=== PATIENT | male | born 1935 | race Caucasian/White ===

== ENCOUNTER 2019-02-09 18:53 | Inpatient (IN) | payer OTHER, MEDICARE ==
[2019-02-09] MEDS ORDERED: SODIUM CHLORIDE 0.9% 500 ML 500 ML IV STA (19:24)
[2019-02-09] MEDS ORDERED: SODIUM CHLORIDE 0.9% 1,000 ML IV STA (19:24)
[2019-02-09] MEDS ORDERED: PANTOPRAZOLE 40 MG/10 ML VIAL IVP STA (19:24)
[2019-02-09] MEDS ORDERED: ONDANSETRON 4 MG/2 ML VIAL IVP STA (19:24)
[2019-02-09 19:28] LABS: Glucose,Whole Blood 321 mg/dL (75-99)
--- NOTE | 2019-02-09 19:34 | ED ---
General Adult HPI - General Chief complaint: Abdominal Pain Stated complaint: Vomiting,Abd pain Time Seen by Provider: 02/09/19 19:04 Source: patient, family, RN notes reviewed Mode of arrival: ambulatory Limitations: physical limitation - History of Present Illness Initial comments: Chief complaint and history of present illness this is an 86-year-old male here with family. Patient states for the past 3 months she's had on-again off-again nausea vomiting and diarrhea. For the past 2 days not been able to eat or keep anything down. He had diarrhea just prior to coming emergency room. This was not necessarily precipitated by any particular illness started 3 months ago denies any antibiotics. Denies seeing any blood in the vomit or diarrhea. Patient is insulin-dependent diabetic he's not been taking his medications and has not been checking his sugars. He reportedly has lost weight. Is having abdominal cramping. - Related Data Home Medications Medication Instructions Recorded Confirmed Aspirin [[place] Aspirin EC] 81 mg PO DAILY 02/09/19 02/09/19 Cyanocobalamin (Vitamin B-12) 1,000 mcg PO DAILY 02/09/19 02/09/19 [Vitamin B-12] Finasteride [Proscar] 5 mg PO DAILY 02/09/19 02/09/19 Insulin Aspart [NovoLOG] 20 units SQ BID 02/09/19 02/09/19 Insulin Glargine [Lantus] 28 units SQ BID 02/09/19 02/09/19 Lisinopril [Prinivil] 5 mg PO DAILY 02/09/19 02/09/19 Omeprazole 20 mg PO DAILY 02/09/19 02/09/19 Saxagliptin HCl [Onglyza] 5 mg PO DAILY 02/09/19 02/09/19 Simvastatin [Zocor] 10 mg PO HS 02/09/19 02/09/19 traMADol HCL [Ultram] 100 mg PO BID 02/09/19 02/09/19 Allergies Allergy/AdvReac Type Severity Reaction Status Date / Time No Known Allergies Allergy Verified 02/09/19 19:33 Review of Systems ROS Statement: Those systems with pertinent positive or pertinent negative responses have been documented in the HPI. Review of systems. The patient reports that he is tired, hungry but vomits when he tries to eat. Complains of abdominal discomfort. Frequent vomiting and loose stool. Not taking his medications because of the problems he is having. No neuro deficits. All systems are reviewed. Denying chest pain or shortness of breath. Patient's past medical problems significant for insulin-dependent diabetes mellitus, hyperlipidemia, hypertension. Previous RI. Chronic back pain but does not take any medications. Family history sister stomach cancer. The patient denies any ALLERGIES he quit smoking 40 years ago denies alcohol use. ROS Other: All systems not noted in ROS Statement are negative. Past Medical History Past Medical History: Diabetes Mellitus, Hyperlipidemia, Hypertension, Myocardial Infarction ([place]) Additional Past Medical History / Comment(s): back pain History of Any Multi-Drug Resistant Organisms: None Reported Additional Past Surgical History / Comment(s): foot Past Psychological History: No Psychological Hx Reported Smoking Status: Former smoker Past Alcohol Use History: None Reported Past Drug Use History: None Reported General Exam - General Exam Comments Initial Comments: General: The patient is awake appears uncomfortable and fatigued. States she's had nausea vomiting and diarrhea for 2 straight days. Unable to take his medicatio ns has not been checking his blood sugar. Upper abdominal cramping. Vital signs shows temperature, pulse 92 respiratory rate 20 pulse ox 90% room air blood pressure 99/69.. Eye: Pupils are equal, round and reactive to light, extra-ocular movements are intact; there is normal conjunctiva bilaterally. No signs of icterus. Evidence of having had cataracts removed. Ears, nose, mouth and throat: Dry mucous membranes Neck: The neck is supple, there is no tenderness or JVD. Cardiovascular: There is a regular rate and rhythm. No murmur, rub or gallop is appreciated. Respiratory: Lungs are clear to auscultation, respirations are non-labored, breath sounds are equal. No wheezes, stridor, rales, or rhonchi. Gastrointestinal: Abdomen tender, hypoactive bowel sounds, guarding Back There is no tenderness to palpation in the midline. There is no obvious deformity. No rashes noted. Musculoskeletal: Normal ROM, no tenderness, There is no pedal edema. There is no calf tenderness or swelling. Neurological: Complains of feeling weak. But denies any focal or lateralizing deficits Skin: Skin is warm and dry and no rashes or lesions are noted. Psychiatric: Cooperative, Limitations: physical limitation Course Vital Signs 02/09/19 02/09/19 02/09/19 18:53 19:58 21:57 Temperature 98.2 F 98.6 F Pulse Rate 92 91 88 Respiratory 20 16 18 Rate Blood Pressure 99/69 147/85 129/96 O2 Sat by Pulse 98 98 95 Oximetry Medical Decision Making - Medical Decision Making Medical decision making; was an 83-year-old male to complaint of nausea vomiting diarrhea for the past several days. This been on again off again for 3 months. Patient is not able take his medications as complaining of abdominal pain. X-rays of the abdomen reviewed by radiologist and her impression is marked colonic dilatation greater than [address] this patient at risk for colonic rupture. Possibility of rectal bowel gas is concerning for distal obstruction and this could be further evaluated with CT. Case discussed with Dr. Hu hairspring fabrication supervisor for general surgery. History, labs and renal function tests all discussed. He wants a CAT scan of the abdomen and pelvis without contrast. Labs show white count of 20,000, BUN 15.7 hematocrit of 49. Leukos 399. Acetone negative. INR 1.0. Potassium 6.5. BUN 45 creatinine 3.18 with a GFR of only 17. Amylase lipase normal limits. The patient received IV hydration, the receive 8 units of insulin IV push to both bring down the glucose as well as potassium. The case discussed with on-call hospitalist Dr. Urrutia. CAT scan pending. CT the abdomen was done without IV or oral contrast due to the fact the patient has chronic renal failure. The radiologist's findings were reviewed. Specifically she reports a there is marked oh distention of the fluid-filled colon with an abrupt cutoff in the descending colon. There is no evidence of twisting of the bowel or mesentery to suggest volvulus and obstruction mass is highly suspected. There is collapse of the entirety of the more distal bowel including the distal descending colon, sigmoid colon and rectum. Additionally there are abnormal appearing adjacent lymph nodes on coronal imaging and descending colonic volvulus would be rare. The patient also describes chronic symptoms and therefore obstructing mass is more likely. There is marked dilatation of fluid-filled small bowel with high density in the cecum that could relate to ingested food products or subacute hemorrhage. Impression Impression; complete bowel obstruction with transition point at the mid descending colon. This is highly favored to represent obstructing colonic mass rather than volvulus for reasons described above. Additionally abnormal local lymph nodes surrounding the point of transition and solitary hepatic lesions suspicious for metastasis. Surgical consultation recommended. Findings were discussed with the ordering ER physician. Left basilar reticular nodular opacity. Aspiration pneumonia could be considered as there is a dilated fluid- filled esophageal , and narrowing of the gastroesophageal junction and may relate to stricture. A high density within the cecum could relate to ingested food products or subacute hemorrhagic product. Correlate with melena clin ically. As read by Dr. Abelardo Hu reviewed the CAT scan, wrote orders including antibiotics and he'll talk to the fuels engineer. I to will discuss this case with the fuels engineer. Patient be admitted to the ICU - Lab Data Result diagrams: 02/09/19 19:45 02/09/19 19:45 Lab Results 02/09/19 02/09/19 02/09/19 Range/Units 19:26 19:45 19:45 WBC 20.9 H (3.8-10.6) k/uL RBC 5.08 (4.30-5.90) m/uL Hgb 15.7 (13.0-17.5) gm/dL Hct 49.0 (39.0-53.0) % MCV 96.5 (80.0-100.0) fL MCH 30.9 (25.0-35.0) pg MCHC 32.0 (31.0-37.0) g/dL RDW 14.2 (11.5-15.5) % Plt Count 329 (150-450) k/uL Neutrophils % 87 % Lymphocytes % 8 % Monocytes % 3 % Eosinophils % 0 % Basophils % 1 % Neutrophils # 18.3 H (1.3-7.7) k/uL Lymphocytes # 1.6 (1.0-4.8) k/uL Monocytes # 0.7 (0-1.0) k/uL Eosinophils # 0.0 (0-0.7) k/uL Basophils # 0.1 (0-0.2) k/uL PT (9.0-12.0) sec INR (<1.2) Sodium 137 (137-145) mmol/L Potassium 6.5 H* (3.5-5.1) mmol/L Chloride 106 (98-107) mmol/L Carbon Dioxide 11 L (22-30) mmol/L Anion Gap 20 mmol/L BUN 45 H (9-20) mg/dL Creatinine 3.18 H (0.66-1.25) mg/dL Est GFR (CKD-EPI)AfAm 20 (>60 ml/min/1.73 sqM) Est GFR (CKD-EPI)NonAf 17 (>60 ml/min/1.73 sqM) Glucose 399 H (74-99) mg/dL POC Glucose (mg/dL) 321 H (75-99) mg/dL POC Glu Equipment Operator/Laborer/Supervisor ID Radha Davey Plasma Lactic Acid Ravi (0.7-2.0) mmol/L Calcium 11.2 H (8.4-10.2) mg/dL Total Bilirubin 0.8 (0.2-1.3) mg/dL AST 31 (17-59) U/L ALT 20 L (21-72) U/L Alkaline Phosphatase 95 (38-126) U/L Total Protein 9.0 H (6.3-8.2) g/dL Albumin 5.0 (3.5-5.0) g/dL Amylase 70 (30-110) U/L Lipase 142 (23-300) U/L Acetone, Qual Negative (Negative) 02/09/19 02/09/19 Range/Units 19:45 19:45 WBC (3.8-10.6) k/uL RBC (4.30-5.90) m/uL Hgb (13.0-17.5) gm/dL Hct (39.0-53.0) % MCV (80.0-100.0) fL MCH (25.0-35.0) pg MCHC (31.0-37.0) g/dL RDW (11.5-15.5) % Plt Count (150-450) k/uL Neutrophils % % Lymphocytes % % Monocytes % % Eosinophils % % Basophils % % Neutrophils # (1.3-7.7) k/uL Lymphocytes # (1.0-4.8) k/uL Monocytes # (0-1.0) k/uL Eosinophils # (0-0.7) k/uL Basophils # (0-0.2) k/uL PT 10.8 (9.0-12.0) sec INR 1.0 (<1.2) Sodium (137-145) mmol/L Potassium (3.5-5.1) mmol/L Chloride (98-107) mmol/L Carbon Dioxide (22-30) mmol/L Anion Gap mmol/L BUN (9-20) mg/dL Creatinine (0.66-1.25) mg/dL Est GFR (CKD-EPI)AfAm (>60 ml/min/1.73 sqM) Est GFR (CKD-EPI)NonAf (>60 ml/min/1.73 sqM) Glucose (74-99) mg/dL POC Glucose (mg/dL) (75-99) mg/dL POC Glu Equipment Operator/Laborer/Supervisor ID Plasma Lactic Acid Ravi 5.4 H* (0.7-2.0) mmol/L Calcium (8.4-10.2) mg/dL Total Bilirubin (0.2-1.3) mg/dL AST (17-59) U/L ALT (21-72) U/L Alkaline Phosphatase (38-126) U/L Total Protein (6.3-8.2) g/dL Albumin (3.5-5.0) g/dL Amylase (30-110) U/L Lipase (23-300) U/L Acetone, Qual (Negative) Critical Care Time Critical Care Time: Yes (Bedside longer than 30 minutes. Conversations with ICU doctor, surgeon, ra) Total Critical Care Time: 40 Disposition Clinical Impression: Bowel obstruction, Acute renal failure, Hyperkalemia Disposition: ADMITTED IP TO THIS HOSP Condition: Serious Referrals: [facility],Clinic [Primary Care Provider] - 1-2 days
[2019-02-09 19:59] LABS: Basophils # (A) 0.1 k/uL (0-0.2); Basophils % (A) 1 %; Eosinophils % (A) 0 %; HGB 15.7 gm/dL (13.0-17.5); Lymphocytes # (A) 1.6 k/uL (1.0-4.8); Lymphocytes % (A) 8 %; MCH 30.9 pg (25.0-35.0); MCV 96.5 fL (80.0-100.0); Mean Platelet Volume 8.7; Monocytes # (A) 0.7 k/uL (0-1.0); Monocytes % (A) 3 %; Neutrophils # (A) 18.3 k/uL (1.3-7.7); Neutrophils % (A) 87 %; Platelet Count 329 k/uL (150-450); RBC 5.08 m/uL (4.30-5.90); RDW 14.2 % (11.5-15.5); WBC 20.9 k/uL (3.8-10.6)
[2019-02-09 20:04] LABS: Prothrombin Time 10.8 sec (9.0-12.0)
[2019-02-09 20:09] LABS: ALT 20 U/L (21-72); AST 31 U/L (17-59); Alkaline Phosphatase 95 U/L (38-126); Amylase 70 U/L (30-110); Anion Gap 20 mmol/L; Blood Urea Nitrogen 45 mg/dL (9-20); Calcium 11.2 mg/dL (8.4-10.2); Carbon Dioxide 11 mmol/L (22-30); Chloride 106 mmol/L (98-107); Glucose 399 mg/dL (74-99); Lipase 142 U/L (23-300); Sodium 137 mmol/L (137-145); Total Bilirubin 0.8 mg/dL (0.2-1.3)
--- NOTE | 2019-02-09 20:19 | XR ---
EXAMINATION TYPE: XR abdomen 2V DATE OF EXAM: 02/09/2019 8:04 PM CLINICAL HISTORY: Abdominal pain, vomiting, and diarrhea for 3 months TECHNIQUE: Upright and supine images of the abdomen were obtained. COMPARISON: None. FINDINGS: Colonic air-fluid levels suggest malabsorption. The colon is markedly dilated measuring up to 11.6 cm placing this patient at risk for rupture. No gross evidence of pneumoperitoneum is seen. P aucity of bowel gas in the rectal vault is concerning for obstruction. Lung bases are well aerated. M oderate degenerative changes of the spine are noted. IMPRESSION: Marked colonic dilation greater than [address] this patient at risk for colonic ruptur e. Paucity of rectal bowel gas is concerning for distal obstruction and this could be further evaluat ed with CT.
[2019-02-09 20:25] LABS: Potassium 6.5 mmol/L (3.5-5.1)
[2019-02-09] MEDS ORDERED: INSULIN REGULAR 100 UNIT/ML VIAL IV ONE (20:40)
--- NOTE | 2019-02-09 21:23 | CT ---
EXAMINATION TYPE: CT abdomen pelvis wo con DATE OF EXAM: 02/09/2019 COMPARISON: Abdominal radiograph the same date HISTORY: ABDOMINAL PAIN CT DLP: 549.4 mGycm Automated exposure control for dose reduction was used. TECHNIQUE: Helical acquisition of images was performed from the lung bases through the pelvis. FINDINGS: LUNG BASES: Dependent subsegmental atelectasis is seen at the lung bases as well as reticular nodular opacity at the left lung base. Aspiration pneumonia could be considered as there is an air-fluid lev el in the dilated distal esophagus. There is also some distal esophageal mucosal thickening that coul d relate to stricture. LIVER/GB: Suspicious approximately 9 mm lesion in segment 7 of the liver as seen on image 27. There i s limitation in evaluation of the liver by lack of contrast. No cholelithiasis is seen in the displac ed gallbladder by the dilated bowel. PANCREAS: Mild pancreatic parenchymal atrophy. SPLEEN: No significant abnormality is seen. ADRENALS: No adrenal gland nodule. KIDNEYS: Kidneys appear slightly atrophic with minimal surrounding perinephric fat stranding. No hydr onephrosis or nephrolithiasis. FREE AIR: No free air is visualized ADENOPATHY: Abnormal-appearing lymph nodes surrounding the colon locally clustered on image 72 and 7 0 measuring up to 6 mm on series 202 (coronal). URINARY BLADDER: No significant abnormality is seen. OSSEOUS STRUCTURES: Extensive degenerative changes of the thoracic spine and moderate to severe dege nerative changes of the lumbosacral sacral spine are seen. Grade 1 anterolisthesis of L4 on L5 is pre sent. Flowing anterior osteophytes suggest diffuse idiopathic skeletal hyperostosis. Lucent lesions o f L5 could be in a degenerative basis with metastasis less likely. BOWEL: There is marked distention of the fluid-filled colon with abrupt cut off in the descending co missael. There is no evidence of twisting of the bowel or mesentery to suggest volvulus and obstructing m ass is highly suspected. There is collapse of entirety of the more distal bowel including the distal descending colon, sigmoid colon and rectum. Additionally there are abnormal appearing adjacent lymph nodes on coronal imaging and descending colonic volvulus would be rare. The patient also describes ch ronic symptoms and therefore obstructing mass is more likely. There is marked dilatation of fluid-sly led small bowel with high density in the cecum that could relate to ingested food products or subacut e hemorrhage. OTHER: Extensive atherosclerosis is seen of the abdominal aorta and its branches. Inguinal canals are patulous. IMPRESSION: 1. COMPLETE BOWEL OBSTRUCTION WITH TRANSITION POINT AT THE MID DESCENDING COLON. THIS IS HIGHLY FAVOR ED TO REPRESENT OBSTRUCTING COLONIC MASS RATHER THAN VOLVULUS FOR REASONS DESCRIBED ABOVE. ADDITIONAL LY ABNORMAL LOCAL LYMPH NODES SURROUND THE POINT OF TRANSITION AND SOLITARY HEPATIC LESION SUSPICIOUS FOR METASTASIS. SURGICAL CONSULTATION IS RECOMMENDED. FINDINGS WERE DISCUSSED WITH THE ORDERING ER P JEANINE AT 2120 ON 02/09/[address] ELLER. 2. LEFT BASILAR RETICULAR NODULAR OPACITY. ASPIRATION PNEUMONIA COULD BE CONSIDERED THERE IS A DIL ATED FLUID-FILLED DISTAL ESOPHAGUS AND NARROWING OF THE GASTROESOPHAGEAL JUNCTION AND MAY RELATE TO S TRICTURE. 3. HIGH DENSITY WITHIN THE CECUM AND COULD RELATE TO INGESTED FOOD PRODUCTS OR SUBACUTE HEMORRHAGIC P RODUCTS. CORRELATE WITH MELENA CLINICALLY.
[2019-02-09] MEDS ORDERED: ACETAMINOPHEN IV (For NPO) 1,000 MG in EMPTY BAG 1 BAG IVPB ONE (21:43)
[2019-02-09] MEDS ORDERED: LACTATED RINGERS 1,000 ML IV ONE (21:43)
[2019-02-09] MEDS ORDERED: PIPERACILLIN-TAZOBACTAM 3.375 GM in SODIUM CHLORIDE 0.9% 100 ML IVPB SCH (22:15)
[2019-02-09] MEDS ORDERED: LEVOFLOXACIN 500MG-D5W PMX 500 MG in DEXTROSE/WATER 1 100ML.BAG IVPB SCH (22:15)
[2019-02-09] MEDS ORDERED: ALBUTEROL NEBULIZED 2.5 MG/3 ML INHALATION STA (22:23)
[2019-02-09] MEDS ORDERED: NALOXONE 0.4 MG/ML 1 ML VIAL IV PRN (22:32)
[2019-02-09 22:43] LABS: Glucose,Whole Blood 352 mg/dL (75-99)
[2019-02-10 00:05] LABS: Glucose,Whole Blood 306 mg/dL (75-99)
[2019-02-10 01:25] LABS: Amorphous Sediment,Urine Occasional /hpf; Appearance,Urine Cloudy (Clear); Bilirubin,Urine Negative (Negative); Blood,Urine Negative (Negative); Color,Urine Yellow; Glucose,Urine (UA) Negative (Negative); Hyaline Casts,Urine 3 /lpf (0-2); Ketones,Urine Negative (Negative); Leukocyte Esterase,Urine Negative (Negative); Mucus,Urine Rare /hpf; Nitrite,Urine Negative (Negative); Protein,Urine 1+ (Negative); RBC,Urine <1 /hpf (0-5); Specific Gravity,Urine 1.022 (1.001-1.035); Squamous Epithelial Cell,Urine 1 /hpf (0-4); Urobilinogen,Urine <2.0 mg/dL (<2.0)
[2019-02-10 02:18] LABS: Glucose,Whole Blood 244 mg/dL (75-99)
[2019-02-10] MEDS ORDERED: SODIUM BICARB 8.4% 50 ML SYR (1 MEQ/ML) IV STA (02:19)
[2019-02-10] MEDS ORDERED: INSULIN REGULAR 100 UNIT/ML VIAL IV ONE (02:21)
[2019-02-10] MEDS ORDERED: DEXTROSE 50% SYRINGE 50 ML IVP STA (02:21)
[2019-02-10] MEDS: INSULIN ASPART (NovoLOG) 100 UNIT/ML VIAL SQ SCH ×4 (02:41→18:16)
[2019-02-10] MEDS: PIPERACILLIN-TAZOBACTAM 3.375 GM in SODIUM CHLORIDE 0.9% 100 ML IVPB SCH ×3 (02:49→15:38)
[2019-02-10] MEDS: HEPARIN SODIUM,PORCINE 5,000 UNIT/ML 1 ML VIAL SQ SCH ×3 (02:49→15:36)
[2019-02-10] MEDS: DEXTROSE 5% IN WATER 1,000 ML with SODIUM BICARB (1 MEQ/ML) 150 ML IV SCH ×2 (03:00→12:09)
[2019-02-10 06:28] LABS: Albumin 3.2 g/dL (3.5-5.0); Calcium 8.8 mg/dL (8.4-10.2); Magnesium 1.5 mg/dL (1.6-2.3); Phosphorus 3.5 mg/dL (2.5-4.5); Potassium 4.2 mmol/L (3.5-5.1); Total Bilirubin 0.5 mg/dL (0.2-1.3); Total Protein 5.9 g/dL (6.3-8.2)
[2019-02-10 06:33] LABS: Glucose,Whole Blood 196 mg/dL (75-99)
--- NOTE | 2019-02-10 06:43 | XR ---
EXAMINATION TYPE: XR chest 1V portable DATE OF EXAM: 02/10/2019 HISTORY: s/p NG placement. REFERENCE: NONE. FINDINGS: An NG tube is in place. Its tip is in stomach. The heart is not enlarged. There are mild increased markings throughout the chest. Pleural spaces are clear. IMPRESSION: 1. SATISFACTORY NG TUBE PLACEMENT. 2. NO ACUTE INTRATHORACIC ABNORMALITY.
[2019-02-10] MEDS ORDERED: Magnesium Replacement Protocol 1 EACH MISC MISCELLANE PRN (06:56)
[2019-02-10] MEDS: IPRATROPIUM-ALBUTEROL 3 ML NEB INHALATION SCH ×4 (07:09→19:47)
[2019-02-10] MEDS: MAGNESIUM SULFATE-D5W PMX 1 GM in DEXTROSE/WATER 1 100ML.BAG IVPB SCH ×2 (07:11→08:27)
--- NOTE | 2019-02-10 08:07 | P.GSHP ---
History of Present Illness H&P Date: 02/10/19 Chief Complaint: Colonic obstruction 83-year-old male presents to the hospital after having symptoms of intermittent vomiting diarrhea and constipation for the last 2-3 months. Over the last few days he has been vomiting persistently. His stools have been very loose and so mewhat infrequent. He describes bloating. Decreased appetite. He has lost some weight. Pain is at times crampy in nature. Abdominal x-ray showed significant colonic distention. CAT scan confirmed an obstruction in the proximal descending colon from a suspected tumor. Proximal colon significantly distended without evidence of pneumatosis or perforation. Patient's white blood cell count is 20.9. Potassium 6.5. Creatinine 3.18. The patient was admitted to the ICU for fluid resuscitation. Today's potassium is down to normal range currently. Blood sugar is improved. Patient states he slept for about 3-4 hours last night. Initially urine output was approximately 20 mL per hour but i s improved in the last few hours. No recent colonoscopy. - Review of Systems Comment: The patient denies any acute changes in vision or hearing, no dysphagia or odynophagia, no chest pain or shortness of breath, no dysuria or hematuria, no headache, no runny nose, no rectal bleeding or melena Past Medical History Past Medical History: Diabetes Mellitus, Hyperlipidemia, Hypertension, Myocardial Infarction ([place]) Additional Past Medical History / Comment(s): back pain Last Myocardial Infarction Date:: unknown History of Any Multi-Drug Resistant Organisms: None Reported Additional Past Surgical History / Comment(s): club foot surgery at 14 yo Past Psychological History: No Psychological Hx Reported Smoking Status: Former smoker Past Alcohol Use History: None Reported Past Drug Use History: None Reported Medications and Allergies Home Medications Medication Instructions Recorded Confirmed Type Aspirin [[place] Aspirin EC] 81 mg PO DAILY 02/09/19 02/09/19 History Cyanocobalamin (Vitamin B-12) 1,000 mcg PO DAILY 02/09/19 02/09/19 History [Vitamin B-12] Finasteride [Proscar] 5 mg PO DAILY 02/09/19 02/09/19 History Insulin Aspart [NovoLOG] 20 units SQ BID 02/09/19 02/09/19 History Insulin Glargine [Lantus] 28 units SQ BID 02/09/19 02/09/19 History Lisinopril [Prinivil] 5 mg PO DAILY 02/09/19 02/09/19 History Omeprazole 20 mg PO DAILY 02/09/19 02/09/19 History Saxagliptin HCl [Onglyza] 5 mg PO DAILY 02/09/19 02/09/19 History Simvastatin [Zocor] 10 mg PO HS 02/09/19 02/09/19 History traMADol HCL [Ultram] 100 mg PO BID 02/09/19 02/09/19 History Allergies Allergy/AdvReac Type Severity Reaction Status Date / Time No Known Allergies Allergy Verified 02/09/19 19:33 Surgical - Exam Vital Signs Pulse Resp BP Pulse Ox 92 20 99/69 98 02/09/19 18:53 02/09/19 18:53 02/09/19 18:53 02/09/19 18:53 Physical exam: General: Well-developed, well-nourished HEENT: Normocephalic, sclerae nonicteric Abdomen: Mild distention, mild diffuse tenderness Extremities: No edema Neuro: Alert and oriented Results - Labs 02/09/19 19:45 02/10/19 05:18 Abnormal Lab Results - Last 24 Hours (Table) 02/09/19 02/09/19 02/09/19 Range/Units 19:26 19:45 19:45 WBC 20.9 H (3.8-10.6) k/uL Neutrophils # 18.3 H (1.3-7.7) k/uL Potassium 6.5 H* (3.5-5.1) mmol/L Chloride (98-107) mmol/L Carbon Dioxide 11 L (22-30) mmol/L BUN 45 H (9-20) mg/dL Creatinine 3.18 H (0.66-1.25) mg/dL Glucose 399 H (74-99) mg/dL POC Glucose (mg/dL) 321 H (75-99) mg/dL Plasma Lactic Acid Ravi (0.7-2.0) mmol/L Calcium 11.2 H (8.4-10.2) mg/dL Magnesium (1.6-2.3) mg/dL ALT 20 L (21-72) U/L Total Protein 9.0 H (6.3-8.2) g/dL Albumin (3.5-5.0) g/dL Urine Protein (Negative) Amorphous Sediment (None) /hpf Hyaline Casts (0-2) /lpf Urine Mucus (None) /hpf 02/09/19 02/09/19 02/09/19 Range/Units 19:45 22:41 23:41 WBC (3.8-10.6) k/uL Neutrophils # (1.3-7.7) k/uL Potassium (3.5-5.1) mmol/L Chloride (98-107) mmol/L Carbon Dioxide (22-30) mmol/L BUN (9-20) mg/dL Creatinine (0.66-1.25) mg/dL Glucose (74-99) mg/dL POC Glucose (mg/dL) 352 H (75-99) mg/dL Plasma Lactic Acid Ravi 5.4 H* 3.8 H* (0.7-2.0) mmol/L Calcium (8.4-10.2) mg/dL Magnesium (1.6-2.3) mg/dL ALT (21-72) U/L Total Protein (6.3-8.2) g/dL Albumin (3.5-5.0) g/dL Urine Protein (Negative) Amorphous Sediment (None) /hpf Hyaline Casts (0-2) /lpf Urine Mucus (None) /hpf 02/09/19 02/10/19 02/10/19 Range/Units 23:54 00:20 00:20 WBC (3.8-10.6) k/uL Neutrophils # (1.3-7.7) k/uL Potassium 6.2 H* (3.5-5.1) mmol/L Chloride (98-107) mmol/L Carbon Dioxide (22-30) mmol/L BUN (9-20) mg/dL Creatinine (0.66-1.25) mg/dL Glucose (74-99) mg/dL POC Glucose (mg/dL) 306 H (75-99) mg/dL Plasma Lactic Acid Ravi (0.7-2.0) mmol/L Calcium (8.4-10.2) mg/dL Magnesium (1.6-2.3) mg/dL ALT (21-72) U/L Total Protein (6.3-8.2) g/dL Albumin (3.5-5.0) g/dL Urine Protein 1+ H (Negative) Amorphous Sediment Occasional H (None) /hpf Hyaline Casts 3 H (0-2) /lpf Urine Mucus Rare H (None) /hpf 02/10/19 02/10/19 02/10/19 Range/Units 02:07 05:18 06:21 WBC (3.8-10.6) k/uL Neutrophils # (1.3-7.7) k/uL Potassium (3.5-5.1) mmol/L Chloride 109 H (98-107) mmol/L Carbon Dioxide 20 L (22-30) mmol/L BUN 60 H (9-20) mg/dL Creatinine 2.98 H (0.66-1.25) mg/dL Glucose 191 H (74-99) mg/dL POC Glucose (mg/dL) 244 H 196 H (75-99) mg/dL Plasma Lactic Acid Ravi (0.7-2.0) mmol/L Calcium (8.4-10.2) mg/dL Magnesium 1.5 L (1.6-2.3) mg/dL ALT (21-72) U/L Total Protein 5.9 L (6.3-8.2) g/dL Albumin 3.2 L (3.5-5.0) g/dL Urine Protein (Negative) Amorphous Sediment (None) /hpf Hyaline Casts (0-2) /lpf Urine Mucus (None) /hpf Diabetes panel 02/09/19 02/10/19 02/10/19 Range/Units 19:45 00:20 05:18 Sodium 137 141 (137-145) mmol/L Potassium 6.5 H* 6.2 H* 4.2 (3.5-5.1) mmol/L Chloride 106 109 H (98-107) mmol/L Carbon Dioxide 11 L 20 L (22-30) mmol/L BUN 45 H 60 H (9-20) mg/dL Creatinine 3.18 H 2.98 H (0.66-1.25) mg/dL Glucose 399 H 191 H (74-99) mg/dL Calcium 11.2 H 8.8 (8.4-10.2) mg/dL AST 31 22 (17-59) U/L ALT 20 L 23 (21-72) U/L Alkaline Phosphatase 95 60 (38-126) U/L Total Protein 9.0 H 5.9 L (6.3-8.2) g/dL Albumin 5.0 3.2 L (3.5-5.0) g/dL Calcium panel 02/09/19 02/10/19 Range/Units 19:45 05:18 Calcium 11.2 H 8.8 (8.4-10.2) mg/dL Phosphorus 3.5 (2.5-4.5) mg/dL Albumin 5.0 3.2 L (3.5-5.0) g/dL Pituitary panel 02/09/19 02/10/19 02/10/19 Range/Units 19:45 00:20 05:18 Sodium 137 141 (137-145) mmol/L Potassium 6.5 H* 6.2 H* 4.2 (3.5-5.1) mmol/L Chloride 106 109 H (98-107) mmol/L Carbon Dioxide 11 L 20 L (22-30) mmol/L BUN 45 H 60 H (9-20) mg/dL Creatinine 3.18 H 2.98 H (0.66-1.25) mg/dL Glucose 399 H 191 H (74-99) mg/dL Calcium 11.2 H 8.8 (8.4-10.2) mg/dL Adrenal panel 02/09/19 02/10/19 02/10/19 Range/Units 19:45 00:20 05:18 Sodium 137 141 (137-145) mmol/L Potassium 6.5 H* 6.2 H* 4.2 (3.5-5.1) mmol/L Chloride 106 109 H (98-107) mmol/L Carbon Dioxide 11 L 20 L (22-30) mmol/L BUN 45 H 60 H (9-20) mg/dL Creatinine 3.18 H 2.98 H (0.66-1.25) mg/dL Glucose 399 H 191 H (74-99) mg/dL Calcium 11.2 H 8.8 (8.4-10.2) mg/dL Total Bilirubin 0.8 0.5 (0.2-1.3) mg/dL AST 31 22 (17-59) U/L ALT 20 L 23 (21-72) U/L Alkaline Phosphatase 95 60 (38-126) U/L Total Protein 9.0 H 5.9 L (6.3-8.2) g/dL Albumin 5.0 3.2 L (3.5-5.0) g/dL Assessment and Plan (1) Colonic obstruction Narrative/Plan: Clinical scenario discussed in detail with the patient and his daughter. We'll proceed with exploratory laparotomy, partial colectomy, end colostomy this morning. Risks of bleeding, infection, ureteral injury, ostomy-related complications, pulmonary and cardiac complications, hernia, need for colostomy reviewed. They understand and wish to proceed. Current Visit: Yes Status: Acute Code(s): K56.609 - UNSP INTESTNL OBST, UNSP TO PARTIAL VERSUS COMPLETE OBST SNOMED Code(s): 87023436
[2019-02-10 08:38] LABS: Basophils % (A) 0 %; Eosinophils % (A) 0 %; HCT 37.4 % (39.0-53.0); Lymphocytes % (A) 10 %; MCH 29.8 pg (25.0-35.0); MCHC 32.5 g/dL (31.0-37.0); MCV 91.6 fL (80.0-100.0); Mean Platelet Volume 8.6; Monocytes # (A) 0.7 k/uL (0-1.0); Monocytes % (A) 7 %; Neutrophils # (A) 8.4 k/uL (1.3-7.7); Neutrophils % (A) 81 %; Platelet Count 213 k/uL (150-450); RBC 4.08 m/uL (4.30-5.90); RDW 13.2 % (11.5-15.5); WBC 10.3 k/uL (3.8-10.6)
[2019-02-10 08:53] LABS: HGB 12.2 gm/dL (13.0-17.5)
--- NOTE | 2019-02-10 09:04 | P.CONS ---
History of Present Illness - Reason for Consult Consult date: 02/10/19 diabetes, pre-op evaluation Requesting physician: Juan David Mejia - Chief Complaint abdominal pain - History of Present Illness Patient is an 83 CM with a history of diabetes mellitus insulin requiring, hypertension, dyslipidemia, and prior [place] cardial infarction who presented to the ER with complaints of abdominal pain. In the ER he underwent an extensive evaluation. His initial vital signs were stable. Initial laboratory analysis revealed hyperkalemia, anion gap metabolic acidosis, acute kidney injury, hyperglycemia, and elevated white blood cell count. He was also noted that he had an elevated calcium level and total protein. He underwent a CT abdomen and pelvis which showed complete bowel obstruction with transition point in the mid to descending colon with probable colonic mass lymphadenopathy, and solitary hepatic lesion. He was started on IV fluids, antiemetics, and was given a dose of PPI and insulin. He is admitted to Dr. Mejia in the ICU for further care. Nephrology and critical care are also following the patient. He was started on bicarb gtt, and received additional IV insulin. On the morning of 02/10 his creatinine was improved, acidosis is better, and potassium had normalized. He is going for urgent exploratory laparoscopy, partial colectomy, and colostomy. Patient seen and examined at bedside. He states that starting November 23 he began having nausea and vomiting, loose stools. He has a stool almost every day but it is always loose. He may vomit once per day but up to 6 times per day depending on what he eats. He also reports a 20 pound weight loss over that point in time. He states that for the last week he has felt extremely weak and tired. He has not had any chest pain, shortness of breath, syncope, one arm or one leg that is weak, numbness and tingling, headaches, blurry vision, dysphasia, or difficulty speaking. He lives home alone and does all of his own housework and long work. He does not need a cane or walker. He follows at the [facility]. He does state that they've he was told he had a myocardial infarction in the past. He states that one of his four-chamber spent on the bottom doesn't work well. He has not had any cardiac stenting or cardiac surgery in the past. He states that he would not want prolonged ventilation but is okay with needed ventilation for surgery. He denies any known history of cancer. Last week he is doing his own grocery shopping and walk approximately 2 blocks at [employer] followed by Fred while pushing a grocery cart. He has no stairs at home and has not climbed a flight in a while. He feels too weak to climb stairs now walk 2 blocks. However last week he was able to do so without any chest pain, palpitations, shortness of breath, diaphoresis, or syncope. Review of Systems Pertinent positives and negatives as discussed in HPI, a complete review of systems was performed and all other systems are negative. Past Medical History Past Medical History: Diabetes Mellitus, Hyperlipidemia, Hypertension, Myocardial Infarction ([place]) Additional Past Medical History / Comment(s): back pain Last Myocardial Infarction Date:: unknown History of Any Multi-Drug Resistant Organisms: None Reported Additional Past Surgical History / Comment(s): club foot surgery at 14 yo, tonsillectomy Past Psychological History: No Psychological Hx Reported Smoking Status: Former smoker Past Alcohol Use History: None Reported Past Drug Use History: None Reported Additional History: Lives at home alone, no assisted devices, independent in all ADLs and IADLs - Past Family History Father Additional Family Medical History / Comment(s): at 95 of old age Mother Additional Family Medical History / Comment(s): at 93 of old age, had a myocardial infarction in her upper 80s. Medications and Allergies Home Medications Medication Instructions Recorded Confirmed Type Aspirin [Putnam Aspirin EC] 81 mg PO DAILY 02/09/19 02/09/19 History Cyanocobalamin (Vitamin B-12) 1,000 mcg PO DAILY 02/09/19 02/09/19 History [Vitamin B-12] Finasteride [Proscar] 5 mg PO DAILY 02/09/19 02/09/19 History Insulin Aspart [NovoLOG] 20 units SQ BID 02/09/19 02/09/19 History Insulin Glargine [Lantus] 28 units SQ BID 02/09/19 02/09/19 History Lisinopril [Prinivil] 5 mg PO DAILY 02/09/19 02/09/19 History Omeprazole 20 mg PO DAILY 02/09/19 02/09/19 History Saxagliptin HCl [Onglyza] 5 mg PO DAILY 02/09/19 02/09/19 History Simvastatin [Zocor] 10 mg PO HS 02/09/19 02/09/19 History traMADol HCL [Ultram] 100 mg PO BID 02/09/19 02/09/19 History Allergies Allergy/AdvReac Type Severity Reaction Status Date / Time No Known Allergies Allergy Verified 02/09/19 19:33 Physical Exam Osteopathic Statement: *. No significant issues noted on an osteopathic structural exam other than those noted in the History and Physical/Consult. Vitals: Vital Signs Temp Pulse Pulse Resp BP BP Pulse Ox 02/10/19 08:00 97.6 F 78 16 115/54 94 L 02/10/19 07:34 97.6 F 94 16 104/58 02/10/19 07:23 84 02/10/19 07:11 90 02/10/19 07:00 90 17 110/55 93 L 02/10/19 06:00 90 20 106/62 93 L 02/10/19 05:00 96 20 118/65 93 L 02/10/19 04:30 85 19 113/66 94 L 02/10/19 04:00 98.0 F 100 19 98/51 94 L 02/10/19 03:30 96 15 95/49 93 L 02/10/19 03:00 98 20 109/57 93 L 02/10/19 02:30 100 18 90/79 94 L 02/10/19 02:00 98 16 122/81 93 L 02/10/19 01:30 137 H 15 119/78 95 02/10/19 01:00 97 17 94/66 94 L 02/10/19 00:30 95 22 131/73 94 L 02/10/19 00:00 98.7 F 100 27 H 137/78 94 L 02/09/19 23:41 103 H 16 02/09/19 23:32 102 H 16 02/09/19 23:29 98.6 F 57 L 16 133/93 95 02/09/19 22:42 104 H 16 129/96 95 02/09/19 21:57 98.6 F 88 18 129/96 95 02/09/19 19:58 98.2 F 91 16 147/85 98 02/09/19 18:53 92 20 99/69 98 Intake and Output 02/09/19 02/10/19 02/10/19 22:59 06:59 14:59 Intake Total 675 450 Output Total 155 50 Balance 520 400 Intake: Intake, IV Titration 675 450 Amount Dextrose 5% in Water 1, 375 250 000 ml @ 125 mls/hr IV . Q9H12M RAZ with Sodium Bicarb (1 Meq/ml) 150 ml Rx#:[id number] Magnesium Sulfate-D5w Pmx 100 1 gm In Dextrose/Water 1 100ml.bag @ 100 mls/hr IVPB Q1H RAZ Rx#: [id number] Piperacillin-Tazobactam 3 100 .375 gm In Sodium Chloride 0.9% 100 ml @ 200 mls/hr IVPB Q6H RAZ Rx#:[id number] Sodium Chloride 0.9% 1, 300 000 ml @ 100 mls/hr IV . Q10H STA Rx#:[id number] Output: Urine 155 50 Other: Voiding Method Indwelling Catheter Weight 74.843 kg 73.8 kg General: Ill-appearing, no distress, appears at stated age, normal weight, temporal wasting Derm: no unusual rashes/lesions no unusual ecchymoses, warm, dry Head: atraumatic, normocephalic, symmetric Eyes: EOMI, no lid lag, anicteric sclera, pupils equal round reactive to light ENT: Nose and ears atraumatic, no thrush, no pharyngeal erythema, NGT in place Neck: No thyromegaly, no cervical lymphadenopathy, trachea midline, supple Mouth: no lip lesion, mucus membranes dry Cardiovascular: S1S2 reg, no murmur, positive posterior tibial pulse bilateral, no edema, capillary refill less than 2 seconds Lungs: Decreased breath sounds bilaterally, no rhonchi, no rales , no accessory muscle use Abdominal: soft, nontender to palpation, no guarding, no appreciable organomegaly, normal bowel sounds Ext: + gross muscle atrophy, muscle strength 4 out of 5 in all 4 extremities grossly, no contractures, Neuro: CN II-XI grossly intact, light touch intact all 4 extremities, finger to nose within normal limits, Psych: Alert, oriented, appropriate affect Results CBC & Chem 7: 02/10/19 05:18 02/10/19 05:18 Labs: Abnormal Lab Results - Last 24 Hours (Table) 02/09/19 02/09/19 02/09/19 Range/Units 19:26 19:45 19:45 WBC 20.9 H (3.8-10.6) k/uL RBC (4.30-5.90) m/uL Hgb (13.0-17.5) gm/dL Hct (39.0-53.0) % Neutrophils # 18.3 H (1.3-7.7) k/uL Potassium 6.5 H* (3.5-5.1) mmol/L Chloride (98-107) mmol/L Carbon Dioxide 11 L (22-30) mmol/L BUN 45 H (9-20) mg/dL Creatinine 3.18 H (0.66-1.25) mg/dL Glucose 399 H (74-99) mg/dL POC Glucose (mg/dL) 321 H (75-99) mg/dL Plasma Lactic Acid Ravi (0.7-2.0) mmol/L Calcium 11.2 H (8.4-10.2) mg/dL Magnesium (1.6-2.3) mg/dL ALT 20 L (21-72) U/L Total Protein 9.0 H (6.3-8.2) g/dL Albumin (3.5-5.0) g/dL Urine Protein (Negative) Amorphous Sediment (None) /hpf Hyaline Casts (0-2) /lpf Urine Mucus (None) /hpf 02/09/19 02/09/19 02/09/19 Range/Units 19:45 22:41 23:41 WBC (3.8-10.6) k/uL RBC (4.30-5.90) m/uL Hgb (13.0-17.5) gm/dL Hct (39.0-53.0) % Neutrophils # (1.3-7.7) k/uL Potassium (3.5-5.1) mmol/L Chloride (98-107) mmol/L Carbon Dioxide (22-30) mmol/L BUN (9-20) mg/dL Creatinine (0.66-1.25) mg/dL Glucose (74-99) mg/dL POC Glucose (mg/dL) 352 H (75-99) mg/dL Plasma Lactic Acid Ravi 5.4 H* 3.8 H* (0.7-2.0) mmol/L Calcium (8.4-10.2) mg/dL Magnesium (1.6-2.3) mg/dL ALT (21-72) U/L Total Protein (6.3-8.2) g/dL Albumin (3.5-5.0) g/dL Urine Protein (Negative) Amorphous Sediment (None) /hpf Hyaline Casts (0-2) /lpf Urine Mucus (None) /hpf 02/09/19 02/10/19 02/10/19 Range/Units 23:54 00:20 00:20 WBC (3.8-10.6) k/uL RBC (4.30-5.90) m/uL Hgb (13.0-17.5) gm/dL Hct (39.0-53.0) % Neutrophils # (1.3-7.7) k/uL Potassium 6.2 H* (3.5-5.1) mmol/L Chloride (98-107) mmol/L Carbon Dioxide (22-30) mmol/L BUN (9-20) mg/dL Creatinine (0.66-1.25) mg/dL Glucose (74-99) mg/dL POC Glucose (mg/dL) 306 H (75-99) mg/dL Plasma Lactic Acid Ravi (0.7-2.0) mmol/L Calcium (8.4-10.2) mg/dL Magnesium (1.6-2.3) mg/dL ALT (21-72) U/L Total Protein (6.3-8.2) g/dL Albumin (3.5-5.0) g/dL Urine Protein 1+ H (Negative) Amorphous Sediment Occasional H (None) /hpf Hyaline Casts 3 H (0-2) /lpf Urine Mucus Rare H (None) /hpf 02/10/19 02/10/19 02/10/19 Range/Units 02:07 05:18 05:18 WBC (3.8-10.6) k/uL RBC 4.08 L (4.30-5.90) m/uL Hgb 12.2 L D (13.0-17.5) gm/dL Hct 37.4 L (39.0-53.0) % Neutrophils # 8.4 H (1.3-7.7) k/uL Potassium (3.5-5.1) mmol/L Chloride 109 H (98-107) mmol/L Carbon Dioxide 20 L (22-30) mmol/L BUN 60 H (9-20) mg/dL Creatinine 2.98 H (0.66-1.25) mg/dL Glucose 191 H (74-99) mg/dL POC Glucose (mg/dL) 244 H (75-99) mg/dL Plasma Lactic Acid Ravi (0.7-2.0) mmol/L Calcium (8.4-10.2) mg/dL Magnesium 1.5 L (1.6-2.3) mg/dL ALT (21-72) U/L Total Protein 5.9 L (6.3-8.2) g/dL Albumin 3.2 L (3.5-5.0) g/dL Urine Protein (Negative) Amorphous Sediment (None) /hpf Hyaline Casts (0-2) /lpf Urine Mucus (None) /hpf 02/10/19 Range/Units 06:21 WBC (3.8-10.6) k/uL RBC (4.30-5.90) m/uL Hgb (13.0-17.5) gm/dL Hct (39.0-53.0) % Neutrophils # (1.3-7.7) k/uL Potassium (3.5-5.1) mmol/L Chloride (98-107) mmol/L Carbon Dioxide (22-30) mmol/L BUN (9-20) mg/dL Creatinine (0.66-1.25) mg/dL Glucose (74-99) mg/dL POC Glucose (mg/dL) 196 H (75-99) mg/dL Plasma Lactic Acid Ravi (0.7-2.0) mmol/L Calcium (8.4-10.2) mg/dL Magnesium (1.6-2.3) mg/dL ALT (21-72) U/L Total Protein (6.3-8.2) g/dL Albumin (3.5-5.0) g/dL Urine Protein (Negative) Amorphous Sediment (None) /hpf Hyaline Casts (0-2) /lpf Urine Mucus (None) /hpf CT scan - abdomen: report reviewed CT scan - pelvis: report reviewed Assessment and Plan Assessment: Bowel obstruction - Likely due to colonic mass - NGT in place - Pain control, antiemetics - Going to OR today - zosyn/ flagyl Left lower lobe infiltrate on CT - no symptoms of PNA - on zosyn which would cover for aspiration PNA - monitor for sign of pneumonia and fevers 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 DIEGO with hyperkalemia, anion gap metabolic acidosis - nephro recs - on D5W with 3 amps of bicarb - avoid additional nephrotoxic agents - follow BMP in AM - renal US DM2 insulin requiring - SSI, avoid long acting as will be NPO after surgery, hold orals - May need inuslin gtt while on D5 will monito closely. - follow BS HTN, controlled - medications on hold - lisinopril - follow BP HLD - statin on hold until okay for orals Hypomagnesemia - replace and recheck in AM BPH - vasquez in place - resume flomax when able to tolerate orals Lactic acidosis, improved Preoperative evaluation: EKG reviewed reveals sinus tachycardia with frequent PACs at a rate of 107, and right bundle branch block. Patient was able to walk [place] [employer] while pushing a cart one week ago without chest pain, palpitations, or shortness of breath, he believes this was 2 blocks worth. He has not done a flight of stairs recently. He does have a history of diabetes with a heart attack in the past. Per patient one of his bottom chambers of the heart does not work well. He denies any history of congestive heart failure. No prior echocardiogram available. He also has acute kidney injury though his potassium and acidosis have been optimized prior to surgery. Patient is at elevated risk secondary to advanced age, acute kidney injury, and coronary artery disease for this is not prohibitive risk. Recommend proceeding with this emergent surgery without additional testing. DVT prophylaxis: Heparin Discussed with: Patient, nursing, Dr. Hess Anticipated discharge: unknown Anticipated discharge place: unknown A total of 65 minutes was spent on the care of this complex patient more than 50% of the time was spent in counseling and care coordination.
[2019-02-10] MEDS ORDERED: HEPARIN SODIUM,PORCINE 5,000 UNIT/ML 1 ML VIAL ONE (09:21)
[2019-02-10] MEDS ORDERED: fentaNYL (PF) 50 MCG/ML 2 ML AMP ONE (09:21)
[2019-02-10] MEDS ORDERED: LIDOCAINE 1% INJ 10MG/ML (20 ML MDV) ONE (09:21)
[2019-02-10] MEDS ORDERED: MIDAZOLAM 2 MG/2 ML VIAL ONE (09:21)
[2019-02-10] MEDS ORDERED: ONDANSETRON 4 MG/2 ML VIAL ONE (09:21)
[2019-02-10] MEDS ORDERED: PHENYLEPHRINE-0.9% NACL SYG 1 MG/10 ML SYRINGE ONE (09:21)
[2019-02-10] MEDS ORDERED: NEOSTIGMINE 1 MG/ML 10 ML VIAL ONE (09:21)
[2019-02-10] MEDS ORDERED: PROPOFOL 10 MG/ML 20 ML VIAL IV ONE (09:21)
[2019-02-10] MEDS ORDERED: GLYCOPYRROLATE 0.2 MG/ML 2 ML VIAL ONE (09:21)
[2019-02-10] MEDS ORDERED: SUCCINYLCHOLINE CHLORIDE 100 MG/5 ML SYR IV ONE (09:21)
[2019-02-10] MEDS ORDERED: ROCURONIUM BROMIDE 10 MG/ML 10 ML VIAL IV ONE (09:21)
[2019-02-10] MEDS ORDERED: HYDROmorphone (PF) 1 MG/ML ONE (09:21)
[2019-02-10] MEDS ORDERED: SODIUM CHLORIDE 0.9% 1,000 ML IV ONE ×2 (09:31→10:53)
[2019-02-10] MEDS: PANTOPRAZOLE 40 MG/10 ML VIAL IV SCH ×2 (09:37→13:03)
--- NOTE | 2019-02-10 11:53 | CONS ---
CONSULTATION This is an 83-year-old male who apparently was seen in the Emergency Room back on February 09 for abdominal pain. He states for the last 3 months he has had significant nausea, vomiting, and diarrhea. For the past 2 days, he has not been able to keep anything at all down. The patient states that he just was not feeling well and thought that this had gone on long enough that he needed to be seen. Apparently, he was found to have a high-grade bowel obstruction and Dr. Mejia was consulted. The patient has had about a 20-pound weight loss. In the emergency room, he was found to have a lactic acid of 5.8 potassium 6.5, and acute kidney injury. Dr. Mejia called me last night because the patient needed to go to the operating room. We needed to try to tune up the patient as quickly as possible. The patient does suffer from hyperlipidemia, diabetes, hypertension, previous [place] and was a smoker in the past. Currently, the patient is on room air. The patient does have an NG tube in place. He is getting D5W with 3 amps of bicarb at 125 mL an hour. Thus far microbiologic studies have been negative. HOME MEDICATIONS: Include aspirin, vitamin B12 tablets, Proscar, NovoLog insulin, Lantus insulin, Prinivil, Onglyza, Zocor and Ultram. ALLERGIES: Denied. MEDICAL HISTORY: Diabetes, hyperlipidemia, hypertension, myocardial infarction, chronic back pain and chronic tobacco use. SURGICAL HISTORY: Unremarkable. He did have some foot surgery. SOCIAL HISTORY: Social history is otherwise negative. He was a smoker in the past. Denies any alcohol or illicit drug use. FAMILY HISTORY: Not noted. REVIEW OF SYSTEMS: CONSTITUTIONAL: Weakness and weight loss. NEUROLOGIC negative. HEENT negative. CARDIOVASCULAR negative. PULMONARY: Negative. GI nausea, vomiting, diarrhea, decreased appetite. : Negative. RHEUMATOLOGIC: Negative. IMMUNOLOGIC negative. DERMATOLOGIC negative. PHYSICAL EXAMINATION: VITAL SIGNS: Current vital signs reviewed. Temperature 97.6, heart rate 78, respiratory rate 16, blood pressure 115/54 mean 74. Saturations on room air 94%. GENERAL: Appears in no acute distress. HEENT examination is grossly unremarkable. Mucous membranes are moist. No oral lesions. NG tube is noted. NECK: Supple. Full range of motion. No adenopathy or thyromegaly. Neck veins are flat. CARDIOVASCULAR examination reveals regular rhythm and rate. Heart sounds are distant. LUNGS: Reveal mostly clear breath sounds. A few scattered mild rhonchi. ABDOMEN is tender on palpation. Bowel sounds are not noted. No masses. EXTREMITIES are intact. No cyanosis, clubbing, or edema. SKIN without rash. NEUROLOGIC examination is brief but nonfocal. LABS: Reviewed. White count 10.3, hemoglobin 12.2, hematocrit 37.4, platelet count normal. Sodium 141. Potassium initially 6.2 down to 4.2. Chloride 109, CO2 20, anion gap is 12, BUN and creatinine were 60 and 2.98. Magnesium 1.5. Urine is negative. C diff negative. Chest x-ray shows satisfactory NG tube placement. There is no acute cardiopulmonary disease. CT of the abdomen and pelvis shows complete bowel obstruction with transition point at the mid descending colon. This is highly favored to represent an obstructing colonic mass rather than volvulus for the reasons described in the body of the dictation. In addition, there are some enlarged lymph nodes consistent with metastasis. The rest of the findings are noted. Medications are reviewed. Everything seems to be appropriate. ASSESSMENT: 1. 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 2. History of hyperlipidemia. 3. History of diabetes mellitus. 4. History of hypertension. 5. Myocardial infarction. 6. Previous tobacco use. 7. Acute kidney injury. 8. Hyperkalemia. 9. Profound weight loss with nausea, vomiting, and diarrhea for 3 months. PLAN: The patient will go off to surgery. Come back here to the ICU. No additional recommendations are made. He is much more stable now than he was when he first came in. Additional recommendations and suggestions are forthcoming. Prognosis is guarded. MMODL / IJN: [id number] /
--- NOTE | 2019-02-10 12:04 | P.OP ---
Date of Procedure: 02/10/19 Procedure(s) Performed: PREOPERATIVE DIAGNOSIS: Colonic obstruction POSTOPERATIVE DIAGNOSIS: Same PROCEDURE: Partial colectomy with end colostomy, mobilization splenic flexure SURGEON: Roberto EBL: 100 mL ANESTHESIA: General COMPLICATIONS: None OPERATIVE PROCEDURE: Patient place in the operative table in the supine position. The patient was placed under general anesthesia. The abdomen was prepped and draped in usual sterile fashion. A vertical incision was made encompassing extending from the subxiphoid region to the infraumbilical location. The fascia was divided as well. The patient's colon was markedly distended. It appeared viable throughout however. Initially I attempted to dissect the proximal left colon and splenic flexure region without decompressing the bowel however this was not possible. A small colotomy was created in the distal transverse colon. Through that area we were able to evacuate the majority of the liquid stool and air present throughout the proximal colon. The pursestring was tied down and a linear green load stapler was taken across this location. At that point I was able to manipulate the bowel significantly better and had good visualization. It should be noted that the patient's small bowel was filled with partially digested food. There did not appear to be any definite masses. The liver likewise appeared normal. The patient's masslike tumor causing obstruction was present in the proximal descending colon. They left colon was mobilized by incising the white line of Toldt. The bowel was dissected medially. The splenic flexure was fully mobilized using a combination of electrocautery and the LigaSure device. At that point the transverse colon was divided distally just proximal to our colotomy site using 2 separate firings of the linear green load 75 stapler. The mesentery of the distal transverse colon splenic flexure and proximal descending colon was divided using a combination of the LigaSure device and 0 silk ties. The bowel was then divided approximately 5-10 cm distal to the obstructing site using a linear blue load 75 stapler. The specimen was passed off. The abdomen was irrigated. No bleeding was seen. The transverse colon was further mobilized by dividing the gastrocolic ligament. A circular incision was made in the left midabdomen. Dissection through the subcutaneous fat and fascia took place using electrocautery. I bluntly entered the peritoneal cavity and this was further bluntly opened. The bowel was brought out through this defect in the left midabdomen. The midline fascia was then reapproximated using 2 separate double- stranded #1 PDS sutures. The subcutaneous tissues were irrigated. The subcu taneous tissues were closed using 3-0 Vicryl sutures. The skin was then closed using phyllis. A sterile dressing was applied to the midline. The ostomy was then addressed. The staple line was then removed using electrocautery. The ostomy was then matured in a [place] fashion using interrupted 3-0 Vicryl sutures. An ostomy appliance was then applied. Sterile dressings were then applied to the midline incision. DISPOSITION: Stable to recovery room
[2019-02-10 12:17] LABS: Glucose,Whole Blood 224 mg/dL (75-99)
[2019-02-10] MEDS: HYDROmorphone 0.5 MG/0.5 ML SYRINGE IVP PRN ×3 (13:53→21:12)
[2019-02-10] MEDS: metroNIDAZOLE-NS PMX 500 MG in SALINE 1 100ML.BAG IVPB SCH (15:34)
[2019-02-10 18:07] LABS: Calcium 7.7 mg/dL (8.4-10.2); Potassium 4.7 mmol/L (3.5-5.1)
[2019-02-10 18:24] LABS: Glucose,Whole Blood 189 mg/dL (75-99)
[2019-02-10] MEDS: SODIUM CHLORIDE 0.9% 1,000 ML IV SCH (18:40)
[2019-02-11] MEDS: INSULIN ASPART (NovoLOG) 100 UNIT/ML VIAL SQ SCH ×4 (00:34→18:15)
[2019-02-11] MEDS: HEPARIN SODIUM,PORCINE 5,000 UNIT/ML 1 ML VIAL SQ SCH ×3 (00:35→16:48)
[2019-02-11] MEDS: PIPERACILLIN-TAZOBACTAM 3.375 GM in SODIUM CHLORIDE 0.9% 100 ML IVPB SCH ×3 (00:35→16:47)
[2019-02-11] MEDS: metroNIDAZOLE-NS PMX 500 MG in SALINE 1 100ML.BAG IVPB SCH ×3 (00:36→16:47)
[2019-02-11 00:39] LABS: Glucose,Whole Blood 160 mg/dL (75-99)
[2019-02-11 04:37] LABS: HCT 34.9 % (39.0-53.0); HGB 11.5 gm/dL (13.0-17.5); MCH 30.5 pg (25.0-35.0); MCHC 32.9 g/dL (31.0-37.0); MCV 92.6 fL (80.0-100.0); Mean Platelet Volume 8.1; Platelet Count 184 k/uL (150-450); RBC 3.77 m/uL (4.30-5.90); WBC 10.3 k/uL (3.8-10.6)
[2019-02-11 04:48] LABS: Albumin 2.5 g/dL (3.5-5.0); Calcium 7.8 mg/dL (8.4-10.2); Magnesium 1.8 mg/dL (1.6-2.3); Phosphorus 3.2 mg/dL (2.5-4.5); Potassium 4.5 mmol/L (3.5-5.1); Total Bilirubin 0.7 mg/dL (0.2-1.3); Total Protein 4.9 g/dL (6.3-8.2)
[2019-02-11 06:49] LABS: Glucose,Whole Blood 152 mg/dL (75-99)
[2019-02-11] MEDS: IPRATROPIUM-ALBUTEROL 3 ML NEB INHALATION SCH ×4 (06:59→20:27)
--- NOTE | 2019-02-11 08:17 | P.NPCON ---
History of Present Illness - Reason for Consult acute renal failure, chronic renal failure - History of Present Illness Reason for consultation: Acute kidney injury on chronic kidney disease History of present illness: Patient is a 83-year-old male seen in renal consultation for acute kidney injury on chronic kidney disease. Creatinine on admission was 3.18 and is down to 2.43 today. Unknown baseline renal function. However the patient states he follows with a radiator mechanic out of [facility] in [place] and does have history of chronic kidney disease. Patient presented to the hospital with nausea vomiting and diarrhea going on for the last 2 months or so. Patient was noted to have complete small bowel obstruction for which he underwent partial colectomy with end colostomy on February 10. Patient's potassium level was elevated on admission which improved with medical treatment. He currently has an NG tube in place. Output from the NG tube was about 80 mL overnight. He denies use of nonster oidals. He does have history of diabetes mellitus. No hematuria or dysuria. Denies family history of renal disease. Urine output has been about 50 mL an hour. He is maintained on normal saline at 75 mL an hour. Vital signs are stable. General: The patient appeared well nourished and normally developed. HEENT: Head exam is unremarkable. Neck is without jugular venous distension. NG tube noted. LUNGS: Lungs are clear to auscultation and percussion. Breath sounds decreased. HEART: Rate and Rhythm are regular. First and second heart sounds normal. No murmurs, rubs or gallops. ABDOMEN: Bowel sounds decreased. EXTREMITITES: No clubbing, cyanosis, or edema. Past Medical History Past Medical History: Diabetes Mellitus, Hyperlipidemia, Hypertension, Myocardial Infarction (MT) Additional Past Medical History / Comment(s): back pain Last Myocardial Infarction Date:: unknown History of Any Multi-Drug Resistant Organisms: None Reported Additional Past Surgical History / Comment(s): club foot surgery at 14 yo, tonsillectomy Past Psychological History: No Psychological Hx Reported Smoking Status: Former smoker Past Alcohol Use History: None Reported Past Drug Use History: None Reported - Past Family History Father Additional Family Medical History / Comment(s): at 95 of old age Mother Additional Family Medical History / Comment(s): at 93 of old age, had a myocardial infarction in her upper 80s. Medications and Allergies Home Medications Medication Instructions Recorded Confirmed Type Aspirin [Pilger Aspirin EC] 81 mg PO DAILY 02/09/19 02/09/19 History Cyanocobalamin (Vitamin B-12) 1,000 mcg PO DAILY 02/09/19 02/09/19 History [Vitamin B-12] Finasteride [Proscar] 5 mg PO DAILY 02/09/19 02/09/19 History Insulin Aspart [NovoLOG] 20 units SQ BID 02/09/19 02/09/19 History Insulin Glargine [Lantus] 28 units SQ BID 02/09/19 02/09/19 History Lisinopril [Prinivil] 5 mg PO DAILY 02/09/19 02/09/19 History Omeprazole 20 mg PO DAILY 02/09/19 02/09/19 History Saxagliptin HCl [Onglyza] 5 mg PO DAILY 02/09/19 02/09/19 History Simvastatin [Zocor] 10 mg PO HS 02/09/19 02/09/19 History traMADol HCL [Ultram] 100 mg PO BID 02/09/19 02/09/19 History Allergies Allergy/AdvReac Type Severity Reaction Status Date / Time No Known Allergies Allergy Verified 02/09/19 19:33 Physical Exam Vitals: Vital Signs Temp Pulse Pulse Resp BP BP Pulse Ox 02/11/19 07:09 78 02/11/19 07:01 92 97 02/11/19 07:00 80 18 126/69 97 02/11/19 06:00 82 19 117/70 98 02/11/19 05:00 80 21 113/66 96 02/11/19 04:00 98.3 F 80 20 111/56 96 02/11/19 03:00 80 17 115/65 96 02/11/19 02:00 93 20 110/76 97 02/11/19 01:00 87 20 120/67 96 02/11/19 00:00 98.3 F 85 19 115/65 97 02/10/19 23:13 87 20 123/66 96 02/10/19 23:00 86 13 125/65 96 02/10/19 22:00 91 17 121/59 96 02/10/19 21:00 89 19 121/63 96 02/10/19 20:00 98.8 F 85 15 120/63 98 02/10/19 19:57 84 02/10/19 19:48 84 02/10/19 19:00 84 19 115/73 96 02/10/19 18:00 87 16 126/63 95 02/10/19 17:00 87 18 110/51 96 02/10/19 16:10 93 02/10/19 16:00 97.8 F 79 15 128/65 97 02/10/19 15:00 87 19 119/58 97 02/10/19 14:00 75 20 135/73 97 02/10/19 13:00 74 20 125/69 97 02/10/19 12:52 98.4 F 78 20 104/58 97 02/10/19 12:30 82 16 118/59 96 02/10/19 12:15 81 18 128/61 96 02/10/19 12:00 98.8 F 78 18 120/57 95 Intake and Output 02/10/19 02/11/19 02/11/19 22:59 06:59 14:59 Intake Total 1000 600 75 Output Total 495 420 130 Balance 505 180 -55 Intake: IV 900 600 75 Dextrose 5% in Water 1, 500 000 ml @ 125 mls/hr IV . Q9H12M [facility] with Sodium Bicarb (1 Meq/ml) 150 ml Rx#:[id number] Sodium Chloride 0.9% 1, 300 600 75 000 ml @ 75 mls/hr IV . [id number] [facility] Rx#:[id number] metroNIDAZOLE-NS PMX 500 100 mg In Saline 1 100ml.bag @ 100 mls/hr IVPB Q8HR [facility] Rx#:[id number] Intake, IV Titration 100 Amount Piperacillin-Tazobactam 3 100 .375 gm In Sodium Chloride 0.9% 100 ml @ 200 mls/hr IVPB Q6H [facility] Rx#:[id number] Output: Gastric Drainage 80 Urine 495 420 50 Other: Voiding Method Indwelling Catheter Indwelling Catheter Weight 77.3 kg Results - Lab Results Most recent lab results Calcium 7.8 mg/dL (8.4-10.2) L 02/11/19 04:10 Phosphorus 3.2 mg/dL (2.5-4.5) 02/11/19 04:10 Magnesium 1.8 mg/dL (1.6-2.3) 02/11/19 04:10 02/11/19 04:10 02/11/19 04:10 Assessment and Plan Plan: Assessment: 1. Acute kidney injury mostly prerenal secondary to intravascular volume depletion from vomiting and diarrhea. Creatinine was 3.18 on admission and is down to 2.43 today. 2. Complete bowel obstruction status post exploratory laparotomy with end colostomy on February 10. 3. Hyperkalemia secondary to acute kidney injury and metabolic acidosis. Improved with medical management. 4. Metabolic acidosis secondary to acute kidney injury and diarrhea. Resolved. 5. Chronic kidney disease. Unknown baseline creatinine. Patient follows with a radiator mechanic out of the [facility]. 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 6. Insulin-dependent diabetes mellitus. Plan: Maintain normal saline at 75 mL an hour. Hold antihypertensives. Avoid nephrotoxins. Continue to monitor renal function and urine output. Thank you for the consultation. I will continue to follow the patient with you during his hospital stay.
[2019-02-11] MEDS: PANTOPRAZOLE 40 MG/10 ML VIAL IV SCH (08:29)
[2019-02-11] MEDS: SODIUM CHLORIDE 0.9% 1,000 ML IV SCH ×2 (08:32→22:17)
[2019-02-11] MEDS: MAGNESIUM SULFATE-D5W PMX 1 GM in DEXTROSE/WATER 1 100ML.BAG IVPB SCH ×2 (10:01→11:07)
[2019-02-11] MEDS: HYDROmorphone 0.5 MG/0.5 ML SYRINGE IVP PRN ×2 (10:02→18:17)
--- NOTE | 2019-02-11 11:45 | P.PN ---
<DameonMegan Pineda - Last Filed: 02/11/19 11:38> Subjective Progress Note Date: 02/11/19 CHIEF COMPLAINT: colonic obstruction HISTORY OF PRESENT ILLNESS: 83-year-old male who is status post partial colectomy with end colostomy and mobilization splenic flexure performed on 02/10/2019. POD #1. Patient examined at the bedside this morning in the ICU. Patient reports abdominal pain this morning. Patient recently received IV Dilaudid. He is tolerating swabs. He remains NPO. Ostomy with no gas or stool in bag. NG with approximately 80cc drainage this morning per nursing. PHYSICAL EXAM: VITAL SIGNS: Reviewed. GENERAL: Well-developed in no acute distress. HEENT: NG to LIS. No sclera icterus. Extraocular movements grossly intact. Moist buccal mucosa. Head is atraumatic, normocephalic. ABDOMEN: Soft. Surgical tenderness noted. Dressing clean dry intact. Ostomy with no gas or stool. Small amount of serosanguineous drainage. Hypoactive bowel sounds. NEUROLOGIC: Alert and oriented. Cranial nerves II through XII grossly intact. ASSESSMENT: 1. Colonic obstruction, s/p partial colectomy with end colostomy PLAN: 1. NPO. May have swabs. Continue NG. Await bowel function 2. Pain control. Continue IV dilaudid 3. Activity as tolerated 4. Incentive spirometry 5. Urinary catheter management per primary team/nephrology 6. Consult ostomy nurse for further teaching of ostomy Nurse practitioner note has been reviewed by physician. Signing provider agrees with the documented findings, assessment, and plan of care. Objective - Vital Signs Vital signs: Vital Signs Temp 98.7 F 02/11/19 08:00 Pulse 80 02/11/19 11:24 Resp 14 02/11/19 11:00 BP 125/54 02/11/19 11:00 Pulse Ox 96 02/11/19 11:00 Intake & Output 02/10/19 02/11/19 02/11/19 18:59 06:59 18:59 Intake Total 3300 900 375 Output Total 700 675 415 Balance 2600 225 -40 Weight 73.8 kg 77.3 kg Intake: IV 2750 900 375 Dextrose 5% in Water 1, 750 000 ml @ 125 mls/hr IV . Q9H12M [facility] with Sodium Bicarb (1 Meq/ml) 150 ml Rx#:[id number] Sodium Chloride 0.9% 1, 900 375 000 ml @ 75 mls/hr IV . [id number] [facility] Rx#:[id number] metroNIDAZOLE-NS PMX 500 100 mg In Saline 1 100ml.bag @ 100 mls/hr IVPB Q8HR [facility] Rx#:[id number] Intake, IV Titration 550 Amount Dextrose 5% in Water 1, 250 000 ml @ 125 mls/hr IV . Q9H12M [facility] with Sodium Bicarb (1 Meq/ml) 150 ml Rx#:[id number] Magnesium Sulfate-D5w Pmx 100 1 gm In Dextrose/Water 1 100ml.bag @ 100 mls/hr IVPB Q1H [facility] Rx#: [id number] Piperacillin-Tazobactam 3 200 .375 gm In Sodium Chloride 0.9% 100 ml @ 200 mls/hr IVPB Q6H [facility] Rx#:[id number] Output: Gastric Drainage 80 Urine 600 675 335 Estimated Blood Loss 100 Other: Voiding Method Indwelling Catheter Indwelling Catheter Indwelling Catheter - Labs CBC & Chem 7: 02/11/19 04:10 02/11/19 04:10 Labs: Abnormal Lab Results - Last 24 Hours (Table) 02/10/19 02/10/19 02/10/19 Range/Units 12:07 17:34 18:12 RBC (4.30-5.90) m/uL Hgb (13.0-17.5) gm/dL Hct (39.0-53.0) % Chloride (98-107) mmol/L BUN 55 H (9-20) mg/dL Creatinine 2.60 H (0.66-1.25) mg/dL Glucose 210 H (74-99) mg/dL POC Glucose (mg/dL) 224 H 189 H (75-99) mg/dL Calcium 7.7 L (8.4-10.2) mg/dL AST (17-59) U/L Total Protein (6.3-8.2) g/dL Albumin (3.5-5.0) g/dL 02/11/19 02/11/19 02/11/19 Range/Units 00:28 04:10 04:10 RBC 3.77 L (4.30-5.90) m/uL Hgb 11.5 L (13.0-17.5) gm/dL Hct 34.9 L (39.0-53.0) % Chloride 109 H (98-107) mmol/L BUN 48 H (9-20) mg/dL Creatinine 2.43 H (0.66-1.25) mg/dL Glucose 152 H (74-99) mg/dL POC Glucose (mg/dL) 160 H (75-99) mg/dL Calcium 7.8 L (8.4-10.2) mg/dL AST 15 L (17-59) U/L Total Protein 4.9 L (6.3-8.2) g/dL Albumin 2.5 L (3.5-5.0) g/dL 02/11/19 Range/Units 06:37 RBC (4.30-5.90) m/uL Hgb (13.0-17.5) gm/dL Hct (39.0-53.0) % Chloride (98-107) mmol/L BUN (9-20) mg/dL Creatinine (0.66-1.25) mg/dL Glucose (74-99) mg/dL POC Glucose (mg/dL) 152 H (75-99) mg/dL Calcium (8.4-10.2) mg/dL AST (17-59) U/L Total Protein (6.3-8.2) g/dL Albumin (3.5-5.0) g/dL Microbiology - Last 24 Hours (Table) 02/10/19 05:20 Stool Culture - Preliminary Stool <Juan David Mejia - Last Filed: 02/11/19 13:01> Subjective As above. Patient feels better today. Having incisional pain. Labs improved. Minimal ostomy function. Continue nasogastric tube to suction. Gradually increase activity. Objective - Vital Signs Vital signs: Vital Signs Temp 98.7 F 02/11/19 12:00 Pulse 81 02/11/19 12:00 Resp 27 H 02/11/19 12:00 BP 118/61 02/11/19 12:00 Pulse Ox 92 L 02/11/19 12:00 Intake & Output 02/10/19 02/11/19 02/11/19 18:59 06:59 18:59 Intake Total 3300 900 450 Output Total 700 675 465 Balance 2600 225 -15 Weight 73.8 kg 77.3 kg Intake: IV 2750 900 450 Dextrose 5% in Water 1, 750 000 ml @ 125 mls/hr IV . Q9H12M [facility] with Sodium Bicarb (1 Meq/ml) 150 ml Rx#:[id number] Sodium Chloride 0.9% 1, 900 450 000 ml @ 75 mls/hr IV . [id number] [facility] Rx#:[id number] metroNIDAZOLE-NS PMX 500 100 mg In Saline 1 100ml.bag @ 100 mls/hr IVPB Q8HR [facility] Rx#:[id number] Intake, IV Titration 550 Amount Dextrose 5% in Water 1, 250 000 ml @ 125 mls/hr IV . Q9H12M [facility] with Sodium Bicarb (1 Meq/ml) 150 ml Rx#:[id number] Magnesium Sulfate-D5w Pmx 100 1 gm In Dextrose/Water 1 100ml.bag @ 100 mls/hr IVPB Q1H [facility] Rx#: [id number] Piperacillin-Tazobactam 3 200 .375 gm In Sodium Chloride 0.9% 100 ml @ 200 mls/hr IVPB Q6H [facility] Rx#:[id number] Output: Gastric Drainage 80 Urine 600 675 385 Estimated Blood Loss 100 Other: Voiding Method Indwelling Catheter Indwelling Catheter Indwelling Catheter - Labs CBC & Chem 7: 02/11/19 04:10 02/11/19 04:10 Labs: Abnormal Lab Results - Last 24 Hours (Table) 02/10/19 02/10/19 02/11/19 Range/Units 17:34 18:12 00:28 RBC (4.30-5.90) m/uL Hgb (13.0-17.5) gm/dL Hct (39.0-53.0) % Chloride (98-107) mmol/L BUN 55 H (9-20) mg/dL Creatinine 2.60 H (0.66-1.25) mg/dL Glucose 210 H (74-99) mg/dL POC Glucose (mg/dL) 189 H 160 H (75-99) mg/dL Calcium 7.7 L (8.4-10.2) mg/dL AST (17-59) U/L Total Protein (6.3-8.2) g/dL Albumin (3.5-5.0) g/dL 02/11/19 02/11/1919 Range/Units 04:10 04:10 06:37 RBC 3.77 L (4.30-5.90) m/uL Hgb 11.5 L (13.0-17.5) gm/dL Hct 34.9 L (39.0-53.0) % Chloride 109 H (98-107) mmol/L BUN 48 H (9-20) mg/dL Creatinine 2.43 H (0.66-1.25) mg/dL Glucose 152 H (74-99) mg/dL POC Glucose (mg/dL) 152 H (75-99) mg/dL Calcium 7.8 L (8.4-10.2) mg/dL AST 15 L (17-59) U/L Total Protein 4.9 L (6.3-8.2) g/dL Albumin 2.5 L (3.5-5.0) g/dL 02/11/19 Range/Units 12:11 RBC (4.30-5.90) m/uL Hgb (13.0-17.5) gm/dL Hct (39.0-53.0) % Chloride (98-107) mmol/L BUN (9-20) mg/dL Creatinine (0.66-1.25) mg/dL Glucose (74-99) mg/dL POC Glucose (mg/dL) 187 H (75-99) mg/dL Calcium (8.4-10.2) mg/dL AST (17-59) U/L Total Protein (6.3-8.2) g/dL Albumin (3.5-5.0) g/dL Microbiology - Last 24 Hours (Table) 02/10/19 05:20 Stool Culture - Preliminary Stool Assessment and Plan (1) Colonic obstruction Current Visit: Yes Status: Acute Code(s): K56.609 - UNSP INTESTNL OBST, UNSP TO PARTIAL VERSUS COMPLETE OBST SNOMED Code(s): 21490098
[2019-02-11 12:23] LABS: Glucose,Whole Blood 187 mg/dL (75-99)
--- NOTE | 2019-02-11 14:59 | P.PN ---
Subjective Progress Note Date: 02/11/19 83-year-old male patient diabetic along with history of hypertension hyperlipidemia and coronary artery disease who came into the hospital because of acute bowel obstruction. The patient had a CAT scan of the abdomen and pelvis that showed complete bowel obstruction with transition point in the mid halima cending colon and there was an indication for a colonic mass and lymphadenopathy and a solitary hepatitic lesion. The patient was given IV fluids. The patient was taken to the operating room and the patient underwent a emergent XRT laparotomy and partial colectomy and colostomy. Today the patient is postop day #1. The patient has NG tube in place. Bowel sounds are excellent hypoactive. Colostomy site is not putting any output at this point in time. The patient is hemodynamically stable. The patient has been taking 0.5 mg of Dilaudid on an as-needed basis IV for pain control. No nausea. No vomiting. No abdominal pain. No abdominal distention. No altered mentation. No respiratory distress. Chest x-ray showing small bilateral pleural effusions in the lung bases. No fever. No chills. No other significant events overnight. Objective - Vital Signs Vital signs: Vital Signs Temp 98.7 F 02/11/19 12:00 Pulse 79 02/11/19 14:00 Resp 20 02/11/19 14:00 BP 114/61 02/11/19 14:00 Pulse Ox 96 02/11/19 14:00 Intake & Output 02/10/19 02/11/19 02/11/19 18:59 06:59 18:59 Intake Total 3300 900 600 Output Total 700 675 570 Balance 2600 225 30 Weight 73.8 kg 77.3 kg Intake: IV 2750 900 600 Dextrose 5% in Water 1, 750 000 ml @ 125 mls/hr IV . Q9H12M [facility] with Sodium Bicarb (1 Meq/ml) 150 ml Rx#:[id number] Sodium Chloride 0.9% 1, 900 600 000 ml @ 75 mls/hr IV . [id number] [facility] Rx#:[id number] metroNIDAZOLE-NS PMX 500 100 mg In Saline 1 100ml.bag @ 100 mls/hr IVPB Q8HR [facility] Rx#:[id number] Intake, IV Titration 550 Amount Dextrose 5% in Water 1, 250 000 ml @ 125 mls/hr IV . Q9H12M [facility] with Sodium Bicarb (1 Meq/ml) 150 ml Rx#:[id number] Magnesium Sulfate-D5w Pmx 100 1 gm In Dextrose/Water 1 100ml.bag @ 100 mls/hr IVPB Q1H [facility] Rx#: [id number] Piperacillin-Tazobactam 3 200 .375 gm In Sodium Chloride 0.9% 100 ml @ 200 mls/hr IVPB Q6H [facility] Rx#:[id number] Output: Gastric Drainage 80 Urine 600 675 490 Estimated Blood Loss 100 Other: Voiding Method Indwelling Catheter Indwelling Catheter Indwelling Catheter - Exam General: Ill-appearing, no distress, appears at stated age, normal weight, temporal wasting Derm: no unusual rashes/lesions no unusual ecchymoses, warm, dry Head: atraumatic, normocephalic, symmetric Eyes: EOMI, no lid lag, anicteric sclera, pupils equal round reactive to light ENT: Nose and ears atraumatic, no thrush, no pharyngeal erythema, NGT in place Neck: No thyromegaly, no cervical lymphadenopathy, trachea midline, supple Mouth: no lip lesion, mucus membranes dry Cardiovascular: S1S2 reg, no murmur, positive posterior tibial pulse bilateral, no edema, capillary refill less than 2 seconds Lungs: Decreased breath sounds bilaterally, no rhonchi, no rales , no accessory muscle use Abdominal: soft, nontender to palpation, no guarding, no appreciable organomegaly, the patient has a mid abdominal incision in the colostomy site is no function at this point in time and the bowel sounds are extremely hypoactive at this point in time. Ext: + gross muscle atrophy, muscle strength 4 out of 5 in all 4 extremities grossly, no contractures, Neuro: CN II-XI grossly intact, light touch intact all 4 extremities, finger to nose within normal limits, Psych: Alert, oriented, appropriate affect - Labs CBC & Chem 7: 02/11/19 04:10 02/11/19 04:10 Labs: Abnormal Lab Results - Last 24 Hours (Table) 02/10/19 02/10/19 02/11/19 Range/Units 17:34 18:12 00:28 RBC (4.30-5.90) m/uL Hgb (13.0-17.5) gm/dL Hct (39.0-53.0) % Chloride (98-107) mmol/L BUN 55 H (9-20) mg/dL Creatinine 2.60 H (0.66-1.25) mg/dL Glucose 210 H (74-99) mg/dL POC Glucose (mg/dL) 189 H 160 H (75-99) mg/dL Calcium 7.7 L (8.4-10.2) mg/dL AST (17-59) U/L Total Protein (6.3-8.2) g/dL Albumin (3.5-5.0) g/dL 02/11/19 02/11/19 02/11/19 Range/Units 04:10 04:10 06:37 RBC 3.77 L (4.30-5.90) m/uL Hgb 11.5 L (13.0-17.5) gm/dL Hct 34.9 L (39.0-53.0) % Chloride 109 H (98-107) mmol/L BUN 48 H (9-20) mg/dL Creatinine 2.43 H (0.66-1.25) mg/dL Glucose 152 H (74-99) mg/dL POC Glucose (mg/dL) 152 H (75-99) mg/dL Calcium 7.8 L (8.4-10.2) mg/dL AST 15 L (17-59) U/L Total Protein 4.9 L (6.3-8.2) g/dL Albumin 2.5 L (3.5-5.0) g/dL 02/11/19 Range/Units 12:11 RBC (4.30-5.90) m/uL Hgb (13.0-17.5) gm/dL Hct (39.0-53.0) % Chloride (98-107) mmol/L BUN (9-20) mg/dL Creatinine (0.66-1.25) mg/dL Glucose (74-99) mg/dL POC Glucose (mg/dL) 187 H (75-99) mg/dL Calcium (8.4-10.2) mg/dL AST (17-59) U/L Total Protein (6.3-8.2) g/dL Albumin (3.5-5.0) g/dL Assessment and Plan Plan: 1 colonic mass with secondary bowel obstruction. The patient is post expected laparotomy and resection of the colon with a diverticular colostomy. The patient is postop day #1. Colostomy site is nonfunctional and the patient has an NG tube in place with hypoactive bowel sounds. 2 solitary hepatitic lesion, consider metastases 3 acute kidney injury, improving and it creatinine is down to 2.4 4 acute leukocytosis, improving and the white cell count is down to 10.3 5 coronary artery disease with previous AR 6 hypertension 7 hyperlipidemia 8 diabetes mellitus 9 BPH plan Continue IV fluids with normal state rate of 75 mL an hour. IV Zosyn. IV Flagyl. Monitor renal function. Dilaudid for pain control. Heparin subcu for DVT prophylaxis. He the NG tube in place for another 24 hours. Monitor the blood sugar give the patient states Insulin coverage for mature control. IV Protonix for GI prophylaxis. Keep the patient ICU for another 24 hours. We'll continue to follow.
--- NOTE | 2019-02-11 15:46 | P.PN ---
Subjective Progress Note Date: 02/11/19 (dealyed charting seen at 0830) Principal diagnosis: abdominal pain Patient is an 83 CM with a history of diabetes mellitus insulin requiring, hypertension, dyslipidemia, and prior Dawood cardial infarction who presented to the ER with complaints of abdominal pain. In the ER he underwent an extensive evaluation. His initial vital signs were stable. Initial laboratory analysis revealed hyperkalemia, anion gap metabolic acidosis, acute kidney injury, hyperglycemia, and elevated white blood cell count. He was also noted that he had an elevated calcium level and total protein. He underwent a CT abdomen and pelvis which showed complete bowel obstruction with transition point in the mid to descending colon with probable colonic mass lymphadenopathy, and solitary hepatic lesion. He was started on IV fluids, antiemetics, and was given a dose of PPI and insulin. He is admitted to Dr. Mejia in the ICU for further care. Nephrology and critical care are also following the patient. He was started on bicarb gtt, and received additional IV insulin. On the morning of 02/10 his creatinine was improved, acidosis is better, and potassium had normalized. He underwent partial colectomy with endcolostomy with removal of large colonic mass on 02/10. Patient seen and examined at bedside. He reports his pain is well controlled, he denies nausea, he feels hungry. He feels as though his mouth is dry. He has no chest pain. He would like his nasogastric tube removed. Objective - Vital Signs Vital signs: Vital Signs Temp 98.7 F 02/11/19 12:00 Pulse 79 02/11/19 14:00 Resp 20 02/11/19 14:00 BP 114/61 02/11/19 14:00 Pulse Ox 96 02/11/19 14:00 Intake & Output 02/10/19 02/11/19 02/11/19 18:59 06:59 18:59 Intake Total 3300 900 600 Output Total 700 675 570 Balance 2600 225 30 Weight 73.8 kg 77.3 kg Intake: IV 2750 900 600 Dextrose 5% in Water 1, 750 000 ml @ 125 mls/hr IV . Q9H12M [facility] with Sodium Bicarb (1 Meq/ml) 150 ml Rx#:[id number] Sodium Chloride 0.9% 1, 900 600 000 ml @ 75 mls/hr IV . [id number] [facility] Rx#:[id number] metroNIDAZOLE-NS PMX 500 100 mg In Saline 1 100ml.bag @ 100 mls/hr IVPB Q8HR [facility] Rx#:[id number] Intake, IV Titration 550 Amount Dextrose 5% in Water 1, 250 000 ml @ 125 mls/hr IV . Q9H12M [facility] with Sodium Bicarb (1 Meq/ml) 150 ml Rx#:[id number] Magnesium Sulfate-D5w Pmx 100 1 gm In Dextrose/Water 1 100ml.bag @ 100 mls/hr IVPB Q1H [facility] Rx#: [id number] Piperacillin-Tazobactam 3 200 .375 gm In Sodium Chloride 0.9% 100 ml @ 200 mls/hr IVPB Q6H [facility] Rx#:[id number] Output: Gastric Drainage 80 Urine 600 675 490 Estimated Blood Loss 100 Other: Voiding Method Indwelling Catheter Indwelling Catheter Indwelling Catheter - Exam General: ill appearing, no distress, appears at stated age Derm: midline dressing inplace of abdomen, ostomy in place LLQ pink, warm, dry Head: atraumatic, normocephalic, symmetric Eyes: EOMI, no lid lag, anicteric sclera Mouth: no lip lesion, mucus membranes moist Cardiovascular: S1S2 reg, no murmur, positive posterior tibial pulse bilateral, Lungs: decreased bs bilateral, no rhonchi, no rales , no accessory muscle use Abdominal: soft, +tender to palpation diffusely , no guarding, no appreciable organomegaly Ext: no gross muscle atrophy, no edema, no contractures Neuro: CN II-XI grossly intact, no focal neuro deficits Psych: Alert, oriented, appropriate affect - Labs CBC & Chem 7: 02/11/19 04:10 02/11/19 04:10 Labs: Abnormal Lab Results - Last 24 Hours (Table) 02/10/19 02/10/19 02/11/19 Range/Units 17:34 18:12 00:28 RBC (4.30-5.90) m/uL Hgb (13.0-17.5) gm/dL Hct (39.0-53.0) % Chloride (98-107) mmol/L BUN 55 H (9-20) mg/dL Creatinine 2.60 H (0.66-1.25) mg/dL Glucose 210 H (74-99) mg/dL POC Glucose (mg/dL) 189 H 160 H (75-99) mg/dL Calcium 7.7 L (8.4-10.2) mg/dL AST (17-59) U/L Total Protein (6.3-8.2) g/dL Albumin (3.5-5.0) g/dL 02/11/19 02/11/19 02/11/19 Range/Units 04:10 04:10 06:37 RBC 3.77 L (4.30-5.90) m/uL Hgb 11.5 L (13.0-17.5) gm/dL Hct 34.9 L (39.0-53.0) % Chloride 109 H (98-107) mmol/L BUN 48 H (9-20) mg/dL Creatinine 2.43 H (0.66-1.25) mg/dL Glucose 152 H (74-99) mg/dL POC Glucose (mg/dL) 152 H (75-99) mg/dL Calcium 7.8 L (8.4-10.2) mg/dL AST 15 L (17-59) U/L Total Protein 4.9 L (6.3-8.2) g/dL Albumin 2.5 L (3.5-5.0) g/dL 02/11/19 Range/Units 12:11 RBC (4.30-5.90) m/uL Hgb (13.0-17.5) gm/dL Hct (39.0-53.0) % Chloride (98-107) mmol/L BUN (9-20) mg/dL Creatinine (0.66-1.25) mg/dL Glucose (74-99) mg/dL POC Glucose (mg/dL) 187 H (75-99) mg/dL Calcium (8.4-10.2) mg/dL AST (17-59) U/L Total Protein (6.3-8.2) g/dL Albumin (3.5-5.0) g/dL Assessment and Plan Assessment: Patient is an 83 yo M here with bowel obstruction s/p resection with ostomy formation Solitary hepatic lesion - Outpatient oncology eval suspect will need chemo with lymphadenopathy and solitary hepatic lesion. May need Bx of lesion but will defer to onc. DM2 insulin requiring - SSI, hold orals, add back minimal long acting - May need inuslin gtt - follow BS DIEGO - nephro recs apreciated - on IVF -hold lisinopril - avoid additional nephrotoxic agents - follow BMP in AM HTN, controlled - medications on hold (lisinopril) - follow BP Bowel obstruction s/p partial colectomy with endo ostomy, colonic mass noted - await path - NGT in place - Pain control, antiemetics - zosyn/ flagyl HLD - statin on hold until okay for orals Hypomagnesemia - replace and recheck in AM BPH - vasquez in place - resume flomax when able to tolerate orals Left lower lobe infiltrate on CT - no symptoms of PNA - on zosyn which would cover for aspiration PNA - monitor for sign of pneumonia and fevers Lactic acidosis, improved hyperkalemia, resolved anion gap metabolic acidosis, resolved DVT prophylaxis: Heparin Discussed with: Patient, nursing Anticipated discharge: unknown Anticipated discharge place: unknown A total of 35 minutes was spent on the care of this complex patient more than 50% of the time was spent in counseling and care coordination.
[2019-02-11 18:05] LABS: Glucose,Whole Blood 151 mg/dL (75-99)
[2019-02-11 18:22] LABS: Glucose,Whole Blood 140 mg/dL (75-99)
[2019-02-11] MEDS: INSULIN DETEMIR (LEVEMIR) 100 UNIT/ML SYR SQ SCH (22:17)
[2019-02-11 22:29] LABS: Glucose,Whole Blood 174 mg/dL (75-99)
[2019-02-12 00:04] LABS: Glucose,Whole Blood 179 mg/dL (75-99)
[2019-02-12] MEDS: INSULIN ASPART (NovoLOG) 100 UNIT/ML VIAL SQ SCH ×4 (00:44→18:15)
[2019-02-12] MEDS: metroNIDAZOLE-NS PMX 500 MG in SALINE 1 100ML.BAG IVPB SCH ×3 (00:44→16:34)
[2019-02-12] MEDS: PIPERACILLIN-TAZOBACTAM 3.375 GM in SODIUM CHLORIDE 0.9% 100 ML IVPB SCH ×3 (00:45→16:35)
[2019-02-12] MEDS: HEPARIN SODIUM,PORCINE 5,000 UNIT/ML 1 ML VIAL SQ SCH ×3 (00:45→16:35)
[2019-02-12 05:47] LABS: HCT 33.6 % (39.0-53.0); HGB 10.9 gm/dL (13.0-17.5); MCH 30.3 pg (25.0-35.0); MCHC 32.3 g/dL (31.0-37.0); MCV 93.6 fL (80.0-100.0); Mean Platelet Volume 8.2; Platelet Count 167 k/uL (150-450); RBC 3.59 m/uL (4.30-5.90); RDW 13.3 % (11.5-15.5); WBC 11.8 k/uL (3.8-10.6)
[2019-02-12 05:54] LABS: Calcium 8.2 mg/dL (8.4-10.2); Magnesium 2.3 mg/dL (1.6-2.3); Potassium 4.1 mmol/L (3.5-5.1)
[2019-02-12 05:55] LABS: Glucose,Whole Blood 125 mg/dL (75-99)
[2019-02-12] MEDS: IPRATROPIUM-ALBUTEROL 3 ML NEB INHALATION SCH ×4 (08:13→20:50)
--- NOTE | 2019-02-12 09:01 | P.PN ---
Subjective Progress Note Date: 02/12/19 Principal diagnosis: Colonic mass with secondary bowel obstruction, status post laparotomy and resection of the colon with diverticular colostomy 83-year-old male patient diabetic along with history of hypertension hyperlipidemia and coronary artery disease who came into the hospital because of acute bowel obstruction. The patient had a CAT scan of the abdomen and pelvis that showed complete bowel obstruction with transition point in the mid descending colon and there was an indication for a colonic mass and lymphadenopathy and a solitary hepatitic lesion. The patient was given IV fluids. The patient was taken to the operating room and the patient underwent a emergent XRT laparotomy and partial colectomy and colostomy. Today the patient is postop day #1. The patient has NG tube in place. Bowel sounds are excellent hypoactive. Colostomy site is not putting any output at this point in time. The patient is hemodynamically stable. The patient has been taking 0.5 mg of Dilaudid on an as-needed basis IV for pain control. No nausea. No vomiting. No abdominal pain. No abdominal distention. No altered mentation. No respiratory distress. Chest x-ray showing small bilateral pleural effusions in the lung bases. No fever. No chills. No other significant events overnight. On 02/12/2019 patient seen in follow-up in the intensive care unit, suspicious p ostoperative day 2, status post partial colectomy with end colostomy and mobilization of splenic flexure. he is awake and alert, doing well, currently on 2 L of oxygen with a pulse ox of 94%, afebrile, hemodynamically stable, IV 0.9 normal saline at a rate of 75 ML per hour. He is working on his incentive spirometer, achieving about 1000 mL on the today, antibiotic coverage in the form of Zosyn and Flagyl. He is on breathing treatments, he denies any shortness of breath, his pain is reasonably controlled, bowel sounds are hypoactive, and left abdominal colostomy is starting to put out liquid stool. NG tube remains in place, and there is still significant output from the NG tube, no nausea, no vomiting, he remains nothing by mouth. Surgical specimen biopsies are still pending at this time, his labs have been reviewed, and shows white blood cell count of 11.8, hemoglobin of 10.9, sodium of 143, potassium is 4.1, chloride is 112, CO2 is 27, B1 is 36, creatinine is 1.89, renal profile is improving. Nephrology is following, patient is nonoliguric, lung sounds are clear, diminished at the bases. Objective - Vital Signs Vital signs: Vital Signs Temp 98.0 F 02/12/19 08:00 Pulse 81 02/12/19 08:30 Resp 14 02/12/19 08:00 BP 142/79 02/12/19 08:00 Pulse Ox 94 L 02/12/19 08:00 Intake & Output 02/11/19 02/12/19 02/12/19 18:59 06:59 18:59 Intake Total 1500 1100 75 Output Total 795 1030 Balance 705 70 75 Weight 81.5 kg Intake: IV 1500 1100 75 Magnesium Sulfate-D5w Pmx 200 1 gm In Dextrose/Water 1 100ml.bag @ 100 mls/hr IVPB Q1H [facility] Rx#: [id number] Piperacillin-Tazobactam 3 200 100 .375 gm In Sodium Chloride 0.9% 100 ml @ 25 mls/hr IVPB Q8HR [facility] Rx# :[id number] Sodium Chloride 0.9% 1, 900 900 75 000 ml @ 75 mls/hr IV . [id number] [facility] Rx#:[id number] metroNIDAZOLE-NS PMX 500 200 100 mg In Saline 1 100ml.bag @ 100 mls/hr IVPB Q8HR [facility] Rx#:[id number] Output: Gastric Drainage 80 Urine 715 1030 Other: Voiding Method Indwelling Catheter Indwelling Catheter - Exam GENERAL EXAM: Alert, pleasant, 83-year-old white male comfortable in no apparent distress. HEAD: Normocephalic/atraumatic. EYES: Normal reaction of pupils, equal size. Conjunctiva pink, sclera white. NOSE: Clear with pink turbinates. NG-tube is in place to low intermittent suction, and distal significant output from the NG tube THROAT: No erythema or exudates. NECK: No masses, no JVD, no thyroid enlargement, no adenopathy. CHEST: No chest wall deformity. Symmetrical expansion. LUNGS: Equal air entry with no crackles, rhonchi, manage breath sounds at the bases CVS: Regular rate and rhythm, normal S1 and S2, no gallops, no murmurs, no rubs ABDOMEN: Soft, nontender. No hepatosplenomegaly, normal bowel sounds, no guarding or rigidity. Abdominal incision clean and intact, left sided colostomy with liquid stool EXTREMITIES: No clubbing, no edema, no cyanosis, 2+ pulses and upper and lower extremities. MUSCULOSKELETAL: Muscle strength and tone normal. SPINE: No scoliosis or deformity SKIN: No rashes CENTRAL NERVOUS SYSTEM: Alert and oriented -3. No focal deficits, tone is normal in all 4 extremities. PSYCHIATRIC: Alert and oriented -3. Appropriate affect. Intact judgment and insight. - Labs CBC & Chem 7: 02/12/19 05:13 02/12/19 05:13 Labs: Abnormal Lab Results - Last 24 Hours (Table) 02/11/19 02/11/19 02/11/19 Range/Units 12:11 17:54 18:10 WBC (3.8-10.6) k/uL RBC (4.30-5.90) m/uL Hgb (13.0-17.5) gm/dL Hct (39.0-53.0) % Chloride (98-107) mmol/L BUN (9-20) mg/dL Creatinine (0.66-1.25) mg/dL Glucose (74-99) mg/dL POC Glucose (mg/dL) 187 H 151 H 140 H (75-99) mg/dL Calcium (8.4-10.2) mg/dL 02/11/19 02/11/19 02/12/19 Range/Units 22:16 23:52 05:13 WBC 11.8 H (3.8-10.6) k/uL RBC 3.59 L (4.30-5.90) m/uL Hgb 10.9 L (13.0-17.5) gm/dL Hct 33.6 L (39.0-53.0) % Chloride (98-107) mmol/L BUN (9-20) mg/dL Creatinine (0.66-1.25) mg/dL Glucose (74-99) mg/dL POC Glucose (mg/dL) 174 H 179 H (75-99) mg/dL Calcium (8.4-10.2) mg/dL 02/12/19 02/12/19 Range/Units 05:13 05:44 WBC (3.8-10.6) k/uL RBC (4.30-5.90) m/uL Hgb (13.0-17.5) gm/dL Hct (39.0-53.0) % Chloride 112 H (98-107) mmol/L BUN 36 H (9-20) mg/dL Creatinine 1.89 H (0.66-1.25) mg/dL Glucose 128 H (74-99) mg/dL POC Glucose (mg/dL) 125 H (75-99) mg/dL Calcium 8.2 L (8.4-10.2) mg/dL Assessment and Plan Plan: 1 colonic mass with secondary bowel obstruction. The patient is post expected laparotomy and resection of the colon with a diverticular colostomy. The patient is postop day #2. Colostomy site is putting out liquid stool, bowel sounds are very hypoactive and the patient has an NG tube in place with hypoactive bowel sounds. 2 solitary hepatitic lesion, consider metastases 3 acute kidney injury, improving and it creatinine is down to 2.4 4 acute leukocytosis, improving and the white cell count is down to 10.3 5 coronary artery disease with previous AR 6 hypertension 7 hyperlipidemia 8 diabetes mellitus Plan: continue encouraging deep breathing and coughing, continue breathing treatments continue current antibiotics, denies any difficulty breathing, his pain is under control, renal profile is improving, hemodynamically stable, colostomy is starting to put out some liquid stool, still significant operative from the NG tube, remains nothing by mouth, tolerating oral swabs. Stable to go out of ICU to general medical floor. I performed a history & physical examination of the patient and discussed their management with my nurse practitioner, Shannon Bailey. I reviewed the nurse practitioner's note and agree with the documented findings and plan of care. Lung sounds are positive for clear breath sounds diminished at the bases throughout the lung hale. The findings and the impression was discussed with the patient. I attest to the documentation by the nurse practitioner. Time with Patient: Less than 30
[2019-02-12] MEDS: PANTOPRAZOLE 40 MG/10 ML VIAL IV SCH (09:10)
[2019-02-12] MEDS: HYDROmorphone 0.5 MG/0.5 ML SYRINGE IVP PRN (09:10)
--- NOTE | 2019-02-12 10:53 | P.PN ---
Subjective Patient is seen in follow-up for acute kidney injury on chronic kidney disease. Creatinine on admission was 3.18 and is down to 1.89 today. Unknown baseline renal function. Patient states he follows with a chief of surgery out of the [facility] in [place] and does have history of chronic kidney disease. Patient was noted to have complete small bowel obstruction and underwent partial colectomy with end colostomy on February 10. He has an NG tube in place. Output from the NG tube was over 1 L overnight. Denies chest pain or shortness of breath. Urine output has been good. Vital signs are stable. General: The patient appeared well nourished and normally developed. HEENT: Head exam is unremarkable. Neck is without jugular venous distension. LUNGS: Lungs are clear to auscultation and percussion. Breath sounds decreased. HEART: Rate and Rhythm are regular. First and second heart sounds normal. No murmurs, rubs or gallops. ABDOMEN: Bowel sounds decreased. Generalized tenderness. EXTREMITITES: No clubbing, cyanosis, or edema. Objective - Vital Signs Vital signs: Vital Signs Temp 98.0 F 02/12/19 08:00 Pulse 81 02/12/19 08:30 Resp 14 02/12/19 08:00 BP 142/79 02/12/19 08:00 Pulse Ox 94 L 02/12/19 08:00 Intake & Output 02/11/19 02/12/19 02/12/19 18:59 06:59 18:59 Intake Total 1500 1100 225 Output Total 795 1030 1350 Balance 705 70 -1125 Weight 81.5 kg Intake: IV 1500 1100 225 Magnesium Sulfate-D5w Pmx 200 1 gm In Dextrose/Water 1 100ml.bag @ 100 mls/hr IVPB Q1H [facility] Rx#: [id number] Piperacillin-Tazobactam 3 200 100 .375 gm In Sodium Chloride 0.9% 100 ml @ 25 mls/hr IVPB Q8HR [facility] Rx# :[id number] Sodium Chloride 0.9% 1, 900 900 225 000 ml @ 75 mls/hr IV . [id number] [facility] Rx#:[id number] metroNIDAZOLE-NS PMX 500 200 100 mg In Saline 1 100ml.bag @ 100 mls/hr IVPB Q8HR [facility] Rx#:[id number] Output: Gastric Drainage 80 1200 Urine 715 1030 150 Other: Voiding Method Indwelling Catheter Indwelling Catheter - Labs CBC & Chem 7: 02/12/19 05:13 02/12/19 05:13 Labs: Abnormal Lab Results - Last 24 Hours (Table) 02/11/19 02/11/19 02/11/19 Range/Units 12:11 17:54 18:10 WBC (3.8-10.6) k/uL RBC (4.30-5.90) m/uL Hgb (13.0-17.5) gm/dL Hct (39.0-53.0) % Chloride (98-107) mmol/L BUN (9-20) mg/dL Creatinine (0.66-1.25) mg/dL Glucose (74-99) mg/dL POC Glucose (mg/dL) 187 H 151 H 140 H (75-99) mg/dL Calcium (8.4-10.2) mg/dL 02/11/19 02/11/19 02/12/19 Range/Units 22:16 23:52 05:13 WBC 11.8 H (3.8-10.6) k/uL RBC 3.59 L (4.30-5.90) m/uL Hgb 10.9 L (13.0-17.5) gm/dL Hct 33.6 L (39.0-53.0) % Chloride (98-107) mmol/L BUN (9-20) mg/dL Creatinine (0.66-1.25) mg/dL Glucose (74-99) mg/dL POC Glucose (mg/dL) 174 H 179 H (75-99) mg/dL Calcium (8.4-10.2) mg/dL 02/12/19 02/12/19 Range/Units 05:13 05:44 WBC (3.8-10.6) k/uL RBC (4.30-5.90) m/uL Hgb (13.0-17.5) gm/dL Hct (39.0-53.0) % Chloride 112 H (98-107) mmol/L BUN 36 H (9-20) mg/dL Creatinine 1.89 H (0.66-1.25) mg/dL Glucose 128 H (74-99) mg/dL POC Glucose (mg/dL) 125 H (75-99) mg/dL Calcium 8.2 L (8.4-10.2) mg/dL Microbiology - Last 24 Hours (Table) 02/10/19 05:20 Stool Culture - Preliminary Stool Assessment and Plan Plan: Assessment: 1. Acute kidney injury mostly prerenal secondary to intravascular volume depletion from vomiting and diarrhea. Creatinine was 3.18 on admission and is down to 1.89 today. 2. Complete bowel obstruction status post exploratory laparotomy with end colostomy on February 10. 3. Hyperkalemia secondary to acute kidney injury and metabolic acidosis. Improved with medical management. 4. Metabolic acidosis secondary to acute kidney injury and diarrhea. Resolved. 5. Chronic kidney disease. Unknown baseline creatinine. Patient follows with a chief of surgery out of the [facility]. 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 6. Insulin-dependent diabetes mellitus. Plan: Increase normal saline to 100 mL an hour as output from the NG tube is quite high. Avoid nephrotoxins. Continue to monitor renal function and urine output.
--- NOTE | 2019-02-12 11:31 | P.PN ---
<DameonMegan Pineda - Last Filed: 02/12/19 11:27> Subjective Progress Note Date: 02/12/19 CHIEF COMPLAINT: colonic obstruction HISTORY OF PRESENT ILLNESS: 83-year-old male who is status post partial colectomy with end colostomy and mobilization splenic flexure performed on 02/10/2019. POD #2. Patient examined at the bedside this morning in the ICU. Patient reports his pain is controlled this morning. Ostomy with gas and liquid stool. NG with 1200cc output overnight and 300cc this morning. WBC 11.8. Hemoglobin 10.8 PHYSICAL EXAM: VITAL SIGNS: Reviewed. GENERAL: Well-developed in no acute distress. HEENT: NG to LIS. No sclera icterus. Extraocular movements grossly intact. Moist buccal mucosa. Head is atraumatic, normocephalic. ABDOMEN: Soft. Surgical tenderness noted. Dressing clean dry intact. Ostomy with liquid stool noted. Hypoactive bowel sounds. NEUROLOGIC: Alert and oriented. Cranial nerves II through XII grossly intact. ASSESSMENT: 1. Colonic obstruction, s/p partial colectomy with end colostomy PLAN: 1. Continue NG tube due to increased output overnight and this morning. A nticipate removal of NG tomorrow and advancement to clear liquids pending NG tube output. Continue swabs for now. 2. Pain control. Continue IV dilaudid 3. Activity as tolerated 4. Incentive spirometry 5. Urinary catheter management per primary team/nephrology 6. Ostomy nurse on consult for further teaching of ostomy Nurse practitioner note has been reviewed by physician. Signing provider agrees with the documented findings, assessment, and plan of care. Objective - Vital Signs Vital signs: Vital Signs Temp 98.0 F 02/12/19 08:00 Pulse 78 02/12/19 11:00 Resp 20 02/12/19 11:00 BP 117/69 02/12/19 11:00 Pulse Ox 93 L 02/12/19 11:00 Intake & Output 02/11/19 02/12/19 02/12/19 18:59 06:59 18:59 Intake Total 1500 1100 575 Output Total 795 1030 1650 Balance 705 70 -1075 Weight 81.5 kg Intake: IV 1500 1100 575 Magnesium Sulfate-D5w Pmx 200 1 gm In Dextrose/Water 1 100ml.bag @ 100 mls/hr IVPB Q1H [facility] Rx#: [id number] Piperacillin-Tazobactam 3 200 100 100 .375 gm In Sodium Chloride 0.9% 100 ml @ 25 mls/hr IVPB Q8HR [facility] Rx# :[id number] Sodium Chloride 0.9% 1, 900 900 375 000 ml @ 75 mls/hr IV . [id number] [facility] Rx#:[id number] metroNIDAZOLE-NS PMX 500 200 100 100 mg In Saline 1 100ml.bag @ 100 mls/hr IVPB Q8HR [facility] Rx#:[id number] Output: Gastric Drainage 80 1200 Urine 715 1030 250 Stool 200 Other: Voiding Method Indwelling Catheter Indwelling Catheter Indwelling Catheter - Labs CBC & Chem 7: 02/12/19 05:13 02/12/19 05:13 Labs: Abnormal Lab Results - Last 24 Hours (Table) 02/11/19 02/11/19 02/11/19 Range/Units 12:11 17:54 18:10 WBC (3.8-10.6) k/uL RBC (4.30-5.90) m/uL Hgb (13.0-17.5) gm/dL Hct (39.0-53.0) % Chloride (98-107) mmol/L BUN (9-20) mg/dL Creatinine (0.66-1.25) mg/dL Glucose (74-99) mg/dL POC Glucose (mg/dL) 187 H 151 H 140 H (75-99) mg/dL Calcium (8.4-10.2) mg/dL 02/11/19 02/11/19 02/12/19 Range/Units 22:16 23:52 05:13 WBC 11.8 H (3.8-10.6) k/uL RBC 3.59 L (4.30-5.90) m/uL Hgb 10.9 L (13.0-17.5) gm/dL Hct 33.6 L (39.0-53.0) % Chloride (98-107) mmol/L BUN (9-20) mg/dL Creatinine (0.66-1.25) mg/dL Glucose (74-99) mg/dL POC Glucose (mg/dL) 174 H 179 H (75-99) mg/dL Calcium (8.4-10.2) mg/dL 02/12/19 02/12/19 Range/Units 05:13 05:44 WBC (3.8-10.6) k/uL RBC (4.30-5.90) m/uL Hgb (13.0-17.5) gm/dL Hct (39.0-53.0) % Chloride 112 H (98-107) mmol/L BUN 36 H (9-20) mg/dL Creatinine 1.89 H (0.66-1.25) mg/dL Glucose 128 H (74-99) mg/dL POC Glucose (mg/dL) 125 H (75-99) mg/dL Calcium 8.2 L (8.4-10.2) mg/dL Microbiology - Last 24 Hours (Table) 02/10/19 05:20 Stool Culture - Preliminary Stool <Juan David Mejia - Last Filed: 02/12/19 15:42> Subjective As above. Patient with high nasogastric tube output. He is having ostomy function. He feels better. Pain is less. Keep nasogastric tube to suction. Hopefully can remove tomorrow. May transfer out of ICU. May remove Moctezuma catheter. Await final pathology. Objective - Vital Signs Vital signs: Vital Signs Temp 98.0 F 02/12/19 12:00 Pulse 98 02/12/19 14:01 Resp 22 02/12/19 14:01 BP 110/64 02/12/19 14:01 Pulse Ox 96 02/12/19 14:01 Intake & Output 02/11/19 02/12/19 02/12/19 18:59 06:59 18:59 Intake Total 1500 1100 775 Output Total 795 1030 1915 Balance 705 70 -1140 Weight 81.5 kg Intake: IV 1500 1100 775 Magnesium Sulfate-D5w Pmx 200 1 gm In Dextrose/Water 1 100ml.bag @ 100 mls/hr IVPB Q1H [facility] Rx#: [id number] Piperacillin-Tazobactam 3 200 100 100 .375 gm In Sodium Chloride 0.9% 100 ml @ 25 mls/hr IVPB Q8HR [facility] Rx# :[id number] Sodium Chloride 0.9% 1, 900 900 575 000 ml @ 75 mls/hr IV . [id number] [facility] Rx#:[id number] metroNIDAZOLE-NS PMX 500 200 100 100 mg In Saline 1 100ml.bag @ 100 mls/hr IVPB Q8HR [facility] Rx#:[id number] Output: Gastric Drainage 80 1400 Urine 715 1030 315 Stool 200 Other: Voiding Method Indwelling Catheter Indwelling Catheter Indwelling Catheter - Labs CBC & Chem 7: 02/12/19 05:13 02/12/19 05:13 Labs: Abnormal Lab Results - Last 24 Hours (Table) 02/11/19 02/11/19 02/11/19 Range/Units 17:54 18:10 22:16 WBC (3.8-10.6) k/uL RBC (4.30-5.90) m/uL Hgb (13.0-17.5) gm/dL Hct (39.0-53.0) % Chloride (98-107) mmol/L BUN (9-20) mg/dL Creatinine (0.66-1.25) mg/dL Glucose (74-99) mg/dL POC Glucose (mg/dL) 151 H 140 H 174 H (75-99) mg/dL Calcium (8.4-10.2) mg/dL 02/11/19 02/12/19 02/12/19 Range/Units 23:52 05:13 05:13 WBC 11.8 H (3.8-10.6) k/uL RBC 3.59 L (4.30-5.90) m/uL Hgb 10.9 L (13.0-17.5) gm/dL Hct 33.6 L (39.0-53.0) % Chloride 112 H (98-107) mmol/L BUN 36 H (9-20) mg/dL Creatinine 1.89 H (0.66-1.25) mg/dL Glucose 128 H (74-99) mg/dL POC Glucose (mg/dL) 179 H (75-99) mg/dL Calcium 8.2 L (8.4-10.2) mg/dL 02/12/19 02/12/19 Range/Units 05:44 11:58 WBC (3.8-10.6) k/uL RBC (4.30-5.90) m/uL Hgb (13.0-17.5) gm/dL Hct (39.0-53.0) % Chloride (98-107) mmol/L BUN (9-20) mg/dL Creatinine (0.66-1.25) mg/dL Glucose (74-99) mg/dL POC Glucose (mg/dL) 125 H 137 H (75-99) mg/dL Calcium (8.4-10.2) mg/dL Microbiology - Last 24 Hours (Table) 02/10/19 05:20 Stool Culture - Preliminary Stool Assessment and Plan (1) Colonic obstruction Current Visit: Yes Status: Acute Code(s): K56.609 - UNSP INTESTNL OBST, UNSP TO PARTIAL VERSUS COMPLETE OBST SNOMED Code(s): 67204439
[2019-02-12] MEDS: SODIUM CHLORIDE 0.9% 1,000 ML IV SCH ×3 (12:15→21:48)
[2019-02-12 12:21] LABS: Glucose,Whole Blood 137 mg/dL (75-99)
[2019-02-12 17:35] LABS: Glucose,Whole Blood 123 mg/dL (75-99)
--- NOTE | 2019-02-12 18:00 | P.PN ---
Subjective Progress Note Date: 02/12/19 (delayed charting patient seen at 0815) Principal diagnosis: abdominal pain Patient is an 83 CM with a history of diabetes mellitus insulin requiring, hypertension, dyslipidemia, and prior Dawood cardial infarction who presented to the ER with complaints of abdominal pain. In the ER he underwent an extensive evaluation. His initial vital signs were stable. Initial laboratory analysis revealed hyperkalemia, anion gap metabolic acidosis, acute kidney injury, hyperglycemia, and elevated white blood cell count. He was also noted that he had an elevated calcium level and total protein. He underwent a CT abdomen and pelvis which showed complete bowel obstruction with transition point in the mid to descending colon with probable colonic mass lymphadenopathy, and solitary he patic lesion. He was started on IV fluids, antiemetics, and was given a dose of PPI and insulin. He is admitted to Dr. Mejia in the ICU for further care. Nephrology and critical care are also following the patient. He was started on bicarb gtt, and received additional IV insulin. On the morning of 02/10 his creatinine was improved, acidosis is better, and potassium had normalized. He underwent partial colectomy with endcolostomy with removal of large colonic mass on 02/10. Patient seen and examined at bedside. More pain today, no nausea, no sob, no chest pain, frustrated with still need NGT. Objective - Vital Signs Vital signs: Vital Signs Temp 98.0 F 02/12/19 16:00 Pulse 98 02/12/19 17:00 Resp 19 02/12/19 17:00 BP 120/74 02/12/19 17:00 Pulse Ox 96 02/12/19 17:00 Intake & Output 02/11/19 02/12/19 02/12/19 18:59 06:59 18:59 Intake Total 1500 1100 1375 Output Total 795 1030 2185 Balance 705 70 -810 Weight 81.5 kg Intake: IV 1500 1100 1375 Magnesium Sulfate-D5w Pmx 200 1 gm In Dextrose/Water 1 100ml.bag @ 100 mls/hr IVPB Q1H [facility] Rx#: [id number] Piperacillin-Tazobactam 3 200 100 200 .375 gm In Sodium Chloride 0.9% 100 ml @ 25 mls/hr IVPB Q8HR [facility] Rx# :[id number] Sodium Chloride 0.9% 1, 900 900 975 000 ml @ 75 mls/hr IV . [id number] [facility] Rx#:[id number] metroNIDAZOLE-NS PMX 500 200 100 200 mg In Saline 1 100ml.bag @ 100 mls/hr IVPB Q8HR [facility] Rx#:[id number] Output: Gastric Drainage 80 1550 Urine 715 1030 435 Stool 200 Other: Voiding Method Indwelling Catheter Indwelling Catheter Indwelling Catheter - Exam General: ill appearing, no distress, appears at stated age Derm: midline dressing in place on abdomen, ostomy in place LLQ pink- stool present in bag, warm, dry Head: atraumatic, normocephalic, symmetric Eyes: EOMI, no lid lag, anicteric sclera Mouth: no lip lesion, mucus membranes moist Cardiovascular: S1S2 reg, no murmur, positive posterior tibial pulse bilateral, Lungs: decreased bs bilateral, no rhonchi, no rales , no accessory muscle use Abdominal: soft, +tender to palpation diffusely , no guarding, no appreciable organomegaly, NGT with dark output Ext: no gross muscle atrophy, no edema, no contractures Neuro: CN II-XI grossly intact, no focal neuro deficits Psych: Alert, oriented, appropriate affect - Labs CBC & Chem 7: 02/12/19 05:13 02/12/19 05:13 Labs: Abnormal Lab Results - Last 24 Hours (Table) 02/11/19 02/11/19 02/11/19 Range/Units 17:54 18:10 22:16 WBC (3.8-10.6) k/uL RBC (4.30-5.90) m/uL Hgb (13.0-17.5) gm/dL Hct (39.0-53.0) % Chloride (98-107) mmol/L BUN (9-20) mg/dL Creatinine (0.66-1.25) mg/dL Glucose (74-99) mg/dL POC Glucose (mg/dL) 151 H 140 H 174 H (75-99) mg/dL Calcium (8.4-10.2) mg/dL 02/11/19 02/12/19 02/12/19 Range/Units 23:52 05:13 05:13 WBC 11.8 H (3.8-10.6) k/uL RBC 3.59 L (4.30-5.90) m/uL Hgb 10.9 L (13.0-17.5) gm/dL Hct 33.6 L (39.0-53.0) % Chloride 112 H (98-107) mmol/L BUN 36 H (9-20) mg/dL Creatinine 1.89 H (0.66-1.25) mg/dL Glucose 128 H (74-99) mg/dL POC Glucose (mg/dL) 179 H (75-99) mg/dL Calcium 8.2 L (8.4-10.2) mg/dL 02/12/19 02/12/19 02/12/19 Range/Units 05:44 11:58 17:13 WBC (3.8-10.6) k/uL RBC (4.30-5.90) m/uL Hgb (13.0-17.5) gm/dL Hct (39.0-53.0) % Chloride (98-107) mmol/L BUN (9-20) mg/dL Creatinine (0.66-1.25) mg/dL Glucose (74-99) mg/dL POC Glucose (mg/dL) 125 H 137 H 123 H (75-99) mg/dL Calcium (8.4-10.2) mg/dL Microbiology - Last 24 Hours (Table) 02/10/19 05:20 Stool Culture - Preliminary Stool Assessment and Plan Assessment: Patient is an 83 yo M here with bowel obstruction s/p resection with ostomy formation Solitary hepatic lesion - Outpatient oncology eval suspect will need chemo with lymphadenopathy and solitary hepatic lesion. May need Bx of lesion but will defer to onc as outpatient DM2 insulin requiring - SSI, hold orals, levemir - follow BS DIEGO - nephro recs apreciated - on IVF - hold lisinopril - avoid additional nephrotoxic agents - follow BMP in AM Acute blood loss anemia - anticipated outcome - stable - follow CBC - check FE studies HTN, controlled - medications on hold (lisinopril) - follow BP Bowel obstruction s/p partial colectomy with endo ostomy, colonic mass noted - await path - NGT in place - Pain control, antiemetics - zosyn/ flagyl HLD - statin on hold until okay for orals Hypomagnesemia - replace and recheck in AM BPH - vasquez in place - resume flomax when able to tolerate orals Left lower lobe infiltrate on CT - no symptoms of PNA - on zosyn which would cover for aspiration PNA - monitor for sign of pneumonia and fevers Lactic acidosis, improved hyperkalemia, resolved anion gap metabolic acidosis, resolved DVT prophylaxis: Heparin Discussed with: Patient, nursing Anticipated discharge: unknown Anticipated discharge place: unknown A total of 35 minutes was spent on the care of this complex patient more than 50% of the time was spent in counseling and care coordination.
[2019-02-12] MEDS: INSULIN DETEMIR (LEVEMIR) 100 UNIT/ML SYR SQ SCH (21:44)
[2019-02-13 00:10] LABS: Glucose,Whole Blood 125 mg/dL (75-99)
[2019-02-13] MEDS: INSULIN ASPART (NovoLOG) 100 UNIT/ML VIAL SQ SCH ×5 (00:12→21:02)
[2019-02-13] MEDS: HEPARIN SODIUM,PORCINE 5,000 UNIT/ML 1 ML VIAL SQ SCH ×3 (00:58→16:56)
[2019-02-13] MEDS: PIPERACILLIN-TAZOBACTAM 3.375 GM in SODIUM CHLORIDE 0.9% 100 ML IVPB SCH ×3 (00:58→16:57)
[2019-02-13] MEDS: metroNIDAZOLE-NS PMX 500 MG in SALINE 1 100ML.BAG IVPB SCH ×3 (00:59→16:57)
[2019-02-13 02:25] LABS: Glucose,Whole Blood 122 mg/dL (75-99)
[2019-02-13] MEDS: METOPROLOL TARTRATE 50 MG TAB PO SCH ×2 (03:13→14:47)
[2019-02-13] MEDS ORDERED: DILTIAZEM 125 MG in SODIUM CHLORIDE 0.9% 100 ML IV SCH (03:15)
[2019-02-13 03:48] LABS: Basophils % (A) 0 %; Eosinophils # (A) 0.1 k/uL (0-0.7); Eosinophils % (A) 1 %; HCT 35.6 % (39.0-53.0); HGB 10.9 gm/dL (13.0-17.5); Lymphocytes # (A) 1.3 k/uL (1.0-4.8); Lymphocytes % (A) 11 %; MCH 29.5 pg (25.0-35.0); MCHC 30.6 g/dL (31.0-37.0); MCV 96.2 fL (80.0-100.0); Mean Platelet Volume 7.8; Monocytes # (A) 0.5 k/uL (0-1.0); Monocytes % (A) 4 %; Neutrophils # (A) 10.4 k/uL (1.3-7.7); Neutrophils % (A) 83 %; Platelet Count 169 k/uL (150-450); RDW 13.2 % (11.5-15.5); WBC 12.5 k/uL (3.8-10.6)
[2019-02-13 03:58] LABS: Partial Thromboplastin Time 27.5 sec (22.0-30.0); Prothrombin Time 10.6 sec (9.0-12.0)
[2019-02-13 04:06] LABS: Albumin 2.5 g/dL (3.5-5.0); Calcium 8.3 mg/dL (8.4-10.2); Magnesium 2.1 mg/dL (1.6-2.3); Phosphorus 3.2 mg/dL (2.5-4.5); Potassium 3.7 mmol/L (3.5-5.1); Total Bilirubin 0.6 mg/dL (0.2-1.3)
[2019-02-13 06:24] LABS: Glucose,Whole Blood 102 mg/dL (75-99)
[2019-02-13] MEDS: IPRATROPIUM-ALBUTEROL 3 ML NEB INHALATION SCH ×4 (07:17→20:46)
[2019-02-13] MEDS: SODIUM CHLORIDE 0.9% 1,000 ML IV SCH ×2 (08:46→17:16)
[2019-02-13] MEDS: PANTOPRAZOLE 40 MG/10 ML VIAL IV SCH (08:47)
--- NOTE | 2019-02-13 09:07 | CONS ---
CONSULTATION Mr. Herrera is an 83-year-old male who presented with a bowel obstruction. He was evaluated by Dr. Mejia and subsequently underwent surgical intervention with colostomy. He had a mass and it was felt that could be a malignancy. Cardiology consultation was requested because of episode of atrial arrhythmia. The patient has been told in the past that he had a myocardial infarction, but he had no chest discomfort and he had no intervention. He has mild dyspnea on exertion, but no exertional chest discomfort. He has no PND, orthopnea. No peripheral edema. He has no prior abdominal discomfort. He has been losing weight recently. On presentation, he had evidence of lactic acid elevation as well as hyperkalemia. He is back in sinus mechanism at this time with underlying right bundle branch block. His coronary risk factors are remarkable for remote history of smoking, hypertension hyperlipidemia, and diabetes mellitus. MEDICATION: His medications prior to admission included aspirin, insulin, Prinivil 5 mg daily, Onglyza, simvastatin 10 mg daily. REVIEW OF SYSTEMS: RESPIRATORY SYSTEM: He has no documented history of asthma, emphysema or bronchitis. He has dyspnea on exertion. GI SYSTEM: He had the abdominal discomfort, distention and history of weight loss. SYSTEM: No dysuria or hematuria. NERVOUS SYSTEM: No stroke or seizure. PHYSICAL EXAMINATION: He is an 83-year-old male, alert, oriented, NG tube in place. Blood pressure 117/60 with the heart rate in the 60s. HEAD: Normocephalic. EYES: Sclerae anicteric. NECK: Good carotid upstroke. No bruit. LUNGS: Clear to auscultation. HEART: Regular rate and rhythm. S1, S2. No S3 with a systolic murmur. No diastolic murmur. ABDOMEN: Soft. Colostomy bag in place. Mild tenderness. No organomegaly. EXTREMITIES: No edema. Intact distal pulses. LAB DATA: Lab data revealed BUN and creatinine 34 and 1.54, which has improved since his admission. On admission, his creatinine was 3.1. Potassium 3.7. Hemoglobin of 10.9. Troponin less than 0.012. His magnesium is 2.1. Initial EKG revealed right bundle branch block with sinus mechanism. He had an EKG that appears to be atrial tachycardia with episode of 2:1 conduction and subsequently a faster rate. At this time, he is in sinus. He has started on oral beta enrrique as well as IV Cardizem. IMPRESSION: 1. 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 2. Atrial arrhythmia appears to be atrial tachycardia, not atrial fibrillation. 3. Questionable history of prior myocardial infarction although no evidence on the EKG. 4. History of hypertension. 5. Hyperlipidemia. 6. Diabetes mellitus. RECOMMENDATION: I will stop the IV Cardizem. I will obtain echocardiogram with Doppler to evaluate the left ventricular systolic function. We will follow his magnesium and potassium and depending on his progress, further recommendation will be made. At this time, there is no indication for anticoagulation. Thank you for this consult. We will follow with you. MMODL / IJN: [id number] /
--- NOTE | 2019-02-13 10:11 | P.PN ---
Subjective Patient is seen in follow-up for acute kidney injury on chronic kidney disease. Creatinine on admission was 3.18 and is down to 1.54 today. Unknown baseline renal function. Patient states he follows with a rider ticket worker out of the [facility] in [place] and does have history of chronic kidney disease. Patient was noted to have complete small bowel obstruction and underwent partial colectomy with end colostomy on February 10. He has an NG tube in place. Output from the NG tube overnight was minimal. Denies chest pain or shortness of breath. Urine output has been good. Vital signs are stable. General: The patient appeared well nourished and normally developed. HEENT: Head exam is unremarkable. Neck is without jugular venous distension. NG tube noted. LUNGS: Lungs are clear to auscultation and percussion. Breath sounds decreased. HEART: Rate and Rhythm are regular. First and second heart sounds normal. No murmurs, rubs or gallops. ABDOMEN: Bowel sounds decreased. Generalized tenderness. EXTREMITITES: No clubbing, cyanosis, or edema. Objective - Vital Signs Vital signs: Vital Signs Temp 98.4 F 02/13/19 08:00 Pulse 87 02/13/19 08:00 Resp 20 02/13/19 08:00 BP 112/57 02/13/19 08:00 Pulse Ox 92 L 02/13/19 08:00 Intake & Output 02/12/19 02/13/19 02/13/19 18:59 06:59 18:59 Intake Total 1475 1329.333 425 Output Total 2185 975 120 Balance -710 354.333 305 Intake: IV 1475 600 325 Piperacillin-Tazobactam 3 200 100 25 .375 gm In Sodium Chloride 0.9% 100 ml @ 25 mls/hr IVPB Q8HR RAZ Rx# :[id number] Sodium Chloride 0.9% 1, 200 000 ml @ 100 mls/hr IV . Q10H RAZ Rx#:[id number] Sodium Chloride 0.9% 1, 1075 500 000 ml @ 75 mls/hr IV . [id number] RAZ Rx#:[id number] metroNIDAZOLE-NS PMX 500 200 100 mg In Saline 1 100ml.bag @ 100 mls/hr IVPB Q8HR RAZ Rx#:[id number] Intake, IV Titration 699.333 100 Amount Diltiazem 125 mg In 104.333 Sodium Chloride 0.9% 100 ml @ 10 MG/HR 10 mls/hr IV .[id number] [facility] Rx#: [id number] Sodium Chloride 0.9% 1, 495 100 000 ml @ 100 mls/hr IV . Q10H RAZ Rx#:[id number] metroNIDAZOLE-NS PMX 500 100 mg In Saline 1 100ml.bag @ 100 mls/hr IVPB Q8HR RAZ Rx#:[id number] Oral 30 Output: Gastric Drainage 1550 Urine 435 975 120 Stool 200 Other: Voiding Method Indwelling Catheter Indwelling Catheter Indwelling Catheter - Labs CBC & Chem 7: 02/13/19 03:30 02/13/19 03:30 Labs: Abnormal Lab Results - Last 24 Hours (Table) 02/12/19 02/12/19 02/12/19 Range/Units 11:58 17:13 23:58 WBC (3.8-10.6) k/uL RBC (4.30-5.90) m/uL Hgb (13.0-17.5) gm/dL Hct (39.0-53.0) % MCHC (31.0-37.0) g/dL Neutrophils # (1.3-7.7) k/uL Chloride (98-107) mmol/L BUN (9-20) mg/dL Creatinine (0.66-1.25) mg/dL Glucose (74-99) mg/dL POC Glucose (mg/dL) 137 H 123 H 125 H (75-99) mg/dL Calcium (8.4-10.2) mg/dL AST (17-59) U/L ALT (21-72) U/L Total Protein (6.3-8.2) g/dL Albumin (3.5-5.0) g/dL 02/13/19 02/13/19 02/13/19 Range/Units 02:14 03:30 03:30 WBC 12.5 H (3.8-10.6) k/uL RBC 3.70 L (4.30-5.90) m/uL Hgb 10.9 L (13.0-17.5) gm/dL Hct 35.6 L (39.0-53.0) % MCHC 30.6 L (31.0-37.0) g/dL Neutrophils # 10.4 H (1.3-7.7) k/uL Chloride 113 H (98-107) mmol/L BUN 34 H (9-20) mg/dL Creatinine 1.54 H (0.66-1.25) mg/dL Glucose 111 H (74-99) mg/dL POC Glucose (mg/dL) 122 H (75-99) mg/dL Calcium 8.3 L (8.4-10.2) mg/dL AST 16 L (17-59) U/L ALT 17 L (21-72) U/L Total Protein 5.0 L (6.3-8.2) g/dL Albumin 2.5 L (3.5-5.0) g/dL 02/13/19 Range/Units 06:13 WBC (3.8-10.6) k/uL RBC (4.30-5.90) m/uL Hgb (13.0-17.5) gm/dL Hct (39.0-53.0) % MCHC (31.0-37.0) g/dL Neutrophils # (1.3-7.7) k/uL Chloride (98-107) mmol/L BUN (9-20) mg/dL Creatinine (0.66-1.25) mg/dL Glucose (74-99) mg/dL POC Glucose (mg/dL) 102 H (75-99) mg/dL Calcium (8.4-10.2) mg/dL AST (17-59) U/L ALT (21-72) U/L Total Protein (6.3-8.2) g/dL Albumin (3.5-5.0) g/dL Microbiology - Last 24 Hours (Table) 02/10/19 05:20 Stool Culture - Preliminary Stool Assessment and Plan Plan: Assessment: 1. Acute kidney injury mostly prerenal secondary to intravascular volume depletion from vomiting and diarrhea. Creatinine was 3.18 on admission and is down to 1.54 today. 2. Complete bowel obstruction status post exploratory laparotomy with end c olostomy on February 10. 3. Hyperkalemia secondary to acute kidney injury and metabolic acidosis. Impro hodan with medical management. 4. Metabolic acidosis secondary to acute kidney injury and diarrhea. Resolved. 5. Chronic kidney disease. Unknown baseline creatinine. Patient follows with a rider ticket worker out of the [facility]. 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 6. Insulin-dependent diabetes mellitus. Plan: Decrease rate of normal saline to 50 mL an hour. Avoid nephrotoxins. Continue to monitor renal function and urine output.
--- NOTE | 2019-02-13 11:01 | P.PN ---
<XiaoMegan Miriam - Last Filed: 02/13/19 10:58> Subjective Progress Note Date: 02/13/19 CHIEF COMPLAINT: colonic obstruction HISTORY OF PRESENT ILLNESS: 83-year-old male who is status post partial colectomy with end colostomy and mobilization splenic flexure performed on 02/10/2019. POD #3. Patient examined this morning in the ICU. He is sitting up in the chair. Pain is tolerable. Ostomy with stool present. NG to LIS with minimal output. Patient has been tolerating ice chips. WBC 12.5. Hemoglobin 10.9 PHYSICAL EXAM: VITAL SIGNS: Reviewed. GENERAL: Well-developed in no acute distress. HEENT: NG to LIS. No sclera icterus. Extraocular movements grossly intact. Moist buccal mucosa. Head is atraumatic, normocephalic. ABDOMEN: Soft. Surgical tenderness noted. Dressing clean dry intact. Ostomy with liquid stool noted. Positive bowel sounds. NEUROLOGIC: Alert and oriented. Cranial nerves II through XII grossly intact. ASSESSMENT: 1. Colonic obstruction, s/p partial colectomy with end colostomy PLAN: Discontinue NG tube. Begin clear liquid diet. Await pathology report. Nurse practitioner note has been reviewed by physician. Signing provider agrees with the documented findings, assessment, and plan of care. Objective - Vital Signs Vital signs: Vital Signs Temp 98.4 F 02/13/19 08:00 Pulse 87 02/13/19 08:00 Resp 20 02/13/19 08:00 BP 112/57 02/13/19 08:00 Pulse Ox 92 L 02/13/19 08:00 Intake & Output 02/12/19 02/13/19 02/13/19 18:59 06:59 18:59 Intake Total 1475 1329.333 425 Output Total 2185 975 120 Balance -710 354.333 305 Weight 81.5 kg Intake: IV 1475 600 325 Piperacillin-Tazobactam 3 200 100 25 .375 gm In Sodium Chloride 0.9% 100 ml @ 25 mls/hr IVPB Q8HR RAZ Rx# :[id number] Sodium Chloride 0.9% 1, 200 000 ml @ 100 mls/hr IV . Q10H [facility] Rx#:[id number] Sodium Chloride 0.9% 1, 1075 500 000 ml @ 75 mls/hr IV . [id number] [facility] Rx#:[id number] metroNIDAZOLE-NS PMX 500 200 100 mg In Saline 1 100ml.bag @ 100 mls/hr IVPB Q8HR RAZ Rx#:[id number] Intake, IV Titration 699.333 100 Amount Diltiazem 125 mg In 104.333 Sodium Chloride 0.9% 100 ml @ 10 MG/HR 10 mls/hr IV .[id number] RAZ Rx#: [id number] Sodium Chloride 0.9% 1, 495 100 000 ml @ 100 mls/hr IV . Q10H [facility]Z Rx#:[id number] metroNIDAZOLE-NS PMX 500 100 mg In Saline 1 100ml.bag @ 100 mls/hr IVPB Q8HR RAZ Rx#:[id number] Oral 30 Output: Gastric Drainage 1550 Urine 435 975 120 Stool 200 Other: Voiding Method Indwelling Catheter Indwelling Catheter Indwelling Catheter - Labs CBC & Chem 7: 02/13/19 03:30 02/13/19 03:30 Labs: Abnormal Lab Results - Last 24 Hours (Table) 02/12/19 02/12/19 02/12/19 Range/Units 11:58 17:13 23:58 WBC (3.8-10.6) k/uL RBC (4.30-5.90) m/uL Hgb (13.0-17.5) gm/dL Hct (39.0-53.0) % MCHC (31.0-37.0) g/dL Neutrophils # (1.3-7.7) k/uL Chloride (98-107) mmol/L BUN (9-20) mg/dL Creatinine (0.66-1.25) mg/dL Glucose (74-99) mg/dL POC Glucose (mg/dL) 137 H 123 H 125 H (75-99) mg/dL Calcium (8.4-10.2) mg/dL AST (17-59) U/L ALT (21-72) U/L Total Protein (6.3-8.2) g/dL Albumin (3.5-5.0) g/dL 02/13/19 02/13/19 02/13/19 Range/Units 02:14 03:30 03:30 WBC 12.5 H (3.8-10.6) k/uL RBC 3.70 L (4.30-5.90) m/uL Hgb 10.9 L (13.0-17.5) gm/dL Hct 35.6 L (39.0-53.0) % MCHC 30.6 L (31.0-37.0) g/dL Neutrophils # 10.4 H (1.3-7.7) k/uL Chloride 113 H (98-107) mmol/L BUN 34 H (9-20) mg/dL Creatinine 1.54 H (0.66-1.25) mg/dL Glucose 111 H (74-99) mg/dL POC Glucose (mg/dL) 122 H (75-99) mg/dL Calcium 8.3 L (8.4-10.2) mg/dL AST 16 L (17-59) U/L ALT 17 L (21-72) U/L Total Protein 5.0 L (6.3-8.2) g/dL Albumin 2.5 L (3.5-5.0) g/dL 02/13/19 Range/Units 06:13 WBC (3.8-10.6) k/uL RBC (4.30-5.90) m/uL Hgb (13.0-17.5) gm/dL Hct (39.0-53.0) % MCHC (31.0-37.0) g/dL Neutrophils # (1.3-7.7) k/uL Chloride (98-107) mmol/L BUN (9-20) mg/dL Creatinine (0.66-1.25) mg/dL Glucose (74-99) mg/dL POC Glucose (mg/dL) 102 H (75-99) mg/dL Calcium (8.4-10.2) mg/dL AST (17-59) U/L ALT (21-72) U/L Total Protein (6.3-8.2) g/dL Albumin (3.5-5.0) g/dL Microbiology - Last 24 Hours (Table) 02/10/19 05:20 Stool Culture - Preliminary Stool <Juan David Mejia - Last Filed: 02/13/19 12:23> Subjective As above. Patient doing well today. Nasogastric tube was removed. Start clear liquids. Await final pathology. Objective - Vital Signs Vital signs: Vital Signs Temp 98.4 F 02/13/19 08:00 Pulse 72 02/13/19 11:42 Resp 20 02/13/19 08:00 BP 112/57 02/13/19 08:00 Pulse Ox 92 L 02/13/19 08:00 Intake & Output 02/12/19 02/13/19 02/13/19 18:59 06:59 18:59 Intake Total 1475 1329.333 575 Output Total 2185 975 420 Balance -710 354.333 155 Weight 81.5 kg Intake: IV 1475 600 475 Piperacillin-Tazobactam 3 200 100 75 .375 gm In Sodium Chloride 0.9% 100 ml @ 25 mls/hr IVPB Q8HR [facility] Rx# :[id number] Sodium Chloride 0.9% 1, 300 000 ml @ 50 mls/hr IV . Q20H [facility] Rx#:[id number] Sodium Chloride 0.9% 1, 1075 500 000 ml @ 75 mls/hr IV . [id number] [facility] Rx#:[id number] metroNIDAZOLE-NS PMX 500 200 100 mg In Saline 1 100ml.bag @ 100 mls/hr IVPB Q8HR [facility]Z Rx#:[id number] Intake, IV Titration 699.333 100 Amount Diltiazem 125 mg In 104.333 Sodium Chloride 0.9% 100 ml @ 10 MG/HR 10 mls/hr IV .[id number] [facility]Z Rx#: [id number] Sodium Chloride 0.9% 1, 495 100 000 ml @ 50 mls/hr IV . Q20H RAZ Rx#:[id number] metroNIDAZOLE-NS PMX 500 100 mg In Saline 1 100ml.bag @ 100 mls/hr IVPB Q8HR RAZ Rx#:[id number] Oral 30 Output: Gastric Drainage 1550 Urine 435 975 220 Stool 200 200 Other: Voiding Method Indwelling Catheter Indwelling Catheter Indwelling Catheter - Labs CBC & Chem 7: 02/13/19 03:30 02/13/19 03:30 Labs: Abnormal Lab Results - Last 24 Hours (Table) 02/12/19 02/12/19 02/12/19 Range/Units 11:58 17:13 23:58 WBC (3.8-10.6) k/uL RBC (4.30-5.90) m/uL Hgb (13.0-17.5) gm/dL Hct (39.0-53.0) % MCHC (31.0-37.0) g/dL Neutrophils # (1.3-7.7) k/uL Chloride (98-107) mmol/L BUN (9-20) mg/dL Creatinine (0.66-1.25) mg/dL Glucose (74-99) mg/dL POC Glucose (mg/dL) 137 H 123 H 125 H (75-99) mg/dL Calcium (8.4-10.2) mg/dL AST (17-59) U/L ALT (21-72) U/L Total Protein (6.3-8.2) g/dL Albumin (3.5-5.0) g/dL 02/13/19 02/13/19 02/13/19 Range/Units 02:14 03:30 03:30 WBC 12.5 H (3.8-10.6) k/uL RBC 3.70 L (4.30-5.90) m/uL Hgb 10.9 L (13.0-17.5) gm/dL Hct 35.6 L (39.0-53.0) % MCHC 30.6 L (31.0-37.0) g/dL Neutrophils # 10.4 H (1.3-7.7) k/uL Chloride 113 H (98-107) mmol/L BUN 34 H (9-20) mg/dL Creatinine 1.54 H (0.66-1.25) mg/dL Glucose 111 H (74-99) mg/dL POC Glucose (mg/dL) 122 H (75-99) mg/dL Calcium 8.3 L (8.4-10.2) mg/dL AST 16 L (17-59) U/L ALT 17 L (21-72) U/L Total Protein 5.0 L (6.3-8.2) g/dL Albumin 2.5 L (3.5-5.0) g/dL 02/13/19 Range/Units 06:13 WBC (3.8-10.6) k/uL RBC (4.30-5.90) m/uL Hgb (13.0-17.5) gm/dL Hct (39.0-53.0) % MCHC (31.0-37.0) g/dL Neutrophils # (1.3-7.7) k/uL Chloride (98-107) mmol/L BUN (9-20) mg/dL Creatinine (0.66-1.25) mg/dL Glucose (74-99) mg/dL POC Glucose (mg/dL) 102 H (75-99) mg/dL Calcium (8.4-10.2) mg/dL AST (17-59) U/L ALT (21-72) U/L Total Protein (6.3-8.2) g/dL Albumin (3.5-5.0) g/dL Microbiology - Last 24 Hours (Table) 02/10/19 05:20 Stool Culture - Preliminary Stool Assessment and Plan (1) Colonic obstruction Current Visit: Yes Status: Acute Code(s): K56.609 - UNSP INTESTNL OBST, UNSP TO PARTIAL VERSUS COMPLETE OBST SNOMED Code(s): 96787632
--- NOTE | 2019-02-13 11:18 | ECHOF ---
Referral Reason:cad MEASUREMENTS -------- HEIGHT: 175.3 cm WEIGHT: 81.2 kg BP: RVIDd: 4.7 cm (< 3.3) IVSd: 0.7 cm (0.6 - 1.1) LVIDd: 4.1 cm (3.9 - 5.3) LVPWd: 0.9 cm (0.6 - 1.1) IVSs: 1.3 cm LVIDs: 2.2 cm LVPWs: 1.5 cm Ao Diam: 3.2 cm (2.0 - 3.7) AV Cusp: 1.2 cm (1.5 - 2.6) LA Diam: 3.2 cm (2.7 - 3.8) MV EXCURSION: 23.818 mm (> 18.000) MV EF SLOPE: 118 mm/s (70 - 150) EPSS: 0.5 cm MV E Tyelr: 0.56 m/s MV DecT: 314 ms MV A Tyler: 0.60 m/s MV E/A Ratio: 0.93 AV maxP.51 mmHg AV meanP.82 mmHg RAP: 5.00 mmHg RVSP: 25.16 mmHg FINDINGS -------- Atrial fibrillation. This was a technically difficult study with suboptimal views. The left ventricular size is normal. Left ventricular wall thickness is normal. Overall left vent ricular systolic function is normal with, an EF between 55 - 60 %. The right ventricle is severely enlarged. The left atrial size is normal. The right atrial size is normal. Lumason used Interatrial and interventricular septum intact. Aortic valve is trileaflet and is mildly thickened. There is mild aortic stenosis present. Peak/m isaiah gradient across the Aortic Valve is 14.51mmHg / 7.82mmHg. The mitral valve leaflets are mildly thickened. Mild mitral regurgitation is present. Mild tricuspid regurgitation present. The right ventricular systolic pressure, as measured by Doppl er, is 25.16mmHg. There is no pulmonic regurgitation present. The aortic root size is normal. IVC Not well visulized. There is no pericardial effusion. CONCLUSIONS -------- 1. Atrial fibrillation. 2. This was a technically difficult study with suboptimal views. 3. The left ventricular size is normal. 4. Left ventricular wall thickness is normal. 5. Overall left ventricular systolic function is normal with, an EF between 55 - 60 %. 6. The right ventricle is severely enlarged. 7. The left atrial size is normal. 8. The right atrial size is normal. 9. Lumason used 10. Interatrial and interventricular septum intact. 11. Aortic valve is trileaflet and is mildly thickened. 12. There is mild aortic stenosis present. 13. Peak/mean gradient across the Aortic Valve is 14.51mmHg / 7.82mmHg. 14. The mitral valve leaflets are mildly thickened. 15. Mild mitral regurgitation is present. 16. Mild tricuspid regurgitation present. 17. The right ventricular systolic pressure, as measured by Doppler, is 25.16mmHg. 18. There is no pulmonic regurgitation present. 19. The aortic root size is normal. 20. IVC Not well visulized. 21. There is no pericardial effusion. SENIOR LEAD DEVELOPER: Pauly Matamoros RDCS
[2019-02-13 11:28] LABS: Glucose,Whole Blood 99 mg/dL (75-99)
--- NOTE | 2019-02-13 16:02 | P.PN ---
Subjective Progress Note Date: 02/13/19 On today's evaluation, the patient is doing well. NG tube is removed. The patient is having some liquid output and his colostomy bag. Surgical wound site is dry clean and intact. The patient is postop day #3 and the surgery was done on 02/10/2019. The patient is able to ambulate. He is sitting up on a chair. He is passing gas in the colostomy bag. White cell count is at 12.5. No respiratory distress. No altered mentation. No hemodynamic instability. Is afebrile. No significant tachycardia. Objective - Vital Signs Vital signs: Vital Signs Temp 97.9 F 02/13/19 12:00 Pulse 108 H 02/13/19 12:00 Resp 19 02/13/19 12:00 BP 125/69 02/13/19 12:00 Pulse Ox 94 L 02/13/19 12:00 Intake & Output 02/12/19 02/13/19 02/13/19 18:59 06:59 18:59 Intake Total 1475 1329.333 575 Output Total 2185 975 420 Balance -710 354.333 155 Weight 81.5 kg Intake: IV 1475 600 475 Piperacillin-Tazobactam 3 200 100 75 .375 gm In Sodium Chloride 0.9% 100 ml @ 25 mls/hr IVPB Q8HR [facility] Rx# :[id number] Sodium Chloride 0.9% 1, 300 000 ml @ 50 mls/hr IV . Q20H [facility] Rx#:[id number] Sodium Chloride 0.9% 1, 1075 500 000 ml @ 75 mls/hr IV . [id number] [facility] Rx#:[id number] metroNIDAZOLE-NS PMX 500 200 100 mg In Saline 1 100ml.bag @ 100 mls/hr IVPB Q8HR [facility] Rx#:[id number] Intake, IV Titration 699.333 100 Amount Diltiazem 125 mg In 104.333 Sodium Chloride 0.9% 100 ml @ 10 MG/HR 10 mls/hr IV .[id number] [facility] Rx#: [id number] Sodium Chloride 0.9% 1, 495 100 000 ml @ 50 mls/hr IV . Q20H [facility] Rx#:[id number] metroNIDAZOLE-NS PMX 500 100 mg In Saline 1 100ml.bag @ 100 mls/hr IVPB Q8HR [facility] Rx#:[id number] Oral 30 Output: Gastric Drainage 1550 Urine 435 975 220 Stool 200 200 Other: Voiding Method Indwelling Catheter Indwelling Catheter Indwelling Catheter - Exam General: Ill-appearing, no distress, appears at stated age, normal weight, temporal wasting, NG tube has been removed Derm: no unusual rashes/lesions no unusual ecchymoses, warm, dry Head: atraumatic, normocephalic, symmetric Eyes: EOMI, no lid lag, anicteric sclera, pupils equal round reactive to light ENT: Nose and ears atraumatic, no thrush, no pharyngeal erythema, Neck: No thyromegaly, no cervical lymphadenopathy, trachea midline, supple Mouth: no lip lesion, mucus membranes dry Cardiovascular: S1S2 reg, no murmur, positive posterior tibial pulse bilateral, no edema, capillary refill less than 2 seconds Lungs: Decreased breath sounds bilaterally, no rhonchi, no rales , no accessory muscle use Abdominal: soft, nontender to palpation, no guarding, no appreciable organomegaly, the patient has a mid abdominal incision in the colostomy site is viable and functioning at this point in time and there is positive liquid output. Ext: + gross muscle atrophy, muscle strength 4 out of 5 in all 4 extremities grossly, no contractures, Neuro: CN II-XI grossly intact, light touch intact all 4 extremities, finger to nose within normal limits, Psych: Alert, oriented, appropriate affect - Labs CBC & Chem 7: 02/13/19 03:30 02/13/19 03:30 Labs: Abnormal Lab Results - Last 24 Hours (Table) 02/12/19 02/12/19 02/13/19 Range/Units 17:13 23:58 02:14 WBC (3.8-10.6) k/uL RBC (4.30-5.90) m/uL Hgb (13.0-17.5) gm/dL Hct (39.0-53.0) % MCHC (31.0-37.0) g/dL Neutrophils # (1.3-7.7) k/uL Chloride (98-107) mmol/L BUN (9-20) mg/dL Creatinine (0.66-1.25) mg/dL Glucose (74-99) mg/dL POC Glucose (mg/dL) 123 H 125 H 122 H (75-99) mg/dL Calcium (8.4-10.2) mg/dL AST (17-59) U/L ALT (21-72) U/L Total Protein (6.3-8.2) g/dL Albumin (3.5-5.0) g/dL 02/13/19 02/13/19 02/13/19 Range/Units 03:30 03:30 06:13 WBC 12.5 H (3.8-10.6) k/uL RBC 3.70 L (4.30-5.90) m/uL Hgb 10.9 L (13.0-17.5) gm/dL Hct 35.6 L (39.0-53.0) % MCHC 30.6 L (31.0-37.0) g/dL Neutrophils # 10.4 H (1.3-7.7) k/uL Chloride 113 H (98-107) mmol/L BUN 34 H (9-20) mg/dL Creatinine 1.54 H (0.66-1.25) mg/dL Glucose 111 H (74-99) mg/dL POC Glucose (mg/dL) 102 H (75-99) mg/dL Calcium 8.3 L (8.4-10.2) mg/dL AST 16 L (17-59) U/L ALT 17 L (21-72) U/L Total Protein 5.0 L (6.3-8.2) g/dL Albumin 2.5 L (3.5-5.0) g/dL Microbiology - Last 24 Hours (Table) 02/10/19 05:20 Stool Culture - Final Stool Assessment and Plan Plan: 1 colonic mass with secondary bowel obstruction. The patient is post expected laparotomy and resection of the colon with a diverticular colostomy. The patient is postop day #3. Colostomy site functioning for now and the patient has NG tube removed. 2 solitary hepatitic lesion, consider metastases 3 acute kidney injury, improving and it creatinine is down to 1.54 patient is producing adequate amount of urine output. 4 acute leukocytosis, improving 5 coronary artery disease with previous IN 6 hypertension 7 hyperlipidemia 8 diabetes mellitus 9 BPH plan Continue IV fluids with normal state rate of50 mL an hour. IV Zosyn. IV Flagyl. Monitor renal function. Dilaudid for pain control. Heparin subcu for DVT prophylaxis. NG tube has been removed. There is bowel activity. Begin clear liquid diet. Awaiting final pathology. Transfer the patient to medical surgical floor.
[2019-02-13 16:20] LABS: Iron Saturation 57.69 (15.00-50.00)
[2019-02-13 17:06] LABS: Glucose,Whole Blood 248 mg/dL (75-99)
--- NOTE | 2019-02-13 19:48 | P.PN ---
Subjective Progress Note Date: 02/13/19 (delayed charting patient seen at 0810) Principal diagnosis: abdominal pain Patient is an 83 CM with a history of diabetes mellitus insulin requiring, hypertension, dyslipidemia, and prior Myocardial infarction who presented to the ER with complaints of abdominal pain. In the ER he underwent an extensive evaluation. His initial vital signs were stable. Initial laboratory analysis revealed hyperkalemia, anion gap metabolic acidosis, acute kidney injury, hyperglycemia, and elevated white blood cell count. He was also noted that he had an elevated calcium level and total protein. He underwent a CT abdomen and pelvis which showed complete bowel obstruction with transition point in the mid to descending colon with probable colonic mass lymphadenopathy, and solitary hepatic lesion. He was started on IV fluids, antiemetics, and was given a dose of PPI and insulin. He is admitted to Dr. Mejia in the ICU for further care. Nephrology and critical care are also following the patient. He was started on bicarb gtt, and received additional IV insulin. On the morning of 02/10 his creatinine was improved, acidosis is better, and potassium had normalized. He underwent partial colectomy with endcolostomy with removal of large colonic mass on 02/10. He continued to do well. He went into A fib with RVR on 02/12 and was placed on cardizem gtt, cardio was consulted and felt that it was more atrial tachycardia then Fib. Patient seen and examined at bedside. Pain is better, no shortness of breath, no nausea, no chest pain, no palpitations. Objective - Vital Signs Vital signs: Vital Signs Temp 98.0 F 02/13/19 16:00 Pulse 73 02/13/19 16:08 Resp 19 02/13/19 16:00 BP 130/68 02/13/19 16:00 Pulse Ox 98 02/13/19 16:00 Intake & Output 02/13/19 02/13/19 02/14/19 06:59 18:59 06:59 Intake Total 6130.310 2290 580 Output Total 975 670 250 Balance 000.388 3936 330 Weight 81.5 kg Intake: IV 600 1000 100 Piperacillin-Tazobactam 3 100 200 .375 gm In Sodium Chloride 0.9% 100 ml @ 25 mls/hr IVPB Q8HR [facility] Rx# :[id number] Sodium Chloride 0.9% 1, 600 100 000 ml @ 50 mls/hr IV . Q20H [facility] Rx#:[id number] Sodium Chloride 0.9% 1, 500 000 ml @ 75 mls/hr IV . [id number] [facility] Rx#:[id number] metroNIDAZOLE-NS PMX 500 200 mg In Saline 1 100ml.bag @ 100 mls/hr IVPB Q8HR [facility] Rx#:[id number] Intake, IV Titration 699.333 100 Amount Diltiazem 125 mg In 104.333 Sodium Chloride 0.9% 100 ml @ 10 MG/HR 10 mls/hr IV .[id number] [facility] Rx#: [id number] Sodium Chloride 0.9% 1, 495 100 000 ml @ 50 mls/hr IV . Q20H [facility] Rx#:[id number] metroNIDAZOLE-NS PMX 500 100 mg In Saline 1 100ml.bag @ 100 mls/hr IVPB Q8HR [facility] Rx#:[id number] Oral 30 600 480 Output: Urine 975 470 250 Stool 200 Other: Voiding Method Indwelling Catheter Indwelling Catheter - Exam General: non toxic, no distress, appears at stated age Derm: midline dressing in place on abdomen, ostomy in place LLQ pink- stool present in bag, warm, dry Head: atraumatic, normocephalic, symmetric Eyes: EOMI, no lid lag, anicteric sclera Mouth: no lip lesion, mucus membranes moist Cardiovascular: S1S2 reg, no murmur, positive posterior tibial pulse bilateral, Lungs: decreased bs bilateral, no rhonchi, no rales , no accessory muscle use Abdominal: soft, +tender to palpation diffusely , no guarding, no appreciable organomegaly, NGT with dark output Ext: no gross muscle atrophy, no edema, no contractures Neuro: CN II-XI grossly intact, no focal neuro deficits Psych: Alert, oriented, appropriate affect - Labs CBC & Chem 7: 02/13/19 03:30 02/13/19 03:30 Labs: Abnormal Lab Results - Last 24 Hours (Table) 02/12/19 02/13/19 02/13/19 Range/Units 23:58 02:14 03:30 WBC (3.8-10.6) k/uL RBC (4.30-5.90) m/uL Hgb (13.0-17.5) gm/dL Hct (39.0-53.0) % MCHC (31.0-37.0) g/dL Neutrophils # (1.3-7.7) k/uL Chloride (98-107) mmol/L BUN (9-20) mg/dL Creatinine (0.66-1.25) mg/dL Glucose (74-99) mg/dL POC Glucose (mg/dL) 125 H 122 H (75-99) mg/dL Calcium (8.4-10.2) mg/dL TIBC 156 L (228-460) ug/dL Iron Saturation 57.69 H (15.00-50.00) AST (17-59) U/L ALT (21-72) U/L Total Protein (6.3-8.2) g/dL Albumin (3.5-5.0) g/dL 02/13/19 02/13/19 02/13/19 Range/Units 03:30 03:30 06:13 WBC 12.5 H (3.8-10.6) k/uL RBC 3.70 L (4.30-5.90) m/uL Hgb 10.9 L (13.0-17.5) gm/dL Hct 35.6 L (39.0-53.0) % MCHC 30.6 L (31.0-37.0) g/dL Neutrophils # 10.4 H (1.3-7.7) k/uL Chloride 113 H (98-107) mmol/L BUN 34 H (9-20) mg/dL Creatinine 1.54 H (0.66-1.25) mg/dL Glucose 111 H (74-99) mg/dL POC Glucose (mg/dL) 102 H (75-99) mg/dL Calcium 8.3 L (8.4-10.2) mg/dL TIBC (228-460) ug/dL Iron Saturation (15.00-50.00) AST 16 L (17-59) U/L ALT 17 L (21-72) U/L Total Protein 5.0 L (6.3-8.2) g/dL Albumin 2.5 L (3.5-5.0) g/dL 02/13/19 Range/Units 16:54 WBC (3.8-10.6) k/uL RBC (4.30-5.90) m/uL Hgb (13.0-17.5) gm/dL Hct (39.0-53.0) % MCHC (31.0-37.0) g/dL Neutrophils # (1.3-7.7) k/uL Chloride (98-107) mmol/L BUN (9-20) mg/dL Creatinine (0.66-1.25) mg/dL Glucose (74-99) mg/dL POC Glucose (mg/dL) 248 H (75-99) mg/dL Calcium (8.4-10.2) mg/dL TIBC (228-460) ug/dL Iron Saturation (15.00-50.00) AST (17-59) U/L ALT (21-72) U/L Total Protein (6.3-8.2) g/dL Albumin (3.5-5.0) g/dL Microbiology - Last 24 Hours (Table) 02/10/19 05:20 Stool Culture - Final Stool Assessment and Plan Assessment: Patient is an 83 yo M here with bowel obstruction s/p resection with ostomy formation Solitary hepatic lesion - Outpatient oncology eval suspect will need chemo with lymphadenopathy and solitary hepatic lesion. May need Bx of lesion but will defer to onc as outpatient DM2 insulin requiring - SSI, hold orals, levemir - follow BS Atrial tachycardia - Betablocker - Cardio recs - echo with preserved EF DEIGO - nephro recs appreciated - on IVF - hold lisinopril - avoid additional nephrotoxic agents - follow BMP in AM Acute blood loss anemia - anticipated outcome - stable - follow CBC - FE studies stable HTN, controlled - medications on hold (lisinopril) - follow BP Bowel obstruction s/p partial colectomy with endo ostomy, colonic mass noted - await path - NGT in place - Pain control, antiemetics - zosyn/ flagyl HLD - statin on hold until okay for orals Hypomagnesemia - replace and recheck in AM BPH - vasquez in place - resume flomax when able to tolerate orals Left lower lobe infiltrate on CT - no symptoms of PNA - on zosyn which would cover for aspiration PNA - monitor for sign of pneumonia and fevers Lactic acidosis, improved hyperkalemia, resolved anion gap metabolic acidosis, resolved DVT prophylaxis: Heparin Discussed with: Patient, nursing Anticipated discharge: unknown Anticipated discharge place: unknown A total of 35 minutes was spent on the care of this complex patient more than 50% of the time was spent in counseling and care coordination.
[2019-02-13 20:42] LABS: Glucose,Whole Blood 316 mg/dL (75-99)
[2019-02-13] MEDS: INSULIN DETEMIR (LEVEMIR) 100 UNIT/ML SYR SQ SCH (21:02)
[2019-02-14] MEDS: metroNIDAZOLE-NS PMX 500 MG in SALINE 1 100ML.BAG IVPB SCH ×2 (00:47→09:12)
[2019-02-14] MEDS: PIPERACILLIN-TAZOBACTAM 3.375 GM in SODIUM CHLORIDE 0.9% 100 ML IVPB SCH ×4 (00:48→23:52)
[2019-02-14] MEDS: HEPARIN SODIUM,PORCINE 5,000 UNIT/ML 1 ML VIAL SQ SCH ×4 (00:48→23:52)
[2019-02-14] MEDS: METOPROLOL TARTRATE 50 MG TAB PO SCH ×2 (02:08→20:46)
[2019-02-14 05:10] LABS: Basophils % (A) 0 %; Eosinophils # (A) 0.2 k/uL (0-0.7); Eosinophils % (A) 2 %; HCT 29.3 % (39.0-53.0); HGB 9.9 gm/dL (13.0-17.5); Lymphocytes # (A) 1.8 k/uL (1.0-4.8); Lymphocytes % (A) 19 %; MCH 31.4 pg (25.0-35.0); MCHC 33.7 g/dL (31.0-37.0); Mean Platelet Volume 8.4; Monocytes # (A) 0.5 k/uL (0-1.0); Monocytes % (A) 6 %; Neutrophils # (A) 6.5 k/uL (1.3-7.7); Neutrophils % (A) 71 %; Platelet Count 162 k/uL (150-450); RBC 3.15 m/uL (4.30-5.90); RDW 13.3 % (11.5-15.5); WBC 9.1 k/uL (3.8-10.6)
[2019-02-14 05:21] LABS: Calcium 7.9 mg/dL (8.4-10.2); Magnesium 1.8 mg/dL (1.6-2.3); Potassium 3.3 mmol/L (3.5-5.1)
[2019-02-14] MEDS: IPRATROPIUM-ALBUTEROL 3 ML NEB INHALATION SCH ×4 (07:14→21:02)
[2019-02-14 07:25] LABS: Glucose,Whole Blood 113 mg/dL (75-99)
[2019-02-14] MEDS: INSULIN ASPART (NovoLOG) 100 UNIT/ML VIAL SQ SCH ×4 (07:37→20:45)
[2019-02-14] MEDS: MAGNESIUM SULFATE-D5W PMX 1 GM in DEXTROSE/WATER 1 100ML.BAG IVPB SCH ×2 (07:57→09:23)
[2019-02-14] MEDS: POTASSIUM CHLORIDE ER 20 MEQ TAB.ER PO SCH ×2 (07:57→09:12)
--- NOTE | 2019-02-14 09:05 | P.PN ---
Subjective Patient is seen in follow-up for acute kidney injury on chronic kidney disease. Creatinine on admission was 3.18 and is down to 1.44 today. Unknown baseline renal function. Patient states he follows with a film processor out of the [facility] in [place] and does have history of chronic kidney disease. Patient was noted to have complete small bowel obstruction and underwent partial colectomy with end colostomy on February 10. NG tube has been removed. He is on a clear diet. Denies chest pain or shortness of breath. Urine output has been good. Vital signs are stable. General: The patient appeared well nourished and normally developed. HEENT: Head exam is unremarkable. Neck is without jugular venous distension. NG tube noted. LUNGS: Lungs are clear to auscultation and percussion. Breath sounds decreased. HEART: Rate and Rhythm are regular. First and second heart sounds normal. No murmurs, rubs or gallops. ABDOMEN: Bowel sounds decreased. Generalized tenderness. EXTREMITITES: No clubbing, cyanosis, or edema. Objective - Vital Signs Vital signs: Vital Signs Temp 98.1 F 02/14/19 08:00 Pulse 89 02/14/19 08:00 Resp 18 02/14/19 08:00 BP 134/76 02/14/19 08:00 Pulse Ox 94 L 02/14/19 08:00 Intake & Output 02/13/19 02/14/19 02/14/19 18:59 06:59 18:59 Intake Total 1700 1280 125 Output Total 670 1150 315 Balance 1030 130 -190 Weight 81.5 kg 77.5 kg Intake: IV 1000 800 25 Piperacillin-Tazobactam 3 200 100 .375 gm In Sodium Chloride 0.9% 100 ml @ 25 mls/hr IVPB Q8HR [facility] Rx# :[id number] Sodium Chloride 0.9% 1, 600 600 25 000 ml @ 50 mls/hr IV . Q20H [facility] Rx#:[id number] metroNIDAZOLE-NS PMX 500 200 100 mg In Saline 1 100ml.bag @ 100 mls/hr IVPB Q8HR [facility] Rx#:[id number] Intake, IV Titration 100 100 Amount Magnesium Sulfate-D5w Pmx 100 1 gm In Dextrose/Water 1 100ml.bag @ 100 mls/hr IVPB Q1H [facility] Rx#: [id number] Sodium Chloride 0.9% 1, 100 000 ml @ 50 mls/hr IV . Q20H [facility] Rx#:[id number] Oral 600 480 Output: Urine 470 900 165 Stool 200 250 150 Other: Voiding Method Indwelling Catheter Indwelling Catheter - Labs CBC & Chem 7: 02/14/19 04:31 02/14/19 04:31 Labs: Abnormal Lab Results - Last 24 Hours (Table) 02/13/19 02/13/19 02/13/19 Range/Units 03:30 16:54 20:31 RBC (4.30-5.90) m/uL Hgb (13.0-17.5) gm/dL Hct (39.0-53.0) % Potassium (3.5-5.1) mmol/L Chloride (98-107) mmol/L BUN (9-20) mg/dL Creatinine (0.66-1.25) mg/dL POC Glucose (mg/dL) 248 H 316 H (75-99) mg/dL Calcium (8.4-10.2) mg/dL TIBC 156 L (228-460) ug/dL Iron Saturation 57.69 H (15.00-50.00) 02/14/19 02/14/19 02/14/19 Range/Units 04:31 04:31 07:14 RBC 3.15 L (4.30-5.90) m/uL Hgb 9.9 L (13.0-17.5) gm/dL Hct 29.3 L (39.0-53.0) % Potassium 3.3 L (3.5-5.1) mmol/L Chloride 114 H (98-107) mmol/L BUN 31 H (9-20) mg/dL Creatinine 1.44 H (0.66-1.25) mg/dL POC Glucose (mg/dL) 113 H (75-99) mg/dL Calcium 7.9 L (8.4-10.2) mg/dL TIBC (228-460) ug/dL Iron Saturation (15.00-50.00) Microbiology - Last 24 Hours (Table) 02/10/19 05:20 Stool Culture - Final Stool Assessment and Plan Plan: Assessment: 1. Acute kidney injury mostly prerenal secondary to intravascular volume depletion from vomiting and diarrhea. Creatinine was 3.18 on admission and is down to 1.44 today. 2. Complete bowel obstruction status post exploratory laparotomy with end colostomy on February 10. 3. Hyperkalemia secondary to acute kidney injury and metabolic acidosis. Improved with medical management. Now hypokalemic. 4. Metabolic acidosis secondary to acute kidney injury and diarrhea. Resolved. 5. Chronic kidney disease. Unknown baseline creatinine. Patient follows with a film processor out of the [facility]. 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 6. Insulin-dependent diabetes mellitus. Plan: Maintain normal saline at 50 mL an hour. Replace potassium. 60 mEq today. Avoid nephrotoxins. Continue to monitor renal function and urine output.
[2019-02-14] MEDS: PANTOPRAZOLE 40 MG/10 ML VIAL IV SCH (09:13)
--- NOTE | 2019-02-14 10:17 | PN ---
PROGRESS NOTE Mr. Herrera is an 83-year-old male who has underwent abdominal surgery. Cardiology consultation was requested for atrial arrhythmia. He is complaining of abdominal discomfort, but otherwise denying any chest pain. His breathing has been stable. He continues to be in sinus mechanism with PACs. There is no evidence of malignant arrhythmia. He is afebrile. He has ambulated, and sat up in the chair yesterday without any difficulty. He underwent an echocardiogram that revealed a preserved left ventricular systolic function with mild mitral and tricuspid regurgitation. There was no evidence of segmental wall motion abnormality. He continues to be on metoprolol tartrate 50 mg q.12 hours. PHYSICAL EXAMINATION: VITAL SIGNS: Blood pressure 118/60 with a heart rate in the 60s. LUNGS: Clear. HEART: Irregular rate and rhythm. S1, S2. No S3. No rub. ABDOMEN: Soft. Colostomy bag in place. EXTREMITIES: No edema. LAB DATA: With BUN and creatinine 31 and 1.44, which is improving. Potassium is 3.3, remains on the low side. Hemoglobin 9.9. IMPRESSION: 1. Status post colostomy with a bowel obstruction. 2. Atrial arrhythmia, stable. 3. Questionable history of myocardial infarction although no evidence of segmental wall motion abnormality on his echocardiogram. 4. Acute renal injury improving. 5. Hypertension. 6. Diabetes mellitus. RECOMMENDATION: From the cardiac standpoint, he is stable. His atrial arrhythmia is improved on the beta enrrique. I will continue to replace his potassium, increase his activity. I would expect he should be able to be transferred to the surgical floor. MMODL / IJN: [id number] /
[2019-02-14] MEDS ORDERED: HYDROcodone/APAP 5-325MG 1 EACH TAB PO PRN (10:35)
--- NOTE | 2019-02-14 10:38 | P.PN ---
<Megan Xiao Miriam - Last Filed: 02/14/19 10:33> Subjective Progress Note Date: 02/14/19 CHIEF COMPLAINT: colonic obstruction HISTORY OF PRESENT ILLNESS: 83-year-old male who is status post partial colectomy with end colostomy and mobilization splenic flexure performed on 02/10/2019. POD #4. Patient examined this morning in the ICU. He is sitting up in the chair. Pain is tolerable. Ostomy with stool present. NG tube was discontinued yesterday. Patient tolerating clear liquids. He denies nausea or vomiting. WBC 9.1. Hemoglobin 9.9. PHYSICAL EXAM: VITAL SIGNS: Reviewed. GENERAL: Well-developed in no acute distress. HEENT: No sclera icterus. Extraocular movements grossly intact. Moist buccal mucosa. Head is atraumatic, normocephalic. ABDOMEN: Soft. Nontender. Dressing clean dry intact. Ostomy with liquid stool noted. Positive bowel sounds. NEUROLOGIC: Alert and oriented. Cranial nerves II through XII grossly intact. ASSESSMENT: 1. Colonic obstruction, s/p partial colectomy with end colostomy PLAN: Advance diet to full liquids New Optifoam ordered. Change abdominal dressing today Await pathology report Management of vasquez catheter per nephrology and primary care May transfer to med-surg floor from surgical standpoint Nurse practitioner note has been reviewed by physician. Signing provider agrees with the documented findings, assessment, and plan of care. Objective - Vital Signs Vital signs: Vital Signs Temp 98.1 F 02/14/19 08:00 Pulse 89 02/14/19 08:00 Resp 18 02/14/19 08:00 BP 134/76 02/14/19 08:00 Pulse Ox 94 L 02/14/19 08:00 Intake & Output 02/13/19 02/14/19 02/14/19 18:59 06:59 18:59 Intake Total 1700 1280 125 Output Total 670 1150 315 Balance 1030 130 -190 Weight 81.5 kg 77.5 kg Intake: IV 1000 800 25 Piperacillin-Tazobactam 3 200 100 .375 gm In Sodium Chloride 0.9% 100 ml @ 25 mls/hr IVPB Q8HR [facility] Rx# :[id number] Sodium Chloride 0.9% 1, 600 600 25 000 ml @ 50 mls/hr IV . Q20H [facility] Rx#:[id number] metroNIDAZOLE-NS PMX 500 200 100 mg In Saline 1 100ml.bag @ 100 mls/hr IVPB Q8HR [facility] Rx#:[id number] Intake, IV Titration 100 100 Amount Magnesium Sulfate-D5w Pmx 100 1 gm In Dextrose/Water 1 100ml.bag @ 100 mls/hr IVPB Q1H [facility] Rx#: [id number] Sodium Chloride 0.9% 1, 100 000 ml @ 50 mls/hr IV . Q20H [facility] Rx#:[id number] Oral 600 480 Output: Urine 470 900 165 Stool 200 250 150 Other: Voiding Method Indwelling Catheter Indwelling Catheter - Labs CBC & Chem 7: 02/14/19 04:31 02/14/19 04:31 Labs: Abnormal Lab Results - Last 24 Hours (Table) 02/13/19 02/13/19 02/13/19 Range/Units 03:30 16:54 20:31 RBC (4.30-5.90) m/uL Hgb (13.0-17.5) gm/dL Hct (39.0-53.0) % Potassium (3.5-5.1) mmol/L Chloride (98-107) mmol/L BUN (9-20) mg/dL Creatinine (0.66-1.25) mg/dL POC Glucose (mg/dL) 248 H 316 H (75-99) mg/dL Calcium (8.4-10.2) mg/dL TIBC 156 L (228-460) ug/dL Iron Saturation 57.69 H (15.00-50.00) 02/14/19 02/14/19 02/14/19 Range/Units 04:31 04:31 07:14 RBC 3.15 L (4.30-5.90) m/uL Hgb 9.9 L (13.0-17.5) gm/dL Hct 29.3 L (39.0-53.0) % Potassium 3.3 L (3.5-5.1) mmol/L Chloride 114 H (98-107) mmol/L BUN 31 H (9-20) mg/dL Creatinine 1.44 H (0.66-1.25) mg/dL POC Glucose (mg/dL) 113 H (75-99) mg/dL Calcium 7.9 L (8.4-10.2) mg/dL TIBC (228-460) ug/dL Iron Saturation (15.00-50.00) Microbiology - Last 24 Hours (Table) 02/10/19 05:20 Stool Culture - Final Stool <Juan David Mejia - Last Filed: 02/14/19 22:03> Subjective As above. Patient doing well. Tolerating clear liquids. Agree with advancing diet. Pathology noted. Possibly remove Vasquez catheter tomorrow. Continue increasing activity. Objective - Vital Signs Vital signs: Vital Signs Temp 98.2 F 02/14/19 21:00 Pulse 60 02/14/19 21:11 Resp 16 02/14/19 21:11 BP 129/77 02/14/19 21:00 Pulse Ox 99 02/14/19 21:00 Intake & Output 02/14/19 02/14/19 02/15/19 06:59 18:59 06:59 Intake Total 1280 525 50 Output Total 1150 1125 200 Balance 130 -600 -150 Weight 77.5 kg Intake: IV 800 425 50 Piperacillin-Tazobactam 3 100 200 .375 gm In Sodium Chloride 0.9% 100 ml @ 25 mls/hr IVPB Q8HR [facility] Rx# :[id number] Sodium Chloride 0.9% 1, 600 225 50 000 ml @ 50 mls/hr IV . Q20H [facility] Rx#:[id number] metroNIDAZOLE-NS PMX 500 100 mg In Saline 1 100ml.bag @ 100 mls/hr IVPB Q8HR [facility] Rx#:[id number] Intake, IV Titration 100 Amount Magnesium Sulfate-D5w Pmx 100 1 gm In Dextrose/Water 1 100ml.bag @ 100 mls/hr IVPB Q1H [facility] Rx#: [id number] Oral 480 Output: Urine 900 615 100 Stool 250 510 100 Other: Voiding Method Indwelling Catheter Indwelling Catheter - Labs CBC & Chem 7: 02/14/19 04:31 02/14/19 04:31 Labs: Abnormal Lab Results - Last 24 Hours (Table) 02/14/19 02/14/19 02/14/19 Range/Units 04:31 04:31 07:14 RBC 3.15 L (4.30-5.90) m/uL Hgb 9.9 L (13.0-17.5) gm/dL Hct 29.3 L (39.0-53.0) % Potassium 3.3 L (3.5-5.1) mmol/L Chloride 114 H (98-107) mmol/L BUN 31 H (9-20) mg/dL Creatinine 1.44 H (0.66-1.25) mg/dL POC Glucose (mg/dL) 113 H (75-99) mg/dL Calcium 7.9 L (8.4-10.2) mg/dL 02/14/19 02/14/19 02/14/19 Range/Units 11:38 12:15 17:08 RBC (4.30-5.90) m/uL Hgb (13.0-17.5) gm/dL Hct (39.0-53.0) % Potassium (3.5-5.1) mmol/L Chloride (98-107) mmol/L BUN (9-20) mg/dL Creatinine (0.66-1.25) mg/dL POC Glucose (mg/dL) 208 H 226 H 202 H (75-99) mg/dL Calcium (8.4-10.2) mg/dL 02/14/19 Range/Units 20:28 RBC (4.30-5.90) m/uL Hgb (13.0-17.5) gm/dL Hct (39.0-53.0) % Potassium (3.5-5.1) mmol/L Chloride (98-107) mmol/L BUN (9-20) mg/dL Creatinine (0.66-1.25) mg/dL POC Glucose (mg/dL) 215 H (75-99) mg/dL Calcium (8.4-10.2) mg/dL Microbiology - Last 24 Hours (Table) 02/10/19 05:20 Stool Culture - Final Stool Assessment and Plan (1) Colonic obstruction Current Visit: Yes Status: Acute Code(s): K56.609 - UNSP INTESTNL OBST, UNSP TO PARTIAL VERSUS COMPLETE OBST SNOMED Code(s): 11745266
[2019-02-14] MEDS ORDERED: POTASSIUM CHLORIDE ER 20 MEQ TAB.ER PO ONE (11:00)
[2019-02-14 11:49] LABS: Glucose,Whole Blood 208 mg/dL (75-99)
[2019-02-14 12:26] LABS: Glucose,Whole Blood 226 mg/dL (75-99)
[2019-02-14] MEDS: SODIUM CHLORIDE 0.9% 1,000 ML IV SCH (17:01)
[2019-02-14 17:20] LABS: Glucose,Whole Blood 202 mg/dL (75-99)
--- NOTE | 2019-02-14 18:26 | P.PN ---
Subjective Progress Note Date: 02/14/19 Principal diagnosis: Patient is an 83 CM with a history of diabetes mellitus insulin requiring, hypertension, dyslipidemia, and prior Myocardial infarction who presented to the ER with complaints of abdominal pain. In the ER he underwent an extensive evaluation. His initial vital signs were stable. Initial laboratory analysis revealed hyperkalemia, anion gap metabolic acidosis, acute kidney injury, hyperglycemia, and elevated white blood cell count. He was also noted that he had an elevated calcium level and total protein. He underwent a CT abdomen and pelvis which showed complete bowel obstruction with transition point in the mid to descending colon with probable colonic mass lymphadenopathy, and solitary hepatic lesion. He was started on IV fluids, antiemetics, and was given a dose of PPI and insulin. He is admitted to Dr. Mejia in the ICU for further care. N ephrology and critical care are also following the patient. He was started on bicarb gtt, and received additional IV insulin. On the morning of 02/10 his creatinine was improved, acidosis is better, and potassium had normalized. He underwent partial colectomy with endcolostomy with removal of large colonic mass on 02/10. He continued to do well. He went into A fib with RVR on 02/12 and was placed on cardizem gtt, cardio was consulted and felt that it was more atrial tachycardia then Fib. Patient seen and examined at bedside reports of these passing gas had a bowel movement in his ostomy bag, denies any nausea vomiting or abdominal pain. No acute events overnight, NG tube removed yesterday continues on a clear liquid diet Objective - Vital Signs Vital signs: Vital Signs Temp 98.1 F 02/14/19 08:00 Pulse 72 02/14/19 11:16 Resp 20 02/14/19 11:16 BP 134/76 02/14/19 08:00 Pulse Ox 94 L 02/14/19 08:00 Intake & Output 02/13/19 02/14/19 02/14/19 18:59 06:59 18:59 Intake Total 1700 1280 375 Output Total 670 1150 650 Balance 1030 130 -275 Weight 81.5 kg 77.5 kg Intake: IV 1000 800 275 Piperacillin-Tazobactam 3 200 100 100 .375 gm In Sodium Chloride 0.9% 100 ml @ 25 mls/hr IVPB Q8HR [facility] Rx# :[id number] Sodium Chloride 0.9% 1, 600 600 175 000 ml @ 50 mls/hr IV . Q20H [facility] Rx#:[id number] metroNIDAZOLE-NS PMX 500 200 100 mg In Saline 1 100ml.bag @ 100 mls/hr IVPB Q8HR [facility] Rx#:[id number] Intake, IV Titration 100 100 Amount Magnesium Sulfate-D5w Pmx 100 1 gm In Dextrose/Water 1 100ml.bag @ 100 mls/hr IVPB Q1H [facility] Rx#: [id number] Sodium Chloride 0.9% 1, 100 000 ml @ 50 mls/hr IV . Q20H [facility] Rx#:[id number] Oral 600 480 Output: Urine 470 900 340 Stool 200 250 310 Other: Voiding Method Indwelling Catheter Indwelling Catheter Indwelling Catheter - Exam Constitutional: No acute distress, conversant, pleasant Eyes: Anicteric sclerae, moist conjunctiva, no lid-lag, PERRLA ENMT: NC/AT,Oropharynx clear, no erythema, exudates Neck:Supple, FROM, no masses, or JVD, No carotid bruits; No thyromegaly Lungs: Clear to auscultation, Clear to percussion, Normal respiratory effort, no accessory muscle use Cardiovascular: Heart regular in rate and rhythm, No murmurs, gallops, or rubs no peripheral edema Abdominal: Soft Nontender, non distended, nonacute abdome, ostomy with formed stool Skin: Normal temperature, tone, texture, turgor, No induration No subcutaneous nodules, No rash, lesions, No ulcers Extremities:No digital cyanosis No clubbing, Pedal pulses intact and symmetrical Radial pulses intact and symmetrical Normal gait and station, No calf tenderness Psychiatric: Alert and oriented to person, place and time, Appropriate affect Intact judgement Neuro: Muscles Strength 5/5 in all 4 extremities, Sensation to light touch grossly present throughout, Cranial nerves II-XII grossly intact. No focal sensory deficits - Labs CBC & Chem 7: 02/14/19 04:31 02/14/19 04:31 Labs: Abnormal Lab Results - Last 24 Hours (Table) 02/13/19 02/13/19 02/13/19 Range/Units 03:30 16:54 20:31 RBC (4.30-5.90) m/uL Hgb (13.0-17.5) gm/dL Hct (39.0-53.0) % Potassium (3.5-5.1) mmol/L Chloride (98-107) mmol/L BUN (9-20) mg/dL Creatinine (0.66-1.25) mg/dL POC Glucose (mg/dL) 248 H 316 H (75-99) mg/dL Calcium (8.4-10.2) mg/dL TIBC 156 L (228-460) ug/dL Iron Saturation 57.69 H (15.00-50.00) 02/14/19 02/14/19 02/14/19 Range/Units 04:31 04:31 07:14 RBC 3.15 L (4.30-5.90) m/uL Hgb 9.9 L (13.0-17.5) gm/dL Hct 29.3 L (39.0-53.0) % Potassium 3.3 L (3.5-5.1) mmol/L Chloride 114 H (98-107) mmol/L BUN 31 H (9-20) mg/dL Creatinine 1.44 H (0.66-1.25) mg/dL POC Glucose (mg/dL) 113 H (75-99) mg/dL Calcium 7.9 L (8.4-10.2) mg/dL TIBC (228-460) ug/dL Iron Saturation (15.00-50.00) 02/14/19 02/14/19 Range/Units 11:38 12:15 RBC (4.30-5.90) m/uL Hgb (13.0-17.5) gm/dL Hct (39.0-53.0) % Potassium (3.5-5.1) mmol/L Chloride (98-107) mmol/L BUN (9-20) mg/dL Creatinine (0.66-1.25) mg/dL POC Glucose (mg/dL) 208 H 226 H (75-99) mg/dL Calcium (8.4-10.2) mg/dL TIBC (228-460) ug/dL Iron Saturation (15.00-50.00) Microbiology - Last 24 Hours (Table) 02/10/19 05:20 Stool Culture - Final Stool Assessment and Plan Plan: Patient is an 83 yo M here with bowel obstruction s/p resection with ostomy formation Solitary hepatic lesion - Outpatient oncology eval suspect will need chemo with lymphadenopathy and solitary hepatic lesion. May need Bx of lesion but will defer to onc as outpatient DM2 insulin requiring - SSI, hold orals, levemir - follow BS Atrial tachycardia - Betablocker - Cardio recs - echo with preserved EF DIEGO - nephro recs appreciated - on IVF - hold lisinopril - avoid additional nephrotoxic agents - follow BMP in AM Acute blood loss anemia - anticipated outcome - stable - follow CBC - FE studies stable HTN, controlled - medications on hold (lisinopril) - follow BP Bowel obstruction s/p partial colectomy with endo ostomy, colonic mass noted - await path - NGT in place - Pain control, antiemetics - zosyn/ flagyl HLD - statin on hold until okay for orals Hypomagnesemia - replace and recheck in AM BPH - vasquez in place - resume flomax when able to tolerate orals Left lower lobe infiltrate on CT - no symptoms of PNA - on zosyn which would cover for aspiration PNA - monitor for sign of pneumonia and fevers Lactic acidosis, improved hyperkalemia, resolved anion gap metabolic acidosis, resolved DVT prophylaxis: Heparin Discussed with: Patient, nursing Anticipated discharge: unknown Anticipated discharge place: unknown A total of 35 minutes was spent on the care of this complex patient more than 50% of the time was spent in counseling and care coordination.
--- NOTE | 2019-02-14 18:26 | P.PN ---
Subjective Progress Note Date: 02/14/19 On 02/14/2019, the patient is doing well. He has adequate output and his colostomy bag. Surgical wound site is dry clean and intact. Is postop day #4. NG tube has been removed. No fever. No chills. He is on Levemir insulin 8 units along with a NovoLog sliding scale coverage. He is on IV fluids with normal saline today to 50's an hour. He is sitting up on a chair. He is ambulating. No altered mentation. No tachycardia. No other complaints otherwise for now. Objective - Vital Signs Vital signs: Vital Signs Temp 97.7 F 02/14/19 16:00 Pulse 68 02/14/19 16:00 Resp 17 02/14/19 16:00 BP 117/84 02/14/19 16:00 Pulse Ox 96 02/14/19 16:00 Intake & Output 02/13/19 02/14/19 02/14/19 18:59 06:59 18:59 Intake Total 1700 1280 525 Output Total 670 1150 1125 Balance 1030 130 -600 Weight 81.5 kg 77.5 kg Intake: IV 1000 800 425 Piperacillin-Tazobactam 3 200 100 200 .375 gm In Sodium Chloride 0.9% 100 ml @ 25 mls/hr IVPB Q8HR [facility] Rx# :[id number] Sodium Chloride 0.9% 1, 600 600 225 000 ml @ 50 mls/hr IV . Q20H [facility] Rx#:[id number] metroNIDAZOLE-NS PMX 500 200 100 mg In Saline 1 100ml.bag @ 100 mls/hr IVPB Q8HR [facility] Rx#:[id number] Intake, IV Titration 100 100 Amount Magnesium Sulfate-D5w Pmx 100 1 gm In Dextrose/Water 1 100ml.bag @ 100 mls/hr IVPB Q1H [facility] Rx#: [id number] Sodium Chloride 0.9% 1, 100 000 ml @ 50 mls/hr IV . Q20H [facility] Rx#:[id number] Oral 600 480 Output: Urine 470 900 615 Stool 200 250 510 Other: Voiding Method Indwelling Catheter Indwelling Catheter Indwelling Catheter - Exam General: Ill-appearing, no distress, appears at stated age, normal weight, temporal wasting, Derm: no unusual rashes/lesions no unusual ecchymoses, warm, dry Head: atraumatic, normocephalic, symmetric Eyes: EOMI, no lid lag, anicteric sclera, pupils equal round reactive to light ENT: Nose and ears atraumatic, no thrush, no pharyngeal erythema, Neck: No thyromegaly, no cervical lymphadenopathy, trachea midline, supple Mouth: no lip lesion, mucus membranes dry Cardiovascular: S1S2 reg, no murmur, positive posterior tibial pulse bilateral, no edema, capillary refill less than 2 seconds Lungs: Decreased breath sounds bilaterally, no rhonchi, no rales , no accessory muscle use Abdominal: soft, nontender to palpation, no guarding, no appreciable organomeg sarah, the patient has a mid abdominal incision in the colostomy site is viable and functioning at this point in time and there is positive liquid output. Ext: + gross muscle atrophy, muscle strength 4 out of 5 in all 4 extremities grossly, no contractures, Neuro: CN II-XI grossly intact, light touch intact all 4 extremities, finger to nose within normal limits, Psych: Alert, oriented, appropriate affect - Labs CBC & Chem 7: 02/14/19 04:31 02/14/19 04:31 Labs: Abnormal Lab Results - Last 24 Hours (Table) 02/13/19 02/14/19 02/14/19 Range/Units 20:31 04:31 04:31 RBC 3.15 L (4.30-5.90) m/uL Hgb 9.9 L (13.0-17.5) gm/dL Hct 29.3 L (39.0-53.0) % Potassium 3.3 L (3.5-5.1) mmol/L Chloride 114 H (98-107) mmol/L BUN 31 H (9-20) mg/dL Creatinine 1.44 H (0.66-1.25) mg/dL POC Glucose (mg/dL) 316 H (75-99) mg/dL Calcium 7.9 L (8.4-10.2) mg/dL 02/14/19 02/14/19 02/14/19 Range/Units 07:14 11:38 12:15 RBC (4.30-5.90) m/uL Hgb (13.0-17.5) gm/dL Hct (39.0-53.0) % Potassium (3.5-5.1) mmol/L Chloride (98-107) mmol/L BUN (9-20) mg/dL Creatinine (0.66-1.25) mg/dL POC Glucose (mg/dL) 113 H 208 H 226 H (75-99) mg/dL Calcium (8.4-10.2) mg/dL 02/14/19 Range/Units 17:08 RBC (4.30-5.90) m/uL Hgb (13.0-17.5) gm/dL Hct (39.0-53.0) % Potassium (3.5-5.1) mmol/L Chloride (98-107) mmol/L BUN (9-20) mg/dL Creatinine (0.66-1.25) mg/dL POC Glucose (mg/dL) 202 H (75-99) mg/dL Calcium (8.4-10.2) mg/dL Microbiology - Last 24 Hours (Table) 02/10/19 05:20 Stool Culture - Final Stool Assessment and Plan Plan: 1 colonic mass with secondary bowel obstruction. The patient is post expected laparotomy and resection of the colon with a diverticular colostomy. The p atient is postop day #4. Colostomy site functioning for now and the patient has NG tube removed. The patient is advancing his diet as tolerated. He is ambulating. No respiratory distress 2 solitary hepatitic lesion, consider metastases 3 acute kidney injury, improving and it creatinine is down to 1.44 patient is producing adequate amount of urine output. 4 acute leukocytosis, improving , and the white cell count is normalized 5 coronary artery disease with previous ND 6 hypertension 7 hyperlipidemia 8 diabetes mellitus 9 BPH plan Continue IV fluids with normal state rate of 50 mL an hour. IV Zosyn. Discontinue the Flagyl. Advance diet. Blood sugar control. Incentive ebenezer meter. DuoNeb since [id number]. Heparin subcu for DVT prophylaxis. Dilaudid for pain control. Transfer this patient to a surgical floor.
[2019-02-14 20:29] LABS: Glucose,Whole Blood 215 mg/dL (75-99)
[2019-02-14] MEDS: INSULIN DETEMIR (LEVEMIR) 100 UNIT/ML SYR SQ SCH (20:49)
[2019-02-15 07:24] LABS: Glucose,Whole Blood 104 mg/dL (75-99)
[2019-02-15] MEDS: INSULIN ASPART (NovoLOG) 100 UNIT/ML VIAL SQ SCH ×4 (07:30→20:39)
--- NOTE | 2019-02-15 07:40 | P.PN ---
Subjective Patient is seen in follow-up for acute kidney injury on chronic kidney disease. Creatinine on admission was 3.18 and is down to 1.44 as of yesterday. Unknown baseline renal function. Patient states he follows with a wire insulator out of the [facility] in [place] and does have history of chronic kidney disease. Patient was noted to have complete small bowel obstruction and underwent partial colectomy with end colostomy on February 10. NG tube has been removed. He is on a full liquid diet. Denies chest pain or shortness of breath. Urine output has been good. Vital signs are stable. General: The patient appeared well nourished and normally developed. HEENT: Head exam is unremarkable. Neck is without jugular venous distension. NG tube noted. LUNGS: Lungs are clear to auscultation and percussion. Breath sounds decreased. HEART: Rate and Rhythm are regular. First and second heart sounds normal. No murmurs, rubs or gallops. ABDOMEN: Bowel sounds decreased. Generalized tenderness. EXTREMITITES: No clubbing, cyanosis, or edema. Objective - Vital Signs Vital signs: Vital Signs Temp 97.9 F 02/15/19 05:00 Pulse 83 02/15/19 05:00 Resp 18 02/15/19 05:00 BP 128/68 02/15/19 05:00 Pulse Ox 98 02/15/19 05:00 Intake & Output 02/14/19 02/15/19 02/15/19 18:59 06:59 18:59 Intake Total 525 670 Output Total 1125 1550 Balance -600 -880 Intake: IV 425 150 Piperacillin-Tazobactam 3 200 100 .375 gm In Sodium Chloride 0.9% 100 ml @ 25 mls/hr IVPB Q8HR [facility] Rx# :[id number] Sodium Chloride 0.9% 1, 225 50 000 ml @ 50 mls/hr IV . Q20H [facility] Rx#:[id number] Intake, IV Titration 100 400 Amount Magnesium Sulfate-D5w Pmx 100 1 gm In Dextrose/Water 1 100ml.bag @ 100 mls/hr IVPB Q1H [facility] Rx#: [id number] Sodium Chloride 0.9% 1, 400 000 ml @ 50 mls/hr IV . Q20H [facility] Rx#:[id number] Oral 120 Output: Urine 615 1050 Stool 510 500 Other: Voiding Method Indwelling Catheter - Labs CBC & Chem 7: 02/14/19 04:31 02/14/19 04:31 Labs: Abnormal Lab Results - Last 24 Hours (Table) 02/14/19 02/14/19 02/14/19 Range/Units 11:38 12:15 17:08 POC Glucose (mg/dL) 208 H 226 H 202 H (75-99) mg/dL 02/14/19 02/15/19 Range/Units 20:28 07:19 POC Glucose (mg/dL) 215 H 104 H (75-99) mg/dL Microbiology - Last 24 Hours (Table) 02/10/19 05:20 Stool Culture - Final Stool Assessment and Plan Plan: Assessment: 1. Acute kidney injury mostly prerenal secondary to intravascular volume depletion from vomiting and diarrhea. Creatinine was 3.18 on admission and is down to 1.44 as of yesterday. 2. Complete bowel obstruction status post exploratory laparotomy with end colostomy on February 10. 3. Hyperkalemia secondary to acute kidney injury and metabolic acidosis. Improved with medical management. Patient was hypokalemic yesterday and was replaced. 4. Metabolic acidosis secondary to acute kidney injury and diarrhea. Resolved. 5. Chronic kidney disease. Unknown baseline creatinine. Patient follows with a wire insulator out of the [place] [facility]. 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 6. Insulin-dependent diabetes mellitus. Plan: Maintain normal saline at 50 mL an hour. Avoid nephrotoxins. Continue to monitor renal function and urine output.
[2019-02-15] MEDS: PANTOPRAZOLE 40 MG/10 ML VIAL IV SCH (08:09)
[2019-02-15] MEDS: HEPARIN SODIUM,PORCINE 5,000 UNIT/ML 1 ML VIAL SQ SCH ×3 (08:10→23:04)
[2019-02-15] MEDS: METOPROLOL TARTRATE 50 MG TAB PO SCH ×2 (08:10→20:39)
[2019-02-15] MEDS: PIPERACILLIN-TAZOBACTAM 3.375 GM in SODIUM CHLORIDE 0.9% 100 ML IVPB SCH (09:01)
[2019-02-15] MEDS: IPRATROPIUM-ALBUTEROL 3 ML NEB INHALATION SCH ×4 (09:12→20:32)
[2019-02-15 09:21] LABS: Calcium 8.2 mg/dL (8.4-10.2)
[2019-02-15 09:23] LABS: Magnesium 1.8 mg/dL (1.6-2.3); Potassium 3.8 mmol/L (3.5-5.1)
--- NOTE | 2019-02-15 10:45 | PN ---
PROGRESS NOTE Mr. Herrera is admitted to hospital for abdominal surgery and Cardiology has been consulted for cardiac arrhythmias. The patient is in sinus rhythm with frequent PACs. He is on metoprolol 50 b.i.d. with significant improvement in the PACs. Echocardiogram shows normal LV systolic function. PHYSICAL EXAMINATION: On exam, comfortable at rest. Vital signs are stable. There is no jugular venous distention. Carotid upstroke is normal. There is no bruit. Chest exam reveals good air entry bilaterally. Heart exam reveals first and second heart sounds. No gallop. No murmur. Abdomen is soft. Status post surgery. Examination of extremities did not reveal any edema. Peripheral pulses are felt. ASSESSMENT: Cardiac arrhythmia in the form of PACs. PLAN: Patient is doing well. The patient will continue with the beta enrrique that he is on and no further cardiac workup at this time. We will see the patient on an as-needed basis. MMODL / IJN: [id number] /
[2019-02-15 11:56] LABS: Glucose,Whole Blood 151 mg/dL (75-99)
[2019-02-15] MEDS: SODIUM CHLORIDE 0.9% 1,000 ML IV SCH (12:47)
--- NOTE | 2019-02-15 13:52 | P.PN ---
Subjective Progress Note Date: 02/15/19 Principal diagnosis: Colon obstruction Patient doing well today. Tolerating full liquids. Pain is well-controlled. Activity is increasing. He is afebrile. Objective - Vital Signs Vital signs: Vital Signs Temp 98.2 F 02/15/19 12:51 Pulse 69 02/15/19 12:51 Resp 16 02/15/19 12:51 BP 114/69 02/15/19 12:51 Pulse Ox 99 02/15/19 12:51 Intake & Output 02/14/19 02/15/19 02/15/19 18:59 06:59 18:59 Intake Total 525 670 720 Output Total 1125 1550 200 Balance -600 -880 520 Intake: IV 425 150 Piperacillin-Tazobactam 3 200 100 .375 gm In Sodium Chloride 0.9% 100 ml @ 25 mls/hr IVPB Q8HR [facility] Rx# :[id number] Sodium Chloride 0.9% 1, 225 50 000 ml @ 50 mls/hr IV . Q20H [facility] Rx#:[id number] Intake, IV Titration 100 400 Amount Magnesium Sulfate-D5w Pmx 100 1 gm In Dextrose/Water 1 100ml.bag @ 100 mls/hr IVPB Q1H [facility] Rx#: [id number] Sodium Chloride 0.9% 1, 400 000 ml @ 50 mls/hr IV . Q20H [facility] Rx#:[id number] Oral 120 720 Output: Urine 615 1050 Stool 510 500 200 Other: Voiding Method Indwelling Catheter - Exam Abdomen: Soft, nondistended, incision clean and dry, ostomy functioning - Labs CBC & Chem 7: 02/14/19 04:31 02/15/19 08:18 Labs: Abnormal Lab Results - Last 24 Hours (Table) 02/14/19 02/14/19 02/15/19 Range/Units 17:08 20:28 07:19 Chloride (98-107) mmol/L Carbon Dioxide (22-30) mmol/L BUN (9-20) mg/dL Creatinine (0.66-1.25) mg/dL Glucose (74-99) mg/dL POC Glucose (mg/dL) 202 H 215 H 104 H (75-99) mg/dL Calcium (8.4-10.2) mg/dL 02/15/19 02/15/19 Range/Units 08:18 11:54 Chloride 114 H (98-107) mmol/L Carbon Dioxide 20 L (22-30) mmol/L BUN 21 H (9-20) mg/dL Creatinine 1.39 H (0.66-1.25) mg/dL Glucose 105 H (74-99) mg/dL POC Glucose (mg/dL) 151 H (75-99) mg/dL Calcium 8.2 L (8.4-10.2) mg/dL Assessment and Plan (1) Colonic obstruction Narrative/Plan: Will discontinue antibiotics. Advance diet. Home versus rehab still living decided with the family. Likely stable for discharge 24-48 hours. Current Visit: Yes Status: Acute Code(s): K56.609 - UNSP INTESTNL OBST, UNSP TO PARTIAL VERSUS COMPLETE OBST SNOMED Code(s): 22106117
[2019-02-15 14:57] VITALS: BMI 25.2
[2019-02-15 17:02] LABS: Glucose,Whole Blood 187 mg/dL (75-99)
--- NOTE | 2019-02-15 18:15 | P.PN ---
Subjective Progress Note Date: 02/15/19 Principal diagnosis: Patient is an 83 CM with a history of diabetes mellitus insulin requiring, hypertension, dyslipidemia, and prior Myocardial infarction who presented to the ER with complaints of abdominal pain. In the ER he underwent an extensive evaluation. His initial vital signs were stable. Initial laboratory analysis revealed hyperkalemia, anion gap metabolic acidosis, acute kidney injury, hyperglycemia, and elevated white blood cell count. He was also noted that he had an elevated calcium level and total protein. He underwent a CT abdomen and pelvis which showed complete bowel obstruction with transition point in the mid to descending colon with probable colonic mass lymphadenopathy, and solitary hepatic lesion. He was started on IV fluids, antiemetics, and was given a dose of PPI and insulin. He is admitted to Dr. Mejia in the ICU for further care. N ephrology and critical care are also following the patient. He was started on bicarb gtt, and received additional IV insulin. On the morning of 02/10 his creatinine was improved, acidosis is better, and potassium had normalized. He underwent partial colectomy with endcolostomy with removal of large colonic mass on 02/10. He continued to do well. He went into A fib with RVR on 02/12 and was placed on cardizem gtt, cardio was consulted and felt that it was more atrial tachycardia then Fib. Patient seen and examined at bedside reports of these passing gas had a bowel movement in his ostomy bag, denies any nausea vomiting or abdominal pain. continues on a clear liquid diet and tolerating it well Objective - Vital Signs Vital signs: Vital Signs Temp 98.2 F 02/15/19 12:51 Pulse 70 02/15/19 17:08 Resp 16 02/15/19 12:51 BP 114/69 02/15/19 12:51 Pulse Ox 95 02/15/19 16:57 Intake & Output 02/14/19 02/15/19 02/15/19 18:59 06:59 18:59 Intake Total 525 670 720 Output Total 1125 1550 400 Balance -600 -880 320 Weight 77.5 kg Intake: IV 425 150 Piperacillin-Tazobactam 3 200 100 .375 gm In Sodium Chloride 0.9% 100 ml @ 25 mls/hr IVPB Q8HR [facility] Rx# :[id number] Sodium Chloride 0.9% 1, 225 50 000 ml @ 50 mls/hr IV . Q20H [facility] Rx#:[id number] Intake, IV Titration 100 400 Amount Magnesium Sulfate-D5w Pmx 100 1 gm In Dextrose/Water 1 100ml.bag @ 100 mls/hr IVPB Q1H [facility] Rx#: [id number] Sodium Chloride 0.9% 1, 400 000 ml @ 50 mls/hr IV . Q20H [facility] Rx#:[id number] Oral 120 720 Output: Urine 615 1050 Stool 510 500 400 Other: Voiding Method Indwelling Catheter - Exam Constitutional: No acute distress, conversant, pleasant Eyes: Anicteric sclerae, moist conjunctiva, no lid-lag, PERRLA ENMT: NC/AT,Oropharynx clear, no erythema, exudates Neck:Supple, FROM, no masses, or JVD, No carotid bruits; No thyromegaly Lungs: Clear to auscultation, Clear to percussion, Normal respiratory effort, no accessory muscle use Cardiovascular: Heart regular in rate and rhythm, No murmurs, gallops, or rubs no peripheral edema Abdominal: Soft Nontender, non distended, nonacute abdome, ostomy with formed stool Skin: Normal temperature, tone, texture, turgor, No induration No subcutaneous nodules, No rash, lesions, No ulcers Extremities:No digital cyanosis No clubbing, Pedal pulses intact and symmetrical Radial pulses intact and symmetrical Normal gait and station, No calf tenderness Psychiatric: Alert and oriented to person, place and time, Appropriate affect Intact judgement Neuro: Muscles Strength 5/5 in all 4 extremities, Sensation to light touch grossly present throughout, Cranial nerves II-XII grossly intact. No focal sensory deficits - Labs CBC & Chem 7: 02/14/19 04:31 02/15/19 08:18 Labs: Abnormal Lab Results - Last 24 Hours (Table) 02/14/19 02/15/19 02/15/19 Range/Units 20:28 07:19 08:18 Chloride 114 H (98-107) mmol/L Carbon Dioxide 20 L (22-30) mmol/L BUN 21 H (9-20) mg/dL Creatinine 1.39 H (0.66-1.25) mg/dL Glucose 105 H (74-99) mg/dL POC Glucose (mg/dL) 215 H 104 H (75-99) mg/dL Calcium 8.2 L (8.4-10.2) mg/dL 02/15/19 02/15/19 Range/Units 11:54 16:54 Chloride (98-107) mmol/L Carbon Dioxide (22-30) mmol/L BUN (9-20) mg/dL Creatinine (0.66-1.25) mg/dL Glucose (74-99) mg/dL POC Glucose (mg/dL) 151 H 187 H (75-99) mg/dL Calcium (8.4-10.2) mg/dL Assessment and Plan Plan: Patient is an 83 yo M here with bowel obstruction s/p resection with ostomy formation Solitary hepatic lesion - Outpatient oncology eval suspect will need chemo with lymphadenopathy and solitary hepatic lesion. May need Bx of lesion but will defer to onc as outpatient DM2 insulin requiring * Blood sugars are maintaining stable - SSI, hold orals, levemir - follow BS Atrial tachycardia - Betablocker - Cardio recs - echo with preserved EF DIEGO - nephro recs appreciated - on IVF - hold lisinopril - avoid additional nephrotoxic agents - follow BMP in AM Acute blood loss anemia - anticipated outcome - stable - follow CBC - FE studies stable HTN, controlled - medications on hold (lisinopril) - follow BP Bowel obstruction s/p partial colectomy with endo ostomy, colonic mass noted - await path - NGT in place - Pain control, antiemetics -Antibiotics discontinued HLD - statin on hold until okay for orals Hypomagnesemia - replace and recheck in AM BPH - vasquez in place - resume flomax when able to tolerate orals Left lower lobe infiltrate on CT - no symptoms of PNA - on zosyn which would cover for aspiration PNA - monitor for sign of pneumonia and fevers Lactic acidosis, improved hyperkalemia, resolved anion gap metabolic acidosis, resolved DVT prophylaxis: Heparin Discussed with: Patient, nursing Anticipated discharge: unknown Anticipated discharge place: unknown A total of 35 minutes was spent on the care of this complex patient more than 50% of the time was spent in counseling and care coordination.
[2019-02-15 19:43] LABS: Glucose,Whole Blood 232 mg/dL (75-99)
[2019-02-15] MEDS: INSULIN DETEMIR (LEVEMIR) 100 UNIT/ML SYR SQ SCH (20:39)
[2019-02-16 07:03] LABS: Glucose,Whole Blood 147 mg/dL (75-99)
[2019-02-16 07:31] LABS: Magnesium 1.4 mg/dL (1.6-2.3); Potassium 3.5 mmol/L (3.5-5.1)
[2019-02-16] MEDS: IPRATROPIUM-ALBUTEROL 3 ML NEB INHALATION SCH ×4 (08:19→19:56)
[2019-02-16] MEDS: SODIUM CHLORIDE 0.9% 1,000 ML IV SCH ×2 (08:30→09:17)
[2019-02-16] MEDS: METOPROLOL TARTRATE 50 MG TAB PO SCH ×2 (09:14→20:33)
[2019-02-16] MEDS: HEPARIN SODIUM,PORCINE 5,000 UNIT/ML 1 ML VIAL SQ SCH ×3 (09:15→23:15)
[2019-02-16] MEDS: PANTOPRAZOLE 40 MG/10 ML VIAL IV SCH (09:16)
[2019-02-16] MEDS: INSULIN ASPART (NovoLOG) 100 UNIT/ML VIAL SQ SCH ×4 (09:16→20:34)
--- NOTE | 2019-02-16 09:48 | P.PN ---
Subjective Progress Note Date: 02/16/19 Principal diagnosis: Patient is an 83 CM with a history of diabetes mellitus insulin requiring, hypertension, dyslipidemia, and prior Myocardial infarction who presented to the ER with complaints of abdominal pain. In the ER he underwent an extensive evaluation. His initial vital signs were stable. Initial laboratory analysis revealed hyperkalemia, anion gap metabolic acidosis, acute kidney injury, hyperglycemia, and elevated white blood cell count. He was also noted that he had an elevated calcium level and total protein. He underwent a CT abdomen and pelvis which showed complete bowel obstruction with transition point in the mid to descending colon with probable colonic mass lymphadenopathy, and solitary hepatic lesion. He was started on IV fluids, antiemetics, and was given a dose of PPI and insulin. He is admitted to Dr. Mejia in the ICU for further care. N ephrology and critical care are also following the patient. He was started on bicarb gtt, and received additional IV insulin. On the morning of 02/10 his creatinine was improved, acidosis is better, and potassium had normalized. He underwent partial colectomy with endcolostomy with removal of large colonic mass on 02/10. He continued to do well. He went into A fib with RVR on 02/12 and was placed on cardizem gtt, cardio was consulted and felt that it was more atrial tachycardia then Fib. Patient seen and examined at bedside tolerating his diet well, Moctezuma catheter removed this morning. Objective - Vital Signs Vital signs: Vital Signs Temp 98.9 F 02/16/19 05:00 Pulse 63 02/16/19 05:00 Resp 16 02/16/19 05:00 BP 127/75 02/16/19 05:00 Pulse Ox 95 02/16/19 05:00 Intake & Output 02/15/19 02/16/19 02/16/19 18:59 06:59 18:59 Intake Total 1200 Output Total 1100 650 700 Balance 100 -650 -700 Weight 77.5 kg Intake: Oral 1200 Output: Urine 700 350 600 Stool 400 300 100 Other: Voiding Method Indwelling Catheter Indwelling Catheter - Exam Constitutional: No acute distress, conversant, pleasant Eyes: Anicteric sclerae, moist conjunctiva, no lid-lag, PERRLA ENMT: NC/AT,Oropharynx clear, no erythema, exudates Neck:Supple, FROM, no masses, or JVD, No carotid bruits; No thyromegaly Lungs: Clear to auscultation, Clear to percussion, Normal respiratory effort, no accessory muscle use Cardiovascular: Heart regular in rate and rhythm, No murmurs, gallops, or rubs no peripheral edema Abdominal: Soft Nontender, non distended, nonacute abdome, ostomy with formed stool Skin: Normal temperature, tone, texture, turgor, No induration No subcutaneous nodules, No rash, lesions, No ulcers Extremities:No digital cyanosis No clubbing, Pedal pulses intact and symmetrical Radial pulses intact and symmetrical Normal gait and station, No calf tenderness Psychiatric: Alert and oriented to person, place and time, Appropriate affect Intact judgement Neuro: Muscles Strength 5/5 in all 4 extremities, Sensation to light touch grossly present throughout, Cranial nerves II-XII grossly intact. No focal sensory deficits - Labs CBC & Chem 7: 02/14/19 04:31 02/16/19 06:48 Labs: Abnormal Lab Results - Last 24 Hours (Table) 02/15/19 02/15/19 02/15/19 Range/Units 11:54 16:54 19:42 Chloride (98-107) mmol/L Carbon Dioxide (22-30) mmol/L Creatinine (0.66-1.25) mg/dL Glucose (74-99) mg/dL POC Glucose (mg/dL) 151 H 187 H 232 H (75-99) mg/dL Calcium (8.4-10.2) mg/dL Magnesium (1.6-2.3) mg/dL 02/16/19 02/16/19 Range/Units 06:48 07:01 Chloride 114 H (98-107) mmol/L Carbon Dioxide 21 L (22-30) mmol/L Creatinine 1.41 H (0.66-1.25) mg/dL Glucose 123 H (74-99) mg/dL POC Glucose (mg/dL) 147 H (75-99) mg/dL Calcium 8.0 L (8.4-10.2) mg/dL Magnesium 1.4 L (1.6-2.3) mg/dL Assessment and Plan Plan: Patient is an 83 yo M here with bowel obstruction s/p resection with ostomy formation Solitary hepatic lesion - Outpatient oncology eval suspect will need chemo with lymphadenopathy and solitary hepatic lesion. May need Bx of lesion but will defer to onc as outpatient DM2 insulin requiring * Blood sugars are maintaining stable - SSI, hold orals, levemir - follow BS Atrial tachycardia - Betablocker - Cardio recs - echo with preserved EF DIEGO - nephro recs appreciated - on IVF - hold lisinopril - avoid additional nephrotoxic agents - follow BMP in AM Acute blood loss anemia - anticipated outcome - stable - follow CBC - FE studies stable HTN, controlled - medications on hold (lisinopril) - follow BP Bowel obstruction s/p partial colectomy with endo ostomy, colonic mass noted - await path - NGT in place - Pain control, antiemetics -Antibiotics discontinued HLD - statin on hold until okay for orals Hypomagnesemia -Initiate on daily replacement magnesium oxide 400 mg twice a day BPH -Moctezuma removed - resume flomax when able to tolerate orals Left lower lobe infiltrate on CT - no symptoms of PNA - on zosyn which would cover for aspiration PNA - monitor for sign of pneumonia and fevers Lactic acidosis, improved hyperkalemia, resolved anion gap metabolic acidosis, resolved The patient medically stable for discharge resume all his home medications will check with renal sales and leasing consultant for whether the patient is able to restart his lisinopril on discharge Time with Patient: Greater than 30
--- NOTE | 2019-02-16 11:06 | P.PN ---
Progress Note - Text Progress Note Date: 02/16/19 The patient's resting comfortably in his bed. He is tolerating full liquids. He has had bowel function. On exam his vital signs are stable. His abdomen soft. Patient will have his diet advanced. With dysphagia discharged home the next 24-48 hours.
[2019-02-16 11:18] LABS: Glucose,Whole Blood 128 mg/dL (75-99)
[2019-02-16] MEDS ORDERED: MAGNESIUM SULFATE MG 500 MG/ML IVPB ONE (13:19)
--- NOTE | 2019-02-16 13:19 | P.PN ---
Subjective Progress Note Date: 02/16/19 Principal diagnosis: This is a 83-year-old male seen in consultation because of acute kidney injury, postop partial colectomy. Is doing very well and has no complaints is able to walk. No nausea vomiting, chest pain shortness of breath fever chills dysuria frequency. His 24-hour intake is documented at 1200 and output at 1750., This includes 700 mL of GI output through the colostomy bag. Objective - Vital Signs Vital signs: Vital Signs Temp 97.6 F 02/16/19 12:48 Pulse 65 02/16/19 12:48 Resp 16 02/16/19 12:48 BP 113/69 02/16/19 12:48 Pulse Ox 97 02/16/19 12:48 Intake & Output 02/15/19 02/16/19 02/16/19 18:59 06:59 18:59 Intake Total 1200 Output Total 1100 650 700 Balance 100 -650 -700 Weight 77.5 kg Intake: Oral 1200 Output: Urine 700 350 600 Stool 400 300 100 Other: Voiding Method Indwelling Catheter Indwelling Catheter On examination is awake alert oriented comfortable eating in a chair. HEENT exam no JVP neck is supple no facial asymmetry Lungs are clear to auscultation with good air entry bilaterally Heart sounds are unremarkable for any murmur rub gallop Abdomen soft nontender ostomy bag present Extremity exam was no edema Neurologically awake alert oriented comfortable - Labs CBC & Chem 7: 02/14/19 04:31 02/16/19 06:48 Labs: Abnormal Lab Results - Last 24 Hours (Table) 02/15/19 02/15/19 02/16/19 Range/Units 16:54 19:42 06:48 Chloride 114 H (98-107) mmol/L Carbon Dioxide 21 L (22-30) mmol/L Creatinine 1.41 H (0.66-1.25) mg/dL Glucose 123 H (74-99) mg/dL POC Glucose (mg/dL) 187 H 232 H (75-99) mg/dL Calcium 8.0 L (8.4-10.2) mg/dL Magnesium 1.4 L (1.6-2.3) mg/dL 02/16/19 02/16/19 Range/Units 07:01 11:17 Chloride (98-107) mmol/L Carbon Dioxide (22-30) mmol/L Creatinine (0.66-1.25) mg/dL Glucose (74-99) mg/dL POC Glucose (mg/dL) 147 H 128 H (75-99) mg/dL Calcium (8.4-10.2) mg/dL Magnesium (1.6-2.3) mg/dL Assessment and Plan Assessment: Impression 1. Acute kidney injury secondary to prerenal factors, improved creatinine was 3.18 on admission and is down to 1.39 yesterday and 1.41 today. 2. 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 3. Hypomagnesemia secondary to GI losses, magnesium is down to 1.4 4. Anemia off acute illness hemoglobin is down to 9.92 days ago. Was 10.9 earlier Recommendation 1. Magnesium sulfate 2 g IV slowly over 4 hours. 2. We'll check magnesium tomorrow 3. Start sodium bicarb 6 and 50 by mouth 4 times a day 4. Maintain IV normal saline at 50 an hour 5. Monitor labs tomorrow
[2019-02-16 16:47] LABS: Glucose,Whole Blood 157 mg/dL (75-99)
[2019-02-16] MEDS: SODIUM BICARBONATE TAB 650 MG TAB PO SCH ×2 (17:40→20:34)
[2019-02-16] MEDS: MAGNESIUM SULFATE-D5W PMX 1 GM in DEXTROSE/WATER 1 100ML.BAG IVPB SCH ×3 (19:43→21:57)
[2019-02-16 19:49] LABS: Glucose,Whole Blood 223 mg/dL (75-99)
[2019-02-16] MEDS: INSULIN DETEMIR (LEVEMIR) 100 UNIT/ML SYR SQ SCH (20:34)
[2019-02-16 21:12] VITALS: RESP 18
[2019-02-17 05:45] VITALS: BP 120/64; PULSE 64; TEMP 97.7
[2019-02-17 06:58] LABS: Glucose,Whole Blood 156 mg/dL (75-99)
[2019-02-17] MEDS: IPRATROPIUM-ALBUTEROL 3 ML NEB INHALATION SCH ×2 (07:45→11:54)
[2019-02-17] MEDS: INSULIN ASPART (NovoLOG) 100 UNIT/ML VIAL SQ SCH ×2 (08:48→14:26)
[2019-02-17] MEDS: HEPARIN SODIUM,PORCINE 5,000 UNIT/ML 1 ML VIAL SQ SCH (08:48)
[2019-02-17] MEDS: SODIUM BICARBONATE TAB 650 MG TAB PO SCH ×2 (08:48→14:26)
[2019-02-17] MEDS: METOPROLOL TARTRATE 50 MG TAB PO SCH (08:48)
[2019-02-17] MEDS: PANTOPRAZOLE 40 MG/10 ML VIAL IV SCH (08:48)
--- NOTE | 2019-02-17 09:57 | P.PN ---
Progress Note - Text Progress Note Date: 02/17/19 The patient is doing well. He denies any significant abdominal pain. His stoma is functioning. There is a large amount of loose stool in the colostomy appliance. On exam his vital signs are stable. His abdomen soft. This post Apolonia procedure. Patient will be discharged home today. He'll follow-up Dr. Mejia next week.
[2019-02-17 11:09] LABS: Glucose,Whole Blood 200 mg/dL (75-99)
--- NOTE | 2019-02-17 11:48 | P.PN ---
Subjective Progress Note Date: 02/17/19 Principal diagnosis: This is a 83-year-old male seen in consultation because of acute kidney injury, postop partial colectomy. Is doing very well and has no complaints is able to walk. No nausea vomiting, chest pain shortness of breath fever chills dysuria frequency. He is feeling much better this morning and is about to be discharged supposedly. Has no complaints good appetite no chest pain shortness of breath fever chills abdominal pain. He is aware of his kidney disease and is following up with the [facility] [place]. No labs are available today. Objective - Vital Signs Vital signs: Vital Signs Temp 97.7 F 02/17/19 04:45 Pulse 64 02/17/19 04:45 Resp 18 02/17/19 07:14 BP 120/64 02/17/19 04:45 Pulse Ox 95 02/17/19 04:45 Intake & Output 02/16/19 02/17/19 02/17/19 18:59 06:59 18:59 Intake Total 400 Output Total 950 350 400 Balance -550 -350 -400 Intake: IV 400 Sodium Chloride 0.9% 1, 400 000 ml @ 50 mls/hr IV . Q20H RAZ Rx#:[id number] Output: Urine 850 350 300 Stool 100 100 Other: Voiding Method Indwelling Catheter Urinal Urinal # Voids 1 1 1 Examination he looks comfortable awake alert oriented HEENT exam no JVP neck supple no facial asymmetry Lungs clear to auscultation good air entry bilaterally Heart sounds unremarkable no murmur rub gallop Abdomen soft nontender ostomy bag present Extremity exam was no edema Neurologically awake alert oriented - Labs CBC & Chem 7: 02/14/19 04:31 02/16/19 06:48 Labs: Abnormal Lab Results - Last 24 Hours (Table) 02/16/19 02/16/19 02/17/19 Range/Units 16:46 19:47 06:56 POC Glucose (mg/dL) 157 H 223 H 156 H (75-99) mg/dL 02/17/19 Range/Units 11:08 POC Glucose (mg/dL) 200 H (75-99) mg/dL Assessment and Plan Assessment: Impression 1. Acute kidney injury secondary to prerenal factors, improved creatinine was 3.18 on admission and is down to 1.39 and 1.41 yesterday no labs are available today. 2. 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 No labs available today 3. Hypomagnesemia secondary to GI losses, magnesium is down to 1.4, was given 2 g of magnesium sulfate IV follow-up magnesium level is not available 4. Anemia off acute illness hemoglobin is down to 9.92 days ago. Was 10.9 earlier Recommendation 1. Patient is about to be discharged supposedly. 2. He needs followed up with magnesium levels 3. renal function levels. 4. Maintain sodium bicarb 650 4 times a day. 5. 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
== END 2019-02-17 14:20 | disposition home health service (06) | DRG 330 ==
LOC: EC 18:53 → 2SICU 21:48 → 3NMEDONC 02-14 19:05
PROVIDERS: ADMIT Surgery; ATTEND Surgery
PROC: 0DBG0ZZ Excision of Left Large Intestine, Open Approach (ICD-10-PCS; principal; 2019-02-10 10:00)
PROC: 0D1L0Z4 Bypass Transverse Colon to Cutaneous, Open Approach (ICD-10-PCS; principal; 2019-02-10 10:00)
DX: C18.5 Malignant neoplasm of splenic flexure (principal); C78.7 Secondary malignant neoplasm of liver and intrahepatic bile duct; D62 Acute posthemorrhagic anemia; E87.2 Acidosis; I47.1 Supraventricular tachycardia; N17.9 Acute kidney failure, unspecified; E11.22 Type 2 diabetes mellitus with diabetic chronic kidney disease; E11.65 Type 2 diabetes mellitus with hyperglycemia; E78.5 Hyperlipidemia, unspecified; E83.42 Hypomagnesemia; E83.52 Hypercalcemia; E86.9 Volume depletion, unspecified; E87.5 Hyperkalemia; E87.6 Hypokalemia; I08.1 Rheumatic disorders of both mitral and tricuspid valves; I12.9 Hypertensive chronic kidney disease with stage 1 through stage 4 chronic kidney disease, or unspecified chronic kidney disease; I25.10 Atherosclerotic heart disease of native coronary artery without angina pectoris; I25.2 Old myocardial infarction; I45.10 Unspecified right bundle-branch block; N18.9 Chronic kidney disease, unspecified; N25.89 Other disorders resulting from impaired renal tubular function; N40.0 Benign prostatic hyperplasia without lower urinary tract symptoms; Z66 Do not resuscitate; Z79.4 Long term (current) use of insulin; Z79.899 Other long term (current) drug therapy; Z82.49 Family history of ischemic heart disease and other diseases of the circulatory system; Z87.891 Personal history of nicotine dependence; Z79.82 Long term (current) use of aspirin; M54.9 Dorsalgia, unspecified; G89.29 Other chronic pain; Z80.0 Family history of malignant neoplasm of digestive organs
CPT/HCPCS: 36415; 71045; 74019; 74176; 80048; 80053; 81001; 82009; 82150; 82728; 83540; 83550; 83605; 83690; 83735; 84100; 84132; 84443; 84484; 85025; 85027; 85610; 85730; 87045; 87046; 87324; 88309; 93306; 94640; 96361; 96365; 96375; 99291

== ENCOUNTER → 2019-03-22 | Outpatient (CLI) | payer MEDICARE, OTHER ==
--- NOTE | 2019-03-24 12:07 | CT ---
EXAMINATION TYPE: CT chest wo con DATE OF EXAM: 03/22/2019 COMPARISON: NONE HISTORY: Observe for mets. History of colon cancer. CT DLP: 330.1 mGycm. Automated Exposure Control for Dose Reduction was Utilized. TECHNIQUE: CT scan of the thorax is performed without IV contrast. FINDINGS: LUNGS: Granuloma is seen at the left lung base on image 48. This is benign. 3 mm solid pulmonary nodu le at the lateral right lung base is also seen on image 42. This is noncalcified. 3 mm solid pulmonar y nodule in the right lower lobe is marked on image 36. 2 mm lateral right upper lobe pulmonary nodul e is solid in nature on image 26 and noncalcified. 2 mm right apical pulmonary nodules present on elisa ge 10. Mild underlying centrilobular emphysema and subpleural reticular opacities throughout with interlobul ar septal thickening is noted. Probable atelectasis is seen near the right interlobar fissure in the right lower lobe with slight associated thickening of the interlobar fissure on image 30 and 31. MEDIASTINUM: Lack of IV contrast is noted to limit evaluation for mediastinal and especially hilar ad enopathy. There are no definitive greater than 1 cm hilar or mediastinal lymph nodes. No cardiomega ly. Ascending thoracic aorta is upper limits of normal size measuring 3.9 cm. Moderate coronary calci fications are seen. Trace pericardial effusion is present. OTHER: The previously seen 9 mm hepatic lesion in segment 7 has increased in size but is only partial ly visualized. This at least measures 1.9 x 2.1 cm. This is highly suspicious for metastasis. Questio nable adjacent punctate lesion is also seen on image 62. The upper abdomen demonstrate partial visual ization of a left ostomy. Diffuse gastric fold thickening can relate to gastritis. Minimal bilateral retroareolar gynecomastia is seen. Moderate multilevel degenerative changes of the thoracic spine wit h age indeterminant compression deformity of T6. Vertebral body height loss is approximately 50%. IMPRESSION: 1. Interval increased size of the hepatic lesion that should be considered metastasis until proven ot herwise. Confirmatory MRI of the liver could be performed. Questionable second punctate adjacent hepa tic lesion is seen. 2. Age indeterminant compression deformity of T6. Correlate with point tenderness. No associated scle rotic lesion or lytic lesion to suggest pathologic fracture. 3. Few scattered sub-3 mm pulmonary nodules are of low suspicion for metastasis. Continued surveillan ce is recommended. Benign granuloma is also seen 4. mild centrilobular emphysema and minimal pulmonary fibrosis.
== END | disposition home or self-care (01) ==
LOC: RADCTMAIN 16:43
PROVIDERS: ATTEND Internal Medicine Hematology & Oncology
DX: J43.2 Centrilobular emphysema (principal); J84.10 Pulmonary fibrosis, unspecified; K76.89 Other specified diseases of liver; R91.8 Other nonspecific abnormal finding of lung field; C18.5 Malignant neoplasm of splenic flexure
CPT/HCPCS: 71250

== ENCOUNTER → 2019-03-30 | Outpatient (CLI) | payer MEDICARE, OTHER ==
--- NOTE | 2019-03-30 13:17 | MR ---
EXAMINATION TYPE: MR liver wo/w con DATE OF EXAM: 03/30/2019 COMPARISON: CT scan 03/22/2019, CT scan 02/09/2019 HISTORY: Liver lesion, Abnormal CT CONTRAST: Standard multiplanar, multisequence MRI departmental protocol utilizing 7.5 mL intravenous Gadavist g adolinium contrast. FINDINGS: There is a 1.7 x 1.9 cm lesion in segment 7 right lobe of the liver has a suspicious appear ance for metastases. There is an ostomy within the left lower quadrant. Lung bases are grossly clear. Spleen is homogeneou s in signal. There is cortical loss involving both kidneys suggestive of chronic medical renal disease. Adrenal gl ands have a normal morphology. Pancreas has a normal appearance. No free fluid. Bowel gas pattern is nonspecific. It does appear to be degrees of small bowel wall thi ckening in the left abdomen. No definite adenopathy. IMPRESSION: 1. Within segment 7 right lobe liver there is a 1.7 x 1.9 cm lesion suspicious for metastasis. There is stable from the exam of 03/22/2019, but appears increased in size from the CT scan of 02/09/2019. M easures 9 mm. 2. There is small bowel wall thickening within the left abdomen which is only partially included on exam. If the patient is experiencing abdominal symptoms correlate with abdominal and pelvic CT. Exam of 01/23 there did appear to be evidence of dilated bowel loops at this location. Correlate clinically. Enteritis or mucosal lesion in the differential diagnosis. Correlate for gastro intestinal symptoms.
== END | disposition home or self-care (01) ==
LOC: RADMRIMAIN 11:50
PROVIDERS: ATTEND Internal Medicine Hematology & Oncology
DX: K31.9 Disease of stomach and duodenum, unspecified (principal)
CPT/HCPCS: 74183

== ENCOUNTER → 2019-07-10 | Outpatient (CLI) | payer OTHER ==
--- NOTE | 2019-07-10 14:16 | CT ---
EXAMINATION TYPE: CT abdomen pelvis wo con DATE OF EXAM: 07/10/2019 HISTORY: Colon cancer. CT DLP: 619 mGycm. Automated Exposure Control for Dose Reduction was Utilized. TECHNIQUE: CT scan of the abdomen and pelvis is performed with oral but without IV contrast. COMPARISON: CT abdomen pelvis February 09, 2019 FINDINGS: Within the limitations of a non-contrast study, the following observations are made. LUNG BASES: Interval resolution of left basilar nodularity or nodular consolidation. LIVER/GB: Possible nonspecific subcentimeter lesion posterior right hepatic lobe axial image 27 less well seen on current study versus prior. No new suspicious hypodense lesions are evident. PANCREAS: No significant abnormality is seen. SPLEEN: No significant abnormality is seen. ADRENALS: No significant abnormality is seen. KIDNEYS: No significant abnormality is seen. BOWEL: New left lower quadrant colostomy. Small peristomal hernia containing small bowel axial image 40. No suspicious small or large bowel dilatation. Oral contrast does not reach distal ileal level. GENITAL ORGANS: No gross abnormality seen. LYMPH NODES: No greater than 1cm abdominal or pelvic lymph nodes are appreciated. OSSEOUS STRUCTURES: Multilevel spondylolisthesis and disc space narrowing lower lumbar spine with vac uum disc phenomenon most prominent at L5-S1 level. Demineralization is present. Bridging osteophytes in the thoracic spine are redemonstrated. OTHER: Mild calcified plaque of the aorta extends into branch vessels. IMPRESSION: Interval partial colectomy with ostomy. Nonspecific subcentimeter liver lesion less well seen on current study. No new suspicious mass or adenopathy identified.
== END | disposition home or self-care (01) ==
LOC: RADCTMAIN 09:35
PROVIDERS: ATTEND Internal Medicine Hematology & Oncology
DX: Z03.89 Encounter for observation for other suspected diseases and conditions ruled out (principal); C18.5 Malignant neoplasm of splenic flexure; K76.9 Liver disease, unspecified; Z90.49 Acquired absence of other specified parts of digestive tract
CPT/HCPCS: 74176; Q9967

== ENCOUNTER 2019-08-06 15:47 | Emergency (ER) | payer OTHER ==
[2019-08-06 15:53] VITALS: BP 136/77; PULSE 73; RESP 16; TEMP 98
[2019-08-06] MEDS ORDERED: DIPH,PERTUS(ACELL)TETVAC-LF 0.5 ML VIAL IM ONE (16:04)
[2019-08-06] MEDS ORDERED: HYDROcodone/APAP 7.5-325MG 1 EACH TAB PO ONE (16:04)
--- NOTE | 2019-08-06 16:21 | XR ---
EXAMINATION TYPE: XR humerus RT DATE OF EXAM: 08/06/2019 CLINICAL HISTORY: Right midshaft humeral pain after falling down 10 stairs. TECHNIQUE: Two views of the right humerus are obtained. COMPARISON: None. FINDINGS: There is diffuse osseous demineralization. There is no acute fracture or dislocation seen i n the right humerus. The right shoulder and elbow joints appear within normal limits. Degenerative changes of the elbow are seen. Mild acromioclavicular arthropathy. The overlying soft tissue appears within normal limits. IMPRESSION: No acute fracture or dislocation is evident in the right humerus.
--- NOTE | 2019-08-06 17:00 | ED ---
Fall HPI - General Chief Complaint: Fall Stated Complaint: Fell down 10 stairs/ rt arm injury Time Seen by Provider: 08/06/19 15:54 Source: patient Mode of arrival: wheelchair - History of Present Illness Initial Comments: 84-year-old male presents emergency room for chief complaint of right arm pain. Patient states that just prior to arrival he fell down 10 carpeted stairs the fall was witnessed by his daughter. Who he was helping carry groceries. He states he "tucked and rolled" down the stairs after tripping. He states he is positive he did not have injury to his head. Patient states the only area of his pain in the mid right arm. Denies any pain in the neck, back chest lower extremities or left upper extremity. Patient denies any use of anticoagulation therapy denies any loss of conscious. Denies any headache nausea vomiting dizziness. Patient states initially was not going to present to the emergency department however called his primary provider about the right arm pain and was told it is best he came in for evaluation. Patient has no other complaints and laboratory upon arrival and appears well no signs acute distress only complaint is right arm pain and pain with range of motion that does not radiate with no loss of sensation tingling or numbness. Remaining review of systems negative upon arrival patient appears well - Related Data Home Medications Medication Instructions Recorded Confirmed Aspirin [[place] Aspirin EC] 81 mg PO DAILY 02/09/19 08/06/19 Cyanocobalamin (Vitamin B-12) 1,000 mcg PO DAILY 02/09/19 08/06/19 [Vitamin B-12] Finasteride [Proscar] 5 mg PO DAILY 02/09/19 08/06/19 Insulin Glargine [Lantus] 30 units SQ HS 02/09/19 08/06/19 Omeprazole 20 mg PO DAILY 02/09/19 08/06/19 Saxagliptin HCl [Onglyza] 5 mg PO DAILY 02/09/19 08/06/19 traMADol HCL [Ultram] 50 mg PO BID 02/09/19 08/06/19 INSULIN ASPART (NovoLOG) [NovoLOG See Protocol SQ AC-BRKFST 08/06/19 08/06/19 (formulary)] Simvastatin [Zocor] 10 mg PO HS 08/06/19 08/06/19 Allergies Allergy/AdvReac Type Severity Reaction Status Date / Time No Known Allergies Allergy Verified 08/06/19 17:04 Review of Systems ROS Statement: Those systems with pertinent positive or pertinent negative responses have been documented in the HPI. ROS Other: All systems not noted in ROS Statement are negative. Past Medical History Past Medical History: Diabetes Mellitus, Hyperlipidemia, Hypertension, Myocardial Infarction ([place]) Additional Past Medical History / Comment(s): back pain Last Myocardial Infarction Date:: unknown History of Any Multi-Drug Resistant Organisms: None Reported Additional Past Surgical History / Comment(s): club foot surgery at 14 yo, tonsillectomy Past Psychological History: No Psychological Hx Reported Smoking Status: Former smoker Past Alcohol Use History: None Reported Past Drug Use History: None Reported - Past Family History Father Additional Family Medical History / Comment(s): at 95 of old age Mother Additional Family Medical History / Comment(s): at 93 of old age, had a myocardial infarction in her upper 80s. General Exam - General Exam Comments Initial Comments: General: The patient is awake and alert, in no distress, and does not appear acutely ill. Eye: Pupils are equal, round and reactive to light, extra-ocular movements are intact. No nystagmus. There is normal conjunctiva bilaterally. No signs of icterus. Ears, nose, mouth and throat: There are moist mucous membranes and no oral lesions. No scalp hematomas, scalp abrasions lacerations. No raccoon no Moody sign. Neck: The neck is supple, there is no tenderness or JVD. No midline or paravertebral tenderness in the cervical thoracic or lumbar spine. Full range of motion of the [place] spine without any complaints of pain. Cardiovascular: There is a regular rate and rhythm. No murmur, rub or gallop is appreciated. Respiratory: No bruising of the thorax noted. Lungs are clear to auscultation, respirations are non-labored, breath sounds are equal. No wheezes, stridor, rales, or rhonchi. Gastrointestinal: No bruising of the abdomen noted Soft, non-distended, non- tender abdomen without masses or organomegaly noted. There is no rebound or guarding present. No CVA tenderness. Bowel sounds are unremarkable. Musculoskeletal: Upon inspection of the upper extremity bilaterally. Is no obvious bruising. There is an area of skin tear on the right forearm. There is no tenderness to palpation of the area. Patient has full range of motion of the elbows bilaterally as well as wrist. He is able to make the okay fingers crossed thumbs-up and oppose the small digit and thumb. No evidence of wrist drop with soft and compressible department. Patient only area of point localized tenderness is over the mid humerus. There is no gross deformity here. Patient is able to fully range at the right shoulder however states there is pain in the mid humerus with this range of motion. Normal ROM, no tenderness of the LE b/l. Strength 5/5 of the LE and the UE b/l (distal to the right elbow). Sensation intact. Radial pulses equal bilaterally 2+. Neurological: A&O x 3. CN II-XII intact, There are no obvious motor or sensory deficits. Coordination appears grossly intact. Speech is normal. Skin: Skin is warm and dry and no rashes or lesions are noted. Psychiatric: Cooperative, appropriate mood & affect, normal judgment. Limitations: no limitations Course Vital Signs 08/06/19 15:48 Temperature 98.0 F Pulse Rate 73 Respiratory 16 Rate Blood Pressure 136/77 O2 Sat by Pulse 99 Oximetry Medical Decision Making - Medical Decision Making 84-year-old male presents emergency department for chief complaint of right arm pain after fall. Denies head injury. No thinners. Mechanical fall. With this. Patient is adamant he has no injury to head neck or back. No obvious examination abnormalities aside from small skin tear over the forearm. Patient states there is no pain in the forearm appears supination or pronation. Full range motion elbow with no point localized tenderness. Patient only has midforearm tenderness to palpation. No tenderness over the scapula. No shoulder pain. Injury states negative for osseous process. Patient neurovascularly intact. Patient replaced and sling for comfort skin tear was cleansed and covered. Patient is to follow with primary care provider which her parents were discussed and patient was discharged appearing well after discu ssed the case with Dr. Asencio Disposition Clinical Impression: Right arm pain, Fall Disposition: HOME SELF-CARE Condition: Good Instructions (If sedation given, give patient instructions): Fall Prevention for Older Adults (ED) Additional Instructions: Please use medication as discussed. Please follow-up with family doctor in the next 2 days, use sling for comfort. Please return to emergency room if the symptoms increase or worsen or for any other concerns. Is patient prescribed a controlled substance at d/c from ED?: No Referrals: [facility],Clinic [Primary Care Provider] - 1-2 days Time of Disposition: 17:00
== END 2019-08-06 17:13 | disposition home or self-care (01) ==
LOC: EC 15:47
DX: M79.601 Pain in right arm (principal); S51.811A Laceration without foreign body of right forearm, initial encounter; E11.9 Type 2 diabetes mellitus without complications; E78.5 Hyperlipidemia, unspecified; I10 Essential (primary) hypertension; I25.2 Old myocardial infarction; Z87.891 Personal history of nicotine dependence; Z79.4 Long term (current) use of insulin; Z79.82 Long term (current) use of aspirin; Z79.891 Long term (current) use of opiate analgesic; Z79.899 Other long term (current) drug therapy; Z87.39 Personal history of other diseases of the musculoskeletal system and connective tissue; Z23 Encounter for immunization; W10.9XXA Fall (on) (from) unspecified stairs and steps, initial encounter; Y93.89 Activity, other specified; Y92.009 Unspecified place in unspecified non-institutional (private) residence as the place of occurrence of the external cause
CPT/HCPCS: 90471; 90715; 99283

== ENCOUNTER → 2019-09-23 | Outpatient (CLI) | payer OTHER ==
--- NOTE | 2019-09-23 15:11 | CT ---
EXAMINATION TYPE: CT ChestAbdPelvis wo con DATE OF EXAM: 09/23/2019 COMPARISON: CT July 10, 2019 and older studies HISTORY: Follow up for colon CA CT DLP: 715.9 mGycm. Automated Exposure Control for Dose Reduction was Utilized. TECHNIQUE: CT scan of the thorax, abdomen and pelvis is performed with oral but without IV contrast. FINDINGS: LUNGS: Stable 3 mm calcified nodule or granuloma left lung base axial image 48. Stable micronodule la teral right lung base axial image 39 measuring under 3 mm. Stable additional scattered micronodules. No new greater than 4 mm nodules. Focal areas of pleural thickening left lung posteriorly axial image 30 redemonstrated. Mild underlying emphysematous change. No pleural effusion or pneumothorax bilater ally. MEDIASTINUM measuring under 3 mm.: There are no greater than 1 cm hilar or mediastinal lymph nodes. T iny pericardial effusion or thickening is stable. No cardiomegaly. Coronary artery calcification red emonstrated which is noted marked underlying coronary artery disease. LIVER/GB: There is less well-visualized heterogeneous hypodense focus posterior right hepatic lobe im age 65 measuring approximately 1.1 cm long axis. Additional subtle foci throughout the liver on MRI l ess well seen on CT were likely present measuring at or under 1 cm. No enlarging hypodense masses amairani deepak identified. PANCREAS: No significant abnormality is seen. SPLEEN: No significant abnormality is seen. ADRENALS: No significant abnormality is seen. KIDNEYS: No significant abnormality is seen. BOWEL: Stable left upper to midlung colostomy. Oral contrast does not reach distal ileal level making evaluation of distal bowel suboptimal. Surgical sutures left lower quadrant image 79. Occasional div erticula in the remnant sigmoid colon. Scattered pelvic phleboliths bilaterally. GENITAL ORGANS: No gross abnormality seen. LYMPH NODES: No greater than 1cm abdominal or pelvic lymph nodes are appreciated. OSSEOUS STRUCTURES: Multilevel spurring of the spine. Multilevel disc space narrowing most prominent L4-L5 and L5-S1 levels. Multilevel facet arthropathy is prominent lower lumbar levels. Slight grade 1 anterolisthesis L5 on S1 with bilateral pars defect. OTHER: Small fat-containing right inguinal hernia redemonstrated. IMPRESSION: No new or enlarging liver lesions. No new metastatic disease is evident.
== END ==
LOC: RADCTMAIN 12:40
PROVIDERS: ATTEND Internal Medicine Hematology & Oncology
DX: C18.9 Malignant neoplasm of colon, unspecified (principal)
CPT/HCPCS: 36415; 71250; 74176; 82565; 84520

== ENCOUNTER 2019-10-10 13:14 | Day surgery (SDC) | payer MEDICARE, OTHER ==
[2019-10-07 10:26] VITALS: BMI 27.8
[~2019-10-10 13:14] MED LIST: LACTATED RINGERS 1,000 ML IV SCH
[2019-10-10 13:31] VITALS: TEMP 98
[2019-10-10 13:49] LABS: Glucose,Whole Blood 239 mg/dL (75-99)
[2019-10-10 14:08] LABS: MCH 34.2 pg (25.0-35.0); MCV 95.2 fL (80.0-100.0); Mean Platelet Volume 9.2; Platelet Count 150 k/uL (150-450); RBC 4.09 m/uL (4.30-5.90); RDW 12.6 % (11.5-15.5); WBC 8.5 k/uL (3.8-10.6)
[2019-10-10 14:20] LABS: Potassium 5.1 mmol/L (3.5-5.1)
[2019-10-10] MEDS ORDERED: PROPOFOL 10 MG/ML 20 ML VIAL IV ONE (14:33)
--- NOTE | 2019-10-10 15:06 | P.PCN ---
Date of Procedure: 10/10/19 Procedure(s) Performed: PREOPERATIVE DIAGNOSIS: Colon cancer POSTOPERATIVE DIAGNOSIS: Normal exam PROCEDURE: Colonoscopy ANESTHESIA: MAC SURGEON: Juan David Mejia M.D. SPECIMENS: None ENDOSCOPIC PROCEDURE: The patient was placed on the endoscopy table in the left decubitus position. The Olympus colonoscope was inserted into the anus and passed under direct visualization to the distal descending colon. The patient had some old mucousy stool that was evacuated manually. There were no abnormalities present throughout the descending sigmoid and rectum. The scope was advanced through the stoma. This was passed all the way to the base of the cecum. The appendiceal orifice was visualized. From that point the scope was slowly withdrawn inspecting all surfaces carefully. There were no neoplastic inflammatory or polypoid lesions throughout the cecum, ascending, or transverse colon. There is no visible diverticulosis. Digital rectal examination was normal. The patient was taken to the recovery room in stable condition per anesthesia guidelines. RECOMMENDATIONS: Resume liquid diet. We'll proceed with reversal tomorrow.
[2019-10-10 15:16] LABS: Glucose,Whole Blood 202 mg/dL (75-99)
[2019-10-10 15:28] VITALS: BP 125/84; PULSE 85; RESP 18
== END 2019-10-10 16:01 | disposition home or self-care (01) ==
LOC: ORWHC2ENDO 13:14
PROVIDERS: ATTEND Surgery
DX: C18.9 Malignant neoplasm of colon, unspecified (principal); E11.22 Type 2 diabetes mellitus with diabetic chronic kidney disease; I12.9 Hypertensive chronic kidney disease with stage 1 through stage 4 chronic kidney disease, or unspecified chronic kidney disease; D63.1 Anemia in chronic kidney disease; N18.9 Chronic kidney disease, unspecified; Z90.49 Acquired absence of other specified parts of digestive tract; Z93.3 Colostomy status; E78.5 Hyperlipidemia, unspecified; I25.2 Old myocardial infarction; Z87.891 Personal history of nicotine dependence; Z97.2 Presence of dental prosthetic device (complete) (partial); Z79.82 Long term (current) use of aspirin; Z79.891 Long term (current) use of opiate analgesic; Z79.4 Long term (current) use of insulin; Z79.899 Other long term (current) drug therapy
CPT/HCPCS: 80051; 85027; 44388; J2704

== ENCOUNTER 2019-10-11 08:16 | Inpatient (IN) | payer MEDICARE, OTHER ==
[~2019-10-11 08:16] MED LIST changes: +DEXAMETHASONE SOD PHOSPHATE 10 MG/ML 1 ML VIAL IV ONE; +HEPARIN SODIUM,PORCINE 5,000 UNIT/ML 1 ML VIAL SQ ONE; +HYDROmorphone 0.5 MG/0.5 ML SYRINGE IVP PRN; +LIDOCAINE 1% 20 ML VIAL (10MG/ML) FOR IV START INTRADERMA PRN; +ONDANSETRON 4 MG/2 ML VIAL IVP ONE; +fentaNYL (PF) 50 MCG/ML 2 ML AMP IV PRN; +metroNIDAZOLE-NS PMX 500 MG in SALINE 1 100ML.BAG IVPB ONE
[2019-10-11 11:09] LABS: Glucose,Whole Blood 321 mg/dL (75-99)
[2019-10-11] MEDS ORDERED: ACETAMINOPHEN TAB 500 MG TAB PO ONE (11:27)
[2019-10-11] MEDS ORDERED: MELOXICAM 7.5 MG TAB PO ONE (11:27)
[2019-10-11] MEDS ORDERED: ALVIMOPAN 12 MG CAPSULE PO ONE (11:27)
[2019-10-11] MEDS ORDERED: INSULIN ASPART (NovoLOG) 100 UNIT/ML VIAL SQ ONE ×2 (11:29→15:57)
[2019-10-11] MEDS ORDERED: fentaNYL (PF) 50 MCG/ML 2 ML AMP IVP ONE (11:33)
[2019-10-11] MEDS ORDERED: MIDAZOLAM 2 MG/2 ML VIAL IVP ONE (11:33)
[2019-10-11 12:01] LABS: Glucose,Whole Blood 259 mg/dL (75-99)
[2019-10-11] MEDS ORDERED: SUCCINYLCHOLINE CHLORIDE 100 MG/5 ML SYR IV ONE (12:02)
[2019-10-11] MEDS ORDERED: fentaNYL (PF) 50 MCG/ML 2 ML AMP ONE (12:02)
[2019-10-11] MEDS ORDERED: ROCURONIUM BROMIDE 10 MG/ML 10 ML VIAL IV ONE (12:02)
[2019-10-11] MEDS ORDERED: ePHEDrine SULFATE/0.9% NACL/PF 50 MG/5 ML SYRINGE IV ONE (12:02)
[2019-10-11] MEDS ORDERED: NEOSTIGMINE 1 MG/ML 10 ML VIAL ONE (12:02)
[2019-10-11] MEDS ORDERED: PROPOFOL 10 MG/ML 20 ML VIAL IV ONE (12:02)
[2019-10-11] MEDS ORDERED: GLYCOPYRROLATE 0.2 MG/ML 2 ML VIAL ONE (12:02)
[2019-10-11] MEDS ORDERED: PHENYLEPHRINE-0.9% NACL SYG 1 MG/10 ML SYRINGE ONE (12:02)
[2019-10-11] MEDS ORDERED: LIDOCAINE 1% INJ 10MG/ML (20 ML MDV) ONE (12:02)
[2019-10-11] MEDS ORDERED: NALOXONE 0.4 MG/ML 1 ML VIAL IV PRN (12:17)
[2019-10-11] MEDS ORDERED: LACTATED RINGERS 1,000 ML IV ONE ×3 (12:46→16:47)
[2019-10-11] MEDS: ROPIVACAINE EPIDURAL PRN ×2 (14:58→16:48)
[2019-10-11] MEDS: HYDROMORPHONE EPIDURAL PRN ×2 (14:58→16:48)
[2019-10-11] MEDS: SODIUM CHLORIDE 0.9% EPIDURAL PRN ×2 (14:58→16:48)
[2019-10-11] MEDS ORDERED: ONDANSETRON 4 MG/2 ML VIAL IVP PRN (15:03)
--- NOTE | 2019-10-11 15:08 | P.OP ---
Date of Procedure: 10/11/19 Procedure(s) Performed: PREOPERATIVE DIAGNOSIS: Colon cancer POSTOPERATIVE DIAGNOSIS: Same PROCEDURE: Colostomy reversal, partial colonic resection, extensive lysis of adhesions 60 minutes SURGEON: Roberto EBL: 100 mL ANESTHESIA: General COMPLICATIONS: None OPERATIVE PROCEDURE: Patient was placed on the operative table in the supine position. The patient was placed under general anesthesia. The patient was then placed in lithotomy. The stoma was closed using a pursestring 2-0 Vicryl stitch. The abdomen was prepped and draped in usual sterile fashion. An elliptical incision was made around the colostomy. Dissection through the subcutaneous fat took place using electrocautery. The stoma was fully mobilized and reduced back into the peritoneal cavity. At that time a vertical incision was made using a scalpel through the previous midline incision. The Bookwalter retractor was utilized. The patient had adhesions in the abdominal cavity that were lysed using both sharp and blunt and electrocautery these were extensive and duration of lysis took approximately 60 minutes. The transverse colon was mobilized further by dividing the fatty attachments superiorly and laterally. The descending colon once then mobilized as well from where it was adherent to the left retroperitoneum. A small portion of both the ostomy site proximally and the descending colon was excised using linear staplers. Once we had adequate length a [id number] anastomosis took place between the mid transverse colon and the descending colon. This was isoperistaltic. The remaining defect was closed transversely using a TX 60 device. The abdomen was irrigated. No bleeding was seen. The abdomen was irrigated with saline. The liver, stomach, visualized colon, and small bowel appeared normal. The fascia at the stoma site was reapproximated using [id number] 0 Ethibond sutures in a vertical fashion. The subcutaneous tissues at the colostomy site were closed using interrupted 2-0 Vicryl sutures. The midline fascia was then reapproximated using 2 separate double-stranded #1 PDS sutures. The subcutaneous tissues were closed using 2-0 Vicryl sutures. The skin was then closed using phyllis. Sterile dressings were then applied. DISPOSITION: Stable to recovery room
[2019-10-11 15:50] LABS: Glucose,Whole Blood 219 mg/dL (75-99)
[2019-10-11] MEDS ORDERED: D5-0.45% NACL WITH KCL 20MEQ/L 1,000 ML IV SCH (16:00)
[2019-10-11] MEDS: HEPARIN SODIUM,PORCINE 5,000 UNIT/ML 1 ML VIAL SQ SCH (17:23)
--- NOTE | 2019-10-11 17:53 | P.CONS ---
History of Present Illness - Reason for Consult Medical management - History of Present Illness This is a 84-year-old male presents for reversal of his colostomy. Patient has history of diabetes mellitus and colon cancer. Home medications include Lantus 30 units at bedtime, sliding scale NovoLog, Celexa gripped in, aspirin, simvastatin, Proscar and vitamin B12. Hospitalist service was asked for co- management with general surgery. Patient's history begins in January of last year when he was admitted for nausea vomiting and alteration in bowel movements habits and with a CT finding of mid descending colon obstructing mass. He had profound dehydration and acute renal failure that subsequently resulted hydration. 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 He also had one liver metastasis. At that time end colostomy was placed. Patient underwent adjuvant 5FU chemotherapy and radiation therapy of the liver metastases. This was finished beginning of August. He then presented to surgical office for evaluation for colostomy reversal. Patient was now admitted for this procedure. He underwent colonoscopy yesterday with general surgery which did not show any concerning lesions. He underwent an colostomy reversal today. Blood work from yesterday showing creatinine of 2.52 which seems to be around his baseline since April of last year. His glucose was 263, serum bicarbonate 21, anion gap 12 sodium potassium is normal range. Blood count with normal leukocytes hemoglobin and platelets. Stable liver enzymes normal alk phos and albumin and bilirubin. Slightly elevated iron saturation. Subjectively: Currently patient is reporting feeling very well. He denies any focal discomfort or issue. He denies any nausea vomiting chest pain and back pain abdominal pain shortness of breath or any other his comfort. Review of Systems Review of system was performed and is negative except mentioned in HPI Past Medical History Past Medical History: Cancer, Diabetes Mellitus, Hyperlipidemia, Hypertension, Myocardial Infarction ([place]) Additional Past Medical History / Comment(s): back pain, colostomy for colon cancer dx 02/09/19 received chemo pills and radiation of liver -tx completed Last Myocardial Infarction Date:: unknown History of Any Multi-Drug Resistant Organisms: None Reported Past Surgical History: Bowel Resection, Tonsillectomy Additional Past Surgical History / Comment(s): club foot surgery at 14 yo, tonsillectomy,colostomy Past Anesthesia/Blood Transfusion Reactions: No Reported Reaction Past Psychological History: No Psychological Hx Reported Smoking Status: Former smoker Past Alcohol Use History: None Reported Additional Past Alcohol Use History / Comment(s): smoked from 24 until 42 1 1/2ppd Past Drug Use History: None Reported - Past Family History Father Additional Family Medical History / Comment(s): at 95 of old age Mother Family Medical History: Myocardial Infarction ([place]) Additional Family Medical History / Comment(s): at 93 of old age, had a myocardial infarction in her upper 80s. Medications and Allergies Home Medications Medication Instructions Recorded Confirmed Type Aspirin [[place] Aspirin EC] 81 mg PO DAILY 02/09/19 10/11/19 History Cyanocobalamin (Vitamin B-12) 1,000 mcg PO DAILY 02/09/19 10/11/19 History [Vitamin B-12] Finasteride [Proscar] 5 mg PO DAILY 02/09/19 10/11/19 History Insulin Glargine [Lantus] 30 units SQ HS 02/09/19 10/11/19 History Omeprazole 20 mg PO DAILY 02/09/19 10/11/19 History Saxagliptin HCl [Onglyza] 5 mg PO DAILY 02/09/19 10/11/19 History traMADol HCL [Ultram] 50 mg PO BID 02/09/19 10/11/19 History INSULIN ASPART (NovoLOG) [NovoLOG See Protocol SQ AC-BRKFST 08/06/19 10/11/19 History (formulary)] Simvastatin [Zocor] 10 mg PO HS 08/06/19 10/11/19 History Allergies Allergy/AdvReac Type Severity Reaction Status Date / Time No Known Allergies Allergy Verified 10/11/19 10:52 Physical Exam Vitals: Vital Signs Temp Pulse Resp BP Pulse Ox 10/11/19 16:48 70 16 90/51 100 10/11/19 16:00 62 16 86/53 100 10/11/19 15:43 63 16 91/53 100 10/11/19 15:28 65 16 90/51 100 10/11/19 15:13 63 16 92/50 100 10/11/19 14:58 98.6 F 95 16 98/52 96 10/11/19 11:50 85 16 129/67 97 10/11/19 10:51 98.1 F 89 16 139/76 99 Intake and Output 10/11/19 10/11/19 10/11/19 06:59 14:59 22:59 Intake Total 2250 711 Output Total 250 20 Balance 1999 691 Intake: IV 2250 711 Output: Urine 200 20 Estimated Blood Loss 50 Other: Weight 79.8 kg Vital Signs: I have reviewed the vital signs. GENERAL: Well-nourished, Well-developed , no apparent distress, cooperative Eyes: PERRL, extraoculry movements intact, clear conjunctiva Head: : Atraumatic external nose and ears, oropharyngeal mucosa is moist without lesions or exudates Neck: Symmetric, trachea midline, No thyromegaly, no masses or neck vain pulsation, no neck rigidity CVS: +S1/S2, No murmurs or gallops. Peripheral pulses 2+ and equal in all extremities. RESP: Unlabored respiratory effort. Clear to auscultation bilaterally. Abdomen: Dressing in midline without any drainage or signs of bleeding. Bowel sounds present in the right lower quadrant, Soft to palpation, Nontender/Nondistended, No hepatosplenomegaly, no hernias or masses, no CVA tnderness Musculoskeletal: Extremities w/o deformity, No cyanosis or clubbing, no joint swelling Skin: Warm, Dry. 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 Type 2 diabetes mellitus with long-term current use of insulin Stress hyperglycemia Continue with sliding scale coverage Continue to hold Saxigliptin Change IV fluids to LR discontinue glucose containing fluids We'll consider to start low-dose Lantus if blood sugars remain above 180 after above measures 2. CKD stage III Patient appears euvolemic Electrolytes are stable although potassium yesterday was the upper level of 5.1 Gentle hydration while nothing by mouth Discontinue potassium from IV fluids Monitor I and Os 3. History of colon cancer with colectomy Status post reversal of colostomy Per general surgery Supportive measures increase activity , encourage ambulation, [place] catheter discontinuation as per protocol, incentive spirometry DVT prophylaxis
[2019-10-11] MEDS ORDERED: LACTATED RINGERS 1,000 ML IV SCH ×2 (18:00)
[2019-10-11 18:47] LABS: Calcium 8.6 mg/dL (8.4-10.2); Potassium 4.1 mmol/L (3.5-5.1)
[2019-10-11] MEDS: ALVIMOPAN 12 MG CAPSULE PO SCH (21:45)
[2019-10-11] MEDS: FAMOTIDINE 20 MG/2 ML VIAL IV SCH (21:46)
[2019-10-11 21:51] LABS: Glucose,Whole Blood 263 mg/dL (75-99)
[2019-10-11] MEDS: INSULIN ASPART (NovoLOG) 100 UNIT/ML VIAL SQ SCH (21:53)
[2019-10-12 01:48] LABS: Glucose,Whole Blood 326 mg/dL (75-99)
[2019-10-12] MEDS: INSULIN ASPART (NovoLOG) 100 UNIT/ML VIAL SQ SCH ×5 (01:51→20:54)
[2019-10-12] MEDS: HEPARIN SODIUM,PORCINE 5,000 UNIT/ML 1 ML VIAL SQ SCH ×3 (01:51→17:39)
[2019-10-12 06:56] LABS: Glucose,Whole Blood 176 mg/dL (75-99)
[2019-10-12 07:03] LABS: Basophils % (A) 0 %; Eosinophils % (A) 0 %; HGB 11.2 gm/dL (13.0-17.5); Lymphocytes # (A) 0.6 k/uL (1.0-4.8); Lymphocytes % (A) 4 %; MCH 32.8 pg (25.0-35.0); MCHC 33.1 g/dL (31.0-37.0); MCV 99.4 fL (80.0-100.0); Mean Platelet Volume 9.5; Monocytes # (A) 0.8 k/uL (0-1.0); Monocytes % (A) 5 %; Neutrophils # (A) 12.9 k/uL (1.3-7.7); Neutrophils % (A) 89 %; Platelet Count 121 k/uL (150-450); RBC 3.42 m/uL (4.30-5.90); RDW 12.3 % (11.5-15.5); WBC 14.5 k/uL (3.8-10.6)
[2019-10-12 07:06] LABS: Calcium 8.5 mg/dL (8.4-10.2); Potassium 4.9 mmol/L (3.5-5.1)
[2019-10-12] MEDS: ALVIMOPAN 12 MG CAPSULE PO SCH ×2 (07:27→20:37)
[2019-10-12] MEDS: FAMOTIDINE 20 MG/2 ML VIAL IV SCH ×2 (07:27→20:37)
[2019-10-12] MEDS: FINASTERIDE 5 MG TAB PO SCH (07:27)
[2019-10-12] MEDS: MIDODRINE 5 MG TAB PO SCH ×3 (08:03→17:39)
[2019-10-12] MEDS: LACTATED RINGERS 1,000 ML IV SCH ×2 (08:04→17:40)
--- NOTE | 2019-10-12 08:28 | P.PN ---
Subjective Pt reports fealing well this am. He is sitting in the bed eating breakfast. He denies SOB, abd pain, nausea or vomiting. His BP has been soft over night. he has decent urine output. BG elevated, controlled this am. Objective - Vital Signs Vital signs: Vital Signs Temp 98.3 F 10/12/19 00:00 Pulse 94 10/12/19 00:00 Resp 15 10/12/19 00:00 BP 92/62 10/12/19 00:00 Pulse Ox 100 10/11/19 16:56 Intake & Output 10/11/19 10/12/19 10/12/19 18:59 06:59 18:59 Intake Total 2961 Output Total 270 Balance 2691 Weight 79.8 kg Intake: IV 2961 Output: Urine 220 Estimated Blood Loss 50 Other: Voiding Method Indwelling Catheter - Exam Vital Signs: I have reviewed the vital signs. GENERAL: Well-nourished, Well-developed , no apparent distress, cooperative Eyes: PERRL, extraoculry movements intact, clear conjunctiva Head: : Atraumatic external nose and ears, oropharyngeal mucosa is moist without lesions or exudates Neck: Symmetric, trachea midline, No thyromegaly, no masses or neck vain pulsati on, no neck rigidity CVS: +S1/S2, No murmurs or gallops. Peripheral pulses 2+ and equal in all extremities. RESP: Unlabored respiratory effort. Clear to auscultation bilaterally. Abdomen: Dressing in the midline no drainage or bleeding. Abdomen soft bowel sounds are present Musculoskeletal: Extremities w/o deformity, No cyanosis or clubbing, no joint swelling Skin: Warm, Dry. No rashes or lesions Psych: Awake, Alert, & Oriented (AAO) x3 Appropriate mood and affect - Labs CBC & Chem 7: 10/12/19 06:36 10/12/19 06:36 Labs: Abnormal Lab Results - Last 24 Hours (Table) 10/11/19 10/11/19 10/11/19 Range/Units 11:03 11:56 15:47 WBC (3.8-10.6) k/uL RBC (4.30-5.90) m/uL Hgb (13.0-17.5) gm/dL Hct (39.0-53.0) % Plt Count (150-450) k/uL Neutrophils # (1.3-7.7) k/uL Lymphocytes # (1.0-4.8) k/uL Sodium (137-145) mmol/L BUN (9-20) mg/dL Creatinine (0.66-1.25) mg/dL Glucose (74-99) mg/dL POC Glucose (mg/dL) 321 H 259 H 219 H (75-99) mg/dL 10/11/19 10/11/19 10/12/19 Range/Units 18:09 21:50 01:45 WBC (3.8-10.6) k/uL RBC (4.30-5.90) m/uL Hgb (13.0-17.5) gm/dL Hct (39.0-53.0) % Plt Count (150-450) k/uL Neutrophils # (1.3-7.7) k/uL Lymphocytes # (1.0-4.8) k/uL Sodium (137-145) mmol/L BUN 30 H (9-20) mg/dL Creatinine 2.29 H (0.66-1.25) mg/dL Glucose 217 H (74-99) mg/dL POC Glucose (mg/dL) 263 H 326 H (75-99) mg/dL 10/12/19 10/12/19 10/12/19 Range/Units 06:36 06:36 06:46 WBC 14.5 H (3.8-10.6) k/uL RBC 3.42 L (4.30-5.90) m/uL Hgb 11.2 L (13.0-17.5) gm/dL Hct 34.0 L (39.0-53.0) % Plt Count 121 L (150-450) k/uL Neutrophils # 12.9 H (1.3-7.7) k/uL Lymphocytes # 0.6 L (1.0-4.8) k/uL Sodium 134 L (137-145) mmol/L BUN 39 H (9-20) mg/dL Creatinine 2.66 H (0.66-1.25) mg/dL Glucose 165 H (74-99) mg/dL POC Glucose (mg/dL) 176 H (75-99) mg/dL Assessment and Plan Assessment: 1. Type 2 diabetes mellitus with long-term current use of insulin Stress hyperglycemia Continue with sliding scale coverage Continue to hold Saxigliptin Change IV fluids to LR discontinue glucose containing fluids Pt started diet, will start LAntus 10 units this am 2. CKD stage III Patient appears euvolemic urine output about 300-400 cc over night slight rise in creatinine suspect due to low BP Electrolytes are stable Increase IVF Monitor I and Os 4. Hisory of HTN BP sowt due to epidural anesthesia expect to improve after discont continue to hold BP meds Increase IVF give dose of Midodrine 5. Mild thrombocytopenia Continue to monitor hb stable compering to baseline 6. History of colon cancer with colectomy Status post reversal of colostomy Per general surgery Supportive measures increase activity , encourage ambulation, [place] catheter discontinuation as per protocol, incentive spirometry DVT prophylaxis
[2019-10-12] MEDS: INSULIN DETEMIR (LEVEMIR) 100 UNIT/ML SYR SQ SCH (09:34)
[2019-10-12 11:52] LABS: Glucose,Whole Blood 204 mg/dL (75-99)
--- NOTE | 2019-10-12 12:02 | P.PN ---
Progress Note - Text Progress Note Date: 10/12/19 The patient is postop day 1 from reversal of colostomy. He's had some minimal flatus. On exam is lesser stable. His abdomen soft. Patient will remain on clear liquid. We will continue supportive care.
--- NOTE | 2019-10-12 15:46 | P.PN ---
Progress Note - Text Progress Note Date: 10/12/19 Postoperative day #1 status post reversal colostomy, epidural catheter placed for postoperative analgesia, patient doing well epidural site okay, patient currently on combination of epidural infusion solution of Ropivacaine 0.0625% and Dilaudid 20 g per mL the infusion rate at 7 ml per hour , patient had no motor deficit epidural site okay , vital signs stable ,VAS 2 /10 , Assessment and plan= post operative day #1 patient doing well ,pain well controlled , there is no anesthesia related complications
[2019-10-12 16:31] LABS: Glucose,Whole Blood 189 mg/dL (75-99)
[2019-10-12 20:38] LABS: Glucose,Whole Blood 177 mg/dL (75-99)
[2019-10-13] MEDS: HEPARIN SODIUM,PORCINE 5,000 UNIT/ML 1 ML VIAL SQ SCH ×4 (00:52→23:33)
[2019-10-13 02:02] LABS: Glucose,Whole Blood 76 mg/dL (75-99)
[2019-10-13] MEDS: INSULIN ASPART (NovoLOG) 100 UNIT/ML VIAL SQ SCH ×5 (02:03→20:31)
[2019-10-13] MEDS: LACTATED RINGERS 1,000 ML IV SCH ×2 (02:40→07:54)
[2019-10-13] MEDS: ROPIVACAINE EPIDURAL PRN (02:41)
[2019-10-13] MEDS: HYDROMORPHONE EPIDURAL PRN (02:41)
[2019-10-13] MEDS: SODIUM CHLORIDE 0.9% EPIDURAL PRN (02:41)
[2019-10-13 07:02] LABS: Glucose,Whole Blood 133 mg/dL (75-99)
[2019-10-13] MEDS: MIDODRINE 5 MG TAB PO SCH ×2 (07:20→12:41)
[2019-10-13] MEDS: INSULIN DETEMIR (LEVEMIR) 100 UNIT/ML SYR SQ SCH (07:20)
[2019-10-13] MEDS: FINASTERIDE 5 MG TAB PO SCH (07:20)
[2019-10-13] MEDS: ALVIMOPAN 12 MG CAPSULE PO SCH (07:20)
[2019-10-13] MEDS: FAMOTIDINE 20 MG/2 ML VIAL IV SCH ×2 (07:20→20:13)
[2019-10-13 07:40] LABS: Calcium 8.1 mg/dL (8.4-10.2); Potassium 4.5 mmol/L (3.5-5.1)
[2019-10-13 07:44] LABS: Basophils % (A) 0 %; Eosinophils # (A) 0.1 k/uL (0-0.7); Eosinophils % (A) 1 %; HCT 29.5 % (39.0-53.0); HGB 10.2 gm/dL (13.0-17.5); Lymphocytes # (A) 1.4 k/uL (1.0-4.8); Lymphocytes % (A) 16 %; MCHC 34.6 g/dL (31.0-37.0); MCV 98.3 fL (80.0-100.0); Mean Platelet Volume 9.7; Monocytes # (A) 0.5 k/uL (0-1.0); Monocytes % (A) 6 %; Neutrophils % (A) 76 %; RDW 12.2 % (11.5-15.5); WBC 9.2 k/uL (3.8-10.6)
--- NOTE | 2019-10-13 08:32 | P.PN ---
Subjective Summary: 84-year-old male with history of CKD stage III and diabetes admitted for reversal of colostomy. He is postoperative day 3 today. 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 This was finishing August of last year. Postoperative course so far has been uneventful. He has epidural anesthesia going on with softer blood pressures but maintaining stable renal function and good urine output. Interval history: No events overnight. He is feeling well. He ate his breakfast. He thinks that his passing gas. He denies any abdominal pain chest pain or shortness of breath. Urine output has been excellent in the last 24 hours and is been charted that he had about 1900 mL of urine output in the last 24 hours. Creatinine has been stable. Objective - Vital Signs Vital signs: Vital Signs Temp 98.3 F 10/13/19 00:32 Pulse 70 10/13/19 00:32 Resp 15 10/13/19 00:32 BP 134/56 10/13/19 07:19 Pulse Ox 96 10/13/19 00:32 Intake & Output 10/12/19 10/13/19 10/13/19 18:59 06:59 18:59 Intake Total 625 1450 Output Total 700 2600 Balance -75 -1150 Intake: IV 1200 Lactated Ringers 1,000 ml 1200 @ 100 mls/hr IV .Q10H [facility] Rx#:[id number] Oral 625 250 Output: Urine 700 2600 Other: Voiding Method Indwelling Catheter - Exam Vital Signs: I have reviewed the vital signs. GENERAL: Well-nourished, Well-developed , no apparent distress, cooperative Eyes: PERRL, extraoculry movements intact, clear conjunctiva Head: : Atraumatic external nose and ears, oropharyngeal mucosa is moist without lesions or exudates Neck: Symmetric, trachea midline, No thyromegaly, no masses or neck vain pulsation, no neck rigidity CVS: +S1/S2, aortic murmur. Peripheral pulses 2+ and equal in all extremities. RESP: Unlabored respiratory effort. Clear to auscultation bilaterally. Abdomen: Dressing in the midline no drainage or bleeding. Abdomen soft bowel sounds are present Musculoskeletal: Extremities w/o deformity, No cyanosis or clubbing, no joint swelling Skin: Warm, Dry. No rashes or lesions Psych: Awake, Alert, & Oriented (AAO) x3 Appropriate mood and affect - Labs CBC & Chem 7: 10/13/19 06:39 10/13/19 06:39 Labs: Abnormal Lab Results - Last 24 Hours (Table) 10/12/19 10/12/19 10/12/19 Range/Units 11:50 16:28 20:35 RBC (4.30-5.90) m/uL Hgb (13.0-17.5) gm/dL Hct (39.0-53.0) % BUN (9-20) mg/dL Creatinine (0.66-1.25) mg/dL Glucose (74-99) mg/dL POC Glucose (mg/dL) 204 H 189 H 177 H (75-99) mg/dL Calcium (8.4-10.2) mg/dL 10/13/19 10/13/19 10/13/19 Range/Units 06:39 06:39 07:00 RBC 3.00 L (4.30-5.90) m/uL Hgb 10.2 L (13.0-17.5) gm/dL Hct 29.5 L (39.0-53.0) % BUN 35 H (9-20) mg/dL Creatinine 2.29 H (0.66-1.25) mg/dL Glucose 116 H (74-99) mg/dL POC Glucose (mg/dL) 133 H (75-99) mg/dL Calcium 8.1 L (8.4-10.2) mg/dL Assessment and Plan Assessment: 1. Type 2 diabetes mellitus with long-term current use of insulin Stress hyperglycemia; BG improving Home regimen: Lantus 30 units daily at bedtime and Saxigliptin Continue Levemir 10 units in a.m. with sliding scale coverage Continue to hold Saxigliptin We'll continue to adjust as his oral intake increases 2. CKD stage III Patient appears euvolemic Urine output has picked up and it was started as 1900 mL in the last 24 hours Creatinine with some fluctuation but overall stable We will decrease IV fluids from 100 mL/h to 50 mL/h as he has a good oral intake Plan to discontinue once he is off of epidural and blood pressures better 4. History of HTN BP soft due to epidural anesthesia expect to improve after discont continue to hold BP meds Continue Midodrine 5. Mild thrombocytopenia Continue to monitor hb stable compering to baseline I do not see any admissions or heparin use in the last 3 months nor patient is aware of any 6. History of colon cancer with colectomy Status post reversal of colostomy Per general surgery Supportive measures increase activity , encourage ambulation, Moctezuma catheter discontinuation as per protocol, incentive spirometry DVT prophylaxis
[2019-10-13 08:50] LABS: Platelet Count 97 k/uL (150-450)
[2019-10-13 11:25] LABS: Glucose,Whole Blood 168 mg/dL (75-99)
--- NOTE | 2019-10-13 11:55 | P.PN ---
Progress Note - Text Progress Note Date: 10/13/19 The patient is resting comfortably in his bed. Patient has had flatus and several small bowel movements. On exam his vital signs are stable. His abdomen soft. Incision sites clean and intact. Status post reversal colostomy. Patient is doing well. We will increase his diet.
--- NOTE | 2019-10-13 14:12 | P.PN ---
Progress Note - Text Progress Note Date: 10/13/19 Postoperative day #2 status post reversal colostomy, epidural catheter placed for postoperative analgesia, patient doing well epidural site okay, patient currently on combination of epidural infusion solution of Ropivacaine 0.0625% and Dilaudid 20 g per mL the infusion rate at 6 ml per hour , patient had no motor deficit epidural site okay , vital signs stable ,VAS 2 /10 , Assessment and plan= post operative day #2 patient doing well ,pain well controlled , there is no anesthesia related complications
[2019-10-13 16:49] LABS: Glucose,Whole Blood 83 mg/dL (75-99)
[2019-10-13 20:25] LABS: Glucose,Whole Blood 161 mg/dL (75-99)
[2019-10-14 02:20] LABS: Glucose,Whole Blood 139 mg/dL (75-99)
[2019-10-14] MEDS: INSULIN ASPART (NovoLOG) 100 UNIT/ML VIAL SQ SCH ×5 (02:51→21:47)
[2019-10-14] MEDS: LACTATED RINGERS 1,000 ML IV SCH (02:52)
[2019-10-14] MEDS: ROPIVACAINE EPIDURAL PRN (02:53)
[2019-10-14] MEDS: HYDROMORPHONE EPIDURAL PRN (02:53)
[2019-10-14] MEDS: SODIUM CHLORIDE 0.9% EPIDURAL PRN (02:53)
--- NOTE | 2019-10-14 06:36 | P.PN ---
Progress Note - Text Progress Note Date: 10/14/19 Postoperative day #3 status post reversal colostomy, epidural catheter placed for postoperative analgesia, patient doing well epidural site okay, patient currently on combination of epidural infusion solution of Ropivacaine 0.0625% and Dilaudid 20 g per mL the infusion rate at 6 ml per hour , patient had no motor deficit epidural site okay , vital signs stable ,VAS 2 /10 , Assessment and plan= post operative day #3 patient doing well ,pain well controlled , there is no anesthesia related complications, planning to discontinue the epidural catheter today afternoon or tomorrow morning
[2019-10-14 06:56] LABS: Glucose,Whole Blood 197 mg/dL (75-99)
[2019-10-14] MEDS: INSULIN DETEMIR (LEVEMIR) 100 UNIT/ML SYR SQ SCH (07:13)
[2019-10-14] MEDS: HEPARIN SODIUM,PORCINE 5,000 UNIT/ML 1 ML VIAL SQ SCH ×2 (07:13→15:40)
[2019-10-14] MEDS: FAMOTIDINE 20 MG/2 ML VIAL IV SCH (07:13)
[2019-10-14] MEDS: FINASTERIDE 5 MG TAB PO SCH (07:14)
[2019-10-14 09:43] LABS: Calcium 8.8 mg/dL (8.4-10.2); Potassium 4.5 mmol/L (3.5-5.1)
--- NOTE | 2019-10-14 09:52 | P.PN ---
Subjective Progress Note Date: 10/14/19 Principal diagnosis: colostomy reversal Is 4-year-old male to past medical history of colon cancer status post chemo, radiation, and colectomy with colostomy formation, chronic kidney disease stage III, and diabetes mellitus who presented for elective reversal of colost sam. He has had an uneventful postoperative course. Patient seen and examined at bedside. He denies any chest pain, shortness breath, nausea, or vomiting. He states that his mood is not having any abdominal pain. He is feeling hungry. He is willing to walk. Objective - Vital Signs Vital signs: Vital Signs Temp 98.8 F 10/14/19 07:00 Pulse 74 10/14/19 07:00 Resp 17 10/14/19 07:00 BP 159/73 10/14/19 07:00 Pulse Ox 98 10/14/19 07:00 Intake & Output 10/13/19 10/14/19 10/14/19 18:59 06:59 18:59 Intake Total 2675 545.2 Output Total 1875 1800 Balance 800 -1254.8 Intake: IV 650 Lactated Ringers 1,000 ml 650 @ 100 mls/hr IV .Q10H [facility] Rx#:[id number] Intake, IV Titration 545.2 Amount Lactated Ringers 1,000 ml 400 @ 50 mls/hr IV .Q20H [facility] Rx#:[id number] Ropivacaine 300 mg 145.2 Hydromorphone (Pf) 2.5 mg In Sodium Chloride 0.9% 190 ml @ Per Protocol EPIDURAL .Q0M PRN Rx#: [id number] Oral 2024 Output: Urine 1875 1800 Other: Voiding Method Indwelling Catheter Indwelling Catheter Indwelling Catheter # Bowel Movements 1 - Exam General: non toxic, no distress, appears at stated age Derm: warm, dry Head: atraumatic, normocephalic, symmetric Eyes: EOMI, no lid lag, anicteric sclera Mouth: no lip lesion, mucus membranes moist Cardiovascular: S1S2 reg, no murmur, positive posterior tibial pulse bilateral, Lungs: decreased bs bilateral, no rhonchi, no rales , no accessory muscle use Abdominal: soft, + tender to palpation, no guarding, no appreciable organomegaly Ext: no gross muscle atrophy, no edema, no contractures Neuro: CN II-XI grossly intact, no focal neuro deficits Psych: Alert, oriented, appropriate affect - Labs CBC & Chem 7: 10/13/19 06:39 10/13/19 06:39 Labs: Abnormal Lab Results - Last 24 Hours (Table) 10/13/19 10/13/19 10/14/19 Range/Units 11:24 20:23 02:18 POC Glucose (mg/dL) 168 H 161 H 139 H (75-99) mg/dL 10/14/19 Range/Units 06:45 POC Glucose (mg/dL) 197 H (75-99) mg/dL Assessment and Plan Assessment: Patient is an 84 yo CM here for colostomy reversal. being managed by general surgery DM 2 insulin requiring - Transition levemir to night time as this is how he takes it at home will get a total of 18 units today - SSI - follow BS - check A1C Acute blood loss anemia - anticipated outcome for surgery - mild - await AM CBC - should correct on its own CKD III, at baseline - follow BMP - avoid nephrotoxic agents HTN. controlled - not chronic all on meds - follow BP mild thrombocytopenia - wait AM labs, likely reactive - follow CBC HLD - resume statin DVT prophylaxis: Heparin Discussed with: patient, nursing Anticipated discharge: per surgery A total of 25 minutes was spent on the care of this complex patient more than 50% of the time was spent in counseling and care coordination.
[2019-10-14 10:46] LABS: Basophils % (A) 0 %; Eosinophils # (A) 0.2 k/uL (0-0.7); Eosinophils % (A) 2 %; HCT 32.9 % (39.0-53.0); HGB 11.2 gm/dL (13.0-17.5); Lymphocytes # (A) 1.3 k/uL (1.0-4.8); Lymphocytes % (A) 22 %; MCH 34.1 pg (25.0-35.0); MCHC 34.1 g/dL (31.0-37.0); Mean Platelet Volume 10.2; Monocytes # (A) 0.5 k/uL (0-1.0); Monocytes % (A) 9 %; Neutrophils % (A) 65 %; Platelet Count 106 k/uL (150-450); RBC 3.29 m/uL (4.30-5.90); WBC 6.1 k/uL (3.8-10.6)
[2019-10-14 11:29] LABS: Glucose,Whole Blood 147 mg/dL (75-99)
--- NOTE | 2019-10-14 16:39 | P.PN ---
Subjective Progress Note Date: 10/14/19 Principal diagnosis: Colon cancer Patient doing well today. He is passing flatus. He states he had a bowel movement the day following surgery. Denies nausea or vomiting. He is hungry for more to eat. White blood cell count 6.1. Patient is afebrile. Objective - Vital Signs Vital signs: Vital Signs Temp 98.8 F 10/14/19 15:00 Pulse 79 10/14/19 15:00 Resp 17 10/14/19 15:00 BP 133/70 10/14/19 15:00 Pulse Ox 96 10/14/19 15:00 Intake & Output 10/13/19 10/14/19 10/14/19 18:59 06:59 18:59 Intake Total 2675 545.2 905.25 Output Total 1875 1800 Balance 800 -1254.8 905.25 Intake: IV 650 Lactated Ringers 1,000 ml 650 @ 100 mls/hr IV .Q10H [facility] Rx#:[id number] Intake, IV Titration 545.2 485.25 Amount Lactated Ringers 1,000 ml 400 400 @ 50 mls/hr IV .Q20H [facility] Rx#:[id number] Ropivacaine 300 mg 145.2 85.25 Hydromorphone (Pf) 2.5 mg In Sodium Chloride 0.9% 190 ml @ Per Protocol EPIDURAL .Q0M PRN Rx#: [id number] Oral 2024 420 Output: Urine 1875 1800 Other: Voiding Method Indwelling Catheter Indwelling Catheter Indwelling Catheter # Bowel Movements 1 - Exam Abdomen: Soft, mild distention, dressing clean and dry, minimal tenderness - Labs CBC & Chem 7: 10/14/19 06:10 10/14/19 06:10 Labs: Abnormal Lab Results - Last 24 Hours (Table) 10/13/19 10/14/19 10/14/19 Range/Units 20:23 02:18 06:10 RBC 3.29 L (4.30-5.90) m/uL Hgb 11.2 L (13.0-17.5) gm/dL Hct 32.9 L (39.0-53.0) % Plt Count 106 L (150-450) k/uL BUN (9-20) mg/dL Creatinine (0.66-1.25) mg/dL Glucose (74-99) mg/dL POC Glucose (mg/dL) 161 H 139 H (75-99) mg/dL 10/14/19 10/14/19 10/14/19 Range/Units 06:10 06:45 11:28 RBC (4.30-5.90) m/uL Hgb (13.0-17.5) gm/dL Hct (39.0-53.0) % Plt Count (150-450) k/uL BUN 25 H (9-20) mg/dL Creatinine 2.12 H (0.66-1.25) mg/dL Glucose 167 H (74-99) mg/dL POC Glucose (mg/dL) 197 H 147 H (75-99) mg/dL Assessment and Plan (1) Colon cancer Narrative/Plan: Patient doing well at this time. We'll advance diet. Ambulate. Remove epidural today. Remove Moctezuma catheter tomorrow. Oral analgesics. Current Visit: Yes Status: Acute Code(s): C18.9 - MALIGNANT NEOPLASM OF C OLON, UNSPECIFIED SNOMED Code(s): 108823506
[2019-10-14 16:59] LABS: Glucose,Whole Blood 185 mg/dL (75-99)
[2019-10-14 18:57] LABS: Hemoglobin A1C 9.4 % (4.0-6.0)
[2019-10-14 20:19] LABS: Glucose,Whole Blood 160 mg/dL (75-99)
[2019-10-14] MEDS: ATORVASTATIN 10 MG TAB PO SCH (20:36)
[2019-10-14] MEDS ORDERED: INSULIN DETEMIR (LEVEMIR) 100 UNIT/ML SYR SQ SCH (21:00)
[2019-10-15] MEDS: INSULIN ASPART (NovoLOG) 100 UNIT/ML VIAL SQ SCH ×5 (02:09→20:18)
[2019-10-15] MEDS: HEPARIN SODIUM,PORCINE 5,000 UNIT/ML 1 ML VIAL SQ SCH ×4 (02:11→23:29)
[2019-10-15] MEDS: LACTATED RINGERS 1,000 ML IV SCH ×2 (02:11→20:20)
[2019-10-15 02:19] LABS: Glucose,Whole Blood 180 mg/dL (75-99)
[2019-10-15 07:04] LABS: Glucose,Whole Blood 182 mg/dL (75-99)
[2019-10-15] MEDS: FINASTERIDE 5 MG TAB PO SCH (07:15)
[2019-10-15] MEDS: PANTOPRAZOLE 40 MG TABLET PO SCH (07:15)
[2019-10-15] MEDS: LINAGLIPTIN 5 MG TABLET PO SCH (07:15)
[2019-10-15 07:35] LABS: HCT 39.3 % (39.0-53.0); HGB 13.6 gm/dL (13.0-17.5); MCH 33.9 pg (25.0-35.0); MCHC 34.5 g/dL (31.0-37.0); MCV 98.2 fL (80.0-100.0); Mean Platelet Volume 9.1; Platelet Count 151 k/uL (150-450); RDW 12.1 % (11.5-15.5); WBC 8.5 k/uL (3.8-10.6)
[2019-10-15 07:46] LABS: Calcium 9.5 mg/dL (8.4-10.2); Potassium 4.4 mmol/L (3.5-5.1)
--- NOTE | 2019-10-15 09:18 | XR ---
EXAMINATION TYPE: XR chest 1V portable DATE OF EXAM: 10/15/2019 CLINICAL HISTORY: Difficulty breathing and CHF . History of colon cancer. TECHNIQUE: Single AP portable upright view of the chest is obtained. COMPARISON: Chest x-ray from February 10, 2019. CT September 23, 2019 FINDINGS: There are some chronic Neel change without suspicious new focal airspace opacity, pleura l effusion, or pneumothorax seen bilaterally. Cardiac silhouette size stable and upper limits of norm al. Overlying EKG leads are seen. Osseous structures are intact. Partial visualization of skin or sub cutaneous phyllis in the midline of the upper to mid abdomen. IMPRESSION: No acute process identified.
[2019-10-15] MEDS: HYDROmorphone 1 MG/ML 1 ML SYRINGE IVP PRN (09:45)
[2019-10-15] MEDS ORDERED: SODIUM CHLORIDE 0.9% 500 ML 500 ML IV ONE (09:55)
[2019-10-15 11:09] LABS: Magnesium 1.8 mg/dL (1.6-2.3)
[2019-10-15 11:43] LABS: Glucose,Whole Blood 183 mg/dL (75-99)
--- NOTE | 2019-10-15 12:48 | ECHOF ---
Referral Reason:CHF MEASUREMENTS -------- HEIGHT: 171.4 cm WEIGHT: 79.4 kg BP: 117/85 RVIDd: 3.6 cm (< 3.3) IVSd: 1.4 cm (0.6 - 1.1) LVIDd: 4.3 cm (3.9 - 5.3) LVPWd: 1.5 cm (0.6 - 1.1) IVSs: 1.9 cm LVIDs: 2.9 cm LVPWs: 1.9 cm LA Diam: 3.5 cm (2.7 - 3.8) LAESV Index (A-L): 19.40 ml/m Ao Diam: 3.6 cm (2.0 - 3.7) AV Cusp: 1.3 cm (1.5 - 2.6) MV EXCURSION: 14.382 mm (> 18.000) MV EF SLOPE: 28 mm/s (70 - 150) EPSS: 0.9 cm MV E Tyler: 0.51 m/s MV DecT: 289 ms MV A Tyler: 0.62 m/s MV E/A Ratio: 0.82 RAP: 5.00 mmHg RVSP: 26.31 mmHg FINDINGS -------- Sinus rhythm. This was a technically difficult study with suboptimal views. The left ventricular size is normal. There is moderate concentric left ventricular hypertrophy. O verall left ventricular systolic function is normal with, an EF between 60 - 65 %. The right ventricle is mildly enlarged. Normal LA size by volume 22+/-6 ml/m2. The right atrium is normal in size. Interatrial and interventricular septum intact. There is mild to moderate aortic valve sclerosis. The mitral valve is normal. Mild tricuspid regurgitation present. Right ventricular systolic pressure is normal at < 35 mmHg. The pulmonic valve was not well visualized. The aortic root size is normal. IVC Not well visulized. There is no pericardial effusion. CONCLUSIONS -------- 1. Sinus rhythm. 2. This was a technically difficult study with suboptimal views. 3. The left ventricular size is normal. 4. There is moderate concentric left ventricular hypertrophy. 5. Overall left ventricular systolic function is normal with, an EF between 60 - 65 %. 6. The right ventricle is mildly enlarged. 7. Normal LA size by volume 22+/-6 ml/m2. 8. The right atrium is normal in size. 9. Interatrial and interventricular septum intact. 10. There is mild to moderate aortic valve sclerosis. 11. The mitral valve is normal. 12. Mild tricuspid regurgitation present. 13. Right ventricular systolic pressure is normal at < 35 mmHg. 14. The pulmonic valve was not well visualized. 15. The aortic root size is normal. 16. IVC Not well visulized. 17. There is no pericardial effusion. L[employer]APH[employer]ESS OPERATOR: Georgina Galloway RDCS
[2019-10-15] MEDS ORDERED: BISACODYL 10 MG SUPP RECTAL STA (13:14)
--- NOTE | 2019-10-15 13:45 | P.PN ---
Subjective Progress Note Date: 10/15/19 Principal diagnosis: Colon cancer Patient complaining of mild cramps after eating a sandwich earlier today. No fevers. He was tachycardic. That responded apparently to IV narcotics. Per the nursing staff he was denying pain at that time. He is passing flatus. No bowel movement per patient. Feels mildly bloated. No nausea or vomiting. White blood cell count 8.0. Objective - Vital Signs Vital signs: Vital Signs Temp 97.8 F 10/15/19 07:00 Pulse 142 H 10/15/19 07:00 Resp 17 10/15/19 07:00 BP 117/85 10/15/19 07:00 Pulse Ox 98 10/15/19 07:00 Intake & Output 10/14/19 10/15/19 10/15/19 18:59 06:59 18:59 Intake Total 905.25 Output Total 1999 3800 Balance -1094.75 -3800 Intake: Intake, IV Titration 485.25 Amount Lactated Ringers 1,000 ml 400 @ 50 mls/hr IV .Q20H [facility] Rx#:[id number] Ropivacaine 300 mg 85.25 Hydromorphone (Pf) 2.5 mg In Sodium Chloride 0.9% 190 ml @ Per Protocol EPIDURAL .Q0M PRN Rx#: [id number] Oral 420 Output: Urine 1999 3800 Uretheral (Moct[place]uma) 350 Other: Voiding Method Indwelling Catheter Indwelling Catheter # Voids 2 - Exam Abdomen: Slightly distended, mild tenderness, dressings clean and dry - Labs CBC & Chem 7: 10/15/19 06:58 10/15/19 06:58 Labs: Abnormal Lab Results - Last 24 Hours (Table) 10/14/19 10/14/19 10/14/19 Range/Units 06:10 16:48 20:08 RBC (4.30-5.90) m/uL Chloride (98-107) mmol/L Creatinine (0.66-1.25) mg/dL Glucose (74-99) mg/dL POC Glucose (mg/dL) 185 H 160 H (75-99) mg/dL Hemoglobin A1c 9.4 H (4.0-6.0) % 10/15/19 10/15/19 10/15/19 Range/Units 02:01 06:51 06:58 RBC 4.00 L (4.30-5.90) m/uL Chloride (98-107) mmol/L Creatinine (0.66-1.25) mg/dL Glucose (74-99) mg/dL POC Glucose (mg/dL) 180 H 182 H (75-99) mg/dL Hemoglobin A1c (4.0-6.0) % 10/15/19 10/15/19 Range/Units 06:58 11:41 RBC (4.30-5.90) m/uL Chloride 108 H (98-107) mmol/L Creatinine 1.95 H (0.66-1.25) mg/dL Glucose 172 H (74-99) mg/dL POC Glucose (mg/dL) 183 H (75-99) mg/dL Hemoglobin A1c (4.0-6.0) % Assessment and Plan (1) Colon cancer Narrative/Plan: Patient with tachycardia earlier today. That has resolved. Possible A. fib/RVR. Continue low fiber diet although notified patient that if he feels bloated to minimize oral intake. Increase activity. Dulcolax suppository. We'll follow. Current Visit: Yes Status: Acute Code(s): C18.9 - MALIGNANT NEOPLASM OF COLON, UNSPECIFIED SNOMED Code(s): 184983316
[2019-10-15 15:19] VITALS: BMI 27.1
[2019-10-15 16:58] LABS: Glucose,Whole Blood 173 mg/dL (75-99)
--- NOTE | 2019-10-15 18:23 | P.PN ---
Subjective Progress Note Date: 10/15/19 (delayed charting seen at 0825) Principal diagnosis: colostomy reversal Patient is an 84-year-old male to past medical history of colon cancer status post chemo, radiation, and colectomy with colostomy formation, chronic kidney disease stage III, and diabetes mellitus who presented for elective reversal of colostomy. He has had an uneventful postoperative course until the morning of 10/15 when he developed Atrial tachycardia. Patient seen and examined at bedside. Appears agitated and complains of being sleepy. Denies chest pain, palpitations, light headedness, dizziness, and shortness of breath. Deneis pain but has not had anything since epidural came out. Objective - Vital Signs Vital signs: Vital Signs Temp 98.0 F 10/15/19 15:00 Pulse 71 10/15/19 15:00 Resp 18 10/15/19 15:00 BP 114/72 10/15/19 15:00 Pulse Ox 96 10/15/19 15:00 Intake & Output 10/14/19 10/15/19 10/15/19 18:59 06:59 18:59 Intake Total 905.25 Output Total 1999 3800 Balance -1094.75 -3800 Weight 79.8 kg Intake: Intake, IV Titration 485.25 Amount Lactated Ringers 1,000 ml 400 @ 50 mls/hr IV .Q20H [facility] Rx#:[id number] Ropivacaine 300 mg 85.25 Hydromorphone (Pf) 2.5 mg In Sodium Chloride 0.9% 190 ml @ Per Protocol EPIDURAL .Q0M PRN Rx#: [id number] Oral 420 Output: Urine 19990 Uretheral ([place]uma) 350 Other: Voiding Method Indwelling Catheter Indwelling Catheter # Voids 2 2 # Bowel Movements 1 - Exam General: non toxic, mild distress, appears at stated age, diaphoretic Derm: warm, dry Head: atraumatic, normocephalic, symmetric Eyes: EOMI, no lid lag, anicteric sclera Mouth: no lip lesion, mucus membranes moist Cardiovascular: S1S2 tachycardiac, no murmur, positive posterior tibial pulse bilateral, Lungs: decreased bs bilateral, no rhonchi, no rales , no accessory muscle use Abdominal: soft, + tender to palpation, no guarding, no appreciable organomegaly Ext: no gross muscle atrophy, no edema, no contractures Neuro: CN II-XI grossly intact, no focal neuro deficits Psych: Alert, agitated, oriented X3 but confused about time of day and number of days in hospital - Labs CBC & Chem 7: 10/15/19 06:58 10/15/19 06:58 Labs: Abnormal Lab Results - Last 24 Hours (Table) 10/14/19 10/14/19 10/15/19 Range/Units 06:10 20:08 02:01 RBC (4.30-5.90) m/uL Chloride (98-107) mmol/L Creatinine (0.66-1.25) mg/dL Glucose (74-99) mg/dL POC Glucose (mg/dL) 160 H 180 H (75-99) mg/dL Hemoglobin A1c 9.4 H (4.0-6.0) % 10/15/19 10/15/19 10/15/19 Range/Units 06:51 06:58 06:58 RBC 4.00 L (4.30-5.90) m/uL Chloride 108 H (98-107) mmol/L Creatinine 1.95 H (0.66-1.25) mg/dL Glucose 172 H (74-99) mg/dL POC Glucose (mg/dL) 182 H (75-99) mg/dL Hemoglobin A1c (4.0-6.0) % 10/15/19 10/15/19 Range/Units 11:41 16:57 RBC (4.30-5.90) m/uL Chloride (98-107) mmol/L Creatinine (0.66-1.25) mg/dL Glucose (74-99) mg/dL POC Glucose (mg/dL) 183 H 173 H (75-99) mg/dL Hemoglobin A1c (4.0-6.0) % Assessment and Plan Assessment: Patient is an 84 yo CM here for colostomy reversal. Atrial tachycardia, now resolved - 0.9 NS bolus - EKG reviewed no A flutter, no ST-T wave changes - dilaudid X 1 - Troponin normal - TSH normal - CXR- NAP - Echo EF 60-65% DM 2 insulin requiring - Levemir - SSI - follow BS - A1C 9.4 CKD III, at baseline - follow BMP - avoid nephrotoxic agents HTN. controlled - not chronic all on meds - follow BP HLD -statin mild thrombocytopenia, resolved Acute blood loss anemia, resolved DVT prophylaxis: Heparin Discussed with: patient, nursing Anticipated discharge: per surgery A total of 45 minutes was spent on the care of this complex patient more than 50% of the time was spent in counseling and care coordination.
[2019-10-15 20:05] LABS: Glucose,Whole Blood 201 mg/dL (75-99)
[2019-10-15] MEDS: INSULIN DETEMIR (LEVEMIR) 100 UNIT/ML SYR SQ SCH (20:18)
[2019-10-15] MEDS: ATORVASTATIN 10 MG TAB PO SCH (20:19)
[2019-10-16] MEDS: INSULIN ASPART (NovoLOG) 100 UNIT/ML VIAL SQ SCH ×5 (02:21→20:42)
[2019-10-16 02:31] LABS: Glucose,Whole Blood 166 mg/dL (75-99)
[2019-10-16 06:59] LABS: Glucose,Whole Blood 176 mg/dL (75-99)
[2019-10-16] MEDS: HEPARIN SODIUM,PORCINE 5,000 UNIT/ML 1 ML VIAL SQ SCH ×2 (07:21→17:12)
[2019-10-16] MEDS: PANTOPRAZOLE 40 MG TABLET PO SCH (07:21)
[2019-10-16] MEDS: FINASTERIDE 5 MG TAB PO SCH (07:21)
[2019-10-16] MEDS: LINAGLIPTIN 5 MG TABLET PO SCH (07:21)
[2019-10-16 07:33] LABS: HCT 37.7 % (39.0-53.0); HGB 13.3 gm/dL (13.0-17.5); MCH 34.4 pg (25.0-35.0); MCHC 35.3 g/dL (31.0-37.0); MCV 97.4 fL (80.0-100.0); Mean Platelet Volume 8.8; Platelet Count 180 k/uL (150-450); RBC 3.87 m/uL (4.30-5.90); RDW 12.1 % (11.5-15.5); WBC 9.8 k/uL (3.8-10.6)
[2019-10-16 07:44] LABS: Calcium 9.4 mg/dL (8.4-10.2); Magnesium 1.8 mg/dL (1.6-2.3); Phosphorus 3.3 mg/dL (2.5-4.5); Potassium 4.5 mmol/L (3.5-5.1)
[2019-10-16] MEDS: HYDROcodone/APAP 5-325MG 1 EACH TAB PO PRN ×2 (09:40→20:42)
--- NOTE | 2019-10-16 11:47 | P.PN ---
Subjective Progress Note Date: 10/16/19 Principal diagnosis: Colon cancer Patient doing fairly well. He had 2 large bowel movement. Does not feel nauseated. Tolerating diet in small volumes. He is ambulating in the halls. White blood cell count normal. Objective - Vital Signs Vital signs: Vital Signs Temp 98.3 F 10/16/19 07:00 Pulse 62 10/16/19 07:00 Resp 16 10/16/19 07:00 BP 139/81 10/16/19 07:00 Pulse Ox 97 10/16/19 07:00 Intake & Output 10/15/19 10/16/19 10/16/19 18:59 06:59 18:59 Output Total 200 Balance -200 Weight 79.8 kg Output: Urine 200 Other: Voiding Method Indwelling Catheter # Voids 2 2 # Bowel Movements 1 - Exam Abdomen: Soft, mild tenderness, incision dressing clean and dry - Labs CBC & Chem 7: 10/16/19 07:14 10/16/19 07:14 Labs: Abnormal Lab Results - Last 24 Hours (Table) 10/15/19 10/15/19 10/16/19 Range/Units 16:57 20:03 02:20 RBC (4.30-5.90) m/uL Hct (39.0-53.0) % BUN (9-20) mg/dL Creatinine (0.66-1.25) mg/dL Glucose (74-99) mg/dL POC Glucose (mg/dL) 173 H 201 H 166 H (75-99) mg/dL 10/16/19 10/16/19 10/16/19 Range/Units 06:48 07:14 07:14 RBC 3.87 L (4.30-5.90) m/uL Hct 37.7 L (39.0-53.0) % BUN 29 H (9-20) mg/dL Creatinine 2.08 H (0.66-1.25) mg/dL Glucose 173 H (74-99) mg/dL POC Glucose (mg/dL) 176 H (75-99) mg/dL Assessment and Plan (1) Colon cancer Narrative/Plan: Overall patient doing better. Continue diet as ordered. Continue ambulation. Possible discharge 24-48 hours. Current Visit: Yes Status: Acute Code(s): C18.9 - MALIGNANT NEOPLASM OF COLON, UNSPECIFIED SNOMED Code(s): 715415882
[2019-10-16 11:49] LABS: Glucose,Whole Blood 160 mg/dL (75-99)
--- NOTE | 2019-10-16 16:22 | P.PN ---
Subjective Progress Note Date: 10/16/19 (delayed charting seen at 0930) Principal diagnosis: colostomy reversal Patient is an 84-year-old male to past medical history of colon cancer status post chemo, radiation, and colectomy with colostomy formation, chronic kidney disease stage III, and diabetes mellitus who presented for elective reversal of colostomy. He has had an uneventful postoperative course until the morning of 10/15 when he developed Atrial tachycardia. This resolved with IV fluids and Dilaudid. Echocardiogram normal. Patient seen and examined at bedside. Having some pain today. Has several small bowel movements yesterday. No chest pain or shortness of breath. Objective - Vital Signs Vital signs: Vital Signs Temp 98.0 F 10/16/19 14:52 Pulse 77 10/16/19 14:52 Resp 16 10/16/19 14:52 BP 156/71 10/16/19 14:52 Pulse Ox 98 10/16/19 14:52 Intake & Output 10/15/19 10/16/19 10/16/19 18:59 06:59 18:59 Output Total 200 Balance -200 Weight 79.8 kg Output: Urine 200 Other: Voiding Method Indwelling Catheter # Voids 2 2 2 # Bowel Movements 1 1 - Exam General: non toxic, no distress, appears at stated age, diaphoretic Derm: warm, dry Head: atraumatic, normocephalic, symmetric Eyes: EOMI, no lid lag, anicteric sclera Mouth: no lip lesion, mucus membranes moist Cardiovascular: S1S2 tachycardiac, no murmur, positive posterior tibial pulse bilateral, Lungs: decreased bs bilateral, no rhonchi, no rales , no accessory muscle use Abdominal: soft, nontender to palpation, no guarding, no appreciable organomegaly Ext: no gross muscle atrophy, no edema, no contractures Neuro: CN II-XI grossly intact, no focal neuro deficits Psych: Alert, agitated, oriented X3 but confused about time of day and number of days in hospital - Labs CBC & Chem 7: 10/16/19 07:14 10/16/19 07:14 Labs: Abnormal Lab Results - Last 24 Hours (Table) 10/15/19 10/15/19 10/16/19 Range/Units 16:57 20:03 02:20 RBC (4.30-5.90) m/uL Hct (39.0-53.0) % BUN (9-20) mg/dL Creatinine (0.66-1.25) mg/dL Glucose (74-99) mg/dL POC Glucose (mg/dL) 173 H 201 H 166 H (75-99) mg/dL 10/16/19 10/16/19 10/16/19 Range/Units 06:48 07:14 07:14 RBC 3.87 L (4.30-5.90) m/uL Hct 37.7 L (39.0-53.0) % BUN 29 H (9-20) mg/dL Creatinine 2.08 H (0.66-1.25) mg/dL Glucose 173 H (74-99) mg/dL POC Glucose (mg/dL) 176 H (75-99) mg/dL 10/16/19 Range/Units 11:47 RBC (4.30-5.90) m/uL Hct (39.0-53.0) % BUN (9-20) mg/dL Creatinine (0.66-1.25) mg/dL Glucose (74-99) mg/dL POC Glucose (mg/dL) 160 H (75-99) mg/dL Assessment and Plan Assessment: Patient is an 84 yo CM here for colostomy reversal. DM 2 insulin requiring - Levemir - SSI - follow BS - A1C 9.4 CKD III, at baseline - follow BMP - avoid nephrotoxic agents HTN. controlled - not chronically on meds - follow BP HLD -statin Atrial tachycardia, resolved - 0.9 NS bolus - EKG reviewed no A flutter, no ST-T wave changes - dilaudid X 1 - Troponin normal - TSH normal - CXR- NAP - Echo EF 60-65% mild thrombocytopenia, resolved Acute blood loss anemia, resolved DVT prophylaxis: Heparin Discussed with: patient, nursing Anticipated discharge: per surgery A total of 45 minutes was spent on the care of this complex patient more than 50% of the time was spent in counseling and care coordination.
[2019-10-16 17:06] LABS: Glucose,Whole Blood 215 mg/dL (75-99)
[2019-10-16] MEDS: LACTATED RINGERS 1,000 ML IV SCH (17:08)
[2019-10-16 20:41] LABS: Glucose,Whole Blood 226 mg/dL (75-99)
[2019-10-16] MEDS: INSULIN DETEMIR (LEVEMIR) 100 UNIT/ML SYR SQ SCH (20:42)
[2019-10-16] MEDS: ATORVASTATIN 10 MG TAB PO SCH (20:43)
[2019-10-17] MEDS: HEPARIN SODIUM,PORCINE 5,000 UNIT/ML 1 ML VIAL SQ SCH ×2 (01:26→07:42)
[2019-10-17 02:13] LABS: Glucose,Whole Blood 197 mg/dL (75-99)
[2019-10-17] MEDS: INSULIN ASPART (NovoLOG) 100 UNIT/ML VIAL SQ SCH ×3 (03:46→13:18)
[2019-10-17] MEDS: HYDROmorphone 1 MG/ML 1 ML SYRINGE IVP PRN (04:31)
[2019-10-17 07:19] LABS: Glucose,Whole Blood 114 mg/dL (75-99)
[2019-10-17 07:36] VITALS: BP 122/78; PULSE 63; RESP 18; TEMP 98
[2019-10-17] MEDS: PANTOPRAZOLE 40 MG TABLET PO SCH (07:42)
[2019-10-17] MEDS: FINASTERIDE 5 MG TAB PO SCH (07:42)
[2019-10-17] MEDS: LINAGLIPTIN 5 MG TABLET PO SCH (07:42)
--- NOTE | 2019-10-17 11:24 | P.DS ---
<Megan Xiao - Last Filed: 10/17/19 11:20> Providers Expected date of discharge: 10/17/19 Hospital Course: 84-year-old male who underwent colostomy reversal, partial colonic resection, and extensive lysis of adhesions secondary to colon cancer with Dr. Mejia. patient is doing well postoperatively without any immediate complications. He is tolerating diet without nausea or vomiting. Pain is controlled on oral medications. Vital signs are stable. He is stable for discharge home today. Please see EMR for further hospital course details. Discharge Diagnosis 1. Colon cancer, s/p colostomy reversal, partial colonic resection, and extensive lysis of adhesions Nurse practitioner note has been reviewed by physician. Signing provider agrees with the documented findings, assessment, and plan of care. Patient Condition at Discharge: Stable Plan - Discharge Summary Discharge Rx Participant: Yes New Discharge Prescriptions: Continue Finasteride [Proscar] 5 mg PO DAILY traMADol HCL [Ultram] 50 mg PO BID Saxagliptin HCl [Onglyza] 5 mg PO DAILY Cyanocobalamin (Vitamin B-12) [Vitamin B-12] 1,000 mcg PO DAILY Omeprazole 20 mg PO DAILY Aspirin [[place] Aspirin EC] 81 mg PO DAILY INSULIN ASPART (NovoLOG) [NovoLOG (formulary)] See Protocol SQ AC-BRKFST Simvastatin [Zocor] 10 mg PO HS Changed Insulin Glargine [Lantus] 20 units SQ HS #0 Discharge Medication List Aspirin [[place] Aspirin EC] 81 mg PO DAILY 02/09/19 [History] Cyanocobalamin (Vitamin B-12) [Vitamin B-12] 1,000 mcg PO DAILY 02/09/19 [History] Finasteride [Proscar] 5 mg PO DAILY 02/09/19 [History] Omeprazole 20 mg PO DAILY 02/09/19 [History] Saxagliptin HCl [Onglyza] 5 mg PO DAILY 02/09/19 [History] traMADol HCL [Ultram] 50 mg PO BID 02/09/19 [History] INSULIN ASPART (NovoLOG) [NovoLOG (formulary)] See Protocol SQ AC-BRKFST 08/06/19 [History] Simvastatin [Zocor] 10 mg PO HS 08/06/19 [History] Insulin Glargine [Lantus] 20 units SQ HS #0 01/23/20 [Rx] Follow up Appointment(s)/Referral(s): Juan David Mejia MD [Medical Doctor] - 10/24/19 10:40 am [facility],Clinic [REFERRING] - 10/23/19 9:00 am Patient Instructions/Handouts: Open Colostomy Reversal (DC) Activity/Diet/Wound Care/Special Instructions: Diet as tolerated No lifting over 10 pounds You may shower. No soaking or tub baths Very light activity until you are reevaluated at your follow up appointment with your surgeon Please only take Latuns 20 units at this time, if you morning blood sugar is greater than 150 for 2 days in a row increase to 25 units. As your appetite increases you will likely need to go back to your 30 units. Discharge Disposition: HOME SELF-CARE <Juan David Mejia - Last Filed: 10/17/19 15:05> Providers Date of admission: 10/11/19 10:14 Attending physician: Juan David Mejia Consults: 10/11/19 15:05 Consult Physician Routine Consulting Provider: Roxane Gutierrez Consult Reason/Comments: Medical management Do you want consulting provider notified?: Yes Primary care physician: Stated None - Discharge Diagnosis(es) (1) Colon cancer Current Visit: Yes Status: Acute Hospital Course: As above. Patient doing well. We'll discharge. Follow-up one week.
[2019-10-17 11:44] LABS: Glucose,Whole Blood 163 mg/dL (75-99)
[2019-10-17] MEDS: LACTATED RINGERS 1,000 ML IV SCH (13:18)
[2019-10-17] MEDS: HYDROcodone/APAP 5-325MG 1 EACH TAB PO PRN (13:18)
--- NOTE | 2019-10-17 20:04 | P.PN ---
Subjective Progress Note Date: 10/17/19 (delayed charting patient seen at 0915) Principal diagnosis: colostomy reversal Patient is an 84-year-old male to past medical history of colon cancer status post chemo, radiation, and colectomy with colostomy formation, chronic kidney disease stage III, and diabetes mellitus who presented for elective reversal of colostomy. He has had an uneventful postoperative course until the morning of 10/15 when he developed Atrial tachycardia. This resolved with IV fluids and Dilaudid. Echocardiogram normal. Patient seen and examined at bedside. Feeling well, less pain, no nausea, tolerating a diet, no chest pain or shortness of breath. Objective - Vital Signs Vital signs: Vital Signs Temp 98.0 F 10/17/19 06:54 Pulse 63 10/17/19 06:54 Resp 18 10/17/19 06:54 BP 122/78 10/17/19 06:54 Pulse Ox 95 10/17/19 06:54 Intake & Output 10/17/19 10/17/19 10/18/19 06:59 18:59 06:59 Intake Total 240 480 Balance 240 480 Intake: Oral 240 480 Other: Voiding Method Toilet # Voids 2 3 - Exam General: non toxic, no distress, appears at stated age, diaphoretic Derm: warm, dry Head: atraumatic, normocephalic, symmetric Eyes: EOMI, no lid lag, anicteric sclera Mouth: no lip lesion, mucus membranes moist Cardiovascular: S1S2 regular, no murmur, positive posterior tibial pulse bilateral, Lungs: decreased bs bilateral, no rhonchi, no rales , no accessory muscle use Abdominal: soft, nontender to palpation, no guarding, no appreciable organomegaly Ext: no gross muscle atrophy, no edema, no contractures Neuro: CN II-XI grossly intact, no focal neuro deficits Psych: Alert, calm and collected , oriented X3 - Labs CBC & Chem 7: 10/16/19 07:14 10/16/19 07:14 Labs: Abnormal Lab Results - Last 24 Hours (Table) 10/16/19 10/17/19 10/17/19 Range/Units 20:39 02:11 07:16 POC Glucose (mg/dL) 226 H 197 H 114 H (75-99) mg/dL 10/17/19 Range/Units 11:42 POC Glucose (mg/dL) 163 H (75-99) mg/dL Assessment and Plan Assessment: Patient is an 84 yo CM here for colostomy reversal. DM 2 insulin requiring - Resume Lantus on discharge - SSI - follow BS - A1C 9.4 CKD III, at baseline - follow BMP - avoid nephrotoxic agents HTN. controlled - not chronically on meds - follow BP HLD -statin Atrial tachycardia, resolved mild thrombocytopenia, resolved Acute blood loss anemia, resolved DVT prophylaxis: Heparin Discussed with: patient, nursing Anticipated discharge: per surgery A total of 45 minutes was spent on the care of this complex patient more than 50% of the time was spent in counseling and care coordination.
== END 2019-10-17 15:07 | disposition home or self-care (01) | DRG 330 ==
LOC: 2ORMAIN 10:14 → 4SSUR 14:50
PROVIDERS: ADMIT Surgery; ATTEND Surgery
PROC: 0DBM0ZZ Excision of Descending Colon, Open Approach (ICD-10-PCS; principal; 2019-10-11 12:00)
PROC: 0DNW0ZZ Release Peritoneum, Open Approach (ICD-10-PCS; principal; 2019-10-11 12:00)
DX: Z43.3 Encounter for attention to colostomy (principal); C18.9 Malignant neoplasm of colon, unspecified; C78.7 Secondary malignant neoplasm of liver and intrahepatic bile duct; D62 Acute posthemorrhagic anemia; I47.1 Supraventricular tachycardia; D69.6 Thrombocytopenia, unspecified; E11.22 Type 2 diabetes mellitus with diabetic chronic kidney disease; E78.5 Hyperlipidemia, unspecified; E86.0 Dehydration; N18.3 Chronic kidney disease, stage 3 (moderate); I12.9 Hypertensive chronic kidney disease with stage 1 through stage 4 chronic kidney disease, or unspecified chronic kidney disease; I25.2 Old myocardial infarction; Z79.4 Long term (current) use of insulin; Z79.82 Long term (current) use of aspirin; Z79.899 Other long term (current) drug therapy; Z82.49 Family history of ischemic heart disease and other diseases of the circulatory system; Z85.048 Personal history of other malignant neoplasm of rectum, rectosigmoid junction, and anus; Z87.891 Personal history of nicotine dependence; Z92.21 Personal history of antineoplastic chemotherapy
CPT/HCPCS: 71045; 80048; 83036; 83735; 84100; 84443; 84484; 85025; 85027; 86850; 86900; 86901; 88304; 93005; 93306; 94760

== ENCOUNTER 2019-10-31 10:44 | Inpatient (IN) | payer OTHER, MEDICARE ==
[2019-10-31] MEDS ORDERED: SODIUM CHLORIDE 0.9% 1,000 ML IV ONE ×2 (11:12→11:50)
[2019-10-31] MEDS ORDERED: ACETAMINOPHEN TAB 325 MG TAB PO STA (11:13)
[2019-10-31 11:25] LABS: Basophils # (A) 0.1 k/uL (0-0.2); Basophils % (A) 1 %; Eosinophils # (A) 0.1 k/uL (0-0.7); Eosinophils % (A) 1 %; HCT 44.2 % (39.0-53.0); HGB 14.8 gm/dL (13.0-17.5); Lymphocytes # (A) 0.6 k/uL (1.0-4.8); Lymphocytes % (A) 6 %; MCH 32.9 pg (25.0-35.0); MCHC 33.6 g/dL (31.0-37.0); Mean Platelet Volume 8.5; Monocytes # (A) 0.4 k/uL (0-1.0); Monocytes % (A) 4 %; Neutrophils # (A) 8.7 k/uL (1.3-7.7); Neutrophils % (A) 88 %; Platelet Count 162 k/uL (150-450); RBC 4.51 m/uL (4.30-5.90); RDW 12.3 % (11.5-15.5); WBC 9.9 k/uL (3.8-10.6)
[2019-10-31 11:34] LABS: Partial Thromboplastin Time 23.6 sec (22.0-30.0); Prothrombin Time 10.4 sec (9.0-12.0)
[2019-10-31 11:35] LABS: Albumin 4.8 g/dL (3.5-5.0); Calcium 9.9 mg/dL (8.4-10.2); Potassium 4.6 mmol/L (3.5-5.1); Total Protein 8.7 g/dL (6.3-8.2)
--- NOTE | 2019-10-31 11:54 | ED ---
Fever HPI - General Chief Complaint: Fever Stated Complaint: Weakness,Hyperglycemia Time Seen by Provider: 10/31/19 11:06 Source: patient, RN notes reviewed Mode of arrival: ambulatory Limitations: no limitations - History of Present Illness Initial Comments: This is an 84-year-old male presents emergency Department with a chief complaint of generalized weakness. Patient states he has not felt well over the last few days. Patient does admit that he is had a fever. does not give any specific complaints other than that he feels very weak. Patient does admit that he had a surgery with Dr. rio michaud 2 weeks ago for colostomy reversal. Patient states that he's had no drainage from his incision sites he does admit that he's had some abdominal pain. He is not taking any recent Tylenol Motrin. Patient denies any neck pain or neck stiffness. He's had a slight cough which seems to be nonproductive. Patient does admit that he has not been eating and drinking as much. He states that he is having some bowel movements after histor y up-to-date. Patient states he was supposed to follow-up with a surgeon today. - Related Data Home Medications Medication Instructions Recorded Confirmed Finasteride [Proscar] 5 mg PO DAILY 02/09/19 10/31/19 Omeprazole 20 mg PO DAILY 02/09/19 10/31/19 Simvastatin [Zocor] 10 mg PO HS 08/06/19 10/31/19 Alogliptin Benzoate [Alogliptin] 6.25 mg PO DAILY 10/31/19 10/31/19 Aspirin 81 mg PO DAILY 10/31/19 10/31/19 Capecitabine [Xeloda] 1,000 mg PO DIRECTED 10/31/19 10/31/19 Cholecalciferol [Vitamin D3 (25 2,000 unit PO DAILY 10/31/19 10/31/19 Mcg = 1000 Iu)] Insulin Glargine [Lantus] 50 units SQ HS 10/31/19 10/31/19 Polyvinyl Alcohol/Povidone 1 drop BOTH EYES Q4H PRN 10/31/19 10/31/19 [Freshkote] Triamcinolone 0.1% Cream [Kenalog 1 applicatio TOPICAL TID 10/31/19 10/31/19 0.1% Cream] Vitamin B Complex 1 cap PO DAILY 10/31/19 10/31/19 Allergies Allergy/AdvReac Type Severity Reaction Status Date / Time hydrocodone AdvReac dream Verified 10/31/19 11:18 disorder/night sweats Review of Systems ROS Statement: Those systems with pertinent positive or pertinent negative responses have been documented in the HPI. ROS Other: All systems not noted in ROS Statement are negative. Past Medical History Past Medical History: Cancer, Diabetes Mellitus, Hyperlipidemia, Hypertension, Myocardial Infarction ([place]) Additional Past Medical History / Comment(s): back pain, colostomy for colon cancer dx 02/09/19 received chemo pills and radiation of liver -tx completed Last Myocardial Infarction Date:: unknown History of Any Multi-Drug Resistant Organisms: None Reported Past Surgical History: Bowel Resection, Tonsillectomy Additional Past Surgical History / Comment(s): club foot surgery at 14 yo, tonsillectomy, colostomy 02/09/19 Past Anesthesia/Blood Transfusion Reactions: No Reported Reaction Past Psychological History: No Psychological Hx Reported Smoking Status: Former smoker Past Alcohol Use History: None Reported Past Drug Use History: None Reported - Past Family History Father Additional Family Medical History / Comment(s): at 95 of old age Mother Family Medical History: Myocardial Infarction ([place]) Additional Family Medical History / Comment(s): at 93 of old age, had a myocardial infarction in her upper 80s. General Exam Limitations: no limitations General appearance: alert, in no apparent distress, other (Patient appears to be fatigued, lethargic at this time) Head exam: Present: atraumatic, normocephalic, normal inspection Eye exam: Present: normal appearance, PERRL, EOMI. Absent: scleral icterus, conjunctival injection, periorbital swelling ENT exam: Present: mucous membranes dry. Absent: normal exam, normal oropharynx, mucous membranes moist Neck exam: Present: normal inspection, full ROM. Absent: tenderness, meningismus, lymphadenopathy Respiratory exam: Present: normal lung sounds bilaterally. Absent: respiratory distress, wheezes, rales, rhonchi, stridor Cardiovascular Exam: Present: regular rate, normal rhythm, normal heart sounds. Absent: systolic murmur, diastolic murmur, rubs, gallop, clicks GI/Abdominal exam: Present: soft, tenderness, normal bowel sounds, other (Incisions evaluated, no major erythema, phyllis are in place with no purulent drainage.). Absent: distended, guarding, rebound, rigid Extremities exam: Present: other (Lower extremity extremity pulses equal bilaterally equal color equal warmth) Neurological exam: Present: alert, oriented X3 Skin exam: Present: warm, dry, intact, normal color. Absent: rash Course Vital Signs 10/31/19 10/31/19 10:45 12:25 Temperature 101.3 F H Pulse Rate 65 95 Respiratory 20 18 Rate Blood Pressure 156/78 119/82 O2 Sat by Pulse 93 L 96 Oximetry - Reevaluation(s) Reevaluation #1: 10/31/19 11:57 I did have discussion with family that arrived they state that he has been fati nic, not eating or drinking over the last 2 days. They attempted to bring to the emergency department last night though uric diffuse. Patient was doing well after surgery until Monday states that he just been sleeping, sitting on the house with no major complaints. He has not complained of any chest pain or abdominal pain. He has not been taking his oral medications and has only been taking some of his insulin. Medical Decision Making - Medical Decision Making 84-year-old male presented for generalized weakness. Labs review, shows braden dence of hyperglycemia, dehydration with acute kidney injury. Patient's influenza positive, x-rays unremarkable CT shows evidence of air within the subcutaneous fat though this is over the incision site. Patient will be admitted for fluid hydration, Tamiflu and further evaluation. - Lab Data Result diagrams: 10/31/19 11:04 10/31/19 11:04 Lab Results 10/31/19 10/31/19 10/31/19 Range/Units 11:04 11:04 11:04 WBC 9.9 (3.8-10.6) k/uL RBC 4.51 (4.30-5.90) m/uL Hgb 14.8 (13.0-17.5) gm/dL Hct 44.2 (39.0-53.0) % MCV 98.0 (80.0-100.0) fL MCH 32.9 (25.0-35.0) pg MCHC 33.6 (31.0-37.0) g/dL RDW 12.3 (11.5-15.5) % Plt Count 162 (150-450) k/uL Neutrophils % 88 % Lymphocytes % 6 % Monocytes % 4 % Eosinophils % 1 % Basophils % 1 % Neutrophils # 8.7 H (1.3-7.7) k/uL Lymphocytes # 0.6 L (1.0-4.8) k/uL Monocytes # 0.4 (0-1.0) k/uL Eosinophils # 0.1 (0-0.7) k/uL Basophils # 0.1 (0-0.2) k/uL PT (9.0-12.0) sec INR (<1.2) APTT (22.0-30.0) sec Sodium 138 (137-145) mmol/L Potassium 4.6 (3.5-5.1) mmol/L Chloride 102 (98-107) mmol/L Carbon Dioxide 17 L (22-30) mmol/L Anion Gap 19 mmol/L BUN 33 H (9-20) mg/dL Creatinine 2.79 H (0.66-1.25) mg/dL Est GFR (CKD-EPI)AfAm 23 (>60 ml/min/1.73 sqM) Est GFR (CKD-EPI)NonAf 20 (>60 ml/min/1.73 sqM) Glucose 304 H (74-99) mg/dL Plasma Lactic Acid Ravi 3.8 H* (0.7-2.0) mmol/L Calcium 9.9 (8.4-10.2) mg/dL Total Bilirubin 1.0 (0.2-1.3) mg/dL AST 33 (17-59) U/L ALT 20 (4-49) U/L Alkaline Phosphatase 82 (38-126) U/L Troponin I (0.000-0.034) ng/mL Total Protein 8.7 H (6.3-8.2) g/dL Albumin 4.8 (3.5-5.0) g/dL Acetone, Qual (Negative) Influenza Type A RNA (Not Detectd) Influenza Type B (PCR) (Not Detectd) 10/31/19 10/31/19 10/31/19 Range/Units 11:04 11:04 11:04 WBC (3.8-10.6) k/uL RBC (4.30-5.90) m/uL Hgb (13.0-17.5) gm/dL Hct (39.0-53.0) % MCV (80.0-100.0) fL MCH (25.0-35.0) pg MCHC (31.0-37.0) g/dL RDW (11.5-15.5) % Plt Count (150-450) k/uL Neutrophils % % Lymphocytes % % Monocytes % % Eosinophils % % Basophils % % Neutrophils # (1.3-7.7) k/uL Lymphocytes # (1.0-4.8) k/uL Monocytes # (0-1.0) k/uL Eosinophils # (0-0.7) k/uL Basophils # (0-0.2) k/uL PT 10.4 (9.0-12.0) sec INR 1.0 (<1.2) APTT 23.6 (22.0-30.0) sec Sodium (137-145) mmol/L Potassium (3.5-5.1) mmol/L Chloride (98-107) mmol/L Carbon Dioxide (22-30) mmol/L Anion Gap mmol/L BUN (9-20) mg/dL Creatinine (0.66-1.25) mg/dL Est GFR (CKD-EPI)AfAm (>60 ml/min/1.73 sqM) Est GFR (CKD-EPI)NonAf (>60 ml/min/1.73 sqM) Glucose (74-99) mg/dL Plasma Lactic Acid Ravi (0.7-2.0) mmol/L Calcium (8.4-10.2) mg/dL Total Bilirubin (0.2-1.3) mg/dL AST (17-59) U/L ALT (4-49) U/L Alkaline Phosphatase (38-126) U/L Troponin I 0.014 (0.000-0.034) ng/mL Total Protein (6.3-8.2) g/dL Albumin (3.5-5.0) g/dL Acetone, Qual Negative (Negative) Influenza Type A RNA (Not Detectd) Influenza Type B (PCR) (Not Detectd) 10/31/19 Range/Units 11:33 WBC (3.8-10.6) k/uL RBC (4.30-5.90) m/uL Hgb (13.0-17.5) gm/dL Hct (39.0-53.0) % MCV (80.0-100.0) fL MCH (25.0-35.0) pg MCHC (31.0-37.0) g/dL RDW (11.5-15.5) % Plt Count (150-450) k/uL Neutrophils % % Lymphocytes % % Monocytes % % Eosinophils % % Basophils % % Neutrophils # (1.3-7.7) k/uL Lymphocytes # (1.0-4.8) k/uL Monocytes # (0-1.0) k/uL Eosinophils # (0-0.7) k/uL Basophils # (0-0.2) k/uL PT (9.0-12.0) sec INR (<1.2) APTT (22.0-30.0) sec Sodium (137-145) mmol/L Potassium (3.5-5.1) mmol/L Chloride (98-107) mmol/L Carbon Dioxide (22-30) mmol/L Anion Gap mmol/L BUN (9-20) mg/dL Creatinine (0.66-1.25) mg/dL Est GFR (CKD-EPI)AfAm (>60 ml/min/1.73 sqM) Est GFR (CKD-EPI)NonAf (>60 ml/min/1.73 sqM) Glucose (74-99) mg/dL Plasma Lactic Acid Ravi (0.7-2.0) mmol/L Calcium (8.4-10.2) mg/dL Total Bilirubin (0.2-1.3) mg/dL AST (17-59) U/L ALT (4-49) U/L Alkaline Phosphatase (38-126) U/L Troponin I (0.000-0.034) ng/mL Total Protein (6.3-8.2) g/dL Albumin (3.5-5.0) g/dL Acetone, Qual (Negative) Influenza Type A RNA Detected H (Not Detectd) Influenza Type B (PCR) Not Detected (Not Detectd) Disposition Clinical Impression: Acute kidney injury, Dehydration, Influenza Disposition: ADMITTED IP TO THIS HOSP Condition: Fair Referrals: [facility],Clinic [Primary Care Provider] - 1-2 days
[2019-10-31] MEDS ORDERED: OSELTAMIVIR 75 MG CAP PO STA (12:07)
--- NOTE | 2019-10-31 12:15 | XR ---
EXAMINATION TYPE: XR chest 2V DATE OF EXAM: 10/31/2019 COMPARISON: 10/15/2019 HISTORY: Weakness and fever TECHNIQUE: Frontal and lateral views of the chest are obtained. FINDINGS: There is no focal air space opacity, pleural effusion, or pneumothorax seen. Chronic inte rstitial prominence. The cardiac silhouette size is within normal limits HEALED left posterior latera l mid rib fracture deformities. There is diffuse osseous demineralization. IMPRESSION: No acute cardiopulmonary process.
--- NOTE | 2019-10-31 12:19 | CT ---
EXAMINATION TYPE: CT abdomen pelvis wo con DATE OF EXAM: 10/31/2019 COMPARISON: Prior CT 09/23/2019 HISTORY: Fever, S/P Surgery CT DLP: 623.9 mGycm Automated exposure control for dose reduction was used. TECHNIQUE: Helical acquisition of images from the lung bases through the pelvis. FINDINGS: Lack of intravenous contrast could compromise sensitivity. Small hiatal hernia suspected. T here are coronary artery calcifications present. Surgical phyllis present along anterior abdominal mi dline. LUNG BASES: Some minimal dependent atelectatic changes are present, suspect some bronchial wall thick ening, calcified nodule present at the left lung base. AORTA: No significant abnormality is appreciated. LIVER/GB: No significant abnormality is appreciated. PANCREAS: Scattered calcifications may be indicative of chronic pancreatitis. SPLEEN: No significant abnormality is seen. ADRENALS: No significant abnormality is seen. KIDNEYS: No significant abnormality is seen. REPRODUCTIVE ORGANS: No significant abnormality is seen. URINARY BLADDER: No significant abnormality is seen. BOWEL: Postop changes are noted to the bowel. There is a small air-fluid level present at the level of the surgical phyllis in the left hemiabdomen, small air-fluid levels present at this level measuri ng approximately 2.6 cm, air extends to the abdominal surface. Findings the axial images #49 through 43. FREE AIR: No Free Air is visible. ASCITES: None visible. PELVIC ADENOPATHY: None visualized. RETROPERITONEAL ADENOPATHY: No Retroperitoneal Adenopathy visible. 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 There is multilevel spondylosis, multilevel degenerative disc disease and facet arthropathy. IMPRESSION: AIR-FLUID LEVEL WITHIN THE SUBCUTANEOUS FAT, WOUND POSSIBLY RELATED TO SURGERY, DIFFICULT TO EXCLUDE SMALL SUBCUTANEOUS ABSCESS. NONCONTRAST EXAM. CORONARY ARTERY DISEASE. ADDITIONAL NONSPECIFIC FINDING S DESCRIBED ABOVE.
[2019-10-31] MEDS ORDERED: ONDANSETRON 4 MG/2 ML VIAL IVP PRN (12:54)
[2019-10-31] MEDS ORDERED: ACETAMINOPHEN TAB 325 MG TAB PO PRN (12:54)
[2019-10-31] MEDS: SODIUM CHLORIDE 0.9% 1,000 ML IV SCH (13:57)
[2019-10-31 17:01] LABS: Glucose,Whole Blood 227 mg/dL (75-99)
[2019-10-31] MEDS: INSULIN ASPART (NovoLOG) 100 UNIT/ML VIAL SQ SCH ×2 (17:07→21:32)
[2019-10-31] MEDS ORDERED: ARTIFICIAL TEARS-HYPROMELLOSE DROPS 15 ML BTL BOTH EYES PRN (17:10)
[2019-10-31] MEDS ORDERED: IPRATROPIUM-ALBUTEROL 3 ML NEB INHALATION PRN (17:12)
[2019-10-31] MEDS ORDERED: ALPRAZolam 0.25 MG TAB PO PRN (17:13)
[2019-10-31] MEDS ORDERED: guaiFENesin-DM 100-10MG/5ML 10 ML CUP PO PRN (17:14)
[2019-10-31] MEDS: BUDESONIDE 1 MG/2 ML NEBU INHALATION SCH (19:53)
[2019-10-31] MEDS: IPRATROPIUM-ALBUTEROL 3 ML NEB INHALATION SCH (19:53)
[2019-10-31] MEDS: FORMOTEROL FUMARATE 20 MCG/2 ML NEBU INHALATION SCH (19:53)
--- NOTE | 2019-10-31 20:35 | HP ---
HISTORY AND PHYSICAL DATE OF SERVICE: 10/31/2019 CHIEF COMPLAINTS: Fever, weakness and hyperglycemia. HISTORY OF PRESENT ILLNESS: This 84-year-old gentleman with a past medical history of multiple medical problems, including diabetes mellitus, history of GERD, hypertension, hyperlipidemia, history of bowel obstruction, colon cancer, had a colostomy reversal recently by Dr. Mejia. The patient went home; subsequently patient had complaints of weakness. The patient had increasing cough and sputum, and the patient came to [facility] and was admitted for evaluation and treatment. The blood sugar was also found to be elevated at 304. The patient had renal failure at 2.7, which has worsened now. Lactic acid is also elevated at 3.8, probably indicating some septic process also. The patient was also found to have influenza A positive. Patient was admitted for further evaluation and treatment. Patient is currently slightly drowsy, unable to give a coherent history. Most of the history was taken from my discussion with the ER physician as well as review of the chart at this time and discussion with staff. PAST MEDICAL HISTORY: Recent colostomy reversal, diabetes mellitus, type 2, GERD, hypertension, hyperlipidemia, history of bowel resection, history of DJD. HOME MEDICATIONS: 1. Vitamin B complex 1 p.o. daily. 2. Vitamin D3 2000 daily. 3. Kenalog cream topically t.i.d. 4. Omeprazole 20 mg p.o. daily. 5. Proscar 5 mg p.o. daily. 6. Polyvinyl alcohol/Povidone 1 drop both eyes q.4 p.r.n. 7. Lantus 50 units subcutaneously at bedtime. 8. Alogliptin 6.25 mg p.o. daily. 9. Zocor 10 mg at bedtime. 10.Xeloda 1000 mg p.o. as before. 11.Aspirin 81 mg p.o. daily. ALLERGIES: HYDROCODONE. FAMILY HISTORY: History of myocardial infarction in the family. SOCIAL HISTORY: Previous history of smoking. No current smoking or alcohol intake. REVIEW OF SYSTEMS: Review of systems could not be taken because of the patient's change in mental status. PHYSICAL EXAMINATION: Patient is drowsy but arousable. The pulse is 61, blood pressure 135/63, respiration 18, temperature 99 degrees, pulse ox 98% on 3 L. HEENT: Conjunctivae normal. Oral mucosa moist. NECK: No jugular venous distention. No carotid bruit. No lymph node enlargement. CARDIOVASCULAR SYSTEM: S1, S2 muffled. RESPIRATORY SYSTEM: Breath sounds diminished at the bases. A few scattered rhonchi and crackles. Expiratory wheezing also present. Breathing efforts are increased markedly. ABDOMEN: Soft. Status post recent surgery. Nontender. No mass palpable. No distention. Bowel sounds present. LEGS: No edema. No swelling. NERVOUS SYSTEM: Higher functions as mentioned earlier. Moves all 4 limbs. No focal motor or sensory deficit. LYMPHATICS: No lymph node palpable in neck, axillae or groin. SKIN: No ulcer, rash, bleeding. JOINTS: No active deforming arthropathy. LABS: CBC within normal limits. Otherwise, APTT, PT/INR normal. Sodium 138, potassium 4.6, creatinine 2.79, glucose 304 and 227. Lactic acid 3.8. Influenza A is positive. ASSESSMENT: 1. Acute influenza A. 2. Possible chronic obstructive pulmonary disease, acute exacerbation, with acute purulent tracheobronchitis or bronchopneumonia with sepsis, present on admission. 3. Acute renal failure, possibly prerenal acute tubular necrosis. 4. Chronic kidney disease, stage III. 5. History of recent colostomy reversal. 6. Diabetes mellitus, type 2. 7. Gastroesophageal reflux disease. 8. Hypertension. 9. Hyperlipidemia. 10.History of colon cancer. 11.History of radiation with metastases. 12.Bilateral retinal disease. 13.Chronic low back pain and degenerative joint disease. 14.History of anemia. 15.History of bowel resection. 16.Remote history of nicotine dependence. 17.FULL CODE. RECOMMENDATIONS AND DISCUSSION: In this 84-year-old gentleman who presented with multiple complex medical issues, we will monitor the patient closely. The patient has significant bronchospasm; exact underlying pulmonary pathology is undetermined at this time. I recommend intensive bronchodilator treatment, empiric antibiotics also. Follow the cultures. Otherwise, closely monitor. Guarded prognosis because of the multiple complex medical issues. Further recommendations to follow. See orders for details. DVT prophylaxis. A copy of this dictation is being forwarded to Dr. Greer, who is the primary physician. Will consult Dr. Mejia, also. MMHARPERL / IJN: [id number] /
[2019-10-31 20:44] LABS: Glucose,Whole Blood 244 mg/dL (75-99)
[2019-10-31] MEDS ORDERED: OSELTAMIVIR 75 MG CAP PO SCH (21:00)
[2019-10-31] MEDS: HEPARIN SODIUM,PORCINE 5,000 UNIT/ML 1 ML VIAL SQ SCH (21:32)
[2019-10-31] MEDS: ATORVASTATIN 10 MG TAB PO SCH (21:33)
[2019-10-31] MEDS: TRIAMCINOLONE 0.1% CREAM 80 GM TUBE TOPICAL SCH (21:33)
[2019-10-31] MEDS: INSULIN DETEMIR (LEVEMIR) 100 UNIT/ML SYR SQ SCH (21:33)
[2019-11-01 01:05] LABS: Appearance,Urine Clear (Clear); Bacteria,Urine Rare /hpf; Bilirubin,Urine Negative (Negative); Blood,Urine Negative (Negative); Color,Urine Yellow; Glucose,Urine (UA) 3+ (Negative); Hyaline Casts,Urine 3 /lpf (0-2); Ketones,Urine Negative (Negative); Leukocyte Esterase,Urine Negative (Negative); Mucus,Urine Rare /hpf; Nitrite,Urine Negative (Negative); Protein,Urine 1+ (Negative); RBC,Urine <1 /hpf (0-5); Specific Gravity,Urine 1.023 (1.001-1.035); Squamous Epithelial Cell,Urine <1 /hpf (0-4); Urobilinogen,Urine <2.0 mg/dL (<2.0); WBC,Urine 1 /hpf (0-5)
[2019-11-01] MEDS: SODIUM CHLORIDE 0.9% 1,000 ML IV SCH ×2 (05:29→10:14)
[2019-11-01 07:04] LABS: Glucose,Whole Blood 127 mg/dL (75-99)
[2019-11-01 07:42] LABS: Calcium 8.5 mg/dL (8.4-10.2); Potassium 3.7 mmol/L (3.5-5.1)
[2019-11-01] MEDS: INSULIN ASPART (NovoLOG) 100 UNIT/ML VIAL SQ SCH ×4 (07:49→22:08)
[2019-11-01 08:00] LABS: Basophils # (A) 0.2 k/uL (0-0.2); Basophils % (A) 2 %; Eosinophils # (A) 0.1 k/uL (0-0.7); Eosinophils % (A) 1 %; HCT 37.1 % (39.0-53.0); HGB 12.6 gm/dL (13.0-17.5); Lymphocytes % (A) 8 %; MCHC 33.9 g/dL (31.0-37.0); MCV 97.4 fL (80.0-100.0); Monocytes # (A) 0.6 k/uL (0-1.0); Monocytes % (A) 5 %; Neutrophils # (A) 9.7 k/uL (1.3-7.7); Neutrophils % (A) 83 %; Platelet Count 133 k/uL (150-450); RBC 3.81 m/uL (4.30-5.90); RDW 12.3 % (11.5-15.5); WBC 11.7 k/uL (3.8-10.6)
[2019-11-01] MEDS: BUDESONIDE 1 MG/2 ML NEBU INHALATION SCH ×2 (08:07→18:53)
[2019-11-01] MEDS: FORMOTEROL FUMARATE 20 MCG/2 ML NEBU INHALATION SCH ×2 (08:07→18:53)
[2019-11-01] MEDS: IPRATROPIUM-ALBUTEROL 3 ML NEB INHALATION SCH ×4 (08:07→18:52)
[2019-11-01] MEDS: CHOLECALCIFEROL 1,000 UNIT TAB PO SCH (08:15)
[2019-11-01] MEDS: LINAGLIPTIN 5 MG TABLET PO SCH (08:16)
[2019-11-01] MEDS: OSELTAMIVIR 60 MG/10 ML ORAL SYRINGE PO SCH (08:16)
[2019-11-01] MEDS: ASPIRIN 81 MG PO SCH (08:16)
[2019-11-01] MEDS: FINASTERIDE 5 MG TAB PO SCH (08:16)
[2019-11-01] MEDS: PANTOPRAZOLE 40 MG TABLET PO SCH (08:16)
[2019-11-01] MEDS: HEPARIN SODIUM,PORCINE 5,000 UNIT/ML 1 ML VIAL SQ SCH ×2 (08:16→22:06)
[2019-11-01] MEDS ORDERED: NON FORMULARY DRUG (Vitamin B Complex [Vitamin B Complex] 1 CAP) PO SCH (09:00)
[2019-11-01] MEDS: TRIAMCINOLONE 0.1% CREAM 80 GM TUBE TOPICAL SCH ×3 (10:15→22:09)
--- NOTE | 2019-11-01 10:19 | P.GSCN ---
<Megan Xiao - Last Filed: 11/01/19 10:16> History of Present Illness Consult date: 11/01/19 Reason for Consult: patient known Requesting physician: [place] History of present illness: CHIEF COMPLAINT: HISTORY OF PRESENT ILLNESS: 84-year-old male who recently underwent colostomy reversal, partial colonic resection, and extensive lysis of adhesions secondary to colon cancer with Dr. Mejia on 10/11/2019. Patient states he was doing well postoperatively until a few days ago when he became to feel weak and fatigued. He reports decreased oral intake. Reports fever at home. Denies abdominal pain. PAST MEDICAL HISTORY: See list. PAST SURGICAL HISTORY: See list. SOCIAL HISTORY: No illicit drug use. REVIEW OF SYSTEMS: CONSTITUTIONAL: Reports fever. Reports weakness and fatigue. HEENT: Denies blurred vision, vision changes, or eye pain. Denies hemoptysis CARDIOVASCULAR: Denies chest pain or pressure. RESPIRATORY: No shortness of breath. GASTROINTESTINAL: Refer to HPI for pertinent findings HEMATOLOGIC: Denies bleeding disorders. GENITOURINARY: Denies any blood in urine. SKIN: Denies pruitis. Denies rash. PHYSICAL EXAM: VITAL SIGNS: Reviewed. GENERAL: Well-developed in no acute distress. HEENT: No sclera icterus. Extraocular movements grossly intact. Moist buccal mucosa. Head is atraumatic, normocephalic. ABDOMEN: Soft. Nondistended. Nontender. Surgical incision healing nicely without drainage or signs of infection with phyllis noted. NEUROLOGIC: Alert and oriented. Cranial nerves II through XII grossly intact. LABORATORY DATA: WBC 11.7. Hemoglobin 12.6. Platelet count 133. Sodium 139. Potassium 3.7. BUN 36. Creatinine 2.27. Positive influenza A IMAGIN. Chest x-ray: Negative for acute process. 2. CT abdomen and pelvis: Air-fluid level within the subcutaneous fat, wound possibly related to surgery. Difficult to exclude small subcutaneous abscess. ASSESSMENT: 1. Weakness, fatigue, fever 2. Acute Influenza A 3. Recent colostomy reversal, partial colonic resection, and extensive lysis of adhesions secondary to colon cancer with Dr. Mejia on 10/11/2019 PLAN: -Continue diet as tolerated -Management of influenza symptoms per internal medicine -Remove remaining phyllis from abdominal incision today -No surgical intervention recommended Nurse practitioner note has been reviewed by physician. Signing provider agrees with the documented findings, assessment, and plan of care. 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 Last Myocardial Infarction Date:: unknown History of Any Multi-Drug Resistant Organisms: None Reported Past Surgical History: Bowel Resection, Orthopedic Surgery, Tonsillectomy Additional Past Surgical History / Comment(s): 02/09/19 colonoscopy, 01/2019 bowel resection with colostomy, 10/11/19 exploratory lap with extensive lysis of adhesions/partial colectomy and colostomy reversal, colonoscopies/benign polypectomies. Past Anesthesia/Blood Transfusion Reactions: No Reported Reaction Smoking Status: Former smoker - Past Family History Father Additional Family Medical History / Comment(s): at 95 of old age Mother Family Medical History: Myocardial Infarction (VT) Additional Family Medical History / Comment(s): at 93 of old age, had a myocardial infarction in her upper 80s. Medications and Allergies Home Medications Medication Instructions Recorded Confirmed Type Finasteride [Proscar] 5 mg PO DAILY 02/09/19 10/31/19 History Omeprazole 20 mg PO DAILY 02/09/19 10/31/19 History Simvastatin [Zocor] 10 mg PO HS 08/06/19 10/31/19 History Alogliptin Benzoate [Alogliptin] 6.25 mg PO DAILY 10/31/19 10/31/19 History Aspirin 81 mg PO DAILY 10/31/19 10/31/19 History Capecitabine [Xeloda] 1,000 mg PO DIRECTED 10/31/19 10/31/19 History Cholecalciferol [Vitamin D3 (25 2,000 unit PO DAILY 10/31/19 10/31/19 History Mcg = 1000 Iu)] Insulin Glargine [Lantus] 50 units SQ HS 10/31/19 10/31/19 History Polyvinyl Alcohol/Povidone 1 drop BOTH EYES Q4H PRN 10/31/19 10/31/19 History [[place]] Triamcinolone 0.1% Cream [Kenalog 1 applicatio TOPICAL TID 10/31/19 10/31/19 His tory 0.1% Cream] Vitamin B Complex 1 cap PO DAILY 10/31/19 10/31/19 History Allergies Allergy/AdvReac Type Severity Reaction Status Date / Time hydrocodone AdvReac dream Verified 10/31/19 11:18 disorder/night sweats Surgical - Exam Vital Signs Temp Pulse Resp BP Pulse Ox 101.3 F H 65 20 156/78 93 L 10/31/19 10:45 10/31/19 10:45 10/31/19 10:45 10/31/19 10:45 10/31/19 10:45 Results - Labs 11/01/19 06:43 11/01/19 06:43 Abnormal Lab Results - Last 24 Hours (Table) 10/31/19 10/31/19 10/31/19 Range/Units 11:04 11:04 11:04 WBC (3.8-10.6) k/uL RBC (4.30-5.90) m/uL Hgb (13.0-17.5) gm/dL Hct (39.0-53.0) % Plt Count (150-450) k/uL Neutrophils # 8.7 H (1.3-7.7) k/uL Lymphocytes # 0.6 L (1.0-4.8) k/uL Chloride (98-107) mmol/L Carbon Dioxide 17 L (22-30) mmol/L BUN 33 H (9-20) mg/dL Creatinine 2.79 H (0.66-1.25) mg/dL Glucose 304 H (74-99) mg/dL POC Glucose (mg/dL) (75-99) mg/dL Plasma Lactic Acid Ravi 3.8 H* (0.7-2.0) mmol/L Total Protein 8.7 H (6.3-8.2) g/dL Urine Protein (Negative) Urine Glucose (UA) (Negative) Urine Bacteria (None) /hpf Hyaline Casts (0-2) /lpf Urine Mucus (None) /hpf Influenza Type A RNA (Not Detectd) 10/31/19 10/31/19 10/31/19 Range/Units 11:33 16:48 20:40 WBC (3.8-10.6) k/uL RBC (4.30-5.90) m/uL Hgb (13.0-17.5) gm/dL Hct (39.0-53.0) % Plt Count (150-450) k/uL Neutrophils # (1.3-7.7) k/uL Lymphocytes # (1.0-4.8) k/uL Chloride (98-107) mmol/L Carbon Dioxide (22-30) mmol/L BUN (9-20) mg/dL Creatinine (0.66-1.25) mg/dL Glucose (74-99) mg/dL POC Glucose (mg/dL) 227 H 244 H (75-99) mg/dL Plasma Lactic Acid Ravi (0.7-2.0) mmol/L Total Protein (6.3-8.2) g/dL Urine Protein (Negative) Urine Glucose (UA) (Negative) Urine Bacteria (None) /hpf Hyaline Casts (0-2) /lpf Urine Mucus (None) /hpf Influenza Type A RNA Detected H (Not Detectd) 11/01/19 11/01/19 11/01/19 Range/Units 00:30 06:43 06:43 WBC 11.7 H (3.8-10.6) k/uL RBC 3.81 L (4.30-5.90) m/uL Hgb 12.6 L (13.0-17.5) gm/dL Hct 37.1 L (39.0-53.0) % Plt Count 133 L (150-450) k/uL Neutrophils # 9.7 H (1.3-7.7) k/uL Lymphocytes # (1.0-4.8) k/uL Chloride 109 H (98-107) mmol/L Carbon Dioxide 19 L (22-30) mmol/L BUN 36 H (9-20) mg/dL Creatinine 2.27 H (0.66-1.25) mg/dL Glucose 104 H (74-99) mg/dL POC Glucose (mg/dL) (75-99) mg/dL Plasma Lactic Acid Ravi (0.7-2.0) mmol/L Total Protein (6.3-8.2) g/dL Urine Protein 1+ H (Negative) Urine Glucose (UA) 3+ H (Negative) Urine Bacteria Rare H (None) /hpf Hyaline Casts 3 H (0-2) /lpf Urine Mucus Rare H (None) /hpf Influenza Type A RNA (Not Detectd) 11/01/19 Range/Units 07:02 WBC (3.8-10.6) k/uL RBC (4.30-5.90) m/uL Hgb (13.0-17.5) gm/dL Hct (39.0-53.0) % Plt Count (150-450) k/uL Neutrophils # (1.3-7.7) k/uL Lymphocytes # (1.0-4.8) k/uL Chloride (98-107) mmol/L Carbon Dioxide (22-30) mmol/L BUN (9-20) mg/dL Creatinine (0.66-1.25) mg/dL Glucose (74-99) mg/dL POC Glucose (mg/dL) 127 H (75-99) mg/dL Plasma Lactic Acid Ravi (0.7-2.0) mmol/L Total Protein (6.3-8.2) g/dL Urine Protein (Negative) Urine Glucose (UA) (Negative) Urine Bacteria (None) /hpf Hyaline Casts (0-2) /lpf Urine Mucus (None) /hpf Influenza Type A RNA (Not Detectd) Diabetes panel 10/31/19 11/01/19 Range/Units 11:04 06:43 Sodium 138 139 (137-145) mmol/L Potassium 4.6 3.7 (3.5-5.1) mmol/L Chloride 102 109 H (98-107) mmol/L Carbon Dioxide 17 L 19 L (22-30) mmol/L BUN 33 H 36 H (9-20) mg/dL Creatinine 2.79 H 2.27 H (0.66-1.25) mg/dL Glucose 304 H 104 H (74-99) mg/dL Calcium 9.9 8.5 (8.4-10.2) mg/dL AST 33 (17-59) U/L ALT 20 (4-49) U/L Alkaline Phosphatase 82 (38-126) U/L Total Protein 8.7 H (6.3-8.2) g/dL Albumin 4.8 (3.5-5.0) g/dL Calcium panel 10/31/19 11/01/19 Range/Units 11:04 06:43 Calcium 9.9 8.5 (8.4-10.2) mg/dL Albumin 4.8 (3.5-5.0) g/dL Pituitary panel 10/31/19 11/01/19 Range/Units 11:04 06:43 Sodium 138 139 (137-145) mmol/L Potassium 4.6 3.7 (3.5-5.1) mmol/L Chloride 102 109 H (98-107) mmol/L Carbon Dioxide 17 L 19 L (22-30) mmol/L BUN 33 H 36 H (9-20) mg/dL Creatinine 2.79 H 2.27 H (0.66-1.25) mg/dL Glucose 304 H 104 H (74-99) mg/dL Calcium 9.9 8.5 (8.4-10.2) mg/dL Adrenal panel 10/31/19 11/01/19 Range/Units 11:04 06:43 Sodium 138 139 (137-145) mmol/L Potassium 4.6 3.7 (3.5-5.1) mmol/L Chloride 102 109 H (98-107) mmol/L Carbon Dioxide 17 L 19 L (22-30) mmol/L BUN 33 H 36 H (9-20) mg/dL Creatinine 2.79 H 2.27 H (0.66-1.25) mg/dL Glucose 304 H 104 H (74-99) mg/dL Calcium 9.9 8.5 (8.4-10.2) mg/dL Total Bilirubin 1.0 (0.2-1.3) mg/dL AST 33 (17-59) U/L ALT 20 (4-49) U/L Alkaline Phosphatase 82 (38-126) U/L Total Protein 8.7 H (6.3-8.2) g/dL Albumin 4.8 (3.5-5.0) g/dL <Juan David Mejia - Last Filed: 11/01/19 14:39> History of Present Illness History of present illness: As above. Patient admitted with acute influenza. Denies abdominal pain. CAT scan reviewed and appears normal. We'll sign off. Patient follow-up in the office as an outpatient following discharge. All staplers were removed today. Surgical - Exam Vital Signs Temp Pulse Resp BP Pulse Ox 101.3 F H 65 20 156/78 93 L 10/31/19 10:45 10/31/19 10:45 10/31/19 10:45 10/31/19 10:45 10/31/19 10:45 Results - Labs 11/01/19 06:43 11/01/19 06:43 Abnormal Lab Results - Last 24 Hours (Table) 10/31/19 10/31/19 11/01/19 Range/Units 16:48 20:40 00:30 WBC (3.8-10.6) k/uL RBC (4.30-5.90) m/uL Hgb (13.0-17.5) gm/dL Hct (39.0-53.0) % Plt Count (150-450) k/uL Neutrophils # (1.3-7.7) k/uL Chloride (98-107) mmol/L Carbon Dioxide (22-30) mmol/L BUN (9-20) mg/dL Creatinine (0.66-1.25) mg/dL Glucose (74-99) mg/dL POC Glucose (mg/dL) 227 H 244 H (75-99) mg/dL Urine Protein 1+ H (Negative) Urine Glucose (UA) 3+ H (Negative) Urine Bacteria Rare H (None) /hpf Hyaline Casts 3 H (0-2) /lpf Urine Mucus Rare H (None) /hpf 11/01/19 11/01/19 11/01/19 Range/Units 06:43 06:43 07:02 WBC 11.7 H (3.8-10.6) k/uL RBC 3.81 L (4.30-5.90) m/uL Hgb 12.6 L (13.0-17.5) gm/dL Hct 37.1 L (39.0-53.0) % Plt Count 133 L (150-450) k/uL Neutrophils # 9.7 H (1.3-7.7) k/uL Chloride 109 H (98-107) mmol/L Carbon Dioxide 19 L (22-30) mmol/L BUN 36 H (9-20) mg/dL Creatinine 2.27 H (0.66-1.25) mg/dL Glucose 104 H (74-99) mg/dL POC Glucose (mg/dL) 127 H (75-99) mg/dL Urine Protein (Negative) Urine Glucose (UA) (Negative) Urine Bacteria (None) /hpf Hyaline Casts (0-2) /lpf Urine Mucus (None) /hpf 11/01/19 Range/Units 11:26 WBC (3.8-10.6) k/uL RBC (4.30-5.90) m/uL Hgb (13.0-17.5) gm/dL Hct (39.0-53.0) % Plt Count (150-450) k/uL Neutrophils # (1.3-7.7) k/uL Chloride (98-107) mmol/L Carbon Dioxide (22-30) mmol/L BUN (9-20) mg/dL Creatinine (0.66-1.25) mg/dL Glucose (74-99) mg/dL POC Glucose (mg/dL) 137 H (75-99) mg/dL Urine Protein (Negative) Urine Glucose (UA) (Negative) Urine Bacteria (None) /hpf Hyaline Casts (0-2) /lpf Urine Mucus (None) /hpf Microbiology - Last 24 Hours (Table) 10/31/19 11:04 Blood Culture - Preliminary Blood No Growth after 24 hours Diabetes panel 11/01/19 Range/Units 06:43 Sodium 139 (137-145) mmol/L Potassium 3.7 (3.5-5.1) mmol/L Chloride 109 H (98-107) mmol/L Carbon Dioxide 19 L (22-30) mmol/L BUN 36 H (9-20) mg/dL Creatinine 2.27 H (0.66-1.25) mg/dL Glucose 104 H (74-99) mg/dL Calcium 8.5 (8.4-10.2) mg/dL Calcium panel 11/01/19 Range/Units 06:43 Calcium 8.5 (8.4-10.2) mg/dL Pituitary panel 11/01/19 Range/Units 06:43 Sodium 139 (137-145) mmol/L Potassium 3.7 (3.5-5.1) mmol/L Chloride 109 H (98-107) mmol/L Carbon Dioxide 19 L (22-30) mmol/L BUN 36 H (9-20) mg/dL Creatinine 2.27 H (0.66-1.25) mg/dL Glucose 104 H (74-99) mg/dL Calcium 8.5 (8.4-10.2) mg/dL Adrenal panel 11/01/19 Range/Units 06:43 Sodium 139 (137-145) mmol/L Potassium 3.7 (3.5-5.1) mmol/L Chloride 109 H (98-107) mmol/L Carbon Dioxide 19 L (22-30) mmol/L BUN 36 H (9-20) mg/dL Creatinine 2.27 H (0.66-1.25) mg/dL Glucose 104 H (74-99) mg/dL Calcium 8.5 (8.4-10.2) mg/dL
[2019-11-01 11:28] LABS: Glucose,Whole Blood 137 mg/dL (75-99)
--- NOTE | 2019-11-01 13:23 | P.CNPUL ---
History of Present Illness Consult date: 11/01/19 Reason for consult: dyspnea Chief complaint: Dyspnea hypoxemia History of present illness: 84-year-old white male patient with history of colon cancer with resection and colostomy, which was recently reversed 2 weeks ago. Apparently patient did have metastasis to his liver for which he had chemoradiation treatments completed in August and was told that she was in remission. Other medical history includes diabetes mellitus, hypertension, hyperlipidemia, history of myocardial infarction, former smoker, carries 18 years of smoking history of 1-1/2 packs per day but denies any chronic lung disease. Patient states after discharge home he was doing well however developed diarrhea, and on 10/31/2019 he presented to the emergency department with complaints of generalized weakness, and fever. He states he has been having 2 very loose bowel movements per day, is having a slight cough which is nonproductive. Had decreased oral intake and decreased fluid intake. His abdominal incision is clean dry and intact, phyllis are intact, any blood in the stool. She was febrile presentation with a temp of 101.3F. His initial blood work showed normal white count of 9.9, hemoglobin 14.8, glucose of profile was within normal limits, sodium was 138, potassium is 4.6, 9 gap metabolic acidosis with CO2 of 17, B1 is 33 and creatinine is 2.79. Her BNP is 1050, troponin was 0.014, urinalysis showed 1+ protein and 3+ glucose and rare bacteria, serum acetone level was negative, influenza screen was positive for influenza A. patient was started on antibiotics and Tamiflu, fluid resuscitated received a total of 2 L and IV boluses and his IV fluids infusing at a rate of 75 ML per hour. No acute pulmonary process on the chest x-ray was seen. Review of Systems All systems: negative Constitutional: Reports anorexia, Reports lethargy, Reports malaise, Reports poor appetite, Reports weakness, Denies chills, Denies fever Eyes: denies blurred vision, denies pain Ears, nose, mouth and throat: Denies headache, Denies sore throat Cardiovascular: Denies chest pain, Denies shortness of breath Respiratory: Reports dyspnea, Denies cough Gastrointestinal: Denies abdominal pain, Denies diarrhea, Denies nausea, Denies vomiting Musculoskeletal: Denies myalgias Integumentary: Denies pruritus, Denies rash Neurological: Denies numbness, Denies weakness Psychiatric: Denies anxiety, Denies depression Endocrine: Denies fatigue, Denies weight change Past Medical History Past Medical History: Cancer, Diabetes Mellitus, Eye Disorder, GERD/Reflux, Hyperlipidemia, Hypertension, Renal Disease Additional Past Medical History / Comment(s): 02/09/19 bowel obstruction/colon cancer with surgery/colostomy-had oral chemo/radiation for mets to liver, recent colostomy reversal, IDDM type II, bilateral retinal disease with surgery, chronic low back pain, CKD, anemia. Last Myocardial Infarction Date:: unknown History of Any Multi-Drug Resistant Organisms: None Reported Past Surgical History: Bowel Resection, Orthopedic Surgery, Tonsillectomy Additional Past Surgical History / Comment(s): 02/09/19 colonoscopy, 01/2019 bowel resection with colostomy, 10/11/19 exploratory lap with extensive lysis of adhesions/partial colectomy and colostomy reversal, colonoscopies/benign polypectomies. Past Anesthesia/Blood Transfusion Reactions: No Reported Reaction Smoking Status: Former smoker - Past Family History Father Additional Family Medical History / Comment(s): at 95 of old age Mother Family Medical History: Myocardial Infarction ([place]) Additional Family Medical History / Comment(s): at 93 of old age, had a myocardial infarction in her upper 80s. Medications and Allergies Home Medications Medication Instructions Recorded Confirmed Type Finasteride [Proscar] 5 mg PO DAILY 02/09/19 10/31/19 History Omeprazole 20 mg PO DAILY 02/09/19 10/31/19 History Simvastatin [Zocor] 10 mg PO HS 08/06/19 10/31/19 History Alogliptin Benzoate [Alogliptin] 6.25 mg PO DAILY 10/31/19 10/31/19 History Aspirin 81 mg PO DAILY 10/31/19 10/31/19 History Capecitabine [Xeloda] 1,000 mg PO DIRECTED 10/31/19 10/31/19 History Cholecalciferol [Vitamin D3 (25 2,000 unit PO DAILY 10/31/19 10/31/19 History Mcg = 1000 Iu)] Insulin Glargine [Lantus] 50 units SQ HS 10/31/19 10/31/19 History Polyvinyl Alcohol/Povidone 1 drop BOTH EYES Q4H PRN 10/31/19 10/31/19 History [Freshkote] Triamcinolone 0.1% Cream [Kenalog 1 applicatio TOPICAL TID 10/31/19 10/31/19 History 0.1% Cream] Vitamin B Complex 1 cap PO DAILY 10/31/19 10/31/19 History Allergies Allergy/AdvReac Type Severity Reaction Status Date / Time hydrocodone AdvReac dream Verified 10/31/19 11:18 disorder/night sweats Physical Exam Vitals: Vital Signs Temp Pulse Pulse Resp BP BP Pulse Ox 11/01/19 12:49 72 11/01/19 09:09 116 H 18 11/01/19 08:30 18 11/01/19 08:24 70 11/01/19 08:20 68 11/01/19 08:07 64 11/01/19 07:15 99.8 F H 116 H 18 126/69 92 L 11/01/19 00:49 97.8 F 86 16 149/65 99 10/31/19 20:03 66 10/31/19 20:00 97.6 F 137/61 10/31/19 19:53 68 10/31/19 16:00 18 10/31/19 15:00 99.0 F 61 18 135/63 98 10/31/19 14:04 98.7 F 95 25 H 122/76 96 10/31/19 13:34 95 25 H 122/76 96 10/31/19 13:00 95 25 H 122/76 96 Intake and Output 10/31/19 11/01/19 11/01/19 22:59 06:59 14:59 Intake Total 300 675 200 Balance 300 675 200 Intake: Intake, IV Titration 300 675 Amount Sodium Chloride 0.9% 1, 300 675 000 ml @ 75 mls/hr IV . [id number] [facility] Rx#:[id number] Oral 200 Other: # Voids 1 # Bowel Movements 1 GENERAL EXAM: Alert, 84-year-old white male, 3 L of oxygen with a pulse ox of 99% comfortable in no apparent distress. HEAD: Normocephalic/atraumatic. EYES: Normal reaction of pupils, equal size. Conjunctiva pink, sclera white. NOSE: Clear with pink turbinates. THROAT: No erythema or exudates. NECK: No masses, no JVD, no thyroid enlargement, no adenopathy. CHEST: No chest wall deformity. Symmetrical expansion. LUNGS: Equal air entry with a few end expiratory wheezes CVS: Regular rate and rhythm, normal S1 and S2, no gallops, no murmurs, no rubs ABDOMEN: Soft, nontender. No hepatosplenomegaly, normal bowel sounds, no guarding or rigidity. Abdominal incisions clean dry and intact, phyllis are intact EXTREMITIES: No clubbing, no edema, no cyanosis, 2+ pulses and upper and lower extremities. MUSCULOSKELETAL: Muscle strength and tone normal. SPINE: No scoliosis or deformity SKIN: No rashes CENTRAL NERVOUS SYSTEM: Alert and oriented -3. No focal deficits, tone is normal in all 4 extremities. PSYCHIATRIC: Alert and oriented -3. Appropriate affect. Intact judgment and insight. Results - Laboratory Findings CBC and BMP: 11/01/19 06:43 11/01/19 06:43 PT/INR, D-dimer PT 10.4 sec (9.0-12.0) 10/31/19 11:04 INR 1.0 (<1.2) 10/31/19 11:04 Abnormal lab findings: Abnormal Labs 10/31/19 10/31/19 10/31/19 11:04 11:04 11:04 WBC RBC Hgb Hct Plt Count Neutrophils # 8.7 H Lymphocytes # 0.6 L Chloride Carbon Dioxide 17 L BUN 33 H Creatinine 2.79 H Glucose 304 H POC Glucose (mg/dL) Plasma Lactic Acid Ravi 3.8 H* Total Protein 8.7 H Urine Protein Urine Glucose (UA) Urine Bacteria Hyaline Casts Urine Mucus Influenza Type A RNA 10/31/19 10/31/19 10/31/19 11:33 16:48 20:40 WBC RBC Hgb Hct Plt Count Neutrophils # Lymphocytes # Chloride Carbon Dioxide BUN Creatinine Glucose POC Glucose (mg/dL) 227 H 244 H Plasma Lactic Acid Ravi Total Protein Urine Protein Urine Glucose (UA) Urine Bacteria Hyaline Casts Urine Mucus Influenza Type A RNA Detected H 11/01/19 11/01/19 11/01/19 00:30 06:43 06:43 WBC 11.7 H RBC 3.81 L Hgb 12.6 L Hct 37.1 L Plt Count 133 L Neutrophils # 9.7 H Lymphocytes # Chloride 109 H Carbon Dioxide 19 L BUN 36 H Creatinine 2.27 H Glucose 104 H POC Glucose (mg/dL) Plasma Lactic Acid Ravi Total Protein Urine Protein 1+ H Urine Glucose (UA) 3+ H Urine Bacteria Rare H Hyaline Casts 3 H Urine Mucus Rare H Influenza Type A RNA 11/01/19 11/01/19 07:02 11:26 WBC RBC Hgb Hct Plt Count Neutrophils # Lymphocytes # Chloride Carbon Dioxide BUN Creatinine Glucose POC Glucose (mg/dL) 127 H 137 H Plasma Lactic Acid Ravi Total Protein Urine Protein Urine Glucose (UA) Urine Bacteria Hyaline Casts Urine Mucus Influenza Type A RNA - Diagnostic Findings Chest x-ray: report reviewed, image reviewed CT scan - chest: report reviewed, image reviewed Assessment and Plan Plan: Assessment: #1. Acute influenza A infection #2. Mild tracheobronchitis without evidence of focal pulmonary infiltrates #3. Acute kidney injury related to ATN #4. Anion gap metabolic acidosis, serum acetone was negative, lactic acid was within normal limits #5. Recent history of colostomy reversal 2 weeks ago #6. History of colon cancer with resection and colostomy creation with liver metastasis status post chemo radiation finished in August 2019 #7. Chronic kidney disease, age 6 #8. Diabetes mellitus type 2 #9. Hypertension #10. Hyperlipidemia #11. Former smoker, carries 18 years of smoking of one half packs per day, in remission for 4 years #12. Previous history of myocardial infarction Plan: Continue Tamiflu and Rocephin, send sputum culture, day Pulmicort, PerforomistRudy, chest x-ray has been reviewed in no acute cardiopulmonary process. Hemodynamically patient is stable, he managing fever pattern, vital signs, he is breathing easier since he came in. Continue to follow I performed a history & physical examination of the patient and discussed their management with my nurse practitioner, Shannon Bailey. I reviewed the nurse practitioner's note and agree with the documented findings and plan of care. Lung sounds are positive for a few expiratory wheezes. The findings and the impression was discussed with the patient. I attest to the documentation by the nurse practitioner. Time with Patient: Greater than 30
[2019-11-01 13:40] VITALS: BMI 29.4
[2019-11-01 16:37] LABS: Glucose,Whole Blood 113 mg/dL (75-99)
[2019-11-01 20:00] LABS: Glucose,Whole Blood 192 mg/dL (75-99)
--- NOTE | 2019-11-01 20:58 | PN ---
PROGRESS NOTE DATE OF SERVICE: 11/01/2019 This 84-year-old gentleman with a past medical history of multiple problems was admitted with a fever and possible COPD, acute exacerbation. He was also positive for influenza. Patient continues to be slightly confused. Dr. Mejia has seen the patient because of recent surgery. Otherwise, he was seen by Pulmonary. Tamiflu has been continued. No chest pain no palpitation. PHYSICAL EXAMINATION: Alert and oriented x2. Pulse is 85, blood pressure 116/59, respirations 16, temperature 98.3, pulse ox 94% on room air. HEENT: Conjunctivae normal. NECK: No jugular venous distention. CARDIOVASCULAR SYSTEM: S1, S2 muffled. RESPIRATORY SYSTEM: Breath sounds diminished at the bases. Bilateral scattered rhonchi and crackles. ABDOMEN: Soft, non-tender. LEGS: No edema. No swelling. NERVOUS SYSTEM: No focal deficit. LABS: WBC 11.6. Hemoglobin 12.6. Sodium 139, potassium 3.7, creatinine 2.27. UA noted. The cultures are pending at this time. ASSESSMENT: 1. Acute influenza A. 2. Possible chronic obstructive pulmonary disease, acute exacerbation, with acute purulent tracheobronchitis or bronchopneumonia with sepsis, present on admission. 3. Change in mental status, metabolic encephalopathy, acute. 4. Acute renal failure, possibly prerenal acute tubular necrosis. 5. Chronic kidney disease, stage III. 6. History of recent colostomy reversal. 7. Diabetes mellitus, type 2. 8. Gastroesophageal reflux disease. 9. Hypertension. 10.Hyperlipidemia. 11.History of colon cancer. 12.History of radiation with metastases. 13.Bilateral retinal disease. 14.Chronic low back pain and degenerative joint disease. 15.History of anemia. 16.History of bowel resection. 17.Remote history of nicotine dependence. 18.FULL CODE. RECOMMENDATIONS AND DISCUSSION: I recommend to continue current medications, continue with the monitoring, symptomatic treatment. Otherwise at this time I recommend continuing with the bronchodilators. Continue with empiric antibiotics. Monitor creatinine closely. medication. Influenza A is positive. Closely follow with multiple consultants. Prognosis guarded. Further recommendations to follow. MMODL / IJN: [id number] / MTDD
[2019-11-01] MEDS: ATORVASTATIN 10 MG TAB PO SCH (22:03)
[2019-11-01] MEDS: INSULIN DETEMIR (LEVEMIR) 100 UNIT/ML SYR SQ SCH (22:07)
[2019-11-02] MEDS: SODIUM CHLORIDE 0.9% 1,000 ML IV SCH ×2 (05:25→16:11)
[2019-11-02 06:56] LABS: Glucose,Whole Blood 37 mg/dL (75-99)
[2019-11-02] MEDS ORDERED: DEXTROSE 10 % IN WATER 250 ML IV ONE (06:59)
[2019-11-02 07:21] LABS: Glucose,Whole Blood 139 mg/dL (75-99)
[2019-11-02] MEDS: INSULIN ASPART (NovoLOG) 100 UNIT/ML VIAL SQ SCH ×4 (07:28→20:38)
[2019-11-02 08:19] LABS: Basophils % (A) 0 %; Eosinophils # (A) 0.1 k/uL (0-0.7); Eosinophils % (A) 1 %; HCT 36.4 % (39.0-53.0); HGB 12.2 gm/dL (13.0-17.5); Lymphocytes # (A) 0.8 k/uL (1.0-4.8); Lymphocytes % (A) 12 %; MCH 33.3 pg (25.0-35.0); MCHC 33.7 g/dL (31.0-37.0); MCV 98.9 fL (80.0-100.0); Mean Platelet Volume 8.9; Monocytes # (A) 0.2 k/uL (0-1.0); Monocytes % (A) 3 %; Neutrophils # (A) 5.3 k/uL (1.3-7.7); Neutrophils % (A) 82 %; Platelet Count 109 k/uL (150-450); RBC 3.68 m/uL (4.30-5.90); RDW 12.1 % (11.5-15.5); WBC 6.5 k/uL (3.8-10.6)
[2019-11-02 08:25] LABS: Calcium 8.6 mg/dL (8.4-10.2); Potassium 3.7 mmol/L (3.5-5.1)
[2019-11-02] MEDS: FORMOTEROL FUMARATE 20 MCG/2 ML NEBU INHALATION SCH ×2 (08:45→20:55)
[2019-11-02] MEDS: BUDESONIDE 1 MG/2 ML NEBU INHALATION SCH ×2 (08:46→20:55)
[2019-11-02] MEDS: IPRATROPIUM-ALBUTEROL 3 ML NEB INHALATION SCH ×4 (08:46→20:55)
[2019-11-02 08:53] LABS: Glucose,Whole Blood 153 mg/dL (75-99)
[2019-11-02] MEDS: HEPARIN SODIUM,PORCINE 5,000 UNIT/ML 1 ML VIAL SQ SCH ×2 (08:53→20:37)
[2019-11-02] MEDS: CHOLECALCIFEROL 1,000 UNIT TAB PO SCH (08:54)
[2019-11-02] MEDS: ASPIRIN 81 MG PO SCH (08:54)
[2019-11-02] MEDS: OSELTAMIVIR 60 MG/10 ML ORAL SYRINGE PO SCH (08:54)
[2019-11-02] MEDS: PANTOPRAZOLE 40 MG TABLET PO SCH (08:54)
[2019-11-02] MEDS: FINASTERIDE 5 MG TAB PO SCH (08:54)
[2019-11-02] MEDS: TRIAMCINOLONE 0.1% CREAM 80 GM TUBE TOPICAL SCH ×3 (08:55→20:38)
[2019-11-02] MEDS: LINAGLIPTIN 5 MG TABLET PO SCH (10:38)
[2019-11-02 12:24] LABS: Glucose,Whole Blood 139 mg/dL (75-99)
--- NOTE | 2019-11-02 13:23 | P.PN ---
Subjective Progress Note Date: 11/02/19 Principal diagnosis: Dyspnea, hypoxemia 84-year-old white male patient with history of colon cancer with resection and colostomy, which was recently reversed 2 weeks ago. Apparently patient did have metastasis to his liver for which he had chemoradiation treatments completed in August and was told that she was in remission. Other medical history includes diabetes mellitus, hypertension, hyperlipidemia, history of myocardial infarction, former smoker, carries 18 years of smoking history of 1-1/2 packs per day but denies any chronic lung disease. Patient states after discharge home he was doing well however developed diarrhea, and on 10/31/2019 he presented to the emergency department with complaints of generalized weakness, and fever. He states he has been having 2 very loose bowel movements per day, is having a slight cough which is nonproductive. Had decreased oral intake and decreased fluid intake. His abdominal incision is clean dry and intact, phyllis are intact, any blood in the stool. She was febrile presentation with a temp of 101.3F. His initial blood work showed normal white count of 9.9, hemoglobin 14.8, glucose of profile was within normal limits, sodium was 138, potassium is 4.6, 9 gap metabolic acidosis with CO2 of 17, B1 is 33 and creatinine is 2.79. Her BNP is 1050, troponin was 0.014, urinalysis showed 1+ protein and 3+ glucose and rare bacteria, serum acetone level was negative, influenza screen was positive for influenza A. patient was started on antibiotics and Tamiflu, fluid resuscitated received a total of 2 L and IV boluses and his IV fluids infusing at a rate of 75 ML per hour. No acute pulmonary process on the chest x-ray was seen. The patient is seen today 11/02/2019 in follow-up on the regular medical floor. He is awake and alert in no acute distress. Currently sitting up in a chair at the bedside. Maintaining O2 saturations in the 90s on room air. No worsening shortness of breath, cough or congestion. No chills or night sweats. Blood culture reveals no growth. White count 6.5. Hemoglobin 12.2. Creatinine 1.93. He is continued on DuoNeb inhalations, Pulmicort and Perforomist inhalations, Tamiflu and antibiotics in the form of ceftriaxone. He is feeling back to his baseline and is anxious to go home. Objective - Vital Signs Vital signs: Vital Signs Temp 96.8 F L 11/02/19 07:00 Pulse 76 11/02/19 11:43 Resp 17 11/02/19 07:00 BP 130/72 11/02/19 07:00 Pulse Ox 99 11/02/19 07:00 Intake & Output 11/01/19 11/02/19 11/02/19 18:59 06:59 18:59 Intake Total 325 225 Balance 325 225 Weight 80.286 kg Intake: Intake, IV Titration 225 Amount Sodium Chloride 0.9% 1, 225 000 ml @ 75 mls/hr IV . [id number] Rx#:[id number] Oral 325 Other: Voiding Method Toilet Toilet # Voids 1 1 - Exam GENERAL EXAM: Alert, pleasant 84-year-old gentleman on room air, comfortable in no apparent distress. HEAD: Normocephalic/atraumatic. EYES: Normal reaction of pupils, equal size. Conjunctiva pink, sclera white. NOSE: Clear with pink turbinates. THROAT: No erythema or exudates. NECK: No masses, no JVD, no thyroid enlargement, no adenopathy. CHEST: No chest wall deformity. Symmetrical expansion. LUNGS: Equal air entry with a few end expiratory wheezes CVS: Regular rate and rhythm, normal S1 and S2, no gallops, no murmurs, no rubs ABDOMEN: Soft, nontender. No hepatosplenomegaly, normal bowel sounds, no guarding or rigidity. Abdominal incisions clean dry and intact, phyllis are intact EXTREMITIES: No clubbing, no edema, no cyanosis, 2+ pulses and upper and lower extremities. MUSCULOSKELETAL: Muscle strength and tone normal. SPINE: No scoliosis or deformity SKIN: No rashes CENTRAL NERVOUS SYSTEM: No focal deficits, tone is normal in all 4 extremities. PSYCHIATRIC: Alert and oriented -3. Appropriate affect. Intact judgment and insight. - Labs CBC & Chem 7: 11/02/19 07:44 11/02/19 07:44 Labs: Abnormal Lab Results - Last 24 Hours (Table) 11/01/19 11/01/19 11/02/19 Range/Units 16:33 19:58 06:52 RBC (4.30-5.90) m/uL Hgb (13.0-17.5) gm/dL Hct (39.0-53.0) % Plt Count (150-450) k/uL Lymphocytes # (1.0-4.8) k/uL Chloride (98-107) mmol/L Carbon Dioxide (22-30) mmol/L BUN (9-20) mg/dL Creatinine (0.66-1.25) mg/dL Glucose (74-99) mg/dL POC Glucose (mg/dL) 113 H 192 H 37 L (75-99) mg/dL 11/02/19 11/02/19 11/02/19 Range/Units 07:20 07:44 07:44 RBC 3.68 L (4.30-5.90) m/uL Hgb 12.2 L (13.0-17.5) gm/dL Hct 36.4 L (39.0-53.0) % Plt Count 109 L (150-450) k/uL Lymphocytes # 0.8 L (1.0-4.8) k/uL Chloride 109 H (98-107) mmol/L Carbon Dioxide 19 L (22-30) mmol/L BUN 29 H (9-20) mg/dL Creatinine 1.93 H (0.66-1.25) mg/dL Glucose 137 H (74-99) mg/dL POC Glucose (mg/dL) 139 H (75-99) mg/dL 11/02/19 11/02/19 Range/Units 08:50 12:21 RBC (4.30-5.90) m/uL Hgb (13.0-17.5) gm/dL Hct (39.0-53.0) % Plt Count (150-450) k/uL Lymphocytes # (1.0-4.8) k/uL Chloride (98-107) mmol/L Carbon Dioxide (22-30) mmol/L BUN (9-20) mg/dL Creatinine (0.66-1.25) mg/dL Glucose (74-99) mg/dL POC Glucose (mg/dL) 153 H 139 H (75-99) mg/dL Microbiology - Last 24 Hours (Table) 10/31/19 11:04 Blood Culture - Preliminary Blood No Growth after 24 hours Assessment and Plan Assessment: #1. Acute influenza A infection #2. Mild tracheobronchitis without evidence of focal pulmonary infiltrates #3. Acute kidney injury related to ATN #4. Anion gap metabolic acidosis, serum acetone was negative, lactic acid was within normal limits #5. Recent history of colostomy reversal 2 weeks ago #6. History of colon cancer with resection and colostomy creation with liver metastasis status post chemo radiation finished in August 2019 #7. Chronic kidney disease, age 6 #8. Diabetes mellitus type 2 #9. Hypertension #10. Hyperlipidemia #11. Former smoker, carries 18 years of smoking of one half packs per day, in remission for 4 years #12. Previous history of myocardial infarction Plan: The patient was seen and evaluated by Dr. Suh. He is stable from the pulmonary standpoint. He is cleared for discharge once cleared medically. Complete his course of Tamiflu. I, the cosigning physician, performed a history & physical examination of the patient. Lungs sounds with faint end expiratory wheeze. Maintaining good O2 saturations in the 90s on room air. I discussed the assessment and plan of care with my nurse practitioner, Mariposa Luther. I attest to the above note as dictated by her.
[2019-11-02 16:45] LABS: Glucose,Whole Blood 165 mg/dL (75-99)
[2019-11-02 20:06] LABS: Glucose,Whole Blood 235 mg/dL (75-99)
--- NOTE | 2019-11-02 20:35 | PN ---
PROGRESS NOTE DATE OF SERVICE: 11/02/2018 This 84-year-old gentleman admitted with acute influenza and possible COPD and possible pneumonia with sepsis being closely monitored. Patient also had change in mental status. The patient had severe hypoglycemia today. Insulin has been held at this time. Creatinine is still elevated 1.93, slightly improved from 2.79 on admission. PAST MEDICAL HISTORY: Reviewed. REVIEW OF SYSTEMS: CARDIOVASCULAR SYSTEM: No angina or palpitations. RESPIRATION as mentioned earlier. GI: As mentioned earlier. : No dysuria. CENTRAL NERVOUS SYSTEM: No focal deficits. CURRENT MEDICATIONS: Reviewed and include: 1. Tylenol p.r.n. 2. DuoNeb q.i.d. and p.r.n. 3. Xanax 0.25 t.i.d. 4. Artificial tears. 5. Aspirin 81 mg daily. 6. Lipitor 10 mg q.h.s. 7. Pulmicort 1 mg b.i.d. 8. Rocephin 1 g IV daily. 9. Proscar 5 mg p.o. daily. 10.Perforomist. 11.Zofran. 12.Tamiflu 30 mg p.o. daily. 13.Kenalog. PHYSICAL EXAM: Patient is alert, oriented x3. Pulse 74. Blood pressure 130/72, respirations 17, temperature 98.8, pulse ox 98% on room air. HEENT: Conjunctivae normal. NECK: No JVD. CARDIOVASCULAR: S1, S2 muffled. RESPIRATIONS: Breath sounds diminished in the bases. Bilateral scattered rhonchi and crackles. Expiratory wheezing also present. ABDOMEN: Soft, nontender. LEGS are no edema. No swelling. Nervous system: No focal deficits. LABORATORY DATA: WBC 6.5, hemoglobin 12.2. Sodium 138, potassium 3.7, creatinine is 1.93. ASSESSMENT: 1. Acute influenza A. 2. Chronic obstructive pulmonary disease acute exacerbation with acute purulent tracheobronchitis and bronchopneumonia with possible sepsis, present on admission. 3. Change in mental status, acute metabolic encephalopathy multifactorial. 4. Hypoglycemia with diabetes type 2 uncontrolled. 5. Acute renal failure possibly prerenal acute tubular necrosis. 6. Baseline chronic kidney disease stage III. 7. History of recent colostomy reversal. 8. History of gastroesophageal reflux disease. 9. Hypertension. 10.Hyperlipidemia. 11.History of colon cancer with METS and radiation. 12.History of bilateral retinal disease. 13.Chronic low back pain and degenerative joint disease. 14.History of anemia. 15.History of bowel resection. 16.Remote history of nicotine dependence. 17.FULL CODE. RECOMMENDATIONS AND DISCUSSION: I recommend to continue current medications, continue with monitoring, symptomatic treatment. Otherwise, at this time, I would recommend to continue the bronchodilators, continue the antibiotics. At this time, I would hold the regular dose of insulin. Continue with insulin scale and once the patient's p.o. intake improves and blood sugar improves, probably initially the half dose of insulin may be started with continued monitoring. Monitor creatinine closely. Continue the rest of medications. See orders for details. Prognosis guarded. Discussed with staff. Further recommendations to follow. MMHARPERL / CRISTAN: [id number] / MTDD
[2019-11-02] MEDS: ATORVASTATIN 10 MG TAB PO SCH (20:37)
[2019-11-03 06:59] LABS: Glucose,Whole Blood 172 mg/dL (75-99)
[2019-11-03] MEDS: INSULIN ASPART (NovoLOG) 100 UNIT/ML VIAL SQ SCH ×4 (07:17→20:47)
[2019-11-03] MEDS: PANTOPRAZOLE 40 MG TABLET PO SCH (07:17)
[2019-11-03] MEDS: ASPIRIN 81 MG PO SCH (07:18)
[2019-11-03] MEDS: HEPARIN SODIUM,PORCINE 5,000 UNIT/ML 1 ML VIAL SQ SCH ×2 (07:19→20:47)
[2019-11-03] MEDS: FINASTERIDE 5 MG TAB PO SCH (07:19)
[2019-11-03] MEDS: OSELTAMIVIR 60 MG/10 ML ORAL SYRINGE PO SCH (07:19)
[2019-11-03] MEDS: CHOLECALCIFEROL 1,000 UNIT TAB PO SCH (07:19)
[2019-11-03] MEDS: TRIAMCINOLONE 0.1% CREAM 80 GM TUBE TOPICAL SCH ×3 (07:20→21:19)
[2019-11-03 08:10] LABS: Calcium 8.6 mg/dL (8.4-10.2); Potassium 4.1 mmol/L (3.5-5.1)
[2019-11-03 08:11] LABS: Basophils # (A) 0.1 k/uL (0-0.2); Basophils % (A) 1 %; Eosinophils # (A) 0.1 k/uL (0-0.7); Eosinophils % (A) 2 %; HCT 32.6 % (39.0-53.0); HGB 11.2 gm/dL (13.0-17.5); Lymphocytes # (A) 1.2 k/uL (1.0-4.8); Lymphocytes % (A) 20 %; MCH 33.3 pg (25.0-35.0); MCHC 34.3 g/dL (31.0-37.0); MCV 97.1 fL (80.0-100.0); Mean Platelet Volume 9.9; Monocytes # (A) 0.3 k/uL (0-1.0); Monocytes % (A) 5 %; Neutrophils # (A) 4.2 k/uL (1.3-7.7); Neutrophils % (A) 71 %; Platelet Count 126 k/uL (150-450); RBC 3.36 m/uL (4.30-5.90); RDW 12.3 % (11.5-15.5); WBC 5.9 k/uL (3.8-10.6)
[2019-11-03] MEDS: FORMOTEROL FUMARATE 20 MCG/2 ML NEBU INHALATION SCH ×2 (09:16→21:15)
[2019-11-03] MEDS: IPRATROPIUM-ALBUTEROL 3 ML NEB INHALATION SCH ×4 (09:16→21:14)
[2019-11-03] MEDS: BUDESONIDE 1 MG/2 ML NEBU INHALATION SCH ×2 (09:16→21:14)
[2019-11-03] MEDS: SODIUM CHLORIDE 0.9% 1,000 ML IV SCH ×2 (10:22→21:57)
[2019-11-03 11:42] LABS: Glucose,Whole Blood 199 mg/dL (75-99)
[2019-11-03 15:39] LABS: Glucose,Whole Blood 187 mg/dL (75-99)
[2019-11-03 16:32] LABS: Glucose,Whole Blood 202 mg/dL (75-99)
--- NOTE | 2019-11-03 19:34 | PN ---
PROGRESS NOTE DATE OF SERVICE: 11/03/2019 This 84-year-old gentleman who was admitted with acute influenza, also had COPD acute exacerbation, possible pneumonia. The patient also had fluctuating blood sugars also at this time. Insulin has been discontinued. Sugars have been hovering around 200 at this time. Patient has significant hypoglycemia. Creatinine is elevated to 1.78. EXAM: Alert and oriented x2. Pulse 85, blood pressure 120/81, respiration is 16, temperature 98.4, pulse ox 98% on room air. EYES: Conjunctivae normal. NECK: No JVD. CARDIOVASCULAR: S1, S2 muffled. LUNGS: Diminished breath sounds at the bases. Bilateral scattered rhonchi and crackles. ABDOMEN: Soft, nontender. LEGS: No swelling. NERVOUS SYSTEM: No focal deficits. LABS: WBC 5.2, hemoglobin 11.2, platelets 126. Creatinine is 1.78. Accu-Cheks are noted. ASSESSMENT: 1. Acute influenza A. 2. Chronic obstructive pulmonary disease acute exacerbation with acute purulent tracheobronchitis and bronchopneumonia possibly with gram-negative sepsis, present on admission. 3. Change in mental status, acute metabolic encephalopathy multifactorial. 4. Hypoglycemia with diabetes type 2, uncontrolled. 5. Acute renal failure, possibly prerenal acute tubular necrosis. 6. Baseline chronic kidney stage III. 7. History of recent colostomy reversal. 8. History of gastroesophageal reflux disease. 9. Hypertension. 10.Hyperlipidemia. 11.History of colon cancer with metastasis and radiation. 12.History of low back pain and degenerative joint disease. 13.History of anemia. 14.History of bowel resection. 15.Remote history of nicotine dependence. 16.History of bilateral retinal disease. RECOMMENDATIONS AND DISCUSSION: Recommend to continue current medications, continue symptomatic treatment. Otherwise, closely follow with Pulmonary. Continue the antibiotics. Monitor creatinine closely. Guarded prognosis because of multiple complex medical issues. Continue with Tamiflu. Further recommendations to follow. MMODL / IJN: [id number] /
[2019-11-03 20:23] LABS: Glucose,Whole Blood 187 mg/dL (75-99)
[2019-11-03] MEDS: ATORVASTATIN 10 MG TAB PO SCH (20:47)
[2019-11-04 07:04] LABS: Glucose,Whole Blood 161 mg/dL (75-99)
[2019-11-04] MEDS: CHOLECALCIFEROL 1,000 UNIT TAB PO SCH (08:00)
[2019-11-04] MEDS: PANTOPRAZOLE 40 MG TABLET PO SCH (08:00)
[2019-11-04] MEDS: FINASTERIDE 5 MG TAB PO SCH (08:00)
[2019-11-04] MEDS: ASPIRIN 81 MG PO SCH (08:00)
[2019-11-04] MEDS: OSELTAMIVIR 60 MG/10 ML ORAL SYRINGE PO SCH (08:01)
[2019-11-04] MEDS: TRIAMCINOLONE 0.1% CREAM 80 GM TUBE TOPICAL SCH ×3 (08:01→21:13)
[2019-11-04] MEDS: INSULIN ASPART (NovoLOG) 100 UNIT/ML VIAL SQ SCH ×4 (08:02→21:13)
[2019-11-04] MEDS: HEPARIN SODIUM,PORCINE 5,000 UNIT/ML 1 ML VIAL SQ SCH (08:02)
[2019-11-04] MEDS: IPRATROPIUM-ALBUTEROL 3 ML NEB INHALATION SCH ×4 (08:14→18:58)
[2019-11-04] MEDS: BUDESONIDE 1 MG/2 ML NEBU INHALATION SCH ×2 (08:14→18:58)
[2019-11-04] MEDS: FORMOTEROL FUMARATE 20 MCG/2 ML NEBU INHALATION SCH ×2 (08:14→18:58)
[2019-11-04] MEDS: METOPROLOL TARTRATE 25 MG TAB PO SCH ×2 (10:52→21:13)
[2019-11-04 11:13] LABS: Calcium 8.6 mg/dL (8.4-10.2); Magnesium 1.5 mg/dL (1.6-2.3); Potassium 4.1 mmol/L (3.5-5.1)
[2019-11-04 11:54] LABS: Glucose,Whole Blood 216 mg/dL (75-99)
[2019-11-04] MEDS: SODIUM CHLORIDE 0.9% 1,000 ML IV SCH (11:54)
--- NOTE | 2019-11-04 13:59 | P.CRDCN ---
History of Present Illness History of present illness: HISTORY OF PRESENTING ILLNESS This is a pleasant 84-year-old male past medical history significant for colon cancer s/p resection, chemo and radiation and recent colostomy reversal, diabetes mellitus, hypertension, dyslipidemia and chronic kidney disease. 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 We have been asked to see in consultation for atrial fibrillation. He is currently being treated for influenza A. His heart rates were found to be irregular and an EKG was obtained revealing atrial fibrillation with variable heart rates. He is refusing telemetry. He denies chest pain, shortness of breath, dizziness or palpitations. He states he feels fine and would like to go home. He is quite aggressive and upset regarding this new finding and does not want any further cardiac work-up or testing. DIAGNOSTICS EKG reveals atrial fibrillation with right bundle branch block. Chest xray negative for acute cardiopulmonary process. Laboratory reviewed, WBC 5.9, hemoglobin 11.2, platelets 126, sodium 138, potassium 4.1, creatinine 1.69, magnesium 1.5, troponin negative 1 and TSH 1.03. Current cardiac medications include aspirin 81 mg daily and simvastatin 10 mg daily. Most recent echocardiogram obtained 10/15/2019 reveals preserved LV systolic function with ejection fraction 60-65% with mild to moderate aortic valve sclerosis. REVIEW OF SYSTEMS At the time of my exam: CONSTITUTIONAL: Denies fever or chills. CARDIOVASCULAR: Denies chest pain, shortness of breath, orthopnea, PND or palpitations. RESPIRATORY: Denies cough. GASTROINTESTINAL: Denies abdominal pain, diarrhea, constipation, nausea or vomiting. MUSCULOSKELETAL: Denies myalgias. NEUROLOGIC: Denies numbness, tingling or weakness. ENDOCRINE: Denies fatigue, weight change, polydipsia or polyurina. GENITOURINARY: Denies burning, hematuria or urgency with micturation. HEMATOLOGIC: Denies history of anemia or bleeding. PHYSICAL EXAMINATION Blood pressure 130/78 heart rate 104 afebrile and maintaining oxygen saturation on room air. CONSTITUTIONAL: No apparent distress. HEENT: Head is normocephalic. Pupils are equal, round. Sclerae anicteric. Mucous membranes of the mouth are moist. No JVD. No carotid bruit. CHEST EXAMINATION: Trace scattered rhonchi. No wheezes or rales. No chest wall tenderness is noted on palpation or with deep breathing. HEART EXAMINATION: Irregular rate and rhythm. S1, S2 heard. No murmurs, gallops or rub. ABDOMEN: Soft, nontender. Positive bowel sounds. EXTREMITIES: 2+ peripheral pulses, no lower extremity edema and no calf tenderness. NEUROLOGIC EXAMINATION: Patient is awake, alert and oriented x3. ASSESSMENT Paroxysmal atrial fibrillation, new onset. Patient refusing beta blockers or anticoagulation. Hypomagnesemia Influenza A Hypertension Dyslipidemia Diabetes mellitus Chronic kidney disease History of colon cancer status post chemo, radiation and resection with recent colostomy reversal PLAN Discussed with the patient the need for beta blockers and intermediate anti- coagulation. He is quite adament he is not interested however once speaking with Dr. Vang he seems to have calmed down and is agreeable. We will initiate lopressor 25 mg BID and eliquis 2.5 mg BID secondary to age and renal function. No need to repeat an echo as he just had one 10/15/2019. Stable for discharge on current regimen. Follow in the office with Dr. Vang in 1-2 weeks. Thank you kindly for this consultation. Nurse Practitioner note has been reviewed, I agree with a documented findings and plan of care. Patient was seen and examined. 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 Last Myocardial Infarction Date:: unknown History of Any Multi-Drug Resistant Organisms: None Reported Past Surgical History: Bowel Resection, Orthopedic Surgery, Tonsillectomy Additional Past Surgical History / Comment(s): 02/09/19 colonoscopy, 01/2019 bowel resection with colostomy, 10/11/19 exploratory lap with extensive lysis of adhesions/partial colectomy and colostomy reversal, colonoscopies/benign polypectomies. Past Anesthesia/Blood Transfusion Reactions: No Reported Reaction Smoking Status: Former smoker - Past Family History Father Additional Family Medical History / Comment(s): at 95 of old age Mother Family Medical History: Myocardial Infarction (ME) Additional Family Medical History / Comment(s): at 93 of old age, had a myocardial infarction in her upper 80s. Medications and Allergies Home Medications Medication Instructions Recorded Confirmed Type Finasteride [Proscar] 5 mg PO DAILY 02/09/19 10/31/19 History Omeprazole 20 mg PO DAILY 02/09/19 10/31/19 History Simvastatin [Zocor] 10 mg PO HS 08/06/19 10/31/19 History Alogliptin Benzoate [Alogliptin] 6.25 mg PO DAILY 10/31/19 10/31/19 History Aspirin 81 mg PO DAILY 10/31/19 10/31/19 History Capecitabine [Xeloda] 1,000 mg PO DIRECTED 10/31/19 10/31/19 History Cholecalciferol [Vitamin D3 (25 2,000 unit PO DAILY 10/31/19 10/31/19 History Mcg = 1000 Iu)] Insulin Glargine [Lantus] 50 units SQ HS 10/31/19 10/31/19 History Polyvinyl Alcohol/Povidone 1 drop BOTH EYES Q4H PRN 10/31/19 10/31/19 History [Freshkote] Triamcinolone 0.1% Cream [Kenalog 1 applicatio TOPICAL TID 10/31/19 10/31/19 History 0.1% Cream] Vitamin B Complex 1 cap PO DAILY 10/31/19 10/31/19 History Allergies Allergy/AdvReac Type Severity Reaction Status Date / Time hydrocodone AdvReac dream Verified 10/31/19 11:18 disorder/night sweats Physical Exam Vitals: Vital Signs Temp Pulse Pulse Pulse Resp BP Pulse Ox 11/04/19 11:57 104 H 11/04/19 11:48 104 H 11/04/19 08:34 108 H 11/04/19 08:25 108 H 11/04/19 08:24 108 H 11/04/19 08:15 136 H 17 11/04/19 08:14 110 H 11/04/19 07:00 97.7 F 131 H 17 130/78 97 11/04/19 01:41 98.0 F 112 H 16 130/82 97 11/03/19 21:33 84 11/03/19 21:25 84 11/03/19 21:14 84 11/03/19 19:12 97.6 F 115 H 12 123/82 98 11/03/19 17:00 84 11/03/19 16:50 84 11/03/19 15:42 16 11/03/19 13:57 98.4 F 85 16 129/81 98 Intake and Output 11/03/19 11/04/19 11/04/19 22:59 06:59 14:59 Intake Total 600 Output Total 200 Balance 400 Intake: Intake, IV Titration 600 Amount Sodium Chloride 0.9% 1, 600 000 ml @ 75 mls/hr IV . [id number] [facility] Rx#:[id number] Output: Urine 200 Other: Voiding Method Toilet Toilet Urinal Urinal # Voids 1 1 Results 11/03/19 07:13 11/04/19 10:15 Cardiac Enzymes 11/04/19 Range/Units 10:15 Troponin I <0.012 (0.000-0.034) ng/mL Comprehensive Metabolic Panel 11/04/19 Range/Units 10:15 Sodium 138 (137-145) mmol/L Potassium 4.1 (3.5-5.1) mmol/L Chloride 107 (98-107) mmol/L Carbon Dioxide 22 (22-30) mmol/L BUN 21 H (9-20) mg/dL Creatinine 1.69 H (0.66-1.25) mg/dL Glucose 212 H (74-99) mg/dL Calcium 8.6 (8.4-10.2) mg/dL Current Medications Generic Name Dose Route Start Last Admin Trade Name Freq PRN Reason Stop Dose Admin Acetaminophen 650 mg 10/31/19 12:54 Tylenol Tab PO Q6HR PRN Mild Pain or Fever > 100.5 Albuterol/Ipratropium 3 ml 10/31/19 20:00 11/04/19 11:48 Duoneb 0.5 Mg-3 Mg/3 Ml Soln INHALATION 3 ml RT-QID RAZ Administration Albuterol/Ipratropium 3 ml 10/31/19 17:12 Duoneb 0.5 Mg-3 Mg/3 Ml Soln INHALATION RT-QID PRN Shortness Of Breath Or Wheezing Alprazolam 0.25 mg 10/31/19 17:13 Xanax PO TID PRN Anxiety Artificial Tears 1 drops 10/31/19 17:10 Artificial Tear Drops BOTH EYES Q4H PRN Dry Eye(s) Aspirin 81 mg 11/01/19 09:00 11/04/19 08:00 Aspirin PO 81 mg DAILY RAZ Administration Atorvastatin Calcium 10 mg 10/31/19 21:00 11/03/19 20:47 Lipitor PO 10 mg HS RAZ Administration Budesonide 1 mg 10/31/19 20:00 11/04/19 08:14 Pulmicort INHALATION 1 mg RT-BID RAZ Administration Cholecalciferol 2,000 unit 11/01/19 09:00 11/04/19 08:00 Vitamin D3 (25 Mcg = 1000 Iu) PO 2,000 unit DAILY RAZ Administration Finasteride 5 mg 11/01/19 09:00 11/04/19 08:00 Proscar PO 5 mg DAILY RAZ Administration Formoterol Fumarate 20 mcg 10/31/19 20:00 11/04/19 08:14 Perforomist INHALATION 20 mcg RT-BID RAZ Administration Guaifenesin/Dextromethorphan 10 ml 10/31/19 17:14 Robitussin Dm PO Q8H PRN Cough Heparin Sodium (Porcine) 5,000 unit 10/31/19 21:00 11/04/19 08:02 Heparin SQ 5,000 unit Q12HR RAZ Administration Sodium Chloride 1,000 mls @ 75 mls/hr 10/31/19 13:00 11/04/19 11:54 Saline 0.9% IV 75 mls/hr .[id number] RAZ Administration Ceftriaxone Sodium 1 gm/ 50 mls @ 100 mls/hr 10/31/19 17:45 11/04/19 08:02 Sodium Chloride IVPB 100 mls/hr Q24HR RAZ Administration Insulin Aspart 0 unit 10/31/19 17:30 11/04/19 11:53 Novolog SQ 3 unit ACHS RAZ Administration Protocol Metoprolol Tartrate 25 mg 11/04/19 10:45 11/04/19 10:52 Lopressor PO Not Given BID RAZ Ondansetron HCl 4 mg 10/31/19 12:54 Zofran IVP Q8HR PRN Nausea And Vomiting Pantoprazole Sodium 40 mg 11/01/19 07:30 11/04/19 08:00 Protonix PO 40 mg [id number] RAZ Administration Triamcinolone Acetonide 1 applic 10/31/19 22:00 11/04/19 08:01 Kenalog TOPICAL 1 applic TID RAZ Administration Intake and Output 11/03/19 11/04/19 11/04/19 22:59 06:59 14:59 Intake Total 600 Output Total 200 Balance 400 Intake: Intake, IV Titration 600 Amount Sodium Chloride 0.9% 1, 600 000 ml @ 75 mls/hr IV . [id number] [facility] Rx#:[id number] Output: Urine 200 Other: Voiding Method Toilet Toilet Urinal Urinal # Voids 1 1 11/03/19 07:13 11/04/19 10:15
[2019-11-04] MEDS: APIXABAN 2.5 MG TABLET PO SCH ×2 (14:41→21:12)
[2019-11-04 17:11] LABS: Glucose,Whole Blood 301 mg/dL (75-99)
[2019-11-04 21:07] LABS: Glucose,Whole Blood 183 mg/dL (75-99)
[2019-11-04] MEDS: ATORVASTATIN 10 MG TAB PO SCH (21:12)
--- NOTE | 2019-11-04 21:28 | PN ---
PROGRESS NOTE DATE OF SERVICE: 11/04/2019 This 84-year-old gentleman admitted with acute influenza and also had COPD. The patient also had atrial fibrillation with fast ventricular rate. The patient is refusing some of the evaluation. Cardiology evaluation in progress at this time. PAST MEDICAL HISTORY: Reviewed. REVIEW OF SYSTEMS: Cardiovascular system: As mentioned earlier. RESPIRATORY: As mentioned earlier. GI no nausea or vomiting. no dysuria or hematuria. Nervous system: No numbness or weakness. CURRENT MEDICATIONS: Reviewed and include: 1. Tylenol p.r.n. 2. DuoNeb q.i.d. and p.r.n. 3. Xanax 0.5 t.i.d. 4. Eliquis 2.5 mg b.i.d. 5. Aspirin 81 mg. 6. Lipitor 10 mg q.h.s. 7. Pulmicort 1 mg b.i.d. 8. Rocephin 1 g daily. 9. Vitamin D3. 10.Proscar. 11.Perforomist 20 mcg daily. 12.Insulin. 13.Lopressor. 14.Zofran. 15.Protonix. 16.Kenalog. PHYSICAL EXAMINATION: Patient is alert, oriented x3. The pulse is 108, regular. Blood pressure 130/70, respirations 17, temperature 97.7, pulse ox 97% on room air. HEENT is conjunctivae normal. Oral mucosa moist. NECK is no jugular venous distention. No carotid bruit. No lymph node enlargement. CARDIOVASCULAR: S1, S2 muffled. Irregular. RESPIRATION: Breath sounds diminished in the bases. Bilateral scattered rhonchi and crackles. ABDOMEN: Soft, nontender. No mass palpable. LEGS: No edema. No swelling. NERVOUS SYSTEM: Higher function as mentioned earlier. Moves all no four limbs. Lymphatics: No lymph nodes palpable in the neck, axillae or groin. SKIN: No ulcer, no rash and no bleeding. JOINTS: No active deforming arthropathy. LAB STUDIES: Sodium 130, potassium 4.2, creatinine is 1.69. Hemoglobin 11.2. Magnesium is 1.5. ASSESSMENT: 1. Acute influenza A. 2. Chronic obstructive pulmonary disease acute exacerbation with acute purulent tracheobronchitis or bronchopneumonia possibly gram-negative sepsis, present on admission. 3. Atrial fibrillation with a fast ventricular rate, paroxysmal. 4. Change in mental status, acute metabolic encephalopathy, multifactorial. 5. Hypoglycemia with diabetes type 2 uncontrolled. 6. Acute renal failure possibly prerenal acute tubular necrosis. 7. Baseline chronic kidney disease stage III. 8. History of noncompliance. 9. History of recent colostomy reversal. 10.History of gastroesophageal reflux disease. 11.Hypertension. 12.Hysterectomy. 13.History of colon cancer with METS and radiation. 14.History of low back pain. 15.History of degenerative joint disease. 16.History of anemia. 17.History of bowel resection. 18.Remote history of nicotine dependence. 19.History of bilateral retinal disease. RECOMMENDATIONS AND DISCUSSION: Recommend to continue current medications, continue with monitoring, symptomatic treatment, otherwise, at this time, I recommend continue the current medications. Monitor blood sugars closely. Repeat labs. Cardiology consultation. The patient is refusing beta blockers, anticoagulation. Once again the prognosis guarded. Continue to monitor. Guarded prognosis. Further recommendations to follow. MMODL / IJN: [id number] /
[2019-11-05] MEDS: SODIUM CHLORIDE 0.9% 1,000 ML IV SCH (03:35)
[2019-11-05 07:14] LABS: Glucose,Whole Blood 160 mg/dL (75-99)
[2019-11-05 07:53] VITALS: BP 120/74; RESP 18; TEMP 98.4
[2019-11-05] MEDS: INSULIN ASPART (NovoLOG) 100 UNIT/ML VIAL SQ SCH ×2 (07:53→12:11)
[2019-11-05] MEDS: PANTOPRAZOLE 40 MG TABLET PO SCH (07:53)
[2019-11-05] MEDS: METOPROLOL TARTRATE 25 MG TAB PO SCH (07:54)
[2019-11-05] MEDS: ASPIRIN 81 MG PO SCH (07:54)
[2019-11-05] MEDS: FINASTERIDE 5 MG TAB PO SCH (07:54)
[2019-11-05] MEDS: APIXABAN 2.5 MG TABLET PO SCH (07:54)
[2019-11-05] MEDS: CHOLECALCIFEROL 1,000 UNIT TAB PO SCH (07:54)
[2019-11-05] MEDS: TRIAMCINOLONE 0.1% CREAM 80 GM TUBE TOPICAL SCH (07:55)
[2019-11-05] MEDS: IPRATROPIUM-ALBUTEROL 3 ML NEB INHALATION SCH ×2 (08:44→12:37)
[2019-11-05] MEDS: BUDESONIDE 1 MG/2 ML NEBU INHALATION SCH (08:44)
[2019-11-05] MEDS: FORMOTEROL FUMARATE 20 MCG/2 ML NEBU INHALATION SCH (08:45)
[2019-11-05 11:37] LABS: Glucose,Whole Blood 218 mg/dL (75-99)
--- NOTE | 2019-11-05 12:48 | P.PN ---
Subjective HISTORY OF PRESENTING ILLNESS This is a pleasant 84-year-old male past medical history significant for colon cancer s/p resection, chemo and radiation and recent colostomy reversal, diabetes mellitus, hypertension, dyslipidemia and chronic kidney disease. 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 He is seen and examined laying flat resting comfortably in bed. He did agree to take lopressor and eliquis. Case management has provided him with a free 1-month supply of Eliquis and the [facility] will provide from there. He denies chest pain, shortness of breath, dizziness or palpitations. On exam is heart rate is still irregular, however he has refused telemetry. Blood pressure 120/74 heart rate 73 afebrile maintaining oxygen saturation on room air. PHYSICAL EXAMINATION CONSTITUTIONAL: No apparent distress. HEENT: Head is normocephalic. Pupils are equal, round. Sclerae anicteric. Mucous membranes of the mouth are moist. No JVD. No carotid bruit. CHEST EXAMINATION: Trace scattered rhonchi. No wheezes or rales. No chest wall tenderness is noted on palpation or with deep breathing. HEART EXAMINATION: Irregular rate and rhythm. S1, S2 heard. No murmurs, gallops or rub. EXTREMITIES: 2+ peripheral pulses, no lower extremity edema and no calf tend erness. ASSESSMENT Paroxysmal atrial fibrillation, new onset. Patient refusing beta blockers or an ticoagulation. Hypomagnesemia Influenza A Hypertension Dyslipidemia Diabetes mellitus Chronic kidney disease History of colon cancer status post chemo, radiation and resection with recent colostomy reversal PLAN Continue current medical regimen. Follow-up in the office with Dr. Vang in one to 2 weeks. Stable for discharge when medically clear. Nurse Practitioner note has been reviewed, I agree with a documented findings and plan of care. Patient was seen and examined. Objective - Vital Signs Vital signs: Vital Signs Temp 98.4 F 11/05/19 07:52 Pulse 90 11/05/19 09:11 Resp 18 11/05/19 07:52 BP 120/74 11/05/19 07:52 Pulse Ox 98 11/05/19 07:52 Intake & Output 11/04/19 11/05/19 11/05/19 18:59 06:59 18:59 Other: Voiding Method Toilet Toilet Urinal Urinal # Voids 1 2 - Labs CBC & Chem 7: 11/03/19 07:13 11/04/19 10:15 Labs: Abnormal Lab Results - Last 24 Hours (Table) 11/04/19 11/04/19 11/04/19 Range/Units 10:15 11:51 17:09 BUN 21 H (9-20) mg/dL Creatinine 1.69 H (0.66-1.25) mg/dL Glucose 212 H (74-99) mg/dL POC Glucose (mg/dL) 216 H 301 H (75-99) mg/dL Magnesium 1.5 L (1.6-2.3) mg/dL 11/04/19 11/05/19 Range/Units 21:06 07:13 BUN (9-20) mg/dL Creatinine (0.66-1.25) mg/dL Glucose (74-99) mg/dL POC Glucose (mg/dL) 183 H 160 H (75-99) mg/dL Magnesium (1.6-2.3) mg/dL Microbiology - Last 24 Hours (Table) 10/31/19 11:04 Blood Culture - Preliminary Blood No Growth after 96 hours
[2019-11-05 12:51] VITALS: PULSE 88
--- NOTE | 2019-11-05 14:19 | P.DS ---
Providers Date of admission: 10/31/19 12:44 Expected date of discharge: 11/05/19 Attending physician: Destin Castle Consults: 10/31/19 16:14 Consult Physician Routine Consulting Provider: Juan David Mejia Consult Reason/Comments: Patient known to physician, follow up appt was to be today in office Do you want consulting provider notified?: Yes 10/31/19 17:12 Consult Physician Routine Consulting Provider: Andrés Suh Consult Reason/Comments: copd Do you want consulting provider notified?: Yes 11/04/19 08:21 Consult Physician Routine Consulting Provider: Gwyn Ash Consult Reason/Comments: a fib RVR Do you want consulting provider notified?: Yes Primary care physician: [facility] Hospital Course: Final diagnosis Acute influenza A Chronic obstructive pulmonary disease acute exacerbation with acute purulent tracheobronchitis or bronchopneumonia possibly gram-negative sepsis, present on admission Atrial fibrillation with a fast ventricular rate, paroxysmal Change in mental status, acute metabolic encephalopathy, multifactorial Hypoglycemia with diabetes mellitus type 2, uncontrolled Acute renal failure possibly prerenal acute tubular necrosis Baseline chronic kidney disease stage III History of noncompliance history of recent colostomy reversal History of gastroesophageal reflux disease Hypertension Hysterectomy History of colon cancer with metastases and radiation History of low back pain History of degenerative joint disease history of anemia History of bowel resection Remote history of nicotine dependence History of bilateral retinal disease Discharge disposition Patient is being discharged in a stable condition with guarded prognosis to home and will follow-up with [facility] in the outpatient setting upon discharge. Patient will also be following up with cardiology in the outpatient setting in 1-2 weeks. Patient will continue on a short course of oral antibiotics in the form of Ceftin upon discharge. Total time taken is 35 minutes. History of present illness This is an 84-year-old male who was recently admitted with acute influenza also had chronic obstructive pulmonary disease and was being closely monitored. Patient also was found to have atrial fibrillation with a fast ventricular rate and is being discharged on Eliquis along with metoprolol and will be following up with cardiology in the outpatient setting. Patient was treated with Tamiflu and Rocephin during hospitalization and has completed the course of Tamiflu and will continue on oral Ceftin 500 mg twice daily for the next 5 days. Patient will need to follow-up with the [facility] upon discharge. Currently patient's condition is stable and would like to be discharged today. No reports of chest pain, shortness of breath, or palpitations. Patient is afebrile. No reports of nausea or vomiting and patient is tolerating diet. On exam vital signs are stable. Temp is 98.4F, pulse is 73, respirations are 1 8, blood pressure is 120/74, oxygen saturation is 98% on room air. Cardio S1, S2 are muffled and irregularly irregular rate and rhythm. Respiratory system shows diminished breath sounds at the bases with a few scattered rhonchi noted. Abdomen is soft and nontender. Nervous system shows no focal deficits. Please refer to medication reconciliation sheet for a list of medications. Patient Condition at Discharge: Stable Plan - Discharge Summary Discharge Rx Participant: No New Discharge Prescriptions: New Apixaban [Eliquis] 2.5 mg PO BID #180 tab Cefuroxime Axetil [Ceftin] 500 mg PO BID 3 Days #6 tab Albuterol Inhaler [Ventolin Hfa Inhaler] 1 - 2 puff INHALATION RT-Q6H PRN 30 Days #1 inhaler PRN Reason: Shortness Of Breath Fluticasone/Salmeterol [Airduo Respiclick 232-14 Mcg] 1 puff INHALATION BID 30 Days #1 device Metoprolol Tartrate 25 mg PO BID 30 Days #60 tab Continue Finasteride [Proscar] 5 mg PO DAILY Omeprazole 20 mg PO DAILY Simvastatin [Zocor] 10 mg PO HS Cholecalciferol [Vitamin D3 (25 Mcg = 1000 Iu)] 2,000 unit PO DAILY Triamcinolone 0.1% Cream [Kenalog 0.1% Cream] 1 applicatio TOPICAL TID Polyvinyl Alcohol/Povidone [Freshkote Eye Drop] 1 drop BOTH EYES Q4H PRN PRN Reason: Dry Eye(S) Insulin Glargine [Lantus] 50 units SQ HS Alogliptin Benzoate [Alogliptin] 6.25 mg PO DAILY Capecitabine [Xeloda] 1,000 mg PO DIRECTED Aspirin 81 mg PO DAILY Vitamin B Complex 1 cap PO DAILY Discharge Medication List Finasteride [Proscar] 5 mg PO DAILY 02/09/19 [History] Omeprazole 20 mg PO DAILY 02/09/19 [History] Simvastatin [Zocor] 10 mg PO HS 08/06/19 [History] Alogliptin Benzoate [Alogliptin] 6.25 mg PO DAILY 10/31/19 [History] Aspirin 81 mg PO DAILY 10/31/19 [History] Capecitabine [Xeloda] 1,000 mg PO DIRECTED 10/31/19 [History] Cholecalciferol [Vitamin D3 (25 Mcg = 1000 Iu)] 2,000 unit PO DAILY 10/31/19 [History] Insulin Glargine [Lantus] 50 units SQ HS 10/31/19 [History] Polyvinyl Alcohol/Povidone [Freshkote Eye Drop] 1 drop BOTH EYES Q4H PRN 10/31/19 [History] Triamcinolone 0.1% Cream [Kenalog 0.1% Cream] 1 applicatio TOPICAL TID 10/31/19 [History] Vitamin B Complex 1 cap PO DAILY 10/31/19 [History] Apixaban [Eliquis] 2.5 mg PO BID #180 tab 11/04/19 [Rx] Albuterol Inhaler [Ventolin Hfa Inhaler] 1 - 2 puff INHALATION RT-Q6H PRN 30 Days #1 inhaler 11/05/19 [Rx] Cefuroxime Axetil [Ceftin] 500 mg PO BID 3 Days #6 tab 11/05/19 [Rx] Fluticasone/Salmeterol [Airduo Respiclick 232-14 Mcg] 1 puff INHALATION BID 30 Days #1 device 11/05/19 [Rx] Metoprolol Tartrate 25 mg PO BID 30 Days #60 tab 11/05/19 [Rx] Follow up Appointment(s)/Referral(s): Juan David Mejia MD [Medical Doctor] - 11/13/19 2:15 pm Romulo Bourne MD [STAFF PHYSICIAN] - 11/18/19 9:45 am [facility]Clinic [Primary Care Provider] - 1-2 days (office is busy. [facility] call to make appointment) Patient Instructions/Handouts: Influenza (DC) Activity/Diet/Wound Care/Special Instructions: 1. All new prescriptions [facility] to [facility]. [facility]. [facility] once approved. Activity Limited until follow-up Follow-up with primary care provider upon discharge Follow-up with cardiology in the outpatient setting Continue antibiotics until finished Continue current diet Discharge Disposition: HOME SELF-CARE
[2019-11-05 18:03] LABS: Hemoglobin A1C 8.8 % (4.0-6.0)
== END 2019-11-05 16:07 | disposition home or self-care (01) | DRG 871 ==
LOC: EC 10:44 → 4SSUR 12:44
PROVIDERS: ADMIT Hospitalist; ATTEND Hospitalist
DX: A41.50 Gram-negative sepsis, unspecified (principal); G93.41 Metabolic encephalopathy; J10.00 Influenza due to other identified influenza virus with unspecified type of pneumonia; N17.0 Acute kidney failure with tubular necrosis; E87.2 Acidosis; J44.0 Chronic obstructive pulmonary disease with (acute) lower respiratory infection; J44.1 Chronic obstructive pulmonary disease with (acute) exacerbation; E11.649 Type 2 diabetes mellitus with hypoglycemia without coma; E11.22 Type 2 diabetes mellitus with diabetic chronic kidney disease; N18.3 Chronic kidney disease, stage 3 (moderate); E11.65 Type 2 diabetes mellitus with hyperglycemia; E78.5 Hyperlipidemia, unspecified; E83.42 Hypomagnesemia; E86.0 Dehydration; G89.29 Other chronic pain; H35.9 Unspecified retinal disorder; I12.9 Hypertensive chronic kidney disease with stage 1 through stage 4 chronic kidney disease, or unspecified chronic kidney disease; I25.2 Old myocardial infarction; I35.8 Other nonrheumatic aortic valve disorders; I45.10 Unspecified right bundle-branch block; I48.0 Paroxysmal atrial fibrillation; K21.9 Gastro-esophageal reflux disease without esophagitis; R09.02 Hypoxemia; M19.90 Unspecified osteoarthritis, unspecified site; M54.5 Low back pain; J20.9 Acute bronchitis, unspecified; Z79.4 Long term (current) use of insulin; Z79.82 Long term (current) use of aspirin; Z79.899 Other long term (current) drug therapy; Z92.3 Personal history of irradiation; Z92.21 Personal history of antineoplastic chemotherapy; Z87.891 Personal history of nicotine dependence; Z90.49 Acquired absence of other specified parts of digestive tract; Z85.05 Personal history of malignant neoplasm of liver; Z85.038 Personal history of other malignant neoplasm of large intestine; Z88.5 Allergy status to narcotic agent; Z82.49 Family history of ischemic heart disease and other diseases of the circulatory system
CPT/HCPCS: 36415; 71046; 74176; 80048; 80053; 81001; 82009; 83036; 83605; 83735; 83880; 84443; 84484; 85025; 85610; 85730; 87040; 87502; 93005; 94640; 94760; 96360; 96361; 99285

== ENCOUNTER → 2019-12-24 | Outpatient (CLI) | payer OTHER ==
--- NOTE | 2019-12-24 16:03 | CT ---
EXAMINATION TYPE: CT ChestAbdPelvis wo con DATE OF EXAM: 12/24/2019 COMPARISON: None HISTORY: Colon cancer. CT DLP: 836.4mGycm Unenhanced CT of the Chest, Abdomen and Pelvis Unenhanced CT of the chest ,abdomen and pelvis is performed. The lack of intravenous contrast limits evaluation of the solid and hollow viscera. Oral contrast: Yes CT Chest: LUNGS: Mild scattered subpleural fibrosis identified. The lungs are clear and free of infiltrate or a telectasis. No pulmonary nodule or mass is detected. No pleural effusion or CT evidence of intersti tial lung disease. MEDIASTINUM: Thoracic aorta is of normal caliber. The heart is enlarged. No evidence for mediastin al mass or adenopathy. HILAR STRUCTURES: No evidence for mass. No hilar adenopathy is appreciated. OTHER: No significant abnormality. CONTRAST CT ABDOMEN AND PELVIS: LIVER/GB: No calcified gallstones. No space occupying hepatic lesion. Biliary tree is of normal ca liber. PANCREAS: No inflammation. No distinct mass. SPLEEN: No splenic enlargement. No lesion seen. ADRENALS: No nodule. No thickening. KIDNEYS/BLADDER: No hydronephrosis. No nephrolithiasis. No distinct renal mass. BOWEL: Normal appendix. Normal bowel caliber. No inflammation. GENITAL ORGANS: No gross abnormality. LYMPH NODES: No greater than 1cm abdominal or pelvic lymph nodes are appreciated. AORTA: No significant abnormality. OSSEOUS STRUCTURES: No significant abnormality is seen. OTHER: Fat-containing inguinal hernias identified. IMPRESSION: 1. No evidence for metastatic disease.
== END | disposition home or self-care (01) ==
LOC: RADCTMAIN 13:22
PROVIDERS: ATTEND Internal Medicine Hematology & Oncology
DX: C18.5 Malignant neoplasm of splenic flexure (principal)
CPT/HCPCS: 71250; 74176; Q9967

== ENCOUNTER → 2020-07-02 | Outpatient (CLI) | payer OTHER ==
--- NOTE | 2020-07-02 16:35 | CT ---
EXAMINATION TYPE: CT ChestAbdPelvis wo con DATE OF EXAM: 07/02/2020 COMPARISON: CT December 24, 2019 and older CTs HISTORY: Colon ca. PT not reporting any new issues. Oral contrast only CT DLP: 817.10 mGycm. Automated Exposure Control for Dose Reduction was Utilized. TECHNIQUE: CT scan of the thorax, abdomen and pelvis is performed with oral but without without IV contrast. FINDINGS: LUNGS: Mild scattered fibrotic changes redemonstrated in the lung bases and periphery of the lungs. N o suspicious new greater than 4 mm nodules or masses. Stable 3 mm posterior left basilar calcified no dule axial image 48. No pleural effusion or pneumothorax. MEDIASTINUM: There are no new greater than 1 cm hilar or mediastinal lymph nodes. Stable tiny perica rdial effusion is seen. No cardiomegaly. Mild to moderate coronary artery calcification redemonstrat ed. OTHER: Small degree of subareolar gynecomastia again seen. LIVER/GB: No new suspicious hypodense masses. Smaller masses on MRI and older CT are less well seen o n this for more recent nonenhanced CT. PANCREAS: No significant abnormality is seen. SPLEEN: No significant abnormality is seen. ADRENALS: No significant abnormality is seen. KIDNEYS: Nonspecific [id number] perinephric fluid and/or fat stranding bilaterally. BOWEL: Oral contrast does not reach level terminal ileum making evaluation of distal bowel slightly s uboptimal. No suspicious small or large bowel dilatation. Surgical sutures distal transverse colon le quinton coronal image 28 redemonstrated. GENITAL ORGANS: No gross abnormality seen. LYMPH NODES: No greater than 1cm abdominal or pelvic lymph nodes are appreciated. OSSEOUS STRUCTURES: Grade 1 anterolisthesis0 L5 on S1. Bilateral pars defect L5 level. Bxtlfaaw-mq-[id number] gus disc space narrowing with vacuum disc phenomenon L5-S1 level. Moderate disc space narrowing affe cting this phenomenon L4-L5 level. Moderate multilevel anterior lateral spurring in the mid lower tho racic spine. OTHER: Small to moderate-size fat-containing right inguinal hernia. IMPRESSION: No suspicious new mass or adenopathy to suggest recurrent neoplasm. No significant change from most recent CT.
== END | disposition home or self-care (01) ==
LOC: RADCTMAIN 14:27
PROVIDERS: ATTEND Internal Medicine Hematology & Oncology
DX: C18.5 Malignant neoplasm of splenic flexure (principal)
CPT/HCPCS: 71250; 74176

== ENCOUNTER 2021-06-23 08:58 | Inpatient (IN) | payer OTHER, MEDICARE ==
[2021-06-23] MEDS ORDERED: PANTOPRAZOLE 40 MG/10 ML VIAL IVP STA (09:10)
[2021-06-23 09:36] LABS: Basophils % (A) 0 %; Eosinophils # (A) 0.2 k/uL (0-0.7); Eosinophils % (A) 2 %; HCT 27.5 % (39.0-53.0); HGB 8.9 gm/dL (13.0-17.5); Hypochromasia Moderate; Lymphocytes # (A) 1.5 k/uL (1.0-4.8); Lymphocytes % (A) 17 %; MCH 30.3 pg (25.0-35.0); MCHC 32.2 g/dL (31.0-37.0); MCV 94.1 fL (80.0-100.0); Mean Platelet Volume 11.2; Monocytes # (A) 0.5 k/uL (0-1.0); Monocytes % (A) 5 %; Neutrophils # (A) 6.6 k/uL (1.3-7.7); Neutrophils % (A) 74 %; Platelet Count 167 k/uL (150-450); Poikilocytosis Slight; RBC 2.93 m/uL (4.30-5.90); RDW 14.3 % (11.5-15.5)
[2021-06-23 09:46] LABS: Albumin 4.4 g/dL (3.5-5.0); Calcium 9.9 mg/dL (8.4-10.2); Magnesium 1.7 mg/dL (1.6-2.3); Potassium 4.2 mmol/L (3.5-5.1); Total Bilirubin 0.5 mg/dL (0.2-1.3); Total Protein 7.9 g/dL (6.3-8.2)
--- NOTE | 2021-06-23 09:49 | ED ---
General Adult HPI - General Chief complaint: Recheck/Abnormal Lab/Rx Stated complaint: Abnormal Lab/Recheck Time Seen by Provider: 06/23/21 09:09 Source: patient, RN notes reviewed, old records reviewed Mode of arrival: ambulatory Limitations: no limitations - History of Present Illness Initial comments: 86-year-old male presenting for evaluation of generalized weakness, fatigue, and anemia. Patient had been sent to the emergency department for a persistently dropping hemoglobin. The patient states that he had a colonoscopy at the [facility] about 3 weeks ago and since this time he has had some new anemia. He denies previous history of gastrointestinal hemorrhage. He is on ELIQUIS. He denies bright red rectal bleeding. Denies melanotic stool. Denies fever. - Related Data Home Medications Medication Instructions Recorded Confirmed Finasteride [Proscar] 5 mg PO DAILY 02/09/19 06/23/21 Omeprazole 20 mg PO DAILY 02/09/19 06/23/21 Simvastatin [Zocor] 10 mg PO HS 08/06/19 06/23/21 Alogliptin Benzoate [Alogliptin] 6.25 mg PO DAILY 10/31/19 06/23/21 Vitamin B Complex 1 cap PO DAILY 10/31/19 06/23/21 Cholecalciferol [Vitamin D3 (25 50 mcg PO DAILY 06/23/21 06/23/21 Mcg = 1000 Iu)] Flavonoids 1 tab PO DAILY 06/23/21 06/23/21 INSULIN ASPART (NovoLOG) [NovoLOG 10 unit SQ AC-BID 06/23/21 06/23/21 (formulary)] Insulin Glargine [Lantus Vial] 50 unit SQ HS 06/23/21 06/23/21 traMADol HCL [Ultram] 100 mg PO BID PRN 06/23/21 06/23/21 Previous Rx's Medication Instructions Recorded Apixaban [Eliquis] 2.5 mg PO BID #180 tab 11/04/19 Metoprolol Tartrate 25 mg PO BID 30 Days #60 tab 11/05/19 Allergies Allergy/AdvReac Type Severity Reaction Status Date / Time hydrocodone AdvReac dream Verified 06/23/21 11:09 disorder/night sweats Review of Systems ROS Statement: Those systems with pertinent positive or pertinent negative responses have been documented in the HPI. ROS Other: All systems not noted in ROS Statement are negative. 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 Last Myocardial Infarction Date:: unknown History of Any Multi-Drug Resistant Organisms: None Reported Past Surgical History: Bowel Resection, Orthopedic Surgery, Tonsillectomy Additional Past Surgical History / Comment(s): 02/09/19 colonoscopy, 01/2019 bowel resection with colostomy, 10/11/19 exploratory lap with extensive lysis of adhesions/partial colectomy and colostomy reversal, colonoscopies/benign polypectomies. Past Anesthesia/Blood Transfusion Reactions: No Reported Reaction Past Psychological History: No Psychological Hx Reported Smoking Status: Never smoker Past Alcohol Use History: None Reported Past Drug Use History: None Reported - Past Family History Father Additional Family Medical History / Comment(s): at 95 of old age Mother Family Medical History: Myocardial Infarction ([place]) Additional Family Medical History / Comment(s): at 93 of old age, had a myocardial infarction in her upper 80s. General Exam Limitations: no limitations General appearance: alert, in no apparent distress Head exam: Present: atraumatic, normocephalic Eye exam: Present: normal appearance Neck exam: Present: normal inspection Respiratory exam: Present: normal lung sounds bilaterally. Absent: respiratory distress, wheezes Cardiovascular Exam: Present: regular rate, normal rhythm GI/Abdominal exam: Present: soft. Absent: distended, tenderness, guarding Rectal exam: Present: normal inspection, normal rectal tone. Absent: black stool, bloody stool Extremities exam: Present: normal inspection, normal capillary refill. Absent: pedal edema, joint swelling Neurological exam: Present: alert, oriented X3, CN II-XII intact. Absent: motor sensory deficit Psychiatric exam: Present: normal affect, normal mood Skin exam: Present: warm, dry, intact. Absent: cyanosis, diaphoretic Course Vital Signs 06/23/21 06/23/21 09:02 11:15 Temperature 98 F 98.2 F Pulse Rate 103 H 75 Respiratory 18 18 Rate Blood Pressure 141/74 163/77 O2 Sat by Pulse 100 98 Oximetry EKG Findings - EKG Comments: EKG Findings:: EKG: Sinus rhythm with first-degree AV block, right bundle branch block, rate of 97, MD interval 216, QRS duration 124, QTC 474, no ST segment elevation. Medical Decision Making - Medical Decision Making 86-year-old male with anemia. Patient has hemoglobin 8.9 which does represent drop compared to the most recent in our system. He has no melanotic stool, no bright red rectal bleeding. He is Hemoccult positive. His anticoagulation will be held. He started on Protonix. She will be admitted to Dr. olvera. Repeat hemoglobins will be obtained. I did discuss case with Dr. Nolan who will see this patient in consultation. - Lab Data Result diagrams: 06/23/21 09:20 06/23/21 09:20 Lab Results 06/23/21 06/23/21 06/23/21 Range/Units 09:20 09:20 09:20 WBC 9.0 (3.8-10.6) k/uL RBC 2.93 L (4.30-5.90) m/uL Hgb 8.9 L (13.0-17.5) gm/dL Hct 27.5 L (39.0-53.0) % MCV 94.1 (80.0-100.0) fL MCH 30.3 (25.0-35.0) pg MCHC 32.2 (31.0-37.0) g/dL RDW 14.3 (11.5-15.5) % Plt Count 167 (150-450) k/uL MPV 11.2 Neutrophils % 74 % Lymphocytes % 17 % Monocytes % 5 % Eosinophils % 2 % Basophils % 0 % Neutrophils # 6.6 (1.3-7.7) k/uL Lymphocytes # 1.5 (1.0-4.8) k/uL Monocytes # 0.5 (0-1.0) k/uL Eosinophils # 0.2 (0-0.7) k/uL Basophils # 0.0 (0-0.2) k/uL Hypochromasia Moderate Poikilocytosis Slight PT 10.3 (9.0-12.0) sec INR 1.0 (<1.2) APTT 22.1 (22.0-30.0) sec Sodium (137-145) mmol/L Potassium (3.5-5.1) mmol/L Chloride (98-107) mmol/L Carbon Dioxide (22-30) mmol/L Anion Gap mmol/L BUN (9-20) mg/dL Creatinine (0.66-1.25) mg/dL Est GFR (CKD-EPI)AfAm (>60 ml/min/1.73 sqM) Est GFR (CKD-EPI)NonAf (>60 ml/min/1.73 sqM) Glucose (74-99) mg/dL Calcium (8.4-10.2) mg/dL Magnesium (1.6-2.3) mg/dL Total Bilirubin (0.2-1.3) mg/dL AST (17-59) U/L ALT (4-49) U/L Alkaline Phosphatase (38-126) U/L Total Protein (6.3-8.2) g/dL Albumin (3.5-5.0) g/dL Stool Occult Blood Positive (Negative) Blood Type Blood Type Recheck Bld Type Recheck Status Antibody Screen Spec Expiration Date 06/23/21 06/23/21 Range/Units 09:20 09:20 WBC (3.8-10.6) k/uL RBC (4.30-5.90) m/uL Hgb (13.0-17.5) gm/dL Hct (39.0-53.0) % MCV (80.0-100.0) fL MCH (25.0-35.0) pg MCHC (31.0-37.0) g/dL RDW (11.5-15.5) % Plt Count (150-450) k/uL MPV Neutrophils % % Lymphocytes % % Monocytes % % Eosinophils % % Basophils % % Neutrophils # (1.3-7.7) k/uL Lymphocytes # (1.0-4.8) k/uL Monocytes # (0-1.0) k/uL Eosinophils # (0-0.7) k/uL Basophils # (0-0.2) k/uL Hypochromasia Poikilocytosis PT (9.0-12.0) sec INR (<1.2) APTT (22.0-30.0) sec Sodium 140 (137-145) mmol/L Potassium 4.2 (3.5-5.1) mmol/L Chloride 111 H (98-107) mmol/L Carbon Dioxide 15 L (22-30) mmol/L Anion Gap 14 mmol/L BUN 39 H (9-20) mg/dL Creatinine 2.43 H (0.66-1.25) mg/dL Est GFR (CKD-EPI)AfAm 27 (>60 ml/min/1.73 sqM) Est GFR (CKD-EPI)NonAf 24 (>60 ml/min/1.73 sqM) Glucose 222 H (74-99) mg/dL Calcium 9.9 (8.4-10.2) mg/dL Magnesium 1.7 (1.6-2.3) mg/dL Total Bilirubin 0.5 (0.2-1.3) mg/dL AST 20 (17-59) U/L ALT 14 (4-49) U/L Alkaline Phosphatase 62 (38-126) U/L Total Protein 7.9 (6.3-8.2) g/dL Albumin 4.4 (3.5-5.0) g/dL Stool Occult Blood (Negative) Blood Type A Negative Blood Type Recheck A Neg Bld Type Recheck Status No Antibody Screen NEGATIVE Spec Expiration Date 06/26/20212319 Disposition Clinical Impression: CKD (chronic kidney disease), GI bleed Disposition: ADMITTED IP TO THIS [facility] Condition: Stable Is patient prescribed a controlled substance at d/c from ED?: No Referrals: [facility],Clinic [Primary Care Provider] - 1-2 days Decision to Admit Reason: Admit from EC Decision Date: 06/23/21 Decision Time: 11:32
[2021-06-23 10:00] LABS: Partial Thromboplastin Time 22.1 sec (22.0-30.0); Prothrombin Time 10.3 sec (9.0-12.0)
[2021-06-23] MEDS ORDERED: ACETAMINOPHEN TAB 325 MG TAB PO PRN (11:29)
[2021-06-23] MEDS ORDERED: NALOXONE 0.4 MG/ML 1 ML VIAL IV PRN (11:29)
[2021-06-23] MEDS: SODIUM CHLORIDE 0.9% 1,000 ML IV SCH (13:00)
[2021-06-23] MEDS ORDERED: traMADol 50 MG TAB PO PRN (13:39)
--- NOTE | 2021-06-23 13:48 | P.HPIM ---
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 Patient was doing routine this is to his dust box tender when his hemoglobin dropped to 13 down to 7.8 and refer to his PCP at the [facility] who referred him to the hospital Patient denies any symptoms, no chest pain or dyspnea. No abdominal pain. No nausea vomiting. No diarrhea. That his stool color is dark brown Denies smoking, alcohol or illicit drugs He says that he takes Eliquis for irregular heart beat but he does not follow up with the head miller as an outpatient Vitals are stable hemoglobin is 8.9, rest of CBC, BMP and liver enzymes are unremarkable except for elevated creatinine at 2.4 with baseline is 1.6-2.1 Stool occult blood is positive in stool. Coronavirus not detected. EKG rah and emergency room he was started on normal saline at 50 mL/h and Protonix twice a day wing normal sinus rhythm with first-degree AV block at a rate of [address]-T changes and a QTC is 474 Review of Systems CONSTITUTIONAL: No fever, no malaise, no fatigue. HEENT: No recent visual problems or hearing problems. Denied any sore throat. CARDIOVASCULAR: No orthopnea, PND, no palpitations, no syncope. PULMONARY: No shortness of breath, no cough, no hemoptysis. GASTROINTESTINAL: No diarrhea, no nausea, no vomiting, no abdominal pain. Normoactive bowel sounds. NEUROLOGICAL: No headaches, no weakness, no numbness. HEMATOLOGICAL: Denies any bleeding or petechiae. GENITOURINARY: Denies any burning micturition, frequency, or urgency. MUSCULOSKELETAL/RHEUMATOLOGICAL: Denies any joint pain, swelling, or any muscle pain. ENDOCRINE: Denies any polyuria or polydipsia. 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 Last Myocardial Infarction Date:: unknown History of Any Multi-Drug Resistant Organisms: None Reported Past Surgical History: Bowel Resection, Orthopedic Surgery, Tonsillectomy Additional Past Surgical History / Comment(s): 02/09/19 colonoscopy, 01/2019 bowel resection with colostomy, 10/11/19 exploratory lap with extensive lysis of adhesions/partial colectomy and colostomy reversal, colonoscopies/benign polypec tomies. Past Anesthesia/Blood Transfusion Reactions: No Reported Reaction Past Psychological History: No Psychological Hx Reported Smoking Status: Never smoker Past Alcohol Use History: None Reported Past Drug Use History: None Reported - Past Family History Father Additional Family Medical History / Comment(s): at 95 of old age Mother Family Medical History: Myocardial Infarction ([place]) Additional Family Medical History / Comment(s): at 93 of old age, had a myocardial infarction in her upper 80s. Medications and Allergies Home Medications Medication Instructions Recorded Confirmed Type Finasteride [Proscar] 5 mg PO DAILY 02/09/19 06/23/21 History Omeprazole 20 mg PO DAILY 02/09/19 06/23/21 History Simvastatin [Zocor] 10 mg PO HS 08/06/19 06/23/21 History Alogliptin Benzoate [Alogliptin] 6.25 mg PO DAILY 10/31/19 06/23/21 History Vitamin B Complex 1 cap PO DAILY 10/31/19 06/23/21 History Apixaban [Eliquis] 2.5 mg PO BID #180 tab 11/04/19 06/23/21 Rx Metoprolol Tartrate 25 mg PO BID 30 Days #60 tab 11/05/19 06/23/21 Rx Cholecalciferol [Vitamin D3 (25 50 mcg PO DAILY 06/23/21 06/23/21 History Mcg = 1000 Iu)] Flavonoids 1 tab PO DAILY 06/23/21 06/23/21 History INSULIN ASPART (NovoLOG) [NovoLOG 10 unit SQ AC-BID 06/23/21 06/23/21 History (formulary)] Insulin Glargine [Lantus Vial] 50 unit SQ HS 06/23/21 06/23/21 History traMADol HCL [Ultram] 100 mg PO BID PRN 06/23/21 06/23/21 History Allergies Allergy/AdvReac Type Severity Reaction Status Date / Time hydrocodone AdvReac dream Verified 06/23/21 11:09 disorder/night sweats Physical Exam Vitals: Vital Signs Temp Pulse Resp BP Pulse Ox 06/23/21 11:15 98.2 F 75 18 163/77 98 06/23/21 09:02 98 F 103 H 18 141/74 100 Intake and Output 06/22/21 06/23/21 06/23/21 22:59 06:59 14:59 Other: Weight 83.915 kg GENERAL: The patient is alert and oriented x3, not in any acute distress. Well developed, well nourished. HEENT: Pupils are round and equally reacting to light. EOMI. No scleral icterus. No conjunctival pallor. Normocephalic, atraumatic. No pharyngeal erythema. No thyromegaly. CARDIOVASCULAR: S1 and S2 present. No murmurs, rubs, or gallops. PULMONARY: Chest is clear to auscultation, no wheezing or crackles. ABDOMEN: Soft, nontender, nondistended, normoactive bowel sounds. No palpable organomegaly. MUSCULOSKELETAL: No joint swelling or deformity. EXTREMITIES: No cyanosis, clubbing, or pedal edema. NEUROLOGICAL: Gross neurological examination did not reveal any focal deficits. SKIN: No rashes. No petechiae Results CBC & Chem 7: 06/23/21 09:20 06/23/21 09:20 Labs: Abnormal Lab Results - Last 24 Hours (Table) 06/23/21 06/23/21 Range/Units 09:20 09:20 RBC 2.93 L (4.30-5.90) m/uL Hgb 8.9 L (13.0-17.5) gm/dL Hct 27.5 L (39.0-53.0) % Chloride 111 H (98-107) mmol/L Carbon Dioxide 15 L (22-30) mmol/L BUN 39 H (9-20) mg/dL Creatinine 2.43 H (0.66-1.25) mg/dL Glucose 222 H (74-99) mg/dL Assessment and Plan Assessment: Acute GI bleed Acute blood loss anemia Mild acute kidney injury Hypertension Hyperlipidemia History of colon cancer with liver metastasis status post chemo radio therapy per Document but patient denies previous chemoradiotherapy History of bowel obstruction secondary to his colon cancer status post colostomy with recent reversal surgery History of GERD Chronic kidney disease stage III History of Bilateral retinal disease Chronic low back pain Plan: This is a pleasant 86 years old male who presents with a GI bleed Hold Eliquis Monitor hemoglobin Protonix Surgery consult He is on Lantus 50 units at bedtime, we will start him on Levemir 25 units with insulin sliding scale Labs and medication were reviewed.. Continue same treatment. Continue with symptomatic treatment. Resume home medication. Monitor lytes and vitals. DVT and GI prophylaxis. Further recommendations depends on the clinical course of the patient DVT prophylaxis: No heparin in view of GI bleed heparin GI Prophylaxis: Ppi PT/OT: Pending Prognosis is guarded
[2021-06-23] MEDS ORDERED: POLYETHYLENE GLYCOL LYTES SOLN 4,000 ML SOLN.RECON PO ONE (14:35)
--- NOTE | 2021-06-23 15:42 | P.GSCN ---
<Belkys Navas - Last Filed: 06/23/21 15:28> History of Present Illness Consult date: 06/23/21 History of present illness: CHIEF COMPLAINT: Anemia HISTORY OF PRESENT ILLNESS: This is a 86-year-old male with a prior history of colon cancer colectomy and colostomy and colostomy with reversal of colostomy in September 2019. Patient also underwent chemoradiation treatment. He has a known metastatic disease to the liver. His last colonoscopy was 3 weeks ago at the [facility] in which she had 2 polyps removed and was told that they were precancerous. Patient came into the ER due to low hemoglobin. Apparently his hemoglobin dropped from 13-7.8 and outpatient setting. And he was told to come into the ER for further evaluation and treatment. Patient reports no blood in his stools or black stools. He denies any abdominal pain or nausea or vomiting. He has been feeling weak and fatigued. He denies any shortness of breath or dizziness. He is on Eliquis for irregular heartbeat. Surgical service consult in regards to anemia. Hemoglobin on admission is 8.9 with positive fecal occult blood. PAST MEDICAL HISTORY: Colon Cancer, Diabetes Mellitus, Eye Disorder, GERD/Reflux, Hyperlipidemia, Hypertension, Renal Disease PAST SURGICAL HISTORY: 01/2019 bowel resection with colostomy, 10/11/19 exploratory lap with extensive lysis of adhesions/partial colectomy and colostomy reversal, MEDICATIONS: See list. ALLERGIES: See list. SOCIAL HISTORY: No illicit drug use. REVIEW OF SYSTEMS: CONSTITUTIONAL: Denies fever or chills. HEENT: Denies blurred vision, vision changes, or eye pain. Denies hemoptysis ENDOCRINE: Denies heat or cold intolerance. CARDIOVASCULAR: Denies chest pain or pressure. RESPIRATORY: No shortness of breath. GASTROINTESTINAL: Denies abdominal pain. Denies nausea or vomiting. NEURO: Denies history of seizures. PSYCH: No depression or suicidal ideation HEMATOLOGIC: Denies bleeding disorders. LYMPHATIC: The patient denies any lumps and bumps around the neck. GENITOURINARY: Denies any blood in urine or increased urinary frequency. MUSCULOSKELETAL: Denies myalgias. Denies joint swelling. Denies decreased range of motion beyond patients baseline. SKIN: Denies pruitis. Denies rash. PHYSICAL EXAM: VITAL SIGNS: Reviewed GENERAL: Well-developed in no acute distress. HEENT: No sclera icterus. Extraocular movements grossly intact. Moist buccal mucosa. Head is atraumatic, normocephalic. Hears conversational speech. No nasal drainage. NECK: Supple without lymphadenopathy. CHEST: Non-labored respirations and equal bilateral excursions. CARDIOVASCULAR: Palpable 2+ radial pulses. ABDOMEN: Soft. Nondistended. Nontender MUSCULOSKELETAL: No clubbing or cyanosis. NEUROLOGIC: No focal or lateralizing signs. Cranial nerves II through XII g rossly intact. PSYCH: Appropriate affect. Alert and oriented to person, place and time. SKIN: Well perfused. Good skin turgor. LABORATORY DATA: WBC 9.0 hemoglobin 8.9 platelets 167 Sodium 140 potassium 4.2 CO2 15 creatinine 2.43 Fecal occult blood positive COVID-19 not detected IMAGING: ASSESSMENT: 1. Anemia with stool positive for occult blood 2. Recent colonoscopy 3 weeks ago with 2 polyps removed that were precancerous per patient 3. History of colon cancer with metastatic disease to the liver status post partial colectomy with end colostomy in January 2019 with reversal of colostomy in September 2019 4. Chronic kidney disease PLAN: -Further recommendations forthcoming per surgeon -Patient is tentatively scheduled for endoscopy tomorrow -Continue to monitor for any signs or symptoms of bleeding -Continue to monitor CBC -Hold Eliquis -Continue Protonix -Continue IV fluids Thank you for this consultation Physician External Relations Manager note has been reviewed by physician. Signing provider agrees with the documented findings, assessment, and plan of care. 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 Last Myocardial Infarction Date:: unknown History of Any Multi-Drug Resistant Organisms: None Reported Past Surgical History: Bowel Resection, Orthopedic Surgery, Tonsillectomy Additional Past Surgical History / Comment(s): 02/09/19 colonoscopy, 01/2019 bowel resection with colostomy, 10/11/19 exploratory lap with extensive lysis of adhesions/partial colectomy and colostomy reversal, colonoscopies/benign polypectomies. Past Anesthesia/Blood Transfusion Reactions: No Reported Reaction Past Psychological History: No Psychological Hx Reported Smoking Status: Never smoker Past Alcohol Use History: None Reported Past Drug Use History: None Reported - Past Family History Father Additional Family Medical History / Comment(s): at 95 of old age Mother Family Medical History: Myocardial Infarction (ND) Additional Family Medical History / Comment(s): at 93 of old age, had a myocardial infarction in her upper 80s. Medications and Allergies Home Medications Medication Instructions Recorded Confirmed Type Finasteride [Proscar] 5 mg PO DAILY 02/09/19 06/23/21 History Omeprazole 20 mg PO DAILY 02/09/19 06/23/21 History Simvastatin [Zocor] 10 mg PO HS 08/06/19 06/23/21 History Alogliptin Benzoate [Alogliptin] 6.25 mg PO DAILY 10/31/19 06/23/21 History Vitamin B Complex 1 cap PO DAILY 10/31/19 06/23/21 History Apixaban [Eliquis] 2.5 mg PO BID #180 tab 11/04/19 06/23/21 Rx Metoprolol Tartrate 25 mg PO BID 30 Days #60 tab 11/05/19 06/23/21 Rx Cholecalciferol [Vitamin D3 (25 50 mcg PO DAILY 06/23/21 06/23/21 History Mcg = 1000 Iu)] Flavonoids 1 tab PO DAILY 06/23/21 06/23/21 History INSULIN ASPART (NovoLOG) [NovoLOG 10 unit SQ AC-BID 06/23/21 06/23/21 History (formulary)] Insulin Glargine [Lantus Vial] 50 unit SQ HS 06/23/21 06/23/21 History traMADol HCL [Ultram] 100 mg PO BID PRN 06/23/21 06/23/21 History Allergies Allergy/AdvReac Type Severity Reaction Status Date / Time hydrocodone AdvReac dream Verified 06/23/21 11:09 disorder/night sweats Surgical - Exam Vital Signs Temp Pulse Resp BP Pulse Ox 98 F 103 H 18 141/74 100 06/23/21 09:02 06/23/21 09:02 06/23/21 09:02 06/23/21 09:02 06/23/21 09:02 Results - Labs 06/23/21 09:20 06/23/21 09:20 Abnormal Lab Results - Last 24 Hours (Table) 06/23/21 06/23/21 Range/Units 09:20 09:20 RBC 2.93 L (4.30-5.90) m/uL Hgb 8.9 L (13.0-17.5) gm/dL Hct 27.5 L (39.0-53.0) % Chloride 111 H (98-107) mmol/L Carbon Dioxide 15 L (22-30) mmol/L BUN 39 H (9-20) mg/dL Creatinine 2.43 H (0.66-1.25) mg/dL Glucose 222 H (74-99) mg/dL Diabetes panel 06/23/21 Range/Units 09:20 Sodium 140 (137-145) mmol/L Potassium 4.2 (3.5-5.1) mmol/L Chloride 111 H (98-107) mmol/L Carbon Dioxide 15 L (22-30) mmol/L BUN 39 H (9-20) mg/dL Creatinine 2.43 H (0.66-1.25) mg/dL Glucose 222 H (74-99) mg/dL Calcium 9.9 (8.4-10.2) mg/dL AST 20 (17-59) U/L ALT 14 (4-49) U/L Alkaline Phosphatase 62 (38-126) U/L Total Protein 7.9 (6.3-8.2) g/dL Albumin 4.4 (3.5-5.0) g/dL Calcium panel 06/23/21 Range/Units 09:20 Calcium 9.9 (8.4-10.2) mg/dL Albumin 4.4 (3.5-5.0) g/dL Pituitary panel 06/23/21 Range/Units 09:20 Sodium 140 (137-145) mmol/L Potassium 4.2 (3.5-5.1) mmol/L Chloride 111 H (98-107) mmol/L Carbon Dioxide 15 L (22-30) mmol/L BUN 39 H (9-20) mg/dL Creatinine 2.43 H (0.66-1.25) mg/dL Glucose 222 H (74-99) mg/dL Calcium 9.9 (8.4-10.2) mg/dL Adrenal panel 06/23/21 Range/Units 09:20 Sodium 140 (137-145) mmol/L Potassium 4.2 (3.5-5.1) mmol/L Chloride 111 H (98-107) mmol/L Carbon Dioxide 15 L (22-30) mmol/L BUN 39 H (9-20) mg/dL Creatinine 2.43 H (0.66-1.25) mg/dL Glucose 222 H (74-99) mg/dL Calcium 9.9 (8.4-10.2) mg/dL Total Bilirubin 0.5 (0.2-1.3) mg/dL AST 20 (17-59) U/L ALT 14 (4-49) U/L Alkaline Phosphatase 62 (38-126) U/L Total Protein 7.9 (6.3-8.2) g/dL Albumin 4.4 (3.5-5.0) g/dL <Dorie Nolan N - Last Filed: 06/26/21 19:33> History of Present Illness History of present illness: CHIEF COMPLAINT: Hematochezia HISTORY OF PRESENT ILLNESS: The patient is a 71 year old male who comes in with new diarrhea and blood in stools. He had recent colonoscopy in February 2019 with findings of diverticulosis. He is on Eliquis. Since admission he has been off Eliquis. PAST MEDICAL HISTORY: See list and reviewed PAST SURGICAL HISTORY: See list and reviewed MEDICATIONS: See list and reviewed ALLERGIES: See list and reviewed SOCIAL HISTORY: See list and reviewed FAMILY HISTORY: See list and reviewed REVIEW OF ORGAN SYSTEMS: CONSTITUTIONAL: No fevers or chills. EYES: Denies any trouble with vision. No glasses. HEENT: No difficulties with hearing. No nosebleeds. Has difficulty swallowing. Has dysarthria. RESPIRATORY: Recent acute pneumonia. Has chronic obstructive lung disease. CARDIOVASCULAR: Hypertensive heart disease with hyperlipidemia. Has congestive heart failure. GASTROINTESTINAL: History of bowel resection including colostomy and reversal. Gastroesophageal reflux disease. GENITOURINARY: Chronic renal disease NEUROLOGICAL: Has dysarthria with limited mobility. Has seizure disorder. MUSCULOSKELETAL: Wheelchair bound. SKIN: No current skin cancer. No rash. PSYCHIATRIC: Denies current depression or suicidal thoughts. ENDOCRINE: Diabetes type 2 insulin-dependent. Has hypothyroidism. HEME/LYMPHATIC: Has anemia. Chronic anticoagulant use. ALLERGY/IMMUNOLOGY: No immunoglobulin therapy. No immune deficiencies. PHYSICAL EXAM: VITALS: Reviewed CONSTITUTIONAL: Well developed and in no acute distress. EYES: Conjuctivae without sclera icterus. Extraocular movements grossly intact. HEAD, EARS, NOSE, THROAT: Moist buccal mucosa. Head is atraumatic, normocephalic. No nasal drainage. NECK: Supple. No JV distention. No thyroidomegaly. RESPIRATORY: Non-labored respirations and equal bilateral excursions. No gross wheezes. CARDIOVASCULAR: Regular rate and rhythm. Extremities without moderate edema. Palpable 2+ radial pulses. ABDOMEN: Distended. No peritonitis. Feeding tube intact. MUSCULOSKELETAL: Has contractures. Severe kyphosis of the spine noted. SKIN: Warm and well perfused with good skin turgor. NEUROLOGIC: Cranial nerves II through XII grossly intact. Lethargic. PSYCH: Appropriate affect. Alert and oriented to person, place and time. Displays appropriate insight. CLINCAL LABS: Reviewed. WBC over 36,000 on admission. Lipase elevated at 1500 on admission. Amylase elevated over 1000 admission. IMAGING: Independently reviewed CT of the abdomen pelvis demonstrated mildly distended large colon with retained stool along the ascending colon and proximal transverse colon. Stomach decompressed. This is my independent interpretation. Left colon and sigmoid colon decompressed. Abdominal ultrasound independent review demonstrated no evidence of gallstones or gallbladder wall thickening for acute cholecystitis. This my independent interpretation. RADIOLOGY: Report reviewed of chest x-ray demonstrated moderate pulmonary edema bilaterally. ASSESSMENT: 1. Acute pancreatitis with elevated lipase 2. Abdominal distention with retained stool 3. Gen. debility 4. Acute congestive heart failure PLAN: 1. May discontinue nasogastric tube that features of computed tomography scan are not consistent with bowel obstruction. 2. Recommend oral laxatives and cathartics for moderate stool along the ascending colon and transverse colon 3. Management of congestive heart failure per medicine team 4. Patient's in the ICU in critical condition and condition is guarded. Surgical - Exam Vital Signs Temp Pulse Resp BP Pulse Ox 98 F 103 H 18 141/74 100 06/23/21 09:02 06/23/21 09:02 06/23/21 09:02 06/23/21 09:02 06/23/21 09:02 Results - Labs 06/26/21 11:28 06/25/21 04:46 Abnormal Lab Results - Last 24 Hours (Table) 06/25/21 06/26/21 06/26/21 Range/Units 20:16 00:28 04:02 RBC 2.78 L 2.80 L (4.30-5.90) m/uL Hgb 8.0 L 8.3 L (13.0-17.5) gm/dL Hct 25.8 L 25.2 L (39.0-53.0) % RDW 15.7 H (11.5-15.5) % Plt Count 126 L 137 L (150-450) k/uL POC Glucose (mg/dL) 329 H (75-99) mg/dL 06/26/21 06/26/21 06/26/21 Range/Units 07:41 11:28 12:11 RBC 2.86 L (4.30-5.90) m/uL Hgb 8.5 L (13.0-17.5) gm/dL Hct 26.0 L (39.0-53.0) % RDW 15.7 H (11.5-15.5) % Plt Count 146 L (150-450) k/uL POC Glucose (mg/dL) 162 H 350 H (75-99) mg/dL 06/26/21 Range/Units 16:48 RBC (4.30-5.90) m/uL Hgb (13.0-17.5) gm/dL Hct (39.0-53.0) % RDW (11.5-15.5) % Plt Count (150-450) k/uL POC Glucose (mg/dL) 232 H (75-99) mg/dL Assessment and Plan (1) Pancreatitis Current Visit: Yes Status: Acute Code(s): K85.90 - ACUTE PANCREATITIS WITHOUT NECROSIS OR INFECTION, UNSP SNOMED Code(s): 23958091 (2) Constipation Current Visit: Yes Status: Acute Code(s): K59.00 - CONSTIPATION, UNSPECIFIED SNOMED Code(s): 08699380 (3) Abdominal distension Current Visit: Yes Status: Acute Code(s): R14.0 - ABDOMINAL DISTENSION (GASEOUS) SNOMED Code(s): 92411894 (4) Debilitated patient Current Visit: Yes Status: Acute Code(s): R53.81 - OTHER MALAISE SNOMED Code(s): 27004219 (5) Hypertensive heart disease with congestive heart failure Current Visit: Yes Status: Acute Code(s): I11.0 - HYPERTENSIVE HEART DISEASE WITH HEART FAILURE SNOMED Code(s): 4124708 (6) Pneumonitis Current Visit: Yes Status: Acute Code(s): J18.9 - PNEUMONIA, UNSPECIFIED ORGANISM SNOMED Code(s): 362056014 (7) CKD (chronic kidney disease) Current Visit: Yes Status: Acute Code(s): N18.9 - CHRONIC KIDNEY DISEASE, UNSPECIFIED SNOMED Code(s): 054501367
[2021-06-23] MEDS: INSULIN ASPART (NovoLOG) 100 UNIT/ML VIAL SQ SCH ×2 (17:56→20:18)
[2021-06-23 18:14] LABS: Glucose,Whole Blood 291 mg/dL (75-99)
[2021-06-23 18:16] LABS: Basophils # (A) 0.1 k/uL (0-0.2); Basophils % (A) 1 %; Eosinophils # (A) 0.1 k/uL (0-0.7); Eosinophils % (A) 1 %; HCT 26.9 % (39.0-53.0); HGB 8.6 gm/dL (13.0-17.5); Hypochromasia Moderate; Lymphocytes # (A) 2.2 k/uL (1.0-4.8); Lymphocytes % (A) 25 %; MCH 30.2 pg (25.0-35.0); MCHC 31.8 g/dL (31.0-37.0); MCV 95.1 fL (80.0-100.0); Mean Platelet Volume 9.9; Monocytes # (A) 0.5 k/uL (0-1.0); Monocytes % (A) 5 %; Neutrophils # (A) 5.7 k/uL (1.3-7.7); Neutrophils % (A) 66 %; Platelet Count 170 k/uL (150-450); Poikilocytosis Slight; RBC 2.83 m/uL (4.30-5.90); RDW 14.1 % (11.5-15.5); WBC 8.7 k/uL (3.8-10.6)
[2021-06-23 20:13] LABS: Glucose,Whole Blood 164 mg/dL (75-99)
[2021-06-23] MEDS: PANTOPRAZOLE 40 MG/10 ML VIAL IVP SCH (20:18)
[2021-06-23] MEDS ORDERED: INSULIN DETEMIR (LEVEMIR) 100 UNIT/ML SYR SQ SCH (21:00)
[2021-06-24 06:34] LABS: African American GFR (CKD) 31 (>60 ml/min/1.73 sqM); Anion Gap 8 mmol/L; Blood Urea Nitrogen 32 mg/dL (9-20); Carbon Dioxide 18 mmol/L (22-30); Chloride 115 mmol/L (98-107); Glucose 58 mg/dL (74-99); Non-African American GFR(CKD) 27 (>60 ml/min/1.73 sqM); Potassium 3.8 mmol/L (3.5-5.1); Sodium 141 mmol/L (137-145)
[2021-06-24 07:30] LABS: Glucose,Whole Blood 79 mg/dL (75-99)
[2021-06-24] MEDS: INSULIN ASPART (NovoLOG) 100 UNIT/ML VIAL SQ SCH ×4 (08:06→22:09)
[2021-06-24] MEDS: PANTOPRAZOLE 40 MG/10 ML VIAL IVP SCH ×2 (08:31→22:09)
[2021-06-24 09:18] LABS: Basophils # (A) 0.03 X 10*3/uL (0.00-0.10); Basophils % (A) 0.5 %; Eosinophils # (A) 0.09 X 10*3/uL (0.04-0.35); Eosinophils % (A) 1.4 %; HCT 22.5 % (39.6-50.0); Lymphocytes # (A) 1.79 X 10*3/uL (0.90-5.00); Lymphocytes % (A) 26.9 %; MCH 28.8 pg (27.0-32.0); MCHC 31.1 g/dL (32.0-37.0); MCV 92.6 fL (80.0-97.0); Mean Platelet Volume 12.2 fL (9.5-12.2); Monocytes # (A) 0.64 X 10*3/uL (0.20-1.00); Monocytes % (A) 9.6 %; Neutrophils # (A) 4.08 X 10*3/uL (1.80-7.70); Neutrophils % (A) 61.3 %; Platelet Count 136 X 10*3/uL (140-440); RBC 2.43 X 10*6/uL (4.40-5.60); RDW 13.8 % (11.5-14.5); WBC 6.65 X 10*3/uL (4.50-10.00)
[2021-06-24] MEDS ORDERED: PROPOFOL 10 MG/ML 20 ML VIAL IV ONE (10:03)
[2021-06-24] MEDS ORDERED: IV FLUID CONTINUATION 1,000 ML IV ONE (10:06)
[2021-06-24] MEDS ORDERED: SODIUM CHLORIDE 0.9% 500 ML 500 ML IV ONE (10:15)
--- NOTE | 2021-06-24 10:32 | P.PN ---
Subjective Progress Note Date: 06/24/21 CHIEF COMPLAINT: Acute blood loss anemia HISTORY OF PRESENT ILLNESS: The patient is a 86-year-old male who presents with acute blood loss anemia. He has a history of recent polypectomy less than 3 weeks ago at outside institution. Patient has symptomatic anemia came to the emergency room. Today he denies any blood in stools. He has not had a prior upper endoscopy. ROS: No reports of nausea and vomiting. No bowel movements. No fevers or chills. No new chest pain. No productive sputum PHYSICAL EXAM: VITAL SIGNS: Reviewed CONSTITUTIONAL: Well developed and in no acute distress. EYES: Conjuctivae without sclera icterus. Extraocular movements grossly intact. HEAD, EARS, NOSE, THROAT: Moist buccal mucosa. Head is atraumatic, normocephalic. Hears conversational speech. No nasal drainage. NECK: No gross thyroidomegaly. No jugular venous distention. RESPIRATORY: Non-labored respirations and equal bilateral excursions. CARDIOVASCULAR: Palpable 2+ radial pulses. ABDOMEN: Soft nontender MUSCULOSKELETAL: No gross deformity of the lower extremities noted. No clubbing. No cyanosis. SKIN: Good skin turgor. Well perfused. NEUROLOGIC: Cranial nerves II through XII grossly intact. No focal or lateralizing signs. PSYCH: Appropriate affect. Alert and oriented to person, place and time. CLINICAL LABS: Reviewed. Hemoglobin down from 8.9-8.6. ASSESSMENT: 1. Acute blood loss anemia 2. History of colon cancer PLAN: 1. Will proceed with upper and lower endoscopy for acute blood loss anemia Objective - Vital Signs Vital signs: Vital Signs Temp 98.3 F 06/24/21 07:00 Pulse 90 06/24/21 07:00 Resp 18 06/24/21 08:00 BP 121/70 06/24/21 07:00 Pulse Ox 90 L 06/24/21 07:00 Intake & Output 06/23/21 06/24/21 06/24/21 18:59 06:59 18:59 Intake Total 0 Output Total 1 Balance -1 Weight 83.915 kg Intake: Oral 0 Output: Stool 1 Other: Voiding Method Toilet Toilet # Voids 1 1 # Bowel Movements 3 - Labs CBC & Chem 7: 06/23/21 18:06 06/24/21 04:49 Labs: Abnormal Lab Results - Last 24 Hours (Table) 06/23/21 06/23/21 06/23/21 Range/Units 17:54 18:06 20:11 RBC 2.83 L (4.30-5.90) m/uL Hgb 8.6 L (13.0-17.5) gm/dL Hct 26.9 L (39.0-53.0) % Chloride (98-107) mmol/L Carbon Dioxide (22-30) mmol/L BUN (9-20) mg/dL Creatinine (0.66-1.25) mg/dL Glucose (74-99) mg/dL POC Glucose (mg/dL) 291 H 164 H (75-99) mg/dL 06/24/21 Range/Units 04:49 RBC (4.30-5.90) m/uL Hgb (13.0-17.5) gm/dL Hct (39.0-53.0) % Chloride 115 H (98-107) mmol/L Carbon Dioxide 18 L (22-30) mmol/L BUN 32 H (9-20) mg/dL Creatinine 2.20 H (0.66-1.25) mg/dL Glucose 58 L (74-99) mg/dL POC Glucose (mg/dL) (75-99) mg/dL
--- NOTE | 2021-06-24 10:37 | P.PCN ---
Date of Procedure: 06/24/21 Description of Procedure: PREOPERATIVE DIAGNOSIS: Acute blood loss anemia Gastrointestinal bleeding Chronic anticoagulant use POSTOPERATIVE DIAGNOSIS: Severe gastritis recent bleeding, antral Chronic anticoagulant use OPERATION: Esophagogastroduodenoscopy SURGEON: Dorie Nolan MD ANESTHESIA: MAC. INDICATIONS: The patient is a 86-year-old female who presents with acute blood loss anemia and gastrointestinal bleeding. Benefits and risks of the procedure were described. Informed consent was obtained. DESCRIPTION: The patient was brought into the endoscopy suite and laid in the left lateral decubitus position. An Olympus gastroscope was passed along the posterior oropharynx down to the distal esophagus where the squamocolumnar junction was encountered at 40 cm from the incisors. The stomach was entered and no bile reflux was found. Additional findings are listed below. The first through third portion of the duodenum was examined and unremarkable. Retroflexion of the scope confirmed Hill grade 1 lower esophageal valve. The squamocolumnar junction demonstrated LA grade A erosive esophagitis. The stomach was desufflated. The patient tolerated the procedure well. FINDINGS: Squamocolumnar junction 40 cm from the incisors. Diaphragmatic hiatus at 40 cm. Hill grade 1 lower esophageal valve. LA grade A erosive esophagitis. No active duodenitis. Severe acute gastritis along antrum with recent stigmata of bleeding RECOMMENDATIONS: 1. Recommend Carafate 1 g twice a day for 4 weeks 2. Recommend Protonix or omeprazole 40 mg daily for 4 weeks 3. Repeat upper endoscopy one month
--- NOTE | 2021-06-24 10:40 | P.PCN ---
Date of Procedure: 06/24/21 Description of Procedure: PREOPERATIVE DIAGNOSIS: Acute blood loss anemia Gastrointestinal bleeding Positive occult stool POSTOPERATIVE DIAGNOSIS: Acute blood loss anemia Gastrointestinal bleeding Positive occult stool OPERATION: Colonoscopy to the cecum, ileocecal valve and appendiceal orifice SURGEON: Dorie Nolan MD. ANESTHESIA: MAC. INDICATIONS: The patient is a 86-year-old male who presents with gastrointestinal bleeding and positive occult stool. Benefits and risks were described and informed consent was obtained. DESCRIPTION OF PROCEDURE: The patient had undergone attempted Golytely prep 2 L. The patient had been brought into the operating room and laid in the left lateral decubitus position. After adequate intravenous sedation, the rectum was examined with 2% lidocaine jelly. No external hemorrhoids were identified. An Olympus colonoscope was gently advanced to the cecum with clear visualization of the ileocecal valve including appendiceal orifice. The prep was good. No sigmoid diverticulosis was encountered without active bleeding. Colonic anastomosis at 30 cm from the anal verge identified. No active colonic bleeding was found. No intraluminal masses were identified within the colon. No colonic polyps were found. No evidence of focal colitis was found. Retroflexion of the scope demonstrated grade 1 internal hemorrhoids without recent inflammation. The colon was desufflated. The patient had tolerated the procedure well. Withdrawal time was over 6 minutes. FINDINGS: Aronchick preparation quality scale 2 (1-5) Internal hemorrhoids, grade 1 without active ulceration or bleeding No thrombosed hemorrhoid identified. No arteriovenous malformations. No adenomatous polyps. No focal colitis. RECOMMENDATIONS: 1. Diet as tolerated 2. Colonoscopy in one year, 2021 Plan - Discharge Summary New Discharge Prescriptions: No Action Finasteride [Proscar] 5 mg PO DAILY Omeprazole 20 mg PO DAILY Simvastatin [Zocor] 10 mg PO HS Alogliptin Benzoate [Alogliptin] 6.25 mg PO DAILY Vitamin B Complex 1 cap PO DAILY Apixaban [Eliquis] 2.5 mg PO BID #180 tab Metoprolol Tartrate 25 mg PO BID 30 Days #60 tab traMADol HCL [Ultram] 100 mg PO BID PRN PRN Reason: Pain INSULIN ASPART (NovoLOG) [NovoLOG (formulary)] 10 unit SQ AC-BID Cholecalciferol [Vitamin D3 (25 Mcg = 1000 Iu)] 50 mcg PO DAILY Insulin Glargine [Lantus Vial] 50 unit SQ HS Flavonoids 1 tab PO DAILY Discharge Medication List Finasteride [Proscar] 5 mg PO DAILY 02/09/19 [History] Omeprazole 20 mg PO DAILY 02/09/19 [History] Simvastatin [Zocor] 10 mg PO HS 08/06/19 [History] Alogliptin Benzoate [Alogliptin] 6.25 mg PO DAILY 10/31/19 [History] Vitamin B Complex 1 cap PO DAILY 10/31/19 [History] Apixaban [Eliquis] 2.5 mg PO BID #180 tab 11/04/19 [Rx] Metoprolol Tartrate 25 mg PO BID 30 Days #60 tab 11/05/19 [Rx] Cholecalciferol [Vitamin D3 (25 Mcg = 1000 Iu)] 50 mcg PO DAILY 06/23/21 [History] Flavonoids 1 tab PO DAILY 06/23/21 [History] INSULIN ASPART (NovoLOG) [NovoLOG (formulary)] 10 unit SQ AC-BID 06/23/21 [History] Insulin Glargine [Lantus Vial] 50 unit SQ HS 06/23/21 [History] traMADol HCL [Ultram] 100 mg PO BID PRN 06/23/21 [History] Follow up Appointment(s)/Referral(s): [facility] [Primary Care Provider] - 1-2 days
[2021-06-24 11:00] LABS: Glucose,Whole Blood 112 mg/dL (75-99)
[2021-06-24] MEDS: FINASTERIDE 5 MG TAB PO SCH (11:41)
[2021-06-24] MEDS: SODIUM CHLORIDE 0.9% 1,000 ML IV SCH (11:42)
--- NOTE | 2021-06-24 13:19 | P.PN ---
Subjective This is a pleasant 86 years old male with past medical history of colon Cancer, Diabetes Mellitus, GERD/Reflux, Hyperlipidemia, Hypertension, Renal Disease, on 02/09/19 bowel obstruction/colon cancer with surgery/colostomy-had oral chemo/radiation for mets to liver, recent colostomy reversal, IDDM type II, bilateral retinal disease with surgery, chronic low back pain, CKD, anemia. 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 No abdominal pain. No nausea vomiting. No diarrhea. That his stool color is dark brown Denies smoking, alcohol or illicit drugs He says that he takes Eliquis for irregular heart beat but he does not follow up with the representative as an outpatient Vitals are stable hemoglobin is 8.9, rest of CBC, BMP and liver enzymes are unremarkable except for elevated creatinine at 2.4 with baseline is 1.6-2.1 Stool occult blood is positive in stool. Coronavirus not detected. EKG rah and emergency room he was started on normal saline at 50 mL/h and Protonix twice a day wing normal sinus rhythm with first-degree AV block at a rate of [address]-T changes and a QTC is 474 06/24/2021 Patient with no abdominal pain or vomiting. No more blood per stool. Patient had colonoscopy showing just mild grade 1 internal hemorrhoids with no active bleeding. No colitis, malformation, polyps or masses. The community to repeat colonoscopy in one year EGD showing severe acute gastritis along the antrum with recent stigmata of bleeding. Recommended that Carafate for 4 weeks plus Protonix/omeprazole 40 mg daily for 4 weeks upon discharge and repeat EGD in 1 month's His hemoglobin dropped today down to 7.0 there is also elements of hemodilution with platelets came down to 137 Eliquis remains on hold for now. We ordered anemia workup. Patient opted no code i called [facility] and she told me he has a fib in 2019 and was following with and his pcp wanted to consult representative for anti- coagulation management Objective - Vital Signs Vital signs: Vital Signs Temp 98.3 F 06/24/21 07:00 Pulse 82 06/24/21 11:21 Resp 16 06/24/21 11:21 BP 146/69 06/24/21 11:21 Pulse Ox 99 06/24/21 11:21 Intake & Output 06/23/21 06/24/21 06/24/21 18:59 06:59 18:59 Intake Total 0 350 Output Total 1 Balance -1 350 Weight 83.915 kg Intake: IV 350 Oral 0 Output: Stool 1 Other: Voiding Method Toilet Toilet # Voids 1 1 # Bowel Movements 3 - Exam GENERAL: The patient is alert and oriented x3, not in any acute distress. Well developed, well nourished. HEENT: Pupils are round and equally reacting to light. EOMI. No scleral icterus. No conjunctival pallor. Normocephalic, atraumatic. No pharyngeal erythema. No thyromegaly. CARDIOVASCULAR: S1 and S2 present. No murmurs, rubs, or gallops. PULMONARY: Chest is clear to auscultation, no wheezing or crackles. ABDOMEN: Soft, nontender, nondistended, normoactive bowel sounds. No palpable organomegaly. MUSCULOSKELETAL: No joint swelling or deformity. EXTREMITIES: No cyanosis, clubbing, or pedal edema. NEUROLOGICAL: Gross neurological examination did not reveal any focal deficits. SKIN: No rashes. no petechiae. - Labs CBC & Chem 7: 06/24/21 04:49 06/24/21 04:49 Labs: Abnormal Lab Results - Last 24 Hours (Table) 06/23/21 06/23/21 06/23/21 Range/Units 17:54 18:06 20:11 RBC 2.83 L (4.30-5.90) m/uL Hgb 8.6 L (13.0-17.5) gm/dL Hct 26.9 L (39.0-53.0) % MCHC (32.0-37.0) g/dL Plt Count (140-440) X 10*3/uL Chloride (98-107) mmol/L Carbon Dioxide (22-30) mmol/L BUN (9-20) mg/dL Creatinine (0.66-1.25) mg/dL Glucose (74-99) mg/dL POC Glucose (mg/dL) 291 H 164 H (75-99) mg/dL 06/24/21 06/24/21 06/24/21 Range/Units 04:49 04:49 10:57 RBC 2.43 L (4.30-5.90) m/uL Hgb 7.0 L (13.0-17.5) gm/dL Hct 22.5 L (39.0-53.0) % MCHC 31.1 L (32.0-37.0) g/dL Plt Count 136 L (140-440) X 10*3/uL Chloride 115 H (98-107) mmol/L Carbon Dioxide 18 L (22-30) mmol/L BUN 32 H (9-20) mg/dL Creatinine 2.20 H (0.66-1.25) mg/dL Glucose 58 L (74-99) mg/dL POC Glucose (mg/dL) 112 H (75-99) mg/dL Assessment and Plan Assessment: Acute GI bleed Acute blood loss anemia Mild acute kidney injury Hypertension Hyperlipidemia History of colon cancer with liver metastasis status post chemo radio therapy per Document but patient denies previous chemoradiotherapy History of bowel obstruction secondary to his colon cancer status post colostomy with recent reversal surgery History of GERD Chronic kidney disease stage III History of Bilateral retinal disease Chronic low back pain Plan: This is a pleasant 86 years old male who presents with a GI bleed Hold [facility]. Consult cardiology service Monitor hemoglobin. Anemia workup Protonix and Carafate Surgery consult recommended to repeat EGD in one month and colonoscopy in one year, discussed with his PCP this recommendation He is on Lantus 50 units at bedtime, we will lower his Levemir 20 units with insulin sliding scale Labs and medication were reviewed.. Continue same treatment. Continue with symptomatic treatment. Resume home medication. Monitor lytes and vitals. DVT and GI prophylaxis. Further recommendations depends on the clinical course of the patient DVT prophylaxis: No heparin in view of GI bleed heparin GI Prophylaxis: Ppi PT/OT: Pending Prognosis is guarded
[2021-06-24] MEDS ORDERED: SODIUM FERRIC GLUCONAT-SUCROSE 125 MG in SODIUM CHLORIDE 0.9% 100 ML IVPB ONE (15:30)
[2021-06-24] MEDS: FERROUS SULFATE 325 MG TAB PO SCH (15:39)
[2021-06-24] MEDS: SUCRALFATE 1 GM TAB PO SCH (15:39)
[2021-06-24 17:32] LABS: Glucose,Whole Blood 317 mg/dL (75-99)
[2021-06-24 20:49] LABS: Glucose,Whole Blood 203 mg/dL (75-99)
[2021-06-24] MEDS: INSULIN DETEMIR (LEVEMIR) 100 UNIT/ML SYR SQ SCH (22:10)
[2021-06-25 01:38] LABS: % Iron Saturation 5.99 (15.00-50.00); Ferritin 11.8 ng/mL (22.0-322.0); Folate, Serum 14.1 ng/mL (4.40-31.00)
[2021-06-25] MEDS: SODIUM CHLORIDE 0.9% 1,000 ML IV SCH (03:23)
[2021-06-25 05:35] LABS: African American GFR (CKD) 29 (>60 ml/min/1.73 sqM); Anion Gap 7 mmol/L; Blood Urea Nitrogen 32 mg/dL (9-20); Calcium 8.9 mg/dL (8.4-10.2); Carbon Dioxide 18 mmol/L (22-30); Chloride 111 mmol/L (98-107); Glucose 231 mg/dL (74-99); Non-African American GFR(CKD) 25 (>60 ml/min/1.73 sqM); Potassium 4.6 mmol/L (3.5-5.1); Sodium 136 mmol/L (137-145)
[2021-06-25 08:00] LABS: Glucose,Whole Blood 219 mg/dL (75-99)
[2021-06-25] MEDS: FINASTERIDE 5 MG TAB PO SCH (08:05)
[2021-06-25] MEDS: FERROUS SULFATE 325 MG TAB PO SCH ×2 (08:05→18:06)
[2021-06-25] MEDS: SUCRALFATE 1 GM TAB PO SCH ×2 (08:05→18:06)
[2021-06-25] MEDS: PANTOPRAZOLE 40 MG/10 ML VIAL IVP SCH ×2 (08:05→21:11)
[2021-06-25] MEDS: INSULIN ASPART (NovoLOG) 100 UNIT/ML VIAL SQ SCH ×4 (08:05→21:12)
--- NOTE | 2021-06-25 09:37 | P.CRDCN ---
History of Present Illness History of present illness: HISTORY OF PRESENTING ILLNESS This is a pleasant 84-year-old male past medical history significant for paroxysmal atrial fibrillation on Eliquis, colon cancer s/p resection, chemo and radiation and colostomy reversal around 2 years ago, diabetes mellitus, hypertension, dyslipidemia and chronic kidney disease. Patient did see Dr. Bourne in the office in 2019 for atrial fibrillation follow up. 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 Patient presents to the emergency department with low hemoglobin. We are asked to see in consultation for eliquis management. He had a recent colonoscopy with polypectomy at the [facility] about 3 weeks ago and since this time he was found to have worsening anemia and was told to go to the emergency department for further evaluation. He states his only symptoms at home were having increased tiredness. He denies blood in urine, stool or sputum. He states he occasionally was having some shortness of breath with activity at home prior to admission. He denies chest pain, lightheadedness, dizziness, syncope, symptoms of orthopnea or PND. He denies history of [place] or stroke. He is a former smoker. He states he is very active at home. He underwent upper and lower endoscopy with Dr. Nolan 06/24/21. DIAGNOSTICS EKG reveals sinus rhythm first degree AV block, right bundle branch block HR 97 EGD revealed severe acute gastritis along antrum with recent stigmata of bleeding, LA grade A erosive esophagitis. Colonoscopy revealed, Internal hemorrhoids, grade 1 without active ulceration or bleeding, No colitis, malformation, polyps or masses. Laboratory reviewed, CBC pending, sodium 136, potassium 4.6, BUN 32, serum creatinine 2.3 Echocardiogram EF 60-65%, mild tricuspid regurgitation, mild to moderate aortic valve sclerosis Current home medications include Eliquis 2.5mg BID, metoprolol tartrate 25mg BID, Simvastatin 10mg nightly Most recent echocardiogram obtained 10/15/2019 reveals preserved LV systolic function with ejection fraction 60-65% with mild to moderate aortic valve sclerosis. REVIEW OF SYSTEMS At the time of my exam: CONSTITUTIONAL: Denies fever or chills. +fatigue/tiredness CARDIOVASCULAR: Denies chest pain, shortness of breath, orthopnea, PND or palpitations. RESPIRATORY: Denies cough. GASTROINTESTINAL: Denies abdominal pain, diarrhea, constipation, nausea or vomiting. MUSCULOSKELETAL: Denies myalgias. NEUROLOGIC: Denies numbness, tingling or weakness. ENDOCRINE: Denies fatigue, weight change, polydipsia or polyurina. GENITOURINARY: Denies burning, hematuria or urgency with micturation. HEMATOLOGIC: Denies history of anemia or bleeding. PHYSICAL EXAMINATION Blood pressure 129/65, heart rate 81, afebrile, maintaining oxygen saturations on room air. CONSTITUTIONAL: No apparent distress. HEENT: Head is normocephalic. Pupils are equal, round. Sclerae anicteric. Mucous membranes of the mouth are moist. No JVD. No carotid bruit. CHEST EXAMINATION: Lungs clear bilaterally No wheezes or rales. No chest wall tenderness is noted on palpation or with deep breathing. HEART EXAMINATION: Regular rate and rhythm. S1, S2 heard. Systolic murmur at right sternal border, No gallops or rub. ABDOMEN: Soft, nontender. Positive bowel sounds. EXTREMITIES: 2+ peripheral pulses, no lower extremity edema and no calf tenderness. NEUROLOGIC EXAMINATION: Patient is awake, alert and oriented x3. ASSESSMENT GI bleed Severe acute gastritis along antrum with recent stigmata of bleeding on EGD Paroxysmal atrial fibrillation, on eliquis at home. Hypertension Dyslipidemia Diabetes mellitus Chronic kidney disease History of colon cancer status post chemo, radiation and resection with recent c olostomy reversal PLAN -Continue to hold Eliquis due to recent GI bleed -Recommend patient follow up with [facility] for further management of atrial fibrillation and anticoagulation in the future. Patient has been given information to follow up with [facility] if he chooses. -We will follow the patient as needed. Please reach out with further questions or concerns. Nurse Practitioner note has been reviewed, I agree with a documented findings and plan of care. Patient was seen and examined. 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 Last Myocardial Infarction Date:: unknown History of Any Multi-Drug Resistant Organisms: None Reported Past Surgical History: Bowel Resection, Orthopedic Surgery, Tonsillectomy Additional Past Surgical History / Comment(s): 02/09/19 colonoscopy, 01/2019 bowel resection with colostomy, 10/11/19 exploratory lap with extensive lysis of adhesions/partial colectomy and colostomy reversal, colonoscopies/benign polypectomies. Past Anesthesia/Blood Transfusion Reactions: No Reported Reaction Past Psychological History: No Psychological Hx Reported Smoking Status: Never smoker Past Alcohol Use History: None Reported Past Drug Use History: None Reported - Past Family History Father Additional Family Medical History / Comment(s): at 95 of old age Mother Family Medical History: Myocardial Infarction ([place]) Additional Family Medical History / Comment(s): at 93 of old age, had a myocardial infarction in her upper 80s. Medications and Allergies Home Medications Medication Instructions Recorded Confirmed Type Finasteride [Proscar] 5 mg PO DAILY 02/09/19 06/23/21 History Omeprazole 20 mg PO DAILY 02/09/19 06/23/21 History Simvastatin [Zocor] 10 mg PO HS 08/06/19 06/23/21 History Alogliptin Benzoate [Alogliptin] 6.25 mg PO DAILY 10/31/19 06/23/21 History Vitamin B Complex 1 cap PO DAILY 10/31/19 06/23/21 History Apixaban [Eliquis] 2.5 mg PO BID #180 tab 11/04/19 06/23/21 Rx Metoprolol Tartrate 25 mg PO BID 30 Days #60 tab 11/05/19 06/23/21 Rx Cholecalciferol [Vitamin D3 (25 50 mcg PO DAILY 06/23/21 06/23/21 History Mcg = 1000 Iu)] Flavonoids 1 tab PO DAILY 06/23/21 06/23/21 History INSULIN ASPART (NovoLOG) [NovoLOG 10 unit SQ AC-BID 06/23/21 06/23/21 History (formulary)] Insulin Glargine [Lantus Vial] 50 unit SQ HS 06/23/21 06/23/21 History traMADol HCL [Ultram] 100 mg PO BID PRN 06/23/21 06/23/21 History Allergies Allergy/AdvReac Type Severity Reaction Status Date / Time hydrocodone AdvReac dream Verified 06/23/21 11:09 disorder/night sweats Physical Exam Vitals: Vital Signs Temp Pulse Pulse Pulse Resp BP BP 06/24/21 11:21 82 16 146/69 06/24/21 11:05 70 16 131/79 06/24/21 10:50 70 16 130/65 06/24/21 08:00 18 06/24/21 07:00 98.3 F 90 18 121/70 06/24/21 02:00 81 06/24/21 01:19 98.2 F 81 16 127/66 06/23/21 20:00 104 H 17 06/23/21 19:13 97.4 F L 104 H 17 133/74 06/23/21 18:31 97.9 F 88 18 189/98 06/23/21 17:58 97.8 F 77 18 157/98 06/23/21 14:54 82 18 146/76 Pulse Ox 06/24/21 11:21 99 06/24/21 11:05 06/24/21 10:50 97 06/24/21 08:00 06/24/21 07:00 90 L 06/24/21 02:00 06/24/21 01:19 100 06/23/21 20:00 06/23/21 19:13 100 06/23/21 18:31 98 06/23/21 17:58 98 06/23/21 14:54 99 Intake and Output 06/23/21 06/24/21 06/24/21 22:59 06:59 14:59 Intake Total 0 350 Output Total 1 Balance -1 350 Intake: IV 350 Oral 0 Output: Stool 1 Other: Voiding Method Toilet Toilet # Voids 2 1 1 # Bowel Movements 3 Results 06/24/21 04:49 06/25/21 04:46 CBC 06/23/21 06/24/21 Range/Units 18:06 04:49 WBC 8.7 6.65 (3.8-10.6) k/uL RBC 2.83 L 2.43 L (4.30-5.90) m/uL Hgb 8.6 L 7.0 L (13.0-17.5) gm/dL Hct 26.9 L 22.5 L (39.0-53.0) % Plt Count 170 136 L (150-450) k/uL Comprehensive Metabolic Panel 06/24/21 Range/Units 04:49 Sodium 141 (137-145) mmol/L Potassium 3.8 (3.5-5.1) mmol/L Chloride 115 H (98-107) mmol/L Carbon Dioxide 18 L (22-30) mmol/L BUN 32 H (9-20) mg/dL Creatinine 2.20 H (0.66-1.25) mg/dL Glucose 58 L (74-99) mg/dL Calcium 9.0 (8.4-10.2) mg/dL Current Medications Generic Name Dose Route Start Last Admin Trade Name Freq PRN Reason Stop Dose Admin Acetaminophen 650 mg 06/23/21 11:29 Acetaminophen Tab 325 Mg Tab PO Q6HR PRN Mild Pain or Fever > 100.5 Ferrous Sulfate 325 mg 06/24/21 17:30 Ferrous Sulfate 325 Mg Tab PO 06/27/21 17:31 BID-W/MEALS RAZ Finasteride 5 mg 06/24/21 09:00 06/24/21 11:41 Finasteride 5 Mg Tab PO 5 mg DAILY RAZ Administration Sodium Chloride 1,000 mls @ 50 mls/hr 06/23/21 11:30 06/24/21 11:42 Saline 0.9% IV 50 mls/hr .Q20H RAZ Administration Insulin Aspart 0 unit 06/23/21 17:30 06/24/21 11:18 Insulin Aspart (Novolog) 100 Unit/Ml Vial SQ Not Given ACHS [facility] Protocol Insulin Detemir 20 unit 06/24/21 21:00 Insulin Detemir (Levemir) 100 Unit/Ml Syr SQ HS RAZ Naloxone HCl 0.2 mg 06/23/21 11:29 Naloxone 0.4 Mg/Ml 1 Ml Vial IV Q2M PRN Opioid Reversal Pantoprazole Sodium 40 mg 06/23/21 21:00 06/24/21 08:31 Pantoprazole 40 Mg/10 Ml Vial IVP 40 mg BID RAZ Administration Sucralfate 1 gm 06/24/21 17:30 Sucralfate 1 Gm Tab PO AC-BID RAZ Tramadol HCl 100 mg 06/23/21 13:39 Tramadol 50 Mg Tab PO BID PRN Pain Intake and Output 06/23/21 06/24/21 06/24/21 22:59 06:59 14:59 Intake Total 0 350 Output Total 1 Balance -1 350 Intake: IV 350 Oral 0 Output: Stool 1 Other: Voiding Method Toilet Toilet # Voids 2 1 1 # Bowel Movements 3 06/24/21 04:49 06/24/21 04:49
[2021-06-25 11:10] LABS: HCT 22.1 % (39.6-50.0); HGB 6.8 g/dL (13.0-17.0); MCH 29.1 pg (27.0-32.0); MCHC 30.8 g/dL (32.0-37.0); MCV 94.4 fL (80.0-97.0); Mean Platelet Volume 12.6 fL (9.5-12.2); Platelet Count 133 X 10*3/uL (140-440); RBC 2.34 X 10*6/uL (4.40-5.60); RDW 13.8 % (11.5-14.5); WBC 6.11 X 10*3/uL (4.50-10.00)
[2021-06-25 12:48] LABS: Glucose,Whole Blood 247 mg/dL (75-99)
--- NOTE | 2021-06-25 12:55 | P.PN ---
<Belkys Navas - Last Filed: 06/25/21 12:50> Subjective Progress Note Date: 06/25/21 CHIEF COMPLAINT: Anemia HISTORY OF PRESENT ILLNESS: Patient is status post EGD and colonoscopy. EGD revealed severe antral gastritis with recent bleeding. Colonoscopy showed internal hemorrhoids grade 1 without active ulceration or bleeding. Patient denies any abdominal pain. Denies any nausea or vomiting. He is tolerating diet. Reports no blood in his stools. Hemoglobin did drop to 6.8. Medicine service did order a unit of blood. Patient's Eliquis remains on hold. He did get a dose of IV iron. Afebrile. PHYSICAL EXAM: VITAL SIGNS: Reviewed GENERAL: Well-developed in no acute distress. HEENT: No sclera icterus. Extraocular movements grossly intact. Moist buccal mucosa. Head is atraumatic, normocephalic. Hears conversational speech. No nasal drainage. NECK: Supple without lymphadenopathy. CHEST: Non-labored respirations and equal bilateral excursions. CARDIOVASCULAR: Palpable 2+ radial pulses. ABDOMEN: Soft. Nondistended. Nontender. MUSCULOSKELETAL: No clubbing or cyanosis. NEUROLOGIC: No focal or lateralizing signs. Cranial nerves II through XII grossly intact. PSYCH: Appropriate affect. Alert and oriented to person, place and time. SKIN: Well perfused. Good skin turgor. ASSESSMENT: 1. Anemia likely secondary to severe antral gastritis with recent bleeding noted on EGD. Colonoscopy has shown internal hemorrhoids grade 1 without active bleeding 2. Acute blood loss anemia PLAN: -Patient scheduled to receive 1 unit of packed red blood cells -Continue to hold the Eliquis -Discussed case with cardiology -Continue to monitor hemoglobin -Recommend Protonix or omeprazole 40 mg daily for 4 weeks. Recommend Carafate 1 g twice a day for 4 weeks -Recommend repeat endoscopy in 1 month -Recommend colonoscopy in one year Physician Traffic Or System Dispatcher note has been reviewed by physician. Signing provider agrees with the documented findings, assessment, and plan of care. Objective - Vital Signs Vital signs: Vital Signs Temp 97.9 F 06/25/21 07:00 Pulse 81 06/25/21 07:00 Resp 17 06/25/21 07:00 BP 129/65 06/25/21 07:00 Pulse Ox 97 06/25/21 07:00 Intake & Output 06/24/21 06/25/21 06/25/21 18:59 06:59 18:59 Intake Total 930 Output Total 1 Balance 930 -1 Intake: IV 450 Sodium Ferric Gluconat- 100 Sucrose 125 mg In Sodium Chloride 0.9% 100 ml @ 100 mls/hr IVPB ONCE ONE Rx#:[id number] Oral 480 Output: Stool 1 Other: Voiding Method Toilet Toilet Toilet # Voids 1 2 - Labs CBC & Chem 7: 06/25/21 04:46 06/25/21 04:46 Labs: Abnormal Lab Results - Last 24 Hours (Table) 06/23/21 06/24/21 06/24/21 Range/Units 09:20 04:49 17:20 RBC (4.40-5.60) X 10*6/uL Hgb (13.0-17.0) g/dL Hct (39.6-50.0) % MCHC (32.0-37.0) g/dL Plt Count (140-440) X 10*3/uL MPV (9.5-12.2) fL Sodium (137-145) mmol/L Chloride (98-107) mmol/L Carbon Dioxide (22-30) mmol/L BUN (9-20) mg/dL Creatinine (0.66-1.25) mg/dL Glucose (74-99) mg/dL POC Glucose (mg/dL) 317 H (75-99) mg/dL Iron 18 L (65-175) ug/dL % Saturation 5.99 L (15.00-50.00) Ferritin 11.8 L (22.0-322.0) ng/mL Crossmatch See Detail 06/24/21 06/25/21 06/25/21 Range/Units 20:48 04:46 04:46 RBC 2.34 L (4.40-5.60) X 10*6/uL Hgb 6.8 L* (13.0-17.0) g/dL Hct 22.1 L (39.6-50.0) % MCHC 30.8 L (32.0-37.0) g/dL Plt Count 133 L (140-440) X 10*3/uL MPV 12.6 H (9.5-12.2) fL Sodium 136 L (137-145) mmol/L Chloride 111 H (98-107) mmol/L Carbon Dioxide 18 L (22-30) mmol/L BUN 32 H (9-20) mg/dL Creatinine 2.30 H (0.66-1.25) mg/dL Glucose 231 H (74-99) mg/dL POC Glucose (mg/dL) 203 H (75-99) mg/dL Iron (65-175) ug/dL % Saturation (15.00-50.00) Ferritin (22.0-322.0) ng/mL Crossmatch 06/25/21 06/25/21 Range/Units 07:59 12:47 RBC (4.40-5.60) X 10*6/uL Hgb (13.0-17.0) g/dL Hct (39.6-50.0) % MCHC (32.0-37.0) g/dL Plt Count (140-440) X 10*3/uL MPV (9.5-12.2) fL Sodium (137-145) mmol/L Chloride (98-107) mmol/L Carbon Dioxide (22-30) mmol/L BUN (9-20) mg/dL Creatinine (0.66-1.25) mg/dL Glucose (74-99) mg/dL POC Glucose (mg/dL) 219 H 247 H (75-99) mg/dL Iron (65-175) ug/dL % Saturation (15.00-50.00) Ferritin (22.0-322.0) ng/mL Crossmatch <Dorie Nolan - Last Filed: 06/26/21 20:48> Subjective CHIEF COMPLAINT: Anemia HISTORY OF PRESENT ILLNESS: The patient is a 86-year-old male with upper endoscopy demonstrating severe gastritis. Hemoglobin has dropped less than 7.0. No reports of blood in stools. No signs of bleeding. REVIEW OF ORGAN SYSTEMS: No fevers or chills. No chest pain. No nausea or vomiting. PHYSICAL EXAM: VITALS: Reviewed CONSTITUTIONAL: Well developed and in no acute distress. Appears younger than stated age. EYES: Conjuctivae without sclera icterus. Extraocular movements grossly intact. HEAD, EARS, NOSE, THROAT: Moist buccal mucosa. Head is atraumatic, normocephalic. No nasal drainage. NECK: Supple. No JV distention. No thyroidomegaly. RESPIRATORY: Non-labored respirations and equal bilateral excursions. No gross wheezes. CARDIOVASCULAR: Palpable 2+ radial pulses. ABDOMEN: Nondistended. Nontender. MUSCULOSKELETAL: No clubbing cyanosis or edema. SKIN: Warm and well perfused with good skin turgor. NEUROLOGIC: Cranial nerves II through XII grossly intact. PSYCH: Appropriate affect. Alert and oriented to person, place and time. Displays appropriate insight. CLINCAL LABS: Reviewed. Hemoglobin 8.9 on admission down to 6.8. ASSESSMENT: 1. Anemia 2. Chronic anticoagulant 3. History of polypectomy 4. Acute blood loss anemia. PLAN: 1. Recommend Carafate including Protonix for next 4 weeks. 2. Recommend repeat upper endoscopy in one month. 3. Blood transfusion per primary care team. Objective - Vital Signs Vital signs: Vital Signs Temp 98.2 F 06/26/21 19:54 Pulse 97 06/26/21 19:54 Resp 17 06/26/21 19:54 BP 119/72 06/26/21 19:54 Pulse Ox 98 06/26/21 19:54 Intake & Output 06/26/21 06/26/21 06/27/21 06:59 18:59 06:59 Output Total 1 Balance -1 Output: Stool 1 Other: Voiding Method Toilet Toilet Toilet # Voids 1 - Labs CBC & Chem 7: 06/26/21 11:28 06/25/21 04:46 Labs: Abnormal Lab Results - Last 24 Hours (Table) 06/26/21 06/26/21 06/26/21 Range/Units 00:28 04:02 07:41 RBC 2.78 L 2.80 L (4.30-5.90) m/uL Hgb 8.0 L 8.3 L (13.0-17.5) gm/dL Hct 25.8 L 25.2 L (39.0-53.0) % RDW 15.7 H (11.5-15.5) % Plt Count 126 L 137 L (150-450) k/uL POC Glucose (mg/dL) 162 H (75-99) mg/dL 06/26/21 06/26/21 06/26/21 Range/Units 11:28 12:11 16:48 RBC 2.86 L (4.30-5.90) m/uL Hgb 8.5 L (13.0-17.5) gm/dL Hct 26.0 L (39.0-53.0) % RDW 15.7 H (11.5-15.5) % Plt Count 146 L (150-450) k/uL POC Glucose (mg/dL) 350 H 232 H (75-99) mg/dL 06/26/21 Range/Units 20:02 RBC (4.30-5.90) m/uL Hgb (13.0-17.5) gm/dL Hct (39.0-53.0) % RDW (11.5-15.5) % Plt Count (150-450) k/uL POC Glucose (mg/dL) 233 H (75-99) mg/dL Assessment and Plan (1) Acute blood loss anemia Current Visit: Yes Status: Acute Code(s): D62 - ACUTE POSTHEMORRHAGIC ANEMIA SNOMED Code(s): 908817948 (2) Anticoagulant long-term use Current Visit: Yes Status: Acute Code(s): Z79.01 - CORRECTION (CURRENT) USE OF ANTICOAGULANTS SNOMED Code(s): 111466721 (3) GI bleed Current Visit: Yes Status: Acute Code(s): K92.2 - GASTROINTESTINAL HEMORR LEX, UNSPECIFIED SNOMED Code(s): 46402414
[2021-06-25 17:54] LABS: Glucose,Whole Blood 305 mg/dL (75-99)
[2021-06-25 18:34] LABS: Basophils % (A) 0 %; Eosinophils # (A) 0.1 k/uL (0-0.7); Eosinophils % (A) 1 %; HCT 27.6 % (39.0-53.0); HGB 8.6 gm/dL (13.0-17.5); Hypochromasia Moderate; Lymphocytes # (A) 1.4 k/uL (1.0-4.8); Lymphocytes % (A) 22 %; MCH 29.4 pg (25.0-35.0); MCHC 31.4 g/dL (31.0-37.0); MCV 93.6 fL (80.0-100.0); Mean Platelet Volume 9.5; Monocytes # (A) 0.4 k/uL (0-1.0); Monocytes % (A) 6 %; Neutrophils # (A) 4.3 k/uL (1.3-7.7); Neutrophils % (A) 68 %; Platelet Count 137 k/uL (150-450); Poikilocytosis Slight; RBC 2.94 m/uL (4.30-5.90); WBC 6.3 k/uL (3.8-10.6)
[2021-06-25 20:17] LABS: Glucose,Whole Blood 329 mg/dL (75-99)
[2021-06-25] MEDS: INSULIN DETEMIR (LEVEMIR) 100 UNIT/ML SYR SQ SCH (21:12)
[2021-06-26 01:01] LABS: Basophils % (A) 0 %; Eosinophils # (A) 0.1 k/uL (0-0.7); Eosinophils % (A) 2 %; HCT 25.8 % (39.0-53.0); Hypochromasia Moderate; Lymphocytes # (A) 1.8 k/uL (1.0-4.8); Lymphocytes % (A) 26 %; MCH 28.9 pg (25.0-35.0); MCHC 31.1 g/dL (31.0-37.0); MCV 92.7 fL (80.0-100.0); Mean Platelet Volume 9.9; Monocytes # (A) 0.5 k/uL (0-1.0); Monocytes % (A) 7 %; Neutrophils # (A) 4.1 k/uL (1.3-7.7); Neutrophils % (A) 61 %; Platelet Count 126 k/uL (150-450); Poikilocytosis Slight; RBC 2.78 m/uL (4.30-5.90); RDW 15.2 % (11.5-15.5); WBC 6.7 k/uL (3.8-10.6)
[2021-06-26] MEDS: SODIUM CHLORIDE 0.9% 1,000 ML IV SCH ×2 (01:19→23:09)
[2021-06-26 04:40] LABS: Basophils % (A) 1 %; Eosinophils # (A) 0.1 k/uL (0-0.7); Eosinophils % (A) 2 %; HCT 25.2 % (39.0-53.0); HGB 8.3 gm/dL (13.0-17.5); Hypochromasia Slight; Lymphocytes # (A) 1.4 k/uL (1.0-4.8); Lymphocytes % (A) 27 %; MCH 29.8 pg (25.0-35.0); MCHC 33.1 g/dL (31.0-37.0); Mean Platelet Volume 9.5; Monocytes # (A) 0.4 k/uL (0-1.0); Monocytes % (A) 8 %; Neutrophils # (A) 3.2 k/uL (1.3-7.7); Neutrophils % (A) 60 %; Platelet Count 137 k/uL (150-450); Poikilocytosis Moderate; RDW 15.7 % (11.5-15.5); WBC 5.3 k/uL (3.8-10.6)
[2021-06-26] MEDS: FERROUS SULFATE 325 MG TAB PO SCH ×2 (06:58→17:12)
[2021-06-26] MEDS: FINASTERIDE 5 MG TAB PO SCH (06:58)
[2021-06-26] MEDS: SUCRALFATE 1 GM TAB PO SCH ×2 (06:58→17:11)
[2021-06-26] MEDS: PANTOPRAZOLE 40 MG/10 ML VIAL IVP SCH ×2 (06:58→20:58)
[2021-06-26 07:44] LABS: Glucose,Whole Blood 162 mg/dL (75-99)
[2021-06-26] MEDS: INSULIN ASPART (NovoLOG) 100 UNIT/ML VIAL SQ SCH ×4 (08:36→20:57)
[2021-06-26 11:52] LABS: Basophils % (A) 1 %; Eosinophils # (A) 0.1 k/uL (0-0.7); Eosinophils % (A) 1 %; HGB 8.5 gm/dL (13.0-17.5); Hypochromasia Slight; Lymphocytes # (A) 1.1 k/uL (1.0-4.8); Lymphocytes % (A) 21 %; MCH 29.8 pg (25.0-35.0); MCHC 32.7 g/dL (31.0-37.0); Mean Platelet Volume 11.4; Monocytes # (A) 0.3 k/uL (0-1.0); Monocytes % (A) 6 %; Neutrophils # (A) 3.8 k/uL (1.3-7.7); Neutrophils % (A) 69 %; Platelet Count 146 k/uL (150-450); Poikilocytosis Moderate; RBC 2.86 m/uL (4.30-5.90); RDW 15.7 % (11.5-15.5); WBC 5.5 k/uL (3.8-10.6)
[2021-06-26 12:12] LABS: Glucose,Whole Blood 350 mg/dL (75-99)
--- NOTE | 2021-06-26 12:48 | P.PN ---
Progress Note - Text Progress Note Date: 06/26/21 Patient still. He denies any evidence of GI bleed. His he will was a 0.5. On exam vitals are stable. Abdomen soft. History of GI bleed. Patient will be observed.
[2021-06-26 16:50] LABS: Glucose,Whole Blood 232 mg/dL (75-99)
[2021-06-26 20:14] LABS: Glucose,Whole Blood 233 mg/dL (75-99)
[2021-06-26] MEDS: INSULIN DETEMIR (LEVEMIR) 100 UNIT/ML SYR SQ SCH (20:57)
[2021-06-26] MEDS ORDERED: INSULIN ASPART (NovoLOG) 100 UNIT/ML VIAL SQ ONE ×2 (23:59)
[2021-06-26] MEDS ORDERED: SUCRALFATE 1 GM TAB ONE (23:59)
[2021-06-26] MEDS ORDERED: FERROUS SULFATE 325 MG TAB PO ONE (23:59)
[2021-06-27 05:21] LABS: HCT 25.1 % (39.0-53.0); HGB 8.3 gm/dL (13.0-17.5); Hypochromasia Slight; MCH 30.3 pg (25.0-35.0); MCHC 32.9 g/dL (31.0-37.0); Mean Platelet Volume 9.6; Platelet Count 121 k/uL (150-450); Poikilocytosis Slight; RBC 2.73 m/uL (4.30-5.90); RDW 15.2 % (11.5-15.5); WBC 5.9 k/uL (3.8-10.6)
[2021-06-27 07:12] VITALS: BP 154/80; PULSE 80; RESP 18; TEMP 97.9
[2021-06-27 07:27] LABS: Glucose,Whole Blood 191 mg/dL (75-99)
[2021-06-27] MEDS: PANTOPRAZOLE 40 MG/10 ML VIAL IVP SCH (07:41)
[2021-06-27] MEDS: INSULIN ASPART (NovoLOG) 100 UNIT/ML VIAL SQ SCH (07:41)
[2021-06-27] MEDS: FINASTERIDE 5 MG TAB PO SCH (07:41)
[2021-06-27] MEDS: SUCRALFATE 1 GM TAB PO SCH (07:41)
[2021-06-27] MEDS: FERROUS SULFATE 325 MG TAB PO SCH (07:41)
--- NOTE | 2021-06-27 11:53 | P.PN ---
Subjective Progress Note Date: 06/26/21 Principal diagnosis: Acute GI bleed Acute blood loss anemia Mild acute kidney injury 86 years old male with past medical history of colon Cancer, Diabetes Mellitus, GERD/Reflux, Hyperlipidemia, Hypertension, Renal Disease, on 02/09/19 bowel obstruction/colon cancer with surgery/colostomy-had oral chemo/radiation for mets to liver, recent colostomy reversal, IDDM type II, bilateral retinal disease with surgery, chronic low back pain, CKD, anemia. 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 No abdominal pain. No nausea vomiting. No diarrhea. That his stool color is dark brown Denies smoking, alcohol or illicit drugs He says that he takes Eliquis for irregular heart beat but he does not follow up with the lithostripper as an outpatient Vitals are stable hemoglobin is 8.9, rest of CBC, BMP and liver enzymes are unremarkable except for elevated creatinine at 2.4 with baseline is 1.6-2.1 Stool occult blood is positive in stool. Coronavirus not detected. EKG rah and emergency room he was started on normal saline at 50 mL/h and Protonix twice a day wing normal sinus rhythm with first-degree AV block at a rate of [address]-T changes and a QTC is 474 Objective - Vital Signs Vital signs: Vital Signs Temp 97.8 F 06/26/21 07:00 Pulse 79 06/26/21 07:00 Resp 16 06/26/21 07:00 BP 112/67 06/26/21 07:00 Pulse Ox 100 06/26/21 07:00 Intake & Output 06/25/21 06/26/21 06/26/21 18:59 06:59 18:59 Intake Total 832 Output Total 1 Balance 832 -1 Intake: Intake, IV Titration 300 Amount Sodium Chloride 0.9% 1, 300 000 ml @ 50 mls/hr IV . Q20H [facility] Rx#:[id number] Oral 222 Blood Product 310 Rc As-1 Unit 310 [id number] Output: Stool 1 Other: Voiding Method Toilet Toilet Toilet # Voids 1 1 - Exam GENERAL: The patient is alert and oriented x3, not in any acute distress. Well developed, well nourished. HEENT: Pupils are round and equally reacting to light. EOMI. No scleral icterus. No conjunctival pallor. Normocephalic, atraumatic. No pharyngeal erythema. No thyromegaly. CARDIOVASCULAR: S1 and S2 present. No murmurs, rubs, or gallops. PULMONARY: Chest is clear to auscultation, no wheezing or crackles. ABDOMEN: Soft, nontender, nondistended, normoactive bowel sounds. No palpable organomegaly. MUSCULOSKELETAL: No joint swelling or deformity. EXTREMITIES: No cyanosis, clubbing, or pedal edema. NEUROLOGICAL: Gross neurological examination did not reveal any focal deficits. SKIN: No rashes. no petechiae. - Labs CBC & Chem 7: 06/27/21 04:27 06/25/21 04:46 Labs: Abnormal Lab Results - Last 24 Hours (Table) 06/23/21 06/25/21 06/25/21 Range/Units 09:20 12:47 17:52 RBC (4.30-5.90) m/uL Hgb (13.0-17.5) gm/dL Hct (39.0-53.0) % RDW (11.5-15.5) % Plt Count (150-450) k/uL POC Glucose (mg/dL) 247 H 305 H (75-99) mg/dL Crossmatch See Detail 06/25/21 06/25/21 06/26/21 Range/Units 18:15 20:16 00:28 RBC 2.94 L 2.78 L (4.30-5.90) m/uL Hgb 8.6 L 8.0 L (13.0-17.5) gm/dL Hct 27.6 L 25.8 L (39.0-53.0) % RDW (11.5-15.5) % Plt Count 137 L 126 L (150-450) k/uL POC Glucose (mg/dL) 329 H (75-99) mg/dL Crossmatch 06/26/21 06/26/21 06/26/21 Range/Units 04:02 07:41 11:28 RBC 2.80 L 2.86 L (4.30-5.90) m/uL Hgb 8.3 L 8.5 L (13.0-17.5) gm/dL Hct 25.2 L 26.0 L (39.0-53.0) % RDW 15.7 H 15.7 H (11.5-15.5) % Plt Count 137 L 146 L (150-450) k/uL POC Glucose (mg/dL) 162 H (75-99) mg/dL Crossmatch 06/26/21 Range/Units 12:11 RBC (4.30-5.90) m/uL Hgb (13.0-17.5) gm/dL Hct (39.0-53.0) % RDW (11.5-15.5) % Plt Count (150-450) k/uL POC Glucose (mg/dL) 350 H (75-99) mg/dL Crossmatch Assessment and Plan Assessment: Acute GI bleed Acute blood loss anemia Mild acute kidney injury Hypertension Hyperlipidemia History of colon cancer with liver metastasis status post chemo radio therapy per Document but patient denies previous chemoradiotherapy History of bowel obstruction secondary to his colon cancer status post colostomy with recent reversal surgery History of GERD Chronic kidney disease stage III History of Bilateral retinal disease Chronic low back pain Plan: Hold Eliquis. Consult cardiology service Monitor hemoglobin. Anemia workup Protonix and Carafate Surgery consult recommended to repeat EGD in one month and colonoscopy in one year, discussed with his PCP this recommendation He is on Lantus 50 units at bedtime, we will lower his Levemir 20 units with insulin sliding scale Labs and medication were reviewed.. Continue same treatment. Continue with symptomatic treatment. Resume home medication. Monitor lytes and vitals. DVT and GI prophylaxis. Further recommendations depends on the clinical course of the patient DVT prophylaxis: No heparin in view of GI bleed heparin GI Prophylaxis: Ppi PT/OT: Pending
[2021-06-27 12:11] LABS: Glucose,Whole Blood 210 mg/dL (75-99)
--- NOTE | 2021-06-27 12:32 | P.PN ---
Progress Note - Text Progress Note Date: 06/27/21 Patient is stable. His hematoma was 8.3. On exam vital signs are stable. Abdomen soft. He has had no further evidence of GI bleed. Status post GI bleed . Patient will continue receive supportive care.
--- NOTE | 2021-07-14 17:32 | P.DS ---
Providers Date of admission: 06/25/21 15:58 Expected date of discharge: 06/27/21 Attending physician: Saleem Arizmendi MD Consults: 06/23/21 11:29 Consult Physician Routine Consulting Provider: Dorie Nolan Consult Reason/Comments: GI bleed Do you want consulting provider notified?: Already Contacted 06/24/21 13:17 Consult Physician Urgent Consulting Provider: Katie Mills Consult Reason/Comments: h/o a fib , risk for eliquis treatment Do you want consulting provider notified?: Yes 06/24/21 13:24 Consult Physician Urgent Consulting Provider: Clif Mills Consult Reason/Comments: hx of afib, risk for eliquis treatment Do you want consulting provider notified?: Yes Primary care physician: [facility] Hospital Course: 86 years old male with past medical history of colon Cancer, Diabetes Mellitus, GERD/Reflux, Hyperlipidemia, Hypertension, Renal Disease, on 02/09/19 bowel obstruction/colon cancer with surgery/colostomy-had oral chemo/radiation for mets to liver, recent colostomy reversal, IDDM type II, bilateral retinal disease with surgery, chronic low back pain, CKD, anemia. 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 No abdominal pain. No nausea vomiting. No diarrhea. That his stool color is dark brown Denies smoking, alcohol or illicit drugs He says that he takes Eliquis for irregular heart beat but he does not follow up with the curriculum manager as an outpatient Vitals are stable hemoglobin is 8.9, rest of CBC, BMP and liver enzymes are unremarkable except for elevated creatinine at 2.4 with baseline is 1.6-2.1 Stool occult blood is positive in stool. Coronavirus not detected. EKG rah and emergency room he was started on normal saline at 50 mL/h and Protonix twice a day wing normal sinus rhythm with first-degree AV block at a rate of [address]-T changes and a QTC is 474 Acute GI bleed Acute blood loss anemia Mild acute kidney injury Hypertension Hyperlipidemia History of colon cancer with liver metastasis status post chemo radio therapy per Document but patient denies previous chemoradiotherapy History of bowel obstruction secondary to his colon cancer status post colostomy with recent reversal surgery History of GERD Chronic kidney disease stage III History of Bilateral retinal disease Chronic low back pain Hold Eliquis. Consult cardiology service Monitor hemoglobin. Anemia workup Protonix and Carafate Surgery consult recommended to repeat EGD in one month and colonoscopy in one year, discussed with his PCP this recommendation He is on Lantus 50 units at bedtime, we will lower his Levemir 20 units with insulin sliding scale Labs and medication were reviewed.. Continue same treatment. Continue with symptomatic treatment. Resume home medication. Monitor lytes and vitals. DVT and GI prophylaxis. Further recommendations depends on the clinical course of the patient DVT prophylaxis: No heparin in view of GI bleed heparin 06/24/2021 Patient with no abdominal pain or vomiting. No more blood per stool. Patient had colonoscopy showing just mild grade 1 internal hemorrhoids with no active bleeding. No colitis, malformation, polyps or masses. The community to repeat colonoscopy in one year EGD showing severe acute gastritis along the antrum with recent stigmata of bleeding. Recommended that Carafate for 4 weeks plus Protonix/omeprazole 40 mg daily for 4 weeks upon discharge and repeat EGD in 1 month's His hemoglobin dropped today down to 7.0 there is also elements of hemodilution with platelets came down to 137 Eliquis remains on hold for now. We ordered anemia workup. Patient opted no code i [facility] and she told me he has a fib in 2019 and was following with and his pcp wanted to consult curriculum manager for anti- coagulation management Patient remained stable without any further GI bleed; he was cleared for discharge by general surgery with plans for outpatient follow-up Patient Condition at Discharge: Stable Plan - Discharge Summary New Discharge Prescriptions: New Sucralfate [Carafate] 1 gm PO AC-BID #60 tab Ferrous Sulfate [Iron (65 MG Elemental)] 325 mg PO BID-W/MEALS tab Pantoprazole [Protonix] 40 mg PO DAILY #30 tab Continue Finasteride [Proscar] 5 mg PO DAILY Omeprazole 20 mg PO DAILY Simvastatin [Zocor] 10 mg PO HS Alogliptin Benzoate [Alogliptin] 6.25 mg PO DAILY Vitamin B Complex 1 cap PO DAILY Apixaban [Eliquis] 2.5 mg PO BID #180 tab Metoprolol Tartrate 25 mg PO BID 30 Days #60 tab traMADol HCL [Ultram] 100 mg PO BID PRN PRN Reason: Pain INSULIN ASPART (NovoLOG) [NovoLOG (formulary)] 10 unit SQ AC-BID Cholecalciferol [Vitamin D3 (25 Mcg = 1000 Iu)] 50 mcg PO DAILY Insulin Glargine [Lantus Vial] 50 unit SQ HS Flavonoids 1 tab PO DAILY Discharge Medication List Finasteride [Proscar] 5 mg PO DAILY 02/09/19 [History] Omeprazole 20 mg PO DAILY 02/09/19 [History] Simvastatin [Zocor] 10 mg PO HS 08/06/19 [History] Alogliptin Benzoate [Alogliptin] 6.25 mg PO DAILY 10/31/19 [History] Vitamin B Complex 1 cap PO DAILY 10/31/19 [History] Apixaban [Eliquis] 2.5 mg PO BID #180 tab 11/04/19 [Rx] Metoprolol Tartrate 25 mg PO BID 30 Days #60 tab 11/05/19 [Rx] Cholecalciferol [Vitamin D3 (25 Mcg = 1000 Iu)] 50 mcg PO DAILY 06/23/21 [History] Flavonoids 1 tab PO DAILY 06/23/21 [History] INSULIN ASPART (NovoLOG) [NovoLOG (formulary)] 10 unit SQ AC-BID 06/23/21 [History] Insulin Glargine [Lantus Vial] 50 unit SQ HS 06/23/21 [History] traMADol HCL [Ultram] 100 mg PO BID PRN 06/23/21 [History] Ferrous Sulfate [Iron (65 MG Elemental)] 325 mg PO BID-W/MEALS tab 06/27/21 [Rx] Pantoprazole [Protonix] 40 mg PO DAILY #30 tab 06/27/21 [Rx] Sucralfate [Carafate] 1 gm PO AC-BID #60 tab 06/27/21 [Rx] Follow up Appointment(s)/Referral(s): Clif Mills DO [STAFF PHYSICIAN] - 2 Weeks Dorie Nolan MD [STAFF PHYSICIAN] - 07/09/21 [facility] [Primary Care Provider] - 1-2 days Patient Instructions/Handouts: Gastrointestinal Bleeding (DC) Activity/Diet/Wound Care/Special Instructions: Heart healthy diet Activity is restricted till you see your doctor Recommended that Carafate for 4 weeks plus Protonix/omeprazole for 4 weeks upon discharge and repeat EGD in 1 month's Please make an appointment to follow up with a curriculum manager. You may follow up with [facility] of [address] [phone] Discharge Disposition: HOME SELF-CARE
--- NOTE | 2021-07-15 11:08 | CDI ---
Documentation Clarification Form Date: 07/15/2021 10:56:00 AM From: Andrez Casey Admit Date: 06/25/2021 03:58:00 PM Patient Name: Arnulfo Herrera Visit Number: [id number] Discharge Date: 06/27/2021 12:44:00 PM ATTENTION: The Clinical Documentation Specialists (CDI) and [facility] Coding Staff appreciate your assistance in clarifying documentation. Please respond to the clarification below the line at the bottom and electronically sign. The CDI & [facility] Coding staff will review the response and follow-up if needed. Please note: Queries are made part of the Legal Health Record. If you have any questions, please contact the author of this message via ITS. Dr. Katie Ruby Conflicting documentation has been found in the medical record. As attending physician, please provide clarification. Consultation 06/23/21 indicates acute pancreatitis. This is not mentioned in any of the case notes or in the discharge summary. Need to determine if this was ruled out as this would be an SENIOR CARE. History/Risk Factors: GI bleed Clinical Indicators: Treatment: transfusion Please clarify which diagnosis is most appropriate: [ ] acute pancreatitis [ ] acute pancreatitis ruled out [ ] Other (please specify) [ ] Unable to determine [ ] acute pancreatitis was a prior history and not current acute pancreatitis MTDD
== END 2021-06-27 12:44 | disposition home or self-care (01) | DRG 377 ==
LOC: EC 08:58 → 1SOBS 11:29 → 6NMEDSUR 16:12 → OBSVTOIN 06-25 15:58
PROVIDERS: ADMIT Internal Medicine; ATTEND Internal Medicine
PROC: 30233N1 Transfusion of Nonautologous Red Blood Cells into Peripheral Vein, Percutaneous Approach (ICD-10-PCS; 2021-06-24)
PROC: 0DJ08ZZ Inspection of Upper Intestinal Tract, Via Natural or Artificial Opening Endoscopic (ICD-10-PCS; principal; 2021-06-24 08:50)
PROC: 0DJD8ZZ Inspection of Lower Intestinal Tract, Via Natural or Artificial Opening Endoscopic (ICD-10-PCS; 2021-06-24 08:50)
DX: K29.01 Acute gastritis with bleeding (principal); K85.90 Acute pancreatitis without necrosis or infection, unspecified; C78.7 Secondary malignant neoplasm of liver and intrahepatic bile duct; D62 Acute posthemorrhagic anemia; I13.0 Hypertensive heart and chronic kidney disease with heart failure and stage 1 through stage 4 chronic kidney disease, or unspecified chronic kidney disease; N17.9 Acute kidney failure, unspecified; K22.11 Ulcer of esophagus with bleeding; Z20.822 Contact with and (suspected) exposure to COVID-19; E11.22 Type 2 diabetes mellitus with diabetic chronic kidney disease; E78.5 Hyperlipidemia, unspecified; G89.29 Other chronic pain; I44.0 Atrioventricular block, first degree; I45.10 Unspecified right bundle-branch block; I48.0 Paroxysmal atrial fibrillation; I50.9 Heart failure, unspecified; K59.00 Constipation, unspecified; K64.0 First degree hemorrhoids; M54.59 Other low back pain; N18.30 Chronic kidney disease, stage 3 unspecified; Z79.01 Long term (current) use of anticoagulants; Z79.4 Long term (current) use of insulin; Z79.899 Other long term (current) drug therapy; Z82.49 Family history of ischemic heart disease and other diseases of the circulatory system; Z85.038 Personal history of other malignant neoplasm of large intestine; Z87.891 Personal history of nicotine dependence; Z90.49 Acquired absence of other specified parts of digestive tract; Z92.21 Personal history of antineoplastic chemotherapy; I35.8 Other nonrheumatic aortic valve disorders; Z92.3 Personal history of irradiation; H35.9 Unspecified retinal disorder; Z86.010 Personal history of colon polyps
CPT/HCPCS: 36415; 43235; 45378; 80048; 80053; 82272; 82607; 82728; 82746; 83540; 83550; 83735; 85025; 85027; 85610; 85730; 86850; 86900; 86901; 86920; 87635; 93005; 96374; 99285

== ENCOUNTER 2021-08-26 06:44 | Day surgery (SDC) | payer MEDICARE, OTHER ==
[2021-08-24 12:39] VITALS: BMI 29.0
--- NOTE | 2021-08-26 06:27 | P.GSHP ---
History of Present Illness H&P Date: 08/26/21 CHIEF COMPLAINT: GERD HISTORY OF PRESENT ILLNESS: The patient is a 86-year-old male who presents reports gastroesophageal reflux disease. Upper endoscopy was offered for further evaluation and management. PAST MEDICAL HISTORY: Please see list. PAST SURGICAL HISTORY: Please see list. MEDICATIONS: Please see list. ALLERGIES: Please see list. SOCIAL HISTORY: No illicit drug use FAMILY HISTORY: No reports of Crohn disease or ulcerative colitis. REVIEW OF ORGAN SYSTEMS: CONSTITUTIONAL: No reports of fevers or chills. GI: Denies any blood in stools or constipation. PHYSICAL EXAM: VITAL SIGNS: Stable GENERAL: Well-developed and pleasant in no acute distress. HEENT: No scleral icterus. Extraocular movements grossly intact. Moist buccal mucosa. NECK: Supple without lymphadenopathy. CHEST: Unlabored respirations. Equal bilateral excursions. CARDIOVASCULAR: Regular rate and rhythm. Distal 2+ pulses. ABDOMEN: Soft, nondistended. MUSCULOSKELETAL: No clubbing, cyanosis, or edema. ASSESSMENT: 1. Gastroesophageal reflux disease PLAN: 1. Recommend proceeding with an upper endoscopy Past Medical History Past Medical History: Atrial Fibrillation, Cancer, Diabetes Mellitus, Eye Disorder, GERD/Reflux, GI Bleed, Hyperlipidemia, Hypertension, Renal Disease Additional Past Medical History / Comment(s): 2019 bowel obstruction/colon cancer, hx oral chemo/radiation for mets to liver.IDDM type II, bilat retinal disease surgery, chronic low back pain, CKD, anemia. GI bleed 06/24/21. Last Myocardial Infarction Date:: unknown History of Any Multi-Drug Resistant Organisms: None Reported Past Surgical History: Bowel Resection, Orthopedic Surgery, Tonsillectomy Additional Past Surgical History / Comment(s): 02/09/19 colonoscopy, 01/2019 bowel resection w/ colostomy; 10/11/19 exploratory lap w/ lysis of adhesions/partial colectomy, colostomy reversal. Colonoscopy/EGD 06/24/21 Past Anesthesia/Blood Transfusion Reactions: No Reported Reaction Additional Past Anesthesia/Blood Transfusion Reaction / Comment(s): Last transfusion 06/24/21 Smoking Status: Former smoker - Past Family History Father Additional Family Medical History / Comment(s): at 95 of old age Mother Family Medical History: Myocardial Infarction ([place]) Additional Family Medical History / Comment(s): at 93 of old age, had a myocardial infarction in her upper 80s. Sister(s) Family Medical History: Cancer Additional Family Medical History / Comment(s): stomach cancer Medications and Allergies Home Medications Medication Instructions Recorded Confirmed Type Finasteride [Proscar] 5 mg PO DAILY 02/09/19 08/24/21 History Omeprazole 20 mg PO DAILY 02/09/19 08/24/21 History Simvastatin [Zocor] 10 mg PO HS 08/06/19 08/24/21 History Alogliptin Benzoate [Alogliptin] 6.25 mg PO DAILY 10/31/19 08/24/21 History Vitamin B Complex 1 cap PO DAILY 10/31/19 08/24/21 History Metoprolol Tartrate 25 mg PO BID 30 Days #60 tab 11/05/19 08/24/21 Rx Cholecalciferol [Vitamin D3 (25 50 mcg PO DAILY 06/23/21 08/24/21 History Mcg = 1000 Iu)] INSULIN ASPART (NovoLOG) [NovoLOG 0 unit SQ AC-BID 06/23/21 08/24/21 History (formulary)] Insulin Glargine [Lantus Vial] 50 unit SQ HS 06/23/21 08/24/21 History traMADol HCL [Ultram] 100 mg PO BID PRN 06/23/21 08/24/21 History Ferrous Sulfate [Iron (65 MG 325 mg PO BID-W/MEALS tab 06/27/21 08/24/21 Rx Elemental)] Allergies Allergy/AdvReac Type Severity Reaction Status Date / Time hydrocodone AdvReac dream Verified 08/24/21 12:09 disorder/night sweats
[~2021-08-26 06:44] MED LIST changes: -DEXAMETHASONE SOD PHOSPHATE 10 MG/ML 1 ML VIAL IV ONE; -HEPARIN SODIUM,PORCINE 5,000 UNIT/ML 1 ML VIAL SQ ONE; -HYDROmorphone 0.5 MG/0.5 ML SYRINGE IVP PRN; +LIDOCAINE 1% (10MG/ML) FOR IV START INTRADERMA PRN; -LIDOCAINE 1% 20 ML VIAL (10MG/ML) FOR IV START INTRADERMA PRN; -ONDANSETRON 4 MG/2 ML VIAL IVP ONE; -fentaNYL (PF) 50 MCG/ML 2 ML AMP IV PRN; -metroNIDAZOLE-NS PMX 500 MG in SALINE 1 100ML.BAG IVPB ONE
[2021-08-26] MEDS ORDERED: LACTATED RINGERS 1,000 ML IV ONE (07:04)
[2021-08-26 07:14] LABS: Glucose,Whole Blood 204 mg/dL (75-99)
[2021-08-26 07:15] VITALS: TEMP 97.8
[2021-08-26] MEDS ORDERED: LIDOCAINE 1% INJ 10MG/ML (20 ML MDV) ONE (07:40)
[2021-08-26] MEDS ORDERED: PROPOFOL 10 MG/ML 20 ML VIAL IV ONE (07:40)
--- NOTE | 2021-08-26 08:00 | P.PCN ---
Date of Procedure: 08/26/21 Description of Procedure: PREOPERATIVE DIAGNOSIS: Gastric ulcers Anemia POSTOPERATIVE DIAGNOSIS: Gastroparesis Gastritis Duodenitis Gastroesophageal reflux disease with erosive esophagitis OPERATION: Esophagogastroduodenoscopy with biopsies along antrum, duodenum SURGEON: Dorie Nolan MD ANESTHESIA: MAC. INDICATIONS: The patient is a 86-year-old male who presents with a history of anemia from gastric ulcers. Benefits and risks of the procedure were described. Informed consent was obtained. DESCRIPTION: The patient was brought into the endoscopy suite and laid in the left lateral decubitus position. An Olympus gastroscope was passed along the posterior oropharynx down to the distal esophagus where the squamocolumnar junction was encountered at 37 cm from the incisors. The stomach was entered and no bile reflux was found. Additional findings are listed below. Biopsies with cold forceps were obtained of the antrum. The first through third portion of the duodenum was examined and remarkable for duodenitis. Retroflexion of the scope confirmed Hill grade 2 lower esophageal valve. The squamocolumnar junction demonstrated LA grade B erosive esophagitis. The stomach was desufflated. The patient tolerated the procedure well. FINDINGS: Squamocolumnar junction 37 cm from the incisors. Diaphragmatic hiatus at 37 cm. Hill grade 2 lower esophageal valve. LA grade B erosive esophagitis. Active duodenitis. Chronic gastritis along antrum Moderate retained food along gastric cardia for gastroparesis RECOMMENDATIONS: 1. Omeprazole 40 mg daily for 4 weeks 2. Carafate 1 g twice a day for 2 weeks 3. Upper endoscopy as needed Plan - Discharge Summary Discharge Rx Participant: No New Discharge Prescriptions: New Sucralfate [Carafate] 1 gm PO BID #30 tablet Omeprazole [PriLOSEC] 40 mg PO DAILY #30 cap Continue Finasteride [Proscar] 5 mg PO DAILY Simvastatin [Zocor] 10 mg PO HS Alogliptin Benzoate [Alogliptin] 6.25 mg PO DAILY Vitamin B Complex 1 cap PO DAILY Metoprolol Tartrate 25 mg PO BID 30 Days #60 tab traMADol HCL [Ultram] 100 mg PO BID PRN PRN Reason: Pain INSULIN ASPART (NovoLOG) [NovoLOG (formulary)] 0 unit SQ AC-BID Cholecalciferol [Vitamin D3 (25 Mcg = 1000 Iu)] 50 mcg PO DAILY Insulin Glargine [Lantus Vial] 50 unit SQ HS Ferrous Sulfate [Iron (65 MG Elemental)] 325 mg PO BID-W/MEALS tab Discontinued Omeprazole 20 mg PO DAILY Discharge Medication List Finasteride [Proscar] 5 mg PO DAILY 02/09/19 [History] Simvastatin [Zocor] 10 mg PO HS 08/06/19 [History] Alogliptin Benzoate [Alogliptin] 6.25 mg PO DAILY 10/31/19 [History] Vitamin B Complex 1 cap PO DAILY 10/31/19 [History] Metoprolol Tartrate 25 mg PO BID 30 Days #60 tab 11/05/19 [Rx] Cholecalciferol [Vitamin D3 (25 Mcg = 1000 Iu)] 50 mcg PO DAILY 06/23/21 [History] INSULIN ASPART (NovoLOG) [NovoLOG (formulary)] 0 unit SQ AC-BID 06/23/21 [History] Insulin Glargine [Lantus Vial] 50 unit SQ HS 06/23/21 [History] traMADol HCL [Ultram] 100 mg PO BID PRN 06/23/21 [History] Ferrous Sulfate [Iron (65 MG Elemental)] 325 mg PO BID-W/MEALS tab 06/27/21 [Rx] Omeprazole [PriLOSEC] 40 mg PO DAILY #30 cap 08/26/21 [Rx] Sucralfate [Carafate] 1 gm PO BID #30 tablet 08/26/21 [Rx] Follow up Appointment(s)/Referral(s): Dorie Nolan MD [STAFF PHYSICIAN] - 09/14/21 Patient Instructions/Handouts: Gastritis (DC), Diet for Stomach Ulcers and Gastritis (ED), Gastroparesis (DC), Duodenitis (DC) Discharge Disposition: HOME SELF-CARE
[2021-08-26 08:08] LABS: Glucose,Whole Blood 190 mg/dL (75-99)
[2021-08-26 08:16] VITALS: BP 155/82; PULSE 69; RESP 16
== END 2021-08-26 08:58 | disposition home or self-care (01) ==
LOC: ORWHC2ENDO 06:44
PROVIDERS: ATTEND Surgery Plastic and Reconstructive Surgery
DX: K31.84 Gastroparesis (principal); K29.70 Gastritis, unspecified, without bleeding; K29.80 Duodenitis without bleeding; K21.9 Gastro-esophageal reflux disease without esophagitis; K22.10 Ulcer of esophagus without bleeding; I48.91 Unspecified atrial fibrillation; I10 Essential (primary) hypertension; E78.5 Hyperlipidemia, unspecified; E11.9 Type 2 diabetes mellitus without complications; I25.2 Old myocardial infarction
CPT/HCPCS: 43239; J2001; J2704; 88305; 88342

== ENCOUNTER → 2021-10-25 | Outpatient (CLI) | payer OTHER | END | disposition home or self-care (01) | LOC: LABPAT 15:30 | PROVIDERS: ATTEND Surgery Plastic and Reconstructive Surgery | DX: Z20.822 Contact with and (suspected) exposure to COVID-19 (principal) ==

== ENCOUNTER → 2021-10-28 | Day surgery (SDC) | payer OTHER ==
[2021-10-22 16:13] VITALS: BMI 27.8
[~2021-10-28] MED LIST changes: -LIDOCAINE 1% (10MG/ML) FOR IV START INTRADERMA PRN; +PROPOFOL 10 MG/ML 20 ML VIAL IV ONE
--- NOTE | 2021-10-28 06:13 | P.GSHP ---
History of Present Illness H&P Date: 10/28/21 CHIEF COMPLAINT: Gastric ulcer HISTORY OF PRESENT ILLNESS: The patient is a 86-year-old male who presents reports gastric ulcer. Upper endoscopy was offered for further evaluation and management. PAST MEDICAL HISTORY: Please see list. PAST SURGICAL HISTORY: Please see list. MEDICATIONS: Please see list. ALLERGIES: Please see list. SOCIAL HISTORY: No illicit drug use FAMILY HISTORY: No reports of Crohn disease or ulcerative colitis. REVIEW OF ORGAN SYSTEMS: CONSTITUTIONAL: No reports of fevers or chills. GI: Denies any blood in stools or constipation. PHYSICAL EXAM: VITAL SIGNS: Stable GENERAL: Well-developed and pleasant in no acute distress. HEENT: No scleral icterus. Extraocular movements grossly intact. Moist buccal mucosa. NECK: Supple without lymphadenopathy. CHEST: Unlabored respirations. Equal bilateral excursions. CARDIOVASCULAR: Regular rate and rhythm. Distal 2+ pulses. ABDOMEN: Soft, nondistended. MUSCULOSKELETAL: No clubbing, cyanosis, or edema. ASSESSMENT: 1. Gastric ulcer PLAN: 1. Recommend proceeding with an upper endoscopy Past Medical History Past Medical History: Atrial Fibrillation, Cancer, Diabetes Mellitus, GERD/Reflux, GI Bleed, Hypertension, Pneumonia, Renal Disease Additional Past Medical History / Comment(s): 2019 bowel obstruction/colon cancer, hx oral chemo/radiation for mets to liver., bilat retinal disease surgery, anemia. GI bleed 06/24/21, blood in stool Last Myocardial Infarction Date:: unknown History of Any Multi-Drug Resistant Organisms: None Reported Past Surgical History: Bowel Resection, Orthopedic Surgery, Tonsillectomy Additional Past Surgical History / Comment(s): colonoscopy, 01/2019 bowel resection w/ colostomy; 10/11/19 exploratory lap w/ lysis of adhesions/partial colectomy, colostomy reversal. Colonoscopy/EGD 06/24/21 Past Anesthesia/Blood Transfusion Reactions: No Reported Reaction Additional Past Anesthesia/Blood Transfusion Reaction / Comment(s): Last transfusion 06/24/21 Smoking Status: Former smoker - Past Family History Father Additional Family Medical History / Comment(s): at 95 of old age Mother Family Medical History: Myocardial Infarction (MD) Additional Family Medical History / Comment(s): at 93 of old age, had a myocardial infarction in her upper 80s. Sister(s) Family Medical History: Cancer Additional Family Medical History / Comment(s): stomach cancer Medications and Allergies Home Medications Medication Instructions Recorded Confirmed Type Finasteride [Proscar] 5 mg PO DAILY 02/09/19 10/22/21 History Simvastatin [Zocor] 10 mg PO HS 08/06/19 10/22/21 History Alogliptin Benzoate [Alogliptin] 6.25 mg PO DAILY 10/31/19 10/22/21 History Metoprolol Tartrate 25 mg PO BID 30 Days #60 tab 11/05/19 10/22/21 Rx INSULIN ASPART (NovoLOG) [NovoLOG 0 unit SQ QAM 06/23/21 10/22/21 History (formulary)] Insulin Glargine [Lantus Vial] 55 unit SQ HS 06/23/21 10/22/21 History traMADol HCL [Ultram] 50 - 100 mg PO BID PRN 06/23/21 10/22/21 History Apixaban [Eliquis] 2.5 mg PO BID 10/22/21 10/22/21 History Omeprazole [PriLOSEC] 20 mg PO [id number]-[id number] 10/22/21 10/22/21 History Allergies Allergy/AdvReac Type Severity Reaction Status Date / Time hydrocodone AdvReac dream Verified 10/22/21 15:57 disorder/night sweats
[2021-10-28 07:31] LABS: Glucose,Whole Blood 250 mg/dL (75-99)
[2021-10-28 07:37] VITALS: RESP 18; TEMP 97.4
--- NOTE | 2021-10-28 08:15 | P.PCN ---
Date of Procedure: 10/28/21 Description of Procedure: PREOPERATIVE DIAGNOSIS: Gastric ulcer History of GI bleed with anemia Chronic anticoagulation POSTOPERATIVE DIAGNOSIS: Severe gastritis Chronic anticoagulation OPERATION: Esophagogastroduodenoscopy SURGEON: Dorie Nolan MD ANESTHESIA: MAC. INDICATIONS: The patient is a 86-year-old male with chronic anticoagulation and prior history of hematuria due to gastric ulcer. Benefits and risks of the procedure were described. Informed consent was obtained. DESCRIPTION: The patient was brought into the endoscopy suite and laid in the left lateral decubitus position. An Olympus gastroscope was passed along the posterior oropharynx down to the distal esophagus where the squamocolumnar junction was encountered at 38 cm from the incisors. The stomach was entered and no bile reflux was found. Additional findings are listed below. The first through third portion of the duodenum was examined. Retroflexion of the scope confirmed Hill grade 3 lower esophageal valve. The squamocolumnar junction demonstrated LA grade A erosive esophagitis. The stomach was desufflated. The patient tolerated the procedure well. FINDINGS: Squamocolumnar junction 38 cm from the incisors. Diaphragmatic hiatus at 38 cm. Hill grade 3 lower esophageal valve. LA grade A erosive esophagitis. No active duodenitis. Moderate to severe gastritis along the antrum RECOMMENDATIONS: 1. Recommend continue omeprazole 40 mg and Carafate 1 g twice a day due to medication-induced gastritis. Plan - Discharge Summary New Discharge Prescriptions: New Sucralfate [Carafate] 1 gm PO BID #120 tablet Omeprazole [PriLOSEC] 40 mg PO DAILY #90 cap Continue Finasteride [Proscar] 5 mg PO DAILY Simvastatin [Zocor] 10 mg PO HS Alogliptin Benzoate [Alogliptin] 6.25 mg PO DAILY Metoprolol Tartrate 25 mg PO BID 30 Days #60 tab traMADol HCL [Ultram] 50 - 100 mg PO BID PRN PRN Reason: Pain INSULIN ASPART (NovoLOG) [NovoLOG (formulary)] 0 unit SQ QAM Insulin Glargine [Lantus Vial] 55 unit SQ HS Apixaban [Eliquis] 2.5 mg PO BID Discontinued Omeprazole [PriLOSEC] 20 mg PO -[facility] Discharge Medication List Finasteride [Proscar] 5 mg PO DAILY 02/09/19 [History] Simvastatin [Zocor] 10 mg PO HS 08/06/19 [History] Alogliptin Benzoate [Alogliptin] 6.25 mg PO DAILY 10/31/19 [History] Metoprolol Tartrate 25 mg PO BID 30 Days #60 tab 11/05/19 [Rx] INSULIN ASPART (NovoLOG) [NovoLOG (formulary)] 0 unit SQ QAM 06/23/21 [History] Insulin Glargine [Lantus Vial] 55 unit SQ HS 06/23/21 [History] traMADol HCL [Ultram] 50 - 100 mg PO BID PRN 06/23/21 [History] Apixaban [Eliquis] 2.5 mg PO BID 10/22/21 [History] Omeprazole [PriLOSEC] 40 mg PO DAILY #90 cap 10/28/21 [Rx] Sucralfate [Carafate] 1 gm PO BID #120 tablet 10/28/21 [Rx] Follow up Appointment(s)/Referral(s): Dorie Nolan MD [STAFF PHYSICIAN] - 11/02/21 Patient Instructions/Handouts: Gastritis (DC), Diet for Stomach Ulcers and Gastritis (GEN) Discharge Disposition: HOME SELF-CARE
[2021-10-28 08:20] VITALS: PULSE 97
[2021-10-28 08:40] VITALS: BP 152/60
== END | disposition home or self-care (01) ==
LOC: ORWHC2ENDO 06:47
PROVIDERS: ATTEND Surgery Plastic and Reconstructive Surgery
DX: K25.9 Gastric ulcer, unspecified as acute or chronic, without hemorrhage or perforation (principal); Z79.01 Long term (current) use of anticoagulants
CPT/HCPCS: 43235; J2704

== ENCOUNTER → 2022-04-07 | Outpatient (CLI) | payer MEDICARE, OTHER ==
--- NOTE | 2022-04-07 16:30 | CT ---
EXAMINATION TYPE: CT abdomen pelvis wo con CT DLP: 484.4 mGycm, Automated exposure control for dose reduction was used. DATE OF EXAM: 04/07/2022 4:08 PM COMPARISON: CT chest abdomen pelvis 07/02/2020 CLINICAL INDICATION:Male, 86 years old with history of D49.4 bladder mass; bladder CA TECHNIQUE: Standard CT of the abdomen and pelvis without IV or oral contrast. Lack of IV or oral co ntrast limits evaluation of solid and hollow organ viscera. Coronal and sagittal reformats were perfo rmed. FINDINGS: LOWER CHEST: New left lower lobe 6 mm pulmonary nodule (series 8, image 13). ABDOMEN LIVER: Unremarkable noncontrast appearance. GALLBLADDER AND BILE DUCTS: Unremarkable. PANCREAS: Unremarkable noncontrast appearance. SPLEEN: Unremarkable noncontrast appearance. ADRENAL GLANDS: Unremarkable noncontrast appearance. KIDNEYS AND URETERS: No evidence of hydronephrosis or renal calculus. The ureters are unremarkable. N o suspicious lesions within the limitations of a noncontrast exam. Nonspecific bilateral perinephric fat stranding. PELVIS BLADDER: No definitive evidence for local recurrence within the limitations of a noncontrast exam. REPRODUCTIVE: Enlarged prostate gland which indents upon the bladder base. ABDOMEN & PELVIS STOMACH AND BOWEL: Stomach and duodenum are unremarkable. Postsurgical changes with anastomosis in th e left lower quadrant. No evidence of bowel obstruction. PERITONEUM: No evidence of pneumoperitoneum or free fluid. VASCULATURE: Mild atherosclerotic calcifications are present throughout the abdominal aorta and its b ranches. No evidence of aortic aneurysm. MUSCULOSKELETAL: No acute osseous abnormalities. No suspicious osseous lesions. Diffuse skeletal oste openia. Grade 1 anterolisthesis of L5 and S1 with bilateral pars defects. Multilevel degenerative nerissa nges of the visualized spine. LYMPH NODES: No gross evidence for lymphadenopathy. SOFT TISSUE/ABDOMINAL WALL: Small fat filled right inguinal hernia. Small umbilical hernia containing a portion of nonobstructive bowel. Surgical changes of the anterior abdominal wall. IMPRESSION: 1. No CT evidence for local recurrence within limitation of noncontrast exam. No suspicious adenopat hy. 2. New 6 mm left lower lobe pulmonary nodule. Cannot exclude metastasis in a patient with history of bladder cancer. Dedicated CT chest is recommended.
== END | disposition home or self-care (01) ==
LOC: RADCTMAIN 13:40
PROVIDERS: ATTEND Urology
DX: D49.4 Neoplasm of unspecified behavior of bladder (principal)
CPT/HCPCS: 36415; 74176; 82565; 84520

== ENCOUNTER 2022-06-08 08:09 | Day surgery (SDC) | payer OTHER ==
--- NOTE | 2022-06-08 07:54 | P.GSHP ---
History of Present Illness H&P Date: 06/08/22 CHIEF COMPLAINT: Colon screen HISTORY OF PRESENT ILLNESS: The patient is a 87-year-old male who presents for colon screen. Lower endoscopy was offered for further evaluation and management. PAST MEDICAL HISTORY: Please see list. PAST SURGICAL HISTORY: Please see list. MEDICATIONS: Please see list. ALLERGIES: Please see list. SOCIAL HISTORY: No illicit drug use FAMILY HISTORY: No reports of Crohn disease or ulcerative colitis. REVIEW OF ORGAN SYSTEMS: CONSTITUTIONAL: No reports of fevers or chills. PHYSICAL EXAM: VITAL SIGNS: Stable GENERAL: Well-developed pleasant in no acute distress. HEENT: No scleral icterus. Extraocular movements grossly intact. Moist buccal mucosa. NECK: Supple without lymphadenopathy. CHEST: Unlabored respirations. Equal bilateral excursions. CARDIOVASCULAR: Regular rate and rhythm. Distal 2+ pulses. ABDOMEN: Soft, nontender, nondistended. MUSCULOSKELETAL: No clubbing, cyanosis, or edema. ASSESSMENT: 1. Colon screen. PLAN: 1. 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 GI bleed 06/24/21, blood in stool Last Myocardial Infarction Date:: unknown History of Any Multi-Drug Resistant Organisms: None Reported Past Surgical History: Bowel Resection, Orthopedic Surgery, Tonsillectomy Additional Past Surgical History / Comment(s): colonoscopy, 01/2019 bowel resection w/ colostomy; 10/11/19 exploratory lap w/ lysis of adhesions/partial colectomy, colostomy reversal. Colonoscopy/EGD 06/24/21 Past Anesthesia/Blood Transfusion Reactions: No Reported Reaction Additional Past Anesthesia/Blood Transfusion Reaction / Comment(s): Last transfusion 06/24/21 Past Psychological History: No Psychological Hx Reported Smoking Status: Former smoker Past Alcohol Use History: None Reported Additional Past Alcohol Use History / Comment(s): smoked age [age], 1 1/2 ppd Past Drug Use History: None Reported - Past Family History Father Additional Family Medical History / Comment(s): at 95 of old age Mother Family Medical History: Myocardial Infarction ([place]) Additional Family Medical History / Comment(s): at 93 of old age, had a myocardial infarction in her upper 80s. Sister(s) Family Medical History: Cancer Additional Family Medical History / Comment(s): stomach cancer Medications and Allergies Home Medications Medication Instructions Recorded Confirmed Type Finasteride [Proscar] 5 mg PO DAILY 02/09/19 06/07/22 History Simvastatin [Zocor] 10 mg PO HS 08/06/19 06/07/22 History Alogliptin Benzoate [Alogliptin] 6.25 mg PO QAM 10/31/19 06/07/22 History INSULIN ASPART (NovoLOG) [NovoLOG See Protocol SQ AC-TID 06/23/21 06/07/22 History (formulary)] Insulin Glargine [Lantus Vial] 30 unit SQ BID 06/23/21 06/07/22 History traMADol HCL [Ultram] 50 - 100 mg PO BID PRN 06/23/21 06/07/22 History Omeprazole [PriLOSEC] 40 mg PO DAILY #90 cap 10/28/21 06/07/22 Rx Sucralfate [Carafate] 1 gm PO BID #120 tablet 10/28/21 06/07/22 Rx Cholecalciferol [Vitamin D3 (25 50 mcg PO DAILY 12/28/21 06/07/22 History Mcg = 1000 Iu)] Metoprolol Tartrate [Lopressor] 25 mg PO BID 12/28/21 06/07/22 History Sodium Bicarbonate Tab 650 mg PO DAILY 12/28/21 06/07/22 History Vitamin B Complex 1 cap PO DAILY 12/28/21 06/07/22 History Allergies Allergy/AdvReac Type Severity Reaction Status Date / Time hydrocodone AdvReac dream Verified 06/07/22 09:31 disorder/night sweats
[~2022-06-08 08:09] MED LIST changes: -LACTATED RINGERS 1,000 ML IV SCH; +LIDOCAINE 1% (10MG/ML) FOR IV START INTRADERMA PRN; -PROPOFOL 10 MG/ML 20 ML VIAL IV ONE
[2022-06-08] MEDS: LACTATED RINGERS 1,000 ML IV SCH ×2 (08:46→09:41)
[2022-06-08 08:51] VITALS: TEMP 97.6
[2022-06-08 09:04] LABS: Glucose,Whole Blood 228 mg/dL (70-110)
[2022-06-08] MEDS ORDERED: PROPOFOL 10 MG/ML 20 ML VIAL IV ONE (09:42)
--- NOTE | 2022-06-08 10:17 | P.PCN ---
Date of Procedure: 06/08/22 Description of Procedure: PREOPERATIVE DIAGNOSIS: Personal history colon cancer Recent gastrointestinal bleeding Colon cancer surveillance POSTOPERATIVE DIAGNOSIS: Colon cancer surveillance Personal history colon cancer Recent gastrointestinal bleeding Tubular adenoma ascending colon OPERATION: Colonoscopy to the ileocecal valve and appendiceal orifice, cecum Colonoscopy with hot snare polypectomy SURGEON: Dorie Nolan MD. ANESTHESIA: MAC. INDICATIONS: The patient is an 87-year-old male who presents with personal history of colon cancer. He has recent gastrointestinal bleeding. Benefits and risks were described and informed consent was obtained. DESCRIPTION OF PROCEDURE: The patient had undergone Sutab prep. The patient had been brought into the operating room and laid in the left lateral decubitus position. After adequate intravenous sedation, the rectum was examined with 2% lidocaine jelly. The prostate fossa was unremarkable. No external hemorrhoids were encountered. The rectal tone was within normal limits. No lesions were palpated in the rectal vault. An Olympus colonoscope was advanced until the cecum, ileocecal valve and appendiceal orifice were clearly viewed. The prep was fair. No sigmoid diverticulosis was encountered. Colonic polyps were found and removed. No evidence of focal colitis was found. Retroflexion of the scope demonstrated grade 2 internal hemorrhoids without active bleeding or inflammation. The colon was desufflated. The patient had tolerated the procedure well. Withdrawal time was over 6 minutes. FINDINGS: Aronchick preparation quality scale 3 (1-5) Internal hemorrhoids, grade 2 No external hemorrhoids No arteriovenous malformations. No sigmoid diverticulosis Removal of 1 polyp: - Snare polypectomy at ascending colon, 5 mm tubulovillous adenoma polyp. No focal colitis. RECOMMENDATIONS: Repeat colonoscopy one year, 2022 colon cancer surveillance Plan - Discharge Summary Discharge Rx Participant: No New Discharge Prescriptions: Continue Finasteride [Proscar] 5 mg PO DAILY Simvastatin [Zocor] 10 mg PO HS Alogliptin Benzoate [Alogliptin] 6.25 mg PO QAM traMADol HCL [Ultram] 50 - 100 mg PO BID PRN PRN Reason: Pain INSULIN ASPART (NovoLOG) [NovoLOG (formulary)] See Protocol SQ AC-TID Omeprazole [PriLOSEC] 40 mg PO DAILY #90 cap Cholecalciferol [Vitamin D3 (25 Mcg = 1000 Iu)] 50 mcg PO DAILY Vitamin B Complex 1 cap PO DAILY Insulin Glargine [Lantus Vial] 30 unit SQ BID Sucralfate [Carafate] 1 gm PO BID #120 tablet Sodium Bicarbonate Tab 650 mg PO DAILY Metoprolol Tartrate [Lopressor] 25 mg PO BID Discharge Medication List Finasteride [Proscar] 5 mg PO DAILY 02/09/19 [History] Simvastatin [Zocor] 10 mg PO HS 08/06/19 [History] Alogliptin Benzoate [Alogliptin] 6.25 mg PO QAM 10/31/19 [History] INSULIN ASPART (NovoLOG) [NovoLOG (formulary)] See Protocol SQ AC-TID 06/23/21 [History] Insulin Glargine [Lantus Vial] 30 unit SQ BID 06/23/21 [History] traMADol HCL [Ultram] 50 - 100 mg PO BID PRN 06/23/21 [History] Omeprazole [PriLOSEC] 40 mg PO DAILY #90 cap 10/28/21 [Rx] Sucralfate [Carafate] 1 gm PO BID #120 tablet 10/28/21 [Rx] Cholecalciferol [Vitamin D3 (25 Mcg = 1000 Iu)] 50 mcg PO DAILY 12/28/21 [History] Metoprolol Tartrate [Lopressor] 25 mg PO BID 12/28/21 [History] Sodium Bicarbonate Tab 650 mg PO DAILY 12/28/21 [History] Vitamin B Complex 1 cap PO DAILY 12/28/21 [History] Follow up Appointment(s)/Referral(s): Dorie Nolan MD [STAFF PHYSICIAN] - As Needed Patient Instructions/Handouts: Colorectal Polyps (GEN) Activity/Diet/Wound Care/Special Instructions: Repeat colonoscopy one year, 2022, for colon cancer surveillance Discharge Disposition: HOME SELF-CARE
[2022-06-08 10:27] VITALS: BP 150/77; PULSE 69; RESP 16
== END 2022-06-08 11:13 | disposition home or self-care (01) ==
LOC: ORWHC2ENDO 08:09
PROVIDERS: ATTEND Surgery Plastic and Reconstructive Surgery
DX: Z12.11 Encounter for screening for malignant neoplasm of colon (principal); D12.2 Benign neoplasm of ascending colon; K64.8 Other hemorrhoids; Z85.038 Personal history of other malignant neoplasm of large intestine; I48.91 Unspecified atrial fibrillation; E11.9 Type 2 diabetes mellitus without complications; K21.9 Gastro-esophageal reflux disease without esophagitis; K92.2 Gastrointestinal hemorrhage, unspecified; I10 Essential (primary) hypertension; J18.9 Pneumonia, unspecified organism; N28.9 Disorder of kidney and ureter, unspecified; D64.9 Anemia, unspecified; Z98.84 Bariatric surgery status; Z90.89 Acquired absence of other organs; Z98.890 Other specified postprocedural states; Z93.3 Colostomy status; Z87.891 Personal history of nicotine dependence; Z80.0 Family history of malignant neoplasm of digestive organs; Z82.49 Family history of ischemic heart disease and other diseases of the circulatory system; Z79.899 Other long term (current) drug therapy; Z88.5 Allergy status to narcotic agent; Z79.4 Long term (current) use of insulin
CPT/HCPCS: 88305; 45385; J2704